=== PATIENT | male | born 1960 | race Caucasian/White ===

== ENCOUNTER 2023-06-03 02:00 | Emergency (ER) | payer OTHER, SELFPAY ==
--- NOTE | ~2023-06-03 | XR_ITS ---
EXAMINATION: XR LUMBOSACRAL SPINE CLINICAL INFORMATION: Pain COMPARISON: None available. TECHNIQUE: Three views of the lumbosacral spine. FINDINGS: There is mild curvature of the thoracolumbar spine to the left which may be positional. The lateral alignment is normal. There is mild diffuse lumbar disc degenerative change with mild loss of disc space, mild endplate change and mild osteophyte formation. There is mild L4-L5 and L5-S1 facet degenerative change. The vertebral body heights are maintained. There is significant atherosclerotic plaque of the abdominal aorta. XR/XR lumbar spine 2-3V IMPRESSION: Mild diffuse lumbar disc and lower lumbar facet degenerative change. No fracture. There is atherosclerotic plaque of the abdominal aorta.
[2023-06-03 02:05] VITALS: BP 164/84; PULSE 116; RESP 18; TEMP 36.6; O2SAT 96; BMI 43.4
--- NOTE | 2023-06-03 03:01 | ED.BACK ---
HPI - Back Pain/Injury General Chief Complaint: Back Pain/Injury Stated Complaint: Back pain Time Seen by Provider: 06/03/23 03:00 Source: patient Mode of arrival: ambulatory Limitations: no limitations History of Present Illness HPI Narrative: Patient chronic low back pain not taking any medication lately started having right lower back pain when he tried to get up from his bed noticed severe shooting pain in the right lower back shooting to the right lower extremity. History of similar pain few years ago no recent trauma or fall no urinary symptom no fever chills vomiting Related Data Previous Rx's Medication Instructions Recorded cyclobenzaprine 10 mg tablet 10 mg PO Q8H #20 tabs 06/03/23 oxycodone-acetaminophen 5 mg-325 1 tab PO Q6H PRN pain #20 tabs 06/03/23 mg tablet (Percocet) Allergies Allergy/AdvReac Type Severity Reaction Status Date / Time No Known Allergies Allergy Verified 06/03/23 02:05 Review of Systems Review of Systems: Yes all other systems are reviewed and are negative [facility] Past Medical History Medical History (Updated 06/03/23 @ 06:18 by Norman Wong MD) Atrial fibrillation Diabetes mellitus Social History Social History Alcohol intake: never Smoked in Last 30 Days: No Use of substances other than those prescribed or required for medical reasons: No Advance Directives: No Advance Directives Information Provided: Yes Physical Exam Vital Signs: Vital Signs: Last Vital Signs Temp 97.7 F 06/03/23 04:03 Pulse 109 H 06/03/23 04:03 Resp 16 06/03/23 04:03 BP 155/101 H 06/03/23 04:03 Pulse Ox 98 06/03/23 04:03 O2 Del Method Room Air 06/03/23 04:03 BMI result Body Mass Index 43.4 Appearance: Alert. Oriented X3. In moderate distress Eyes: PERRLA, No Nystagmus ENT: Pharynx normal. Oral Mucosa moist Neck: Normal inspection. Neck supple. CVS: Normal heart rate and rhythm. Pulses normal. Respiratory: No respiratory distress. Equal air entry bilateral, no wheezing/rales/rhonchi Abdomen: Soft and nontender. Bowel sounds are present, no mass palpable, no CVA tenderness back: Diffuse lumbar and paralumbar tenderness SLR positive 60 degrees right side Skin: Skin warm and dry. Normal skin color. Normal skin turgor. Extremities: No lower extremity edema. No calf tenderness Neuro: Oriented X 3. No motor deficit. No sensory deficit.No cerebellar signs , cranial nerves II-XII intact Medications Administered Discontinued Medications Generic Name Dose Route Start Last Admin Trade Name Freq PRN Reason Stop Dose Admin Cyclobenzaprine HCl 10 mg 06/03/23 03:31 06/03/23 03:51 Cyclobenzaprine Hcl 10 Mg Tablet PO 06/03/23 03:32 10 mg ONCE ONE Administration Hydromorphone HCl 2 mg 06/03/23 05:36 06/03/23 05:50 Hydromorphone Hcl 2 Mg Tablet PO 06/03/23 05:37 2 mg ONCE ONE Administration Oxycodone HCl 10 mg 06/03/23 03:31 06/03/23 03:51 Oxycodone Hcl Immed Release 5 Mg Tablet PO 06/03/23 03:32 10 mg ONCE ONE Administration Medical Decision Making Medical Decision Making [facility] Narrative: Patient with right sciatica improved after pain medication will discharge patient home Differential Diagnosis Differential Diagnoses: The differential diagnosis associated with the presentation includes Lumbar canal stenosis/compression fracture/Sciatica/muscular pain Prescription Management I considered prescription management with: Pain Medication Discharge Plan Discharge Clinical Impression: Strain of lumbar region, Sciatica Patient Disposition: Home, Self-Care Instructions: Sciatica (ED), Back Pain (ED) Additional Instructions: Rest at home Take pain medication and muscle relaxants as prescribed Follow-up with PCP if not better Prescriptions: New cyclobenzaprine 10 mg tablet 10 mg PO Q8H Qty: 20 0RF oxycodone-acetaminophen [Percocet] 5-325 mg tablet 1 tab PO Q6H PRN (Reason: pain) Qty: 20 0RF Rx Instructions: Partial Fill upon patient request. Interventions: ED Discharge Assessment Last Done: 06/03/23 06:27 Discharge Date/Time: 06/03/23 06:27
[2023-06-03] MEDS: Cyclobenzaprine HCl 10 MG TABLET PO (03:51)
[2023-06-03] MEDS: oxyCODONE HCl Immed Release 5 MG TABLET 10 MG PO (03:51)
[2023-06-03 04:03] VITALS: BP 155/101; PULSE 109; RESP 16; TEMP 36.5; O2SAT 98
[2023-06-03] MEDS: HYDROmorphone HCl 2 MG TABLET PO (05:50)
== END 2023-06-03 06:27 | disposition home or self-care (01) ==
PROVIDERS: Emergency Provider Internal Medicine; PCP Internal Medicine
DX: M54.41 Lumbago with sciatica, right side (principal)
CPT/HCPCS: 72100; 99283; 99284

== ENCOUNTER 2023-06-13 08:37 | Emergency (ER) | payer OTHER, SELFPAY ==
[2023-06-13 08:41] VITALS: BP 168/84; PULSE 76; RESP 16; TEMP 36.7; O2SAT 97; BMI 39.5
--- NOTE | 2023-06-13 09:25 | ED_ITS ---
HPI - General Adult General Chief complaint: General Medical Stated complaint: L Eye Swelling Dental Pain Time Seen by Provider: 06/13/23 09:07 Source: patient Mode of arrival: ambulatory Limitations: no limitations History of Present Illness HPI narrative: 63 year old male with history of dental infections presents to ER for evaluation of 1 day history of left sided tooth pain and left sided facial swelling. Rep orts his tooth has been broken for years and he was following with a dentist before COVID started, has since been lost to follow-up. Reports similar episodes before that have resolved on their own. Reports tooth pain began last night and this morning he woke up with left-sided facial and eyelid swelling. Reports pain control with Tylenol. Reports he also took 1 amoxicillin pill he was prescribed for a previous infection. Denies current tooth pain, acute change in vision, photophobia, pain with eye movement, pain or difficulty swallowing, headaches, fevers, chills. complaint: tooth pain, facial swelling Onset (ago): day(s) Location: face, mouth and eyes Radiation: non-radiation Quality: sharp Pain Consistency: intermittent and now resolved Relieving factors: eating and medication Associated symptoms: denies other symptoms Treatments prior to arrival: other (Tylenol, amoxicillin) Related Data Previous Rx's Medication Instructions Recorded cyclobenzaprine 10 mg tablet 10 mg PO Q8H #20 tabs 06/03/23 oxycodone-acetaminophen 5 mg-325 1 tab PO Q6H PRN pain #20 tabs 06/03/23 mg tablet (Percocet) amoxicillin 875 mg-potassium 1 tab PO BID #20 tabs 06/13/23 clavulanate 125 mg tablet oxycodone 5 mg tablet 5 mg PO Q8H PRN severe pain (scale 06/13/23 score 7-10) #5 tabs Allergies Allergy/AdvReac Type Severity Reaction Status Date / Time No Known Allergies Allergy Verified 06/13/23 08:41 Review of Systems Review of Systems: Yes all other systems are reviewed and are negative [facility] Past Medical History Medical History (Updated 06/13/23 @ 09:26 by GUILLERMINA De La Cruz) Atrial fibrillation Diabetes mellitus Social History Social History Alcohol intake: never Advance Directives: No Advance Directives Information Provided: Yes Physical Exam ED Vital Signs: Vital Signs - 24 hr 06/13/23 08:41 Temperature 98.1 F Pulse Rate 76 Respiratory Rate 16 Blood Pressure 168/84 H Pulse Oximetry 97 Oxygen Delivery Method Room Air BMI result Body Mass Index 39.5 Const General: cooperative, healthy appearing, comfortable and no acute distress Nutritional Appearance: overweight Orientation/consciousness: patient oriented x3 Limitations: no limitations HENMT Head: Yes normal to inspection Ears: hearing grossly normal bilaterally General nose exam: Normal external nose present Face and sinus: No face symmetric (Unilateral maxillary erythema, swelling) and Yes sinus tenderness (Unilateral maxillary sinus tenderness with palpation) Mouth: lip normal, tongue normal, Abnormal oral and palatal mucosa present, no trismus and No restricted motion Teeth and gingiva: caries, gingiva abnormal (Superior left-sided gingival erythema, edema. No fluctuance or abscess.) tender; without any purulent discharge, poor dentition and other (Broken tooth 11, missing teeth, discoloration and decay of teeth.) Throat: Yes posterior oropharynx normal Eyes Visual La: normal visual la by confrontation Periorbital: periorbital findings abnormal (Left-sided erythema and swelling.) Eyelids: Yes eyelid abnormality (Left eyelid erythema, edema.) Pupils: Pupils anisocoria (Long-standing aniscoria from injury as a child.) right pupil size greater than left EOM: EOMs intact bilaterally (No pain with EOM.) Direct Ophthalmoscopy: no photophobia Neck Neck: Yes normal visual inspection Neuro General: patient oriented x3 Medical Decision Making Medical Decision Making [facility]DM Narrative: 63 year old male with history of dental infections presents to ER for evaluation of 1 day history of left sided tooth pain and left sided facial swelling. PE reveals poor dentition, with broken left superior canine tooth, with surrounding gingival erythema and edema, no abscess or fluctuance. Left maxillary sinus and periorbital erythema and edema. EOM intact, no photophobia. CN II-XII intact. Plan: discharge with pain control, Augmentin, follow-up with dentist. Differential Diagnosis Differential Diagnoses: The differential diagnosis associated with the presentation includes Tooth infection, gingival hyperplasia, facial trauma, orbital cellulitis, periorbital cellulitis. External Record Review External record reviewed: Prior outpatient labs Prescription Management I considered prescription management with: Pain Medication and Antibiotic Oxycodone, Augmentin. Critical Care Time Critical Care Time Critical Care Time: No Discharge Plan Discharge Clinical Impression: Dental infection Patient Disposition: Home, Self-Care Instructions: Dental Abscess (ED) Additional Instructions: Take the prescribed antibiotics as directed, complete the entire course and do not miss any doses Continue tylenol around the clock for pain Take the prescribed narcotic pain medication as needed for severe pain only. Do not drive after taking this medication. Use cold compresses on the face as needed for pain and swelling You can try over the counter Orajel or clove oil to the area to help with pain You can also try taking a hot black tea bag to the area, this will help with inflammation Follow up with your dentist as soon as possible If you develop new or worsening symptoms call 911 or come back to the ER for further evaluation. Prescriptions: New amoxicillin-pot clavulanate 875-125 mg tablet 1 tab PO BID Qty: 20 0RF oxycodone 5 mg tablet 5 mg PO Q8H PRN (Reason: severe pain (scale score 7-10)) Qty: 5 0RF Rx Instructions: Partial Fill upon patient request. No Action cyclobenzaprine 10 mg tablet 10 mg PO Q8H Qty: 20 0RF oxycodone-acetaminophen [Percocet] 5-325 mg tablet 1 tab PO Q6H PRN (Reason: pain) Qty: 20 0RF Rx Instructions: Partial Fill upon patient request. Interventions: ED Discharge Assessment Last Done: 06/13/23 09:36 Discharge Date/Time: 06/13/23 09:38
== END 2023-06-13 09:38 | disposition home or self-care (01) ==
PROVIDERS: Emergency Provider Emergency Medicine Emergency Medical Services; PCP Internal Medicine
DX: K04.7 Periapical abscess without sinus (principal)
CPT/HCPCS: 99282; 99283

== ENCOUNTER 2023-06-20 18:47 | Emergency (ER) | payer OTHER, SELFPAY ==
--- NOTE | ~2023-06-20 | XR_ITS ---
EXAMINATION: XR CHEST CLINICAL INFORMATION: Dyspnea on exertion. COMPARISON: None available. TECHNIQUE: 2 views of the chest were obtained. FINDINGS: Normal appearance of the cardiomediastinal silhouette. No focal airspace opacity, pleural effusion or pneumothorax. No acute osseous findings. The visualized upper abdomen is within normal limits. XR/XR chest 2V IMPRESSION: No acute cardiopulmonary findings.
[2023-06-20 19:02] VITALS: BP 164/92; PULSE 80; RESP 18; TEMP 38.1; O2SAT 98; BMI 38.5
--- NOTE | 2023-06-20 19:03 | ED_ITS ---
HPI - General Adult General Chief complaint: Dyspnea Stated complaint: sob Time Seen by Provider: 06/20/23 21:51 Source: patient Mode of arrival: ambulatory Limitations: no limitations History of Present Illness HPI narrative: Patient comes to the emergency room complaining of 2 days of shortness of breath with exertion. Patient denies any coughing, no fever or chills, no URI or UTI symptoms. Patient known to have AFib and takes Eliquis, denies lower extremity edema or calf pain. No chest pain, no shortness of breath at rest, only with exertion. Related Data Previous Rx's Medication Instructions Recorded cyclobenzaprine 10 mg tablet 10 mg PO Q8H #20 tabs 06/03/23 oxycodone-acetaminophen 5 mg-325 1 tab PO Q6H PRN pain #20 tabs 06/03/23 mg tablet (Percocet) amoxicillin 875 mg-potassium 1 tab PO BID #20 tabs 06/13/23 clavulanate 125 mg tablet oxycodone 5 mg tablet 5 mg PO Q8H PRN severe pain (scale 06/13/23 score 7-10) #5 tabs Allergies Allergy/AdvReac Type Severity Reaction Status Date / Time No Known Allergies Allergy Verified 06/13/23 08:41 Review of Systems 2 Review of Systems: Constitutional : No Weight loss, No Fever, No Chills, No Night Sweats, No Fatigue, No Malaise ENT/Mouth : No Hearing loss, No Ear Pain, No Nasal Congestion, No Sinus Pain, No Hoarseness, No sore throat, No Rhinorrhea, No Swallowing Difficulty Eyes: No Eye Pain, No Swelling, No Redness, No Foreign Body, No Discharge, No Vision Changes Cardiovascular : No Chest Pain, complaining of dyspnea on exertion, no orthopnea, no edema or palpitations Respiratory : No Cough, No Sputum, No Wheezing, No Smoke Exposure, complaining of dyspnea on exertion Gastrointestinal : No Nausea, No Vomiting, No Diarrhea, No Constipation, No abdominal Pain, No Hematochezia, No Melena Genitourinary : no irregular bleeding, No Dysuria, No Urinary Frequency, No Hematuria, No Urinary Incontinence, No Urgency, No Flank Pain, No Urinary Flow Changes, No Hesitancy Musculoskeletal : No joint pain, No Myalgias, No Joint Swelling Skin : No Skin Lesions, No rash Neuro : No Weakness, No Numbness, No Paresthesias, No Loss of Consciousness, No Dizziness, No Headache Psych : No Anxiety/Panic, No Depression, No SI/HI/AH/VH, No Social Issues, Heme/Lymph: No Bruising, No Bleeding,No Lymphadenopathy Endocrine : No Polyuria, No Polydipsia, No Temperature Intolerance [facility] Past Medical History Medical History (Updated 06/20/23 @ 23:53 by Imelda Tavares MD) 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 Atrial fibrillation Diabetes mellitus Social History Social History Alcohol intake: never Smoked in Last 30 Days: No Use of substances other than those prescribed or required for medical reasons: No Advance Directives: No Advance Directives Information Provided: No Physical Exam ED Vital Signs: Vital Signs - 24 hr 06/20/23 19:02 06/20/23 22:25 06/20/23 23:10 Temperature 100.6 F H 97.9 F 97.6 F Pulse Rate 80 89 100 Respiratory Rate 18 20 17 Blood Pressure 164/92 H 132/86 130/75 Pulse Oximetry 98 97 98 Oxygen Delivery Method Room Air Room Air Room Air BMI result Body Mass Index 38.5 Const Other: Appearance: Alert. Oriented X3. No acute distress. Eyes: Pupils equal, round and reactive to light. ENT: Pharynx normal. Neck: Normal inspection. Neck supple. No lymph nodes noted. No crepitus CVS: Normal heart rate and rhythm. Pulses normal. Normal S1 and S2 Respiratory: No respiratory distress. Breath sounds normal. No Wheezing. No rales Abdomen: Soft and nontender. No rigidity. No distention. Skin: Skin warm and dry. Normal skin color. Normal skin turgor. Extremities: No lower extremity edema. No Lacerations. No Rash Neuro: Oriented X 3. No motor deficit. No sensory deficit. Moving all extremities. No slurred speech. CN 2 through 12 grossly intact Psych: calm, cooperative, normal affect Course Course Course Narrative: This is a rapid medical exam: Additional HPI, ROS, PE not included below will be deferred to primary provider. Patient is a 63-year-old male with history of T2DM, afib on ELiquis presenting to the emergency department with complain of increased dyspnea on exertion for one week. States he started Trulicity last week, has had nausea since. RN from [facility] called in expect, states patient found to be in afib today. PA wanted patient evaluated for his worsening LUZ. Reports swelling to legs at baseline, denies any recent worsening. Denies chest pain. Denies fevers. Plan: EKG, labs, CXR Medications Administered Discontinued Medications Generic Name Dose Route Start Last Admin Trade Name Kofi PRN Reason Stop Dose Admin Acetaminophen 975 mg 06/20/23 22:13 06/20/23 23:00 Acetaminophen 325 Mg Tablet PO 06/20/23 22:14 Not Given ONCE ONE Sodium Chloride 1,000 mls @ 999 mls/hr 06/20/23 21:59 06/20/23 23:38 Ns IVCONT 06/20/23 22:59 Infused .Q1H1M ONE Infusion Insulin Human Regular 10 unit 06/20/23 22:13 06/20/23 22:35 Insulin Regular, Human 100 Unit/Ml 3 Ml Vial IVPUSH 06/20/23 22:14 10 unit ONCE ONE Administration Medical Decision Making Medical Decision Making [facility] Narrative: My interpretation of labs: Normal white blood cell count, INR 1.1 chemistry shows a creatinine of 3.14, patient known to have chronic kidney disease, back in 2019 creatinine 1.65. Patient diabetic, glucose 442 -patient's troponin and BNP negative -my interpretation of EKG: Atrial flutter, heart rate 113, nonspecific ST changes in V6, QTC 469 -my interpretation of chest x-ray: No infiltrates -COVID and influenza test pending -ambulation trial: Oxygen saturation remained 97% and above -serology test negative for COVID and influenza -temperature was recheck, 97.6 without any medication. Patient does not have fever -giving IV fluids and insulin, blood sugar 304, ready for discharge. Differential Diagnosis Differential Diagnoses: The differential diagnosis associated with the presentation includes (URI, COVID, influenza, hyperglycemia) Admission/Observation Consideration of admission/observation: Escalation of care including admission/observation considered (On arrival, admission was considered given patient's history.) Lab Data [facility] Lab Attestation statement: I reviewed the patient's lab results. 06/20/23 20:00 06/20/23 20:00 Labs: Lab Results 06/20/23 06/20/23 06/20/23 Range/Units 20:00 22:16 22:20 WBC 8.9 (4.8-10.8) X10*3/uL RBC 5.29 (4.60-5.80) X10*6/uL Hgb 13.7 L (14.0-18.0) g/dl Hct 42.5 (42.0-52.0) % MCV 80.3 (80.0-98.0) fL MCH 25.9 L (27.0-33.0) pg MCHC 32.2 (31.0-36.0) g/dl RDW 16.0 (11.0-16.0) % Plt Count 256 (160-400) X10*3/uL MPV 11.5 (9.4-12.4) fL Immature Gran % (Auto) 0.6 H (0.0-0.4) % Neut % (Auto) 75.9 H (45-73) % Lymph % (Auto) 13.8 L (20-40) % Dupage % (Auto) 7.7 (2-11) % Eos % (Auto) 1.3 (0-4) % Baso % (Auto) 0.7 (0-2) % Lymph # (Auto) 1.2 (1.2-4.9) X10*3/uL Dupage # (Auto) 0.7 (0.1-1.2) X10*3/uL Eos # (Auto) 0.1 (0.0-0.4) X10*3/uL Baso # (Auto) 0.1 (0.0-0.2) X10*3/uL Abs Immat Gran (auto) 0.05 H (0.00-0.03) X10*3/uL Absolute Neuts (auto) 6.8 (2.0-8.3) x10*3/uL Absolute Nucleated RBC 0.000 (0.0-0.012) X10*3/uL Nucleated RBC % (auto) 0.0 (0.0-0.2) /100WBC PT 12.9 (11.1-13.3) SEC INR 1.1 (0.9-1.1) Sodium 134 L (135-145) mmol/L Potassium 4.5 (3.3-5.1) mmol/L Chloride 95 L (96-108) mmol/L Carbon Dioxide 24 (22-29) mmol/L Anion Gap 20 (12-20) BUN 46 H (9-16) mg/dL Creatinine 3.14 H (0.5-1.4) mg/dL Estim Creat Clear Calc 32.5 Estimated GFR 20 POC Glucose 389 H* (60-115) mg/dL Random Glucose 442 H* (60-115) mg/dL Calcium 10.1 (8.4-10.2) mg/dL Total Bilirubin 0.5 (0.0-1.0) mg/dL AST 14 (5-37) U/L ALT 10 (0-40) U/L Alkaline Phosphatase 100 (39-117) U/L Troponin I High Sens 8.3 (<3.5-35.0) ng/L B-Natriuretic Peptide 67 (<100) pg/mL Total Protein 7.4 (6.5-8.0) g/dL Albumin 4.1 (3.5-5.0) g/dL COVID-19 (MYCHAL) Negative (Negative) COVID-19 Clin Com See Note Influenza Type A (KYUNG) Negative (Negative) Influenza Type B (KYUNG) Negative (Negative) Influenza A & B Note See Note Independent Interpretation I performed an independent interpretation of an: Plain X-Ray Radiology Impression Discussion of test interpretation with radiology: I have reviewed the radiologist's reading. Radiologist Impression: FINDINGS: Normal appearance of the cardiomediastinal silhouette. No focal airspace opacity, pleural effusion or pneumothorax. No acute osseous findings. The visualized upper abdomen is within normal limits. XR/XR chest 2V IMPRESSION: No acute cardiopulmonary findings. Critical Care Time Critical Care Time Critical Care Time: Yes Total Critical Care Time: 60 Attestation: I have personally provided critical care time. Time includes review of lab data, radiology results, discussion with consultants, and monitoring for potential decompensation. Intervention performed as documented. Discharge Plan Discharge Clinical Impression: Acute hyperglycemia, Acute dyspnea, Chronic kidney disease Patient Disposition: Home, Self-Care Instructions: Diabetic Hyperglycemia (ED), Dyspnea (ED) Additional Instructions: Please follow-up with your primary care physician tomorrow. If you have any worsening or new symptoms, please return to the emergency room or call 911 Prescriptions: No Action amoxicillin-pot clavulanate 875-125 mg tablet 1 tab PO BID Qty: 20 0RF oxycodone 5 mg tablet 5 mg PO Q8H PRN (Reason: severe pain (scale score 7-10)) Qty: 5 0RF Rx Instructions: Partial Fill upon patient request. cyclobenzaprine 10 mg tablet 10 mg PO Q8H Qty: 20 0RF oxycodone-acetaminophen [Percocet] 5-325 mg tablet 1 tab PO Q6H PRN (Reason: pain) Qty: 20 0RF Rx Instructions: Partial Fill upon patient request.
--- NOTE | 2023-06-20 19:06 | ECG_ITS ---
Test Reason : sob Blood Pressure : / mmHG Vent. Rate : 113 BPM Atrial Rate : 339 BPM P-R Int : 000 ms QRS Dur : 090 ms QT Int : 342 ms P-R-T Axes : 000 -24 -09 degrees QTc Int : 469 ms Atrial flutter with variable A-V block Septal infarct , age undetermined ST & T wave abnormality, consider lateral ischemia Abnormal ECG No previous ECGs available Referred By: Irlanda Ledbetter Electronically Signed By:DAHLIA BALLESTEROS
[2023-06-20 20:05] LABS: MANUAL DIFF FLAG NO
[2023-06-20 20:08] LABS: Basophils Absolute Auto 0.1 X10*3/uL (0.0-0.2); Basophils Percent Auto 0.7 % (0-2); Eosinophils Absolute Auto 0.1 X10*3/uL (0.0-0.4); Eosinophils Percent Auto 1.3 % (0-4); Hematocrit 42.5 % (42.0-52.0); Hemoglobin 13.7 g/dl (14.0-18.0); Imm Gran Abs Auto 0.05 X10*3/uL (0.00-0.03); Imm Gran Pct Auto 0.6 % (0.0-0.4); Lymphocytes Absolute Auto 1.2 X10*3/uL (1.2-4.9); Lymphocytes Percent Auto 13.8 % (20-40); Mean Corpuscular HGB Conc 32.2 g/dl (31.0-36.0); Mean Corpuscular Hemoglobin 25.9 pg (27.0-33.0); Mean Corpuscular Volume 80.3 fL (80.0-98.0); Mean Platelet Volume 11.5 fL (9.4-12.4); Monocytes Absolute Auto 0.7 X10*3/uL (0.1-1.2); Monocytes Percent Auto 7.7 % (2-11); Neutrophils Absolute Auto 6.8 x10*3/uL (2.0-8.3); Neutrophils Percent Auto 75.9 % (45-73); Platelet Count 256 X10*3/uL (160-400); Red Blood Count 5.29 X10*6/uL (4.60-5.80); White Blood Count 8.9 X10*3/uL (4.8-10.8)
[2023-06-20 20:25] LABS: Alanine Aminotransferase 10 U/L (0-40); Albumin Level 4.1 g/dL (3.5-5.0); Alkaline Phosphatase 100 U/L (39-117); Anion Gap 20 (12-20); Aspartate Amino Transferase 14 U/L (5-37); Bilirubin Total 0.5 mg/dL (0.0-1.0); Blood Urea Nitrogen 46 mg/dL (9-16); Calcium 10.1 mg/dL (8.4-10.2); Carbon Dioxide 24 mmol/L (22-29); Chloride 95 mmol/L (96-108); Creatinine Clr Calc Pharmacy 32.5; Estimated Glomerular Filt Rate 20; Glucose Random 442 mg/dL (60-115); Potassium 4.5 mmol/L (3.3-5.1); Sodium 134 mmol/L (135-145); Total Protein 7.4 g/dL (6.5-8.0)
[2023-06-20 20:27] LABS: B Type Natriuretic Peptide 67 pg/mL (<100)
[2023-06-20 20:28] LABS: Troponin-I High Sensitivity 8.3 ng/L (<3.5-35.0)
[2023-06-20 20:30] LABS: INTERNATIONAL NORM RATIO 1.1 (0.9-1.1); Prothrombin Time 12.9 SEC (11.1-13.3)
[2023-06-20 22:20] LABS: Glucose, Whole Blood 389 mg/dL (60-115)
[2023-06-20 22:25] VITALS: BP 132/86; PULSE 89; RESP 20; TEMP 36.6; O2SAT 97
[2023-06-20] MEDS: Insulin Regular, Human 100 UNIT/ML 3 ML VIAL 10 UNIT IVPUSH (22:35)
[2023-06-20] MEDS: 0.9 % Sodium Chloride 1,000 ML 999 ML IVCONT (22:37)
[2023-06-20 22:58] LABS: IDNOW Serial# BCCEAD1C; Influenza A Negative (Negative); Influenza B2 Negative (Negative)
[2023-06-20 22:59] LABS: COVID-19 Test Negative (Negative); IDNOW Serial# 08D9AD1C
--- NOTE | 2023-06-20 23:00 | PC.NURSE ---
Addendum entered by Lorenza Tabor 06/20/23 23:25: Pt AOx4, pt speaking in full sentences, no respiratory distress noted, SpO2: 97-100% during ambulation trial. lung sounds clear. Original Note: Pt is afebrile, and denies pain, Tylenol not given.
[2023-06-20 23:10] VITALS: BP 130/75; PULSE 100; RESP 17; TEMP 36.4; O2SAT 98
[2023-06-21 00:14] LABS: Glucose, Whole Blood 304 mg/dL (60-115)
== END 2023-06-21 00:28 | disposition home or self-care (01) ==
PROVIDERS: Registered Nurse Emergency; Emergency Provider Emergency Medicine
DX: R06.02 Shortness of breath (principal); I48.92 Unspecified atrial flutter; I48.91 Unspecified atrial fibrillation; N18.9 Chronic kidney disease, unspecified; Z20.822 Contact with and (suspected) exposure to COVID-19; Z20.828 Contact with and (suspected) exposure to other viral communicable diseases; Z79.01 Long term (current) use of anticoagulants; Z79.899 Other long term (current) drug therapy
CPT/HCPCS: 36415; 71046; 80053; 82947; 83880; 84484; 85025; 85610; 87502; 87635; 93005; 96361; 96374; 99284; 99285

== ENCOUNTER 2023-12-24 02:55 | Emergency (ER) | payer OTHER, SELFPAY ==
[2023-12-24 02:56] VITALS: BP 148/73; PULSE 73; RESP 18; TEMP 36.8; O2SAT 99; BMI 36.6
--- NOTE | 2023-12-24 07:12 | ED_ITS ---
HPI - Dental/Oral General Chief complaint: Dental/Oral Stated complaint: tooth pain Time Seen by Provider: 12/24/23 07:07 Source: patient Mode of arrival: ambulatory Limitations: no limitations History of Present Illness HPI Narrative: 63 yo male with PMH of CKD, DM, HTN, on eliquis but he is not sure why here with L sided lower toothache for 2 days. No fevers, able to open mouth no jaw swelling. Does not have a dentist yet. MD Complaint: tooth pain Location: Tooth # (19) Onset (ago): day(s) (2) Duration: constant Severity: moderate Relieving factors: nothing Exacerbating factors: chewing Context: history of dental caries and poor dental care Associated symptoms: gum swelling Treatment prior to arrival: none Related Data Previous Rx's Medication Instructions Recorded cyclobenzaprine 10 mg tablet 10 mg PO Q8H #20 tabs 06/03/23 oxycodone-acetaminophen 5 mg-325 1 tab PO Q6H PRN pain #20 tabs 06/03/23 mg tablet (Percocet) amoxicillin 875 mg-potassium 1 tab PO BID #20 tabs 06/13/23 clavulanate 125 mg tablet oxycodone 5 mg tablet 5 mg PO Q8H PRN severe pain (scale 06/13/23 score 7-10) #5 tabs amoxicillin 500 mg tablet 500 mg PO BID #14 tabs 12/24/23 Allergies Allergy/AdvReac Type Severity Reaction Status Date / Time No Known Allergies Allergy Verified 12/24/23 02:59 Review of Systems Review of Systems: Constitutional : No Fever, No Chills ENT/Mouth : No swallowing difficulty, no change in voice, positive dental pain, positive jaw pain, no facial swelling Eyes: No Eye Pain, No Swelling Cardiovascular : No Chest Pain, No SOB Respiratory : No Cough, No Sputum Gastrointestinal : No Nausea, No Vomiting, No Diarrhea Genitourinary : No Dysuria Musculoskeletal : No Myalgias Skin : No rash Neuro : No Weakness, No Numbness, No Headache PMFSH Past Medical History Attestation statement: The following information was validated with the patient. Source: old records reviewed Medical History Hx of residential use of blood thinners Atrial fibrillation Diabetes mellitus Social History Social History (Updated 12/24/23 @ 07:19 by Belkis Aguilera DO) Alcohol intake: never Patient Tobacco Use Status: Never used Tobacco Physical Exam Vital Signs: Vital Signs: Last Vital Signs Temp 98.2 F 12/24/23 02:56 Pulse 73 12/24/23 02:56 Resp 18 12/24/23 02:56 BP 148/73 H 12/24/23 02:56 Pulse Ox 99 12/24/23 02:56 O2 Del Method Room Air 12/24/23 02:56 BMI result Body Mass Index 36.6 Appearance: Alert. Oriented X3. No acute distress. Eyes: Pupils equal, round and reactive to light. ENT: Pharynx normal. no trismus no sublingual or submandibular swelling ttp along L lower molar no abscess felt mild gum tttp Neck: Normal inspection. Neck supple. CVS: Normal heart rate and rhythm. Pulses normal. Respiratory: No respiratory distress. Breath sounds normal. Abdomen: Soft and nontender. Skin: Skin warm and dry. Normal skin color. Normal skin turgor. Extremities: No lower extremity edema. Neuro: Oriented X 3. No motor deficit. No sensory deficit. Medical Decision Making Medical Decision Making MDM Narrative: 63 yo male with PMH of CKD, DM, HTN, on eliquis but he is not sure why here with toothache at this time will need oral amoxicilin. He has no sublingual or submandibular swelling and no signs of deeper space infection. He is going to try ot call a dentist. Differential Diagnosis Differential Diagnoses: The differential diagnosis associated with the presentation includes toothace, abscess Admission/Observation Consideration of admission/observation: Escalation of care including admission/observation considered no trismus no acute deeper space infection External Record Review External record reviewed: Prior outpatient labs Prescription Management I considered prescription management with: Antibiotic Discharge Plan Discharge Clinical Impression: Toothache Patient Disposition: Home, Self-Care Instructions: Toothache (ED) Additional Instructions: return for worsening pain, facial swelling, fevers, inability to open jaw or any other concerns. please see a dentist as soon as possible Prescriptions: New amoxicillin 500 mg tablet 500 mg PO BID Qty: 14 0RF No Action amoxicillin-pot clavulanate 875-125 mg tablet 1 tab PO BID Qty: 20 0RF oxycodone 5 mg tablet 5 mg PO Q8H PRN (Reason: severe pain (scale score 7-10)) Qty: 5 0RF Rx Instructions: Partial Fill upon patient request. cyclobenzaprine 10 mg tablet 10 mg PO Q8H Qty: 20 0RF oxycodone-acetaminophen [Percocet] 5-325 mg tablet 1 tab PO Q6H PRN (Reason: pain) Qty: 20 0RF Rx Instructions: Partial Fill upon patient request.
--- NOTE | 2023-12-24 07:13 | PC.NURSE ---
seen by dr. jewell iinicola triage. pt aware of plan of care.
[2023-12-24 07:26] VITALS: BP 155/74; PULSE 54; RESP 16; TEMP 36.3; O2SAT 99
== END 2023-12-24 07:27 | disposition home or self-care (01) ==
PROVIDERS: Emergency Provider Emergency Medicine
DX: K08.89 Other specified disorders of teeth and supporting structures (principal); E11.22 Type 2 diabetes mellitus with diabetic chronic kidney disease; I12.9 Hypertensive chronic kidney disease with stage 1 through stage 4 chronic kidney disease, or unspecified chronic kidney disease; N18.9 Chronic kidney disease, unspecified; I48.91 Unspecified atrial fibrillation; Z79.01 Long term (current) use of anticoagulants
CPT/HCPCS: 99282; 99283

== ENCOUNTER 2024-09-22 12:51 | Emergency (ER) | payer MEDICARE, SELFPAY ==
--- NOTE | ~2024-09-22 | CT_ITS ---
EXAMINATION: CT HEAD WITHOUT CONTRAST CT CERVICAL SPINE WITHOUT CONTRAST CLINICAL INFORMATION: Fall 2 days on anticoagulation COMPARISON: None TECHNIQUE: A noncontrast CT of the head and a noncontrast CT of the cervical spine with sagittal and coronal reformats. This CT examination was performed using dose optimization techniques as appropriate, variously including the following: *Automated exposure control *Adjustment of mA and/or kV according to patient size (this includes techniques or standardized protocols for targeted exams where dose is matched to indication/reason for exam; i.e. extremities or head) *Use of iterative reconstruction technique DLP: 1164 mGy*cm FINDINGS: There is a large right subdural hematoma which appears acute. There is some layering hypodensity at the anterior dependent portion anteriorly which may represent a subacute component. This has mass effect, with approximately 10 mm of midline shift toward the left. There is hyperdense acute subdural hemorrhage along the left inferior falx and left tentorium. Probable very small component along the right tentorium as well. No acute territorial infarct. Preservation of khan-white matter differentiation. No fracture. The mastoid air cells and visualized paranasal sinuses are clear. Normal alignment of the cervical spine. No fracture. No prevertebral soft tissue swelling. Mild to moderate multilevel degenerative disc disease. Prominent degenerative change at the anterior atlantoaxial junction. CT/CT cervical spine wo IV con IMPRESSION: 1. Large acute right subdural hematoma with 10 mm of midline shift toward the left. 2. Acute subdural hemorrhage along the left inferior falx and left tentorium. Probable very small component along the right tentorium as well. 3. No cervical spine fracture or traumatic subluxation. This critical result was discussed with GUILLERMINA Lewis at 6:31 PM on 09/22/2024 and it was ascertained that the content and urgency of the report was understood at the time of direct communication. Electronically signed by: Rodri Casarez MD 09/22/2024 06:45 PM [facility]
--- NOTE | ~2024-09-22 | XR_ITS ---
EXAMINATION: XR HIP, LEFT CLINICAL INFORMATION: Fall fracture? COMPARISON: None available. TECHNIQUE: Two views of the left hip. AP pelvis. FINDINGS: Suboptimal view of the left femoral neck due to external rotation of the lower extremity. No obvious fracture or malalignment. XR/XR hip LT w [id number] IMPRESSION: Limited study due to external rotation. No obvious fracture or malalignment. Electronically signed by: Rodri Casarez MD 09/22/2024 04:39 PM [facility]
[2024-09-22 13:28] VITALS: BP 116/59; PULSE 86; RESP 16; TEMP 36.2; O2SAT 97; BMI 32.7
--- NOTE | 2024-09-22 13:34 | ED_ITS ---
HPI - General Adult General Chief complaint: Extremity Injury, Lower Stated complaint: L hip pain Time Seen by Provider: 09/22/24 14:26 Source: patient and RN notes reviewed Mode of arrival: ambulatory Limitations: no limitations History of Present Illness ED Provider: Denise Nguyen PA-C HPI narrative: This is a 64-year-old male, with a past medical history of CKD, diabetes, hypertension, AFib on Eliquis, who presents emergency department with complaints of left hip pain status post mechanical fall which occurred 2 days ago. Patient states that while he was in his driveway cleaning off his car from the snow, he accidentally slipped and fell on ice and landed onto his left hip, landing on the hard pavement. He states that it took about 10 to 20 minutes to get himself back up due to the pain in his left hip. He denies hitting his head. Denies LOC. He does endorse slight headaches however states that this has been constant since March. He denies any worsening headache, dizziness, blurred vision, chest pain, shortness of breath, abdominal pain, nausea, vomiting or diarrhea. Pain worsens in his left hip with ambulation and with palpation. He has been taking Tylenol for his symptoms which has provided him with minimal relief. Patient reports that he has a chronic right eye problem, states that he fell 3 stories as an infant, and has had problems with his right eye since, no changes to his vision. No other complaints or concerns at this time. MD complaint: Left hip pain Onset (ago): day(s) Location: lower extremity Radiation: non-radiation Pain Consistency: constant Relieving factors: none Exacerbating factors: none Associated symptoms: denies other symptoms Treatments prior to arrival: none Related Data Previous Rx's ?Medication ?Instructions ?Recorded cyclobenzaprine 10 mg tablet 10 mg PO Q8H #20 tabs 06/03/23 oxycodone-acetaminophen 5 mg-325 1 tab PO Q6H PRN pain #20 tabs 06/03/23 mg tablet (Percocet) amoxicillin 875 mg-potassium 1 tab PO BID #20 tabs 06/13/23 clavulanate 125 mg tablet oxycodone 5 mg tablet 5 mg PO Q8H PRN severe pain (scale 06/13/23 score 7-10) #5 tabs amoxicillin 500 mg tablet 500 mg PO BID #14 tabs 03/25/24 Allergies Allergy/AdvReac Type Severity Reaction Status Date / Time No Known Allergies Allergy Verified 09/22/24 13:31 Review of Systems 2 Review of Systems: Yes all other systems are reviewed and are negative Constitutional: Constitutional: Reports as per [facility] Past Medical History Medical History Hx of care home use of blood thinners Atrial fibrillation Diabetes mellitus Social History Social History (Updated 12/24/23 @ 07:19 by Belkis Aguilera DO) Alcohol intake: never Patient Tobacco Use Status: Never used Tobacco Smoked in Last 30 Days: No Advance Directives: No Advance Directives Information Provided: No Do you have a plan to hurt others: No Plan Physical Exam ED Vital Signs: Vital Signs - 24 hr 09/22/24 13:28 09/22/24 16:23 09/22/24 17:30 Temperature 97.1 F 97.8 F Pulse Rate 86 83 67 Respiratory Rate 16 16 18 Blood Pressure 116/59 L 119/78 108/65 Pulse Oximetry 97 99 98 Oxygen Delivery Method Room Air Room Air Room Air 09/22/24 17:39 09/22/24 18:35 09/22/24 19:08 Temperature 98.3 F 98.3 F 98.3 F Pulse Rate 65 66 66 Respiratory Rate 16 14 14 Blood Pressure 103/62 111/69 111/69 Pulse Oximetry 99 98 98 Oxygen Delivery Method Room Air Room Air Room Air BMI result Body Mass Index 32.7 Const General: cooperative, comfortable and no acute distress Orientation/consciousness: patient oriented x3 Limitations: no limitations [facility] Head: Yes normal to inspection, Yes normocephalic and Yes atraumatic Ears: hearing grossly normal bilaterally General nose exam: Normal external nose present Face and sinus: Yes normal facial exam Mouth: Normal oral and palatal mucosa present, oropharynx normal and moist mucous membranes Throat: Yes posterior oropharynx normal Eyes Other: Right eye, with patient reported chronic pupillary defect, nonreactive - dilated, he does report he is able to see out of this eye, no changes. General: appearance normal, both eyes and all related structures Eyelids: Yes eyelids normal Conjunctivae: conjunctivae normal Sclerae: sclerae normal EOM: EOMs intact bilaterally Neck Neck: Yes normal visual inspection, Yes full ROM and Yes no lymphadenopathy Lymphatic: no lymphadenopathy noted Chest Chest palpation & inspection: normal inspection of the chest Resp Effort & Inspection: normal respiratory effort and able to speak in complete sentences Auscultation: clear to auscultation bilaterally, no crackles, no rales, no rhonchi and no wheezes Cardio Rate: regular rate Rhythm: regular rhythm Heart sounds: S1 normal heart sound present and S2 normal heart sound present GI Inspection: Yes normal to inspection Skin General skin exam: no rashes or lesions noted Trauma: no lacerations or abrasions Wounds: no wounds Neuro Other: Right chronic pupillary defect. General: patient oriented x3 and moves all extremities Cranial nerves: Yes Nystagmus not present and Yes Midline tongue present Cognition (Neuro): normal cognition Gait exam (Neuro): Normal gait present Motor exam (neuro): 5/5 motor strength present throughout, Pronator motor function not present, no tremor noted and Motor fasciculations not present Coordination: xskihz-oy-xrbh test normal and uzic-ol-pzsy test normal Romberg Test: Negative Pupils: Normal pupillary reactivity/response: left and Dilated: right (Chronic per patient, decreased pupillary response) Extrem Other: TTP to left hip, no bony step off or defomity, no ecchymosis, no palpable masses. General: Yes normal to inspection Right upper extremity: normal to inspection Left upper extremity: normal to inspection Right lower extremity: normal to inspection Left lower extremity: normal to inspection Course Course Course Narrative: RME; 64 yold male presents to the ED for Left hip pain after falling unto left hip on ice on Sunday. Patient states bulge on left hip since fall. PCP referred patient to the ED. Patient will be evaluated in the ED. Xrays ordered Reevaluation(s) Reevaluation #1: CT scan concerning for subdural hemorrhage official report not posted, discussed this with Dr. Marcelino, who saw patient. Of note, patient does report that he has been taking aspirin for his headache since May. It is unclear whether not this mechanical fall without head strike was the source of this bleed or aspirin usage. Called over to [facility], spoke to Dr. Lomeli, who recommends [facility]. Discussed with Dr. Marcelino, agrees with plan. Transfer of care initiated for ED to ED transfer with trauma consult. Time: 16:58 Reevaluation #2: Received call from [facility], reporting acute subdural hemorrhage, with 1 cm midline shift, there is some layering, this can be subacute however positive CT report. Patient is in the process of being transferred to [facility], awaiting EMS transport Time: 18:33 Medications Administered Discontinued Medications Generic Name Dose Route Start Last Admin Trade Name Kofi PRN Reason Stop Dose Admin Prothrombin Complex Concent ( 80 mls @ 480 mls/hr 09/22/24 16:49 09/22/24 17:39 Human) 2,000 unit/ IV IV 09/22/24 16:58 Infused Miscellaneous Supplies .Q10M ONE Infusion Medical Decision Making Medical Decision Making MDM Narrative: This is a 64-year-old old male who presents emergency department with concerns for left hip pain status post mechanical fall. On arrival, vital signs within normal limits. He is neurologically intact. Patient has obvious pupillary right defect, which patient states is chronic for him however this is nonreactive, and he is on Eliquis. Given this, will obtain CT head to rule out any intracranial hemorrhage/hematoma. X-ray of the left hip was ordered, he has no palpable masses or deformity noted on physical examination. He is neurologically intact however does have a right pupillary defect. Given anticoagulated with fall, CT scan was ordered. He is neurologically intact. GCS of 15. Plan: CT head, neck, left hip x-ray Differential Diagnosis Differential Diagnoses: The differential diagnosis associated with the presentation includes Fracture, contusion, ICH, SDH, cervical spine fracture Lab Data 09/22/24 17:05 09/22/24 17:05 Labs: Lab Results 09/22/24 Range/Units 17:05 WBC 9.0 (4.8-10.8) X10*3/uL RBC 4.03 L D (4.60-5.80) X10*6/uL Hgb 10.7 L D (14.0-18.0) g/dl Hct 33.7 L D (42.0-52.0) % MCV 83.6 (80.0-98.0) fL MCH 26.6 L (27.0-33.0) pg MCHC 31.8 (31.0-36.0) g/dl RDW 18.0 H (11.0-16.0) % Plt Count 249 (160-400) X10*3/uL MPV 10.8 (9.4-12.4) fL Immature Gran % (Auto) 1.1 H (0.0-0.4) % Neut % (Auto) 79.7 H (45-73) % Lymph % (Auto) 10.6 L (20-40) % [place] % (Auto) 6.0 (2-11) % Eos % (Auto) 2.0 (0-4) % Baso % (Auto) 0.6 (0-2) % Lymph # (Auto) 1.0 L (1.2-4.9) X10*3/uL [place] # (Auto) 0.5 (0.1-1.2) X10*3/uL Eos # (Auto) 0.2 (0.0-0.4) X10*3/uL Baso # (Auto) 0.1 (0.0-0.2) X10*3/uL Abs Immat Gran (auto) 0.10 H (0.00-0.03) X10*3/uL Absolute Neuts (auto) 7.2 (2.0-8.3) x10*3/uL Absolute Nucleated RBC 0.000 (0.0-0.012) X10*3/uL Nucleated RBC % (auto) 0.0 (0.0-0.2) /100WBC PT 12.6 H (10.9-12.4) SEC INR 1.1 (0.9-1.1) APTT 29.3 (26.0-36.8) SEC Sodium 138 (135-145) mmol/L Potassium 5.8 H (3.3-5.1) mmol/L Chloride 109 H (96-108) mmol/L Carbon Dioxide 19 L (22-29) mmol/L Anion Gap 16 (12-20) BUN 87 H (9-16) mg/dL Creatinine 3.01 H (0.5-1.4) mg/dL Estim Creat Clear Calc 32.6 Estimated GFR 21 Random Glucose 332 H (60-115) mg/dL Calcium 9.0 D (8.4-10.2) mg/dL Total Bilirubin 0.2 (0.0-1.0) mg/dL AST 22 (5-37) U/L ALT 16 (0-40) U/L Alkaline Phosphatase 83 (39-117) U/L Total Protein 7.0 (6.5-8.0) g/dL Albumin 3.9 (3.5-5.0) g/dL Chronic Conditions Patient?s care impacted by: Other (AFib on Eliquis) Critical Care Time Critical Care Time Critical Care Time: Yes Total Critical Care Time: 50 Attestation: I have personally provided critical care time exclusive of time spent on separately billable procedures. Time includes review of lab data, radiology results, discussion with consultants, and monitoring for potential decompensation. Intervention performed as documented. Discharge Plan Discharge Clinical Impression: Subdural hemorrhage Patient Disposition: [facility] Transfer Details: ED to ED trauma consult, Dr. Lomeli Prescriptions: No Action amoxicillin-pot clavulanate 875-125 mg tablet 1 tab PO BID Qty: 20 0RF oxycodone 5 mg tablet 5 mg PO Q8H PRN (Reason: severe pain (scale score 7-10)) Qty: 5 0RF Rx Instructions: Partial Fill upon patient request. amoxicillin 500 mg tablet 500 mg PO BID Qty: 14 0RF cyclobenzaprine 10 mg tablet 10 mg PO Q8H Qty: 20 0RF oxycodone-acetaminophen [Percocet] 5-325 mg tablet 1 tab PO Q6H PRN (Reason: pain) Qty: 20 0RF Rx Instructions: Partial Fill upon patient request. Interventions: Acute Care Transfer Worksheet (ED) Last Done: 09/22/24 19:08 Discharge Date/Time: 09/22/24 19:09 Print Language: Georgian
[2024-09-22 16:23] VITALS: BP 119/78; PULSE 83; RESP 16; TEMP 36.6; O2SAT 99
[2024-09-22 17:08] LABS: MANUAL DIFF FLAG NO
[2024-09-22 17:19] LABS: INTERNATIONAL NORM RATIO 1.1 (0.9-1.1); Prothrombin Time 12.6 SEC (10.9-12.4)
[2024-09-22 17:21] LABS: Partial Thromboplastin Time 29.3 SEC (26.0-36.8)
[2024-09-22 17:24] LABS: Alanine Aminotransferase 16 U/L (0-40); Albumin Level 3.9 g/dL (3.5-5.0); Alkaline Phosphatase 83 U/L (39-117); Anion Gap 16 (12-20); Aspartate Amino Transferase 22 U/L (5-37); Bilirubin Total 0.2 mg/dL (0.0-1.0); Blood Urea Nitrogen 87 mg/dL (9-16); Carbon Dioxide 19 mmol/L (22-29); Chloride 109 mmol/L (96-108); Creatinine Clr Calc Pharmacy 32.6; Estimated Glomerular Filt Rate 21; Glucose Random 332 mg/dL (60-115); Potassium 5.8 mmol/L (3.3-5.1); Sodium 138 mmol/L (135-145)
[2024-09-22] MEDS: Hum Prothrombin Cplx(PCC)4Fact 2,000 UNIT in Container,Empty 0 ML 480 UNIT IV (17:29)
[2024-09-22 17:30] VITALS: BP 108/65; PULSE 67; RESP 18; O2SAT 98
--- NOTE | 2024-09-22 17:32 | PC.NURSE ---
patient a&ox3, iv inserted, labs drawn, pvc monitor applied pt a-flutter 60s-70s, pt denying pain/discomfort. pt previously had ct scan- pt being medicated per order at this time, pt is ? transfer to [facility]-pt aware.
[2024-09-22 17:36] LABS: Basophils Absolute Auto 0.1 X10*3/uL (0.0-0.2); Basophils Percent Auto 0.6 % (0-2); Eosinophils Absolute Auto 0.2 X10*3/uL (0.0-0.4); Hematocrit 33.7 % (42.0-52.0); Hemoglobin 10.7 g/dl (14.0-18.0); Imm Gran Pct Auto 1.1 % (0.0-0.4); Lymphocytes Percent Auto 10.6 % (20-40); Mean Corpuscular HGB Conc 31.8 g/dl (31.0-36.0); Mean Corpuscular Hemoglobin 26.6 pg (27.0-33.0); Mean Corpuscular Volume 83.6 fL (80.0-98.0); Mean Platelet Volume 10.8 fL (9.4-12.4); Monocytes Absolute Auto 0.5 X10*3/uL (0.1-1.2); Neutrophils Absolute Auto 7.2 x10*3/uL (2.0-8.3); Neutrophils Percent Auto 79.7 % (45-73); Platelet Count 249 X10*3/uL (160-400); Red Blood Count 4.03 X10*6/uL (4.60-5.80)
[2024-09-22 17:39] VITALS: BP 103/62; PULSE 65; RESP 16; TEMP 36.8; O2SAT 99
--- NOTE | 2024-09-22 18:33 | PC.NURSE ---
EMS to transfer pt to [facility] for further eval and tx
[2024-09-22 18:35] VITALS: BP 111/69; PULSE 66; RESP 14; TEMP 36.8; O2SAT 98
--- NOTE | 2024-09-22 18:53 | PC.NURSE ---
attempted to give nurse report to [facility]- was disconnected x2
[2024-09-22 19:08] VITALS: BP 111/69; PULSE 66; RESP 14; TEMP 36.8; O2SAT 98
== END 2024-09-22 19:09 | disposition short-term general hospital (02) ==
PROVIDERS: Physician Assistant Medical; Emergency Provider Emergency Medicine; PCP Internal Medicine
DX: S06.5X0A Traumatic subdural hemorrhage without loss of consciousness, initial encounter (principal); W00.0XXA Fall on same level due to ice and snow, initial encounter; M25.552 Pain in left hip; E11.22 Type 2 diabetes mellitus with diabetic chronic kidney disease; I12.9 Hypertensive chronic kidney disease with stage 1 through stage 4 chronic kidney disease, or unspecified chronic kidney disease; N18.9 Chronic kidney disease, unspecified; I48.91 Unspecified atrial fibrillation; Z79.01 Long term (current) use of anticoagulants; Z79.82 Long term (current) use of aspirin; Y93.89 Activity, other specified; Y92.014 Private driveway to single-family (private) house as the place of occurrence of the external cause; Y99.9 Unspecified external cause status
CPT/HCPCS: 36415; 70450; 72125; 73502; 80053; 85025; 85610; 85730; 96374; 99285; J7168

== ENCOUNTER 2024-11-12 11:39 | Emergency (ER) | payer MEDICARE, SELFPAY ==
--- NOTE | ~2024-11-12 | XR_ITS ---
EXAMINATION: XR FOREARM, RIGHT CLINICAL INFORMATION: fall , pain. COMPARISON: Hand and wrist x-ray performed concurrently. TECHNIQUE: AP and lateral views of the right forearm were obtained. FINDINGS: Comminuted, impacted, intra-articular, volar displaced distal radial fracture with no significant angulation. Otherwise, no additional fractures. No elbow joint effusion. Mild arthritis in the elbow joint with a small olecranon spur and mild spurring of the coronoid. Soft tissue swelling about the wrist. There are diffuse vascular calcifications. XR/XR forearm RT 2V IMPRESSION: Comminuted, impacted, intra-articular, volar displaced distal radial fracture with no significant angulation. No more proximal fracture. Elbow intact. Electronically signed by: Abraham Calvert MD 11/12/2024 12:39 PM [facility]
--- NOTE | ~2024-11-12 | XR_ITS ---
CLINICAL HISTORY: post reduction 2 view right wrist Comparison: CR/SR - XR FOREARM RT 2V - 11/12/24 12:33 EST Findings: Impacted comminuted intra-articular distal right radial fracture, mildly angulated and displaced. Impression: Impacted comminuted intra-articular distal right radial fracture. This document has been electronically signed by: Tr Castro MD on 11/12/2024 18:15:10
--- NOTE | ~2024-11-12 | XR_ITS ---
EXAMINATION: XR HAND, RIGHT CLINICAL INFORMATION: fall COMPARISON: None available. TECHNIQUE: PA, lateral, and oblique views of the right hand. FINDINGS: Lateral view is slightly suboptimal due to rotation. Comminuted, intra-articular fracture of the distal radial metaphysis, with approximately 13 mm of impaction, no significant angulation, and approximately 1.1 cm of volar displacement of distal fragments. No additional fractures evident. Carpal bones intact and normally aligned. Mild joint space loss and mild spurring second and third MCP joints. Mild arthritis in the distal interphalangeal joints. Mild to moderate arthritis in the first CMC joint and STT joints. There is soft tissue swelling about the wrist. There are vascular calcifications present. XR/XR hand RT min 3V IMPRESSION: Comminuted, impacted, intra-articular, volar displaced distal radial fracture with no significant angulation. Electronically signed by: Abraham Calvert MD 11/12/2024 12:38 PM [facility]
[2024-11-12 12:10] VITALS: BP 114/49; PULSE 52; RESP 20; TEMP 36.4; O2SAT 99; BMI 35.0
--- NOTE | 2024-11-12 16:17 | ED_ITS ---
HPI - General Adult General Chief complaint: Fall Stated complaint: ? Broken Ribs Fall 11/12/24 Time Seen by Provider: 11/12/24 16:17 History of Present Illness ED Provider: Ryland TAYLOR narrative: Patient is a 64-year-old male who slipped and fell injuring his right wrist. He denies any other injuries. he did not hit his head. He says he is not on any Anticoagulation. Related Data Previous Rx's ?Medication ?Instructions ?Recorded cyclobenzaprine 10 mg tablet 10 mg PO Q8H #20 tabs 06/03/23 oxycodone-acetaminophen 5 mg-325 1 tab PO Q6H PRN pain #20 tabs 06/03/23 mg tablet (Percocet) amoxicillin 875 mg-potassium 1 tab PO BID #20 tabs 06/13/23 clavulanate 125 mg tablet oxycodone 5 mg tablet 5 mg PO Q8H PRN severe pain (scale 06/13/23 score 7-10) #5 tabs amoxicillin 500 mg tablet 500 mg PO BID #14 tabs 12/24/23 morphine 15 mg immediate release 15 mg PO Q6H PRN pain #14 tabs 11/12/24 tablet Allergies Allergy/AdvReac Type Severity Reaction Status Date / Time No Known Allergies Allergy Verified 11/12/24 12:13 Review of Systems Review of Systems: Yes all other systems are reviewed and are negative COUNTS INCLUDE 234 BEDS AT THE [facility] Past Medical History Medical History Hx of fpc use of blood thinners Atrial fibrillation Diabetes mellitus Social History Social History (Updated 12/24/23 @ 07:19 by Belkis Aguilera DO) Alcohol intake: never Patient Tobacco Use Status: Never used Tobacco Advance Directives: No Advance Directives Information Provided: Yes Do you have a plan to hurt others: No Plan Physical Exam ED Vital Signs: Vital Signs - 24 hr 11/12/24 18:49 11/12/24 19:33 Temperature 97.6 F 97.6 F Pulse Rate 67 67 Respiratory Rate 20 20 Blood Pressure 122/72 122/72 Pulse Oximetry 98 98 Oxygen Delivery Method Room Air Room Air BMI result Body Mass Index 35.0 Const Other: The patient is sparks 64-year-old male who is awake and alert, pleasant cooperative. HENMT Other: No signs of trauma to the head or the face. Eyes General: appearance normal, both eyes and all related structures Neck Other: No C-spine tenderness, moving his neck easily, C-spine clinically clear Resp Effort & Inspection: normal respiratory effort Auscultation: clear to auscultation bilaterally Cardio Rate: regular rate Rhythm: regular rhythm Heart sounds: S1 normal heart sound present and S2 normal heart sound present Skin Other: the skin of the right wrist and hand is intact. Neuro Other: the patient is awake and alert with normal mental status. He has intact sensation in the fingers the right hand and can wiggle the fingers except as limited by pain Extrem Other: the patient has a fair amount of swelling and tenderness at the right wrist. The swelling obscures the nature of the deformity. Medications Administered Discontinued Medications Generic Name Dose Route Start Last Admin Trade Name Freq PRN Reason Stop Dose Admin Bupivacaine HCl 10 ml 11/12/24 16:32 11/12/24 19:05 Bupivacaine Mpf 0.25 % 10 Ml Vial INFILTRATI 11/12/24 16:33 10 ml ONCE ONE Administration Procedures Orthopedic Fracture Reduction Fracture #1: Side: right Fracture Reduction Location: radius Analgesia: hematoma block Technique: finger traps (Kerlex gauze used in lieu of finger traps to suspend the right index and middle finger with weights at the elbow) Post Reduction X-rays Demonstrate: other ( possible slight improvement in the fracture architecture. Adequate for outpatient follow-up.) Post-reduction neuro exam: intact Post-reduction vascular exam: intact Splint Applied: Yes Patient Tolerated Procedure: well and no complications Orthopedic Splinting/Casting Injury #1: Side: right Upper Extremity Injury Location: wrist Upper Extremity Immobilizer: sugar tong splint Additional Comments: Sugar-tong splint applied with cast padding, Ortho Glass, and Solo bandages. Patient tolerated application of the splint well and remained neurovascularly intact. he was given a sling. Medical Decision Making Medical Decision Making MDM Narrative: The patient is a 64-year-old male on no anticoagulation who slipped and fell and sustained an injury to his right wrist when he tried to break his fall. This seems to be an isolated injury. The hand is neurovascularly intact. An x- ray shows a comminuted, impacted, intra-articular, volar displaced distal radial fracture with no significant angulation. given the volar displacement and the impaction I hoped to reduce the deformity of the injury. Under sterile conditions I placed a hematoma block to the fracture site after evaluating the dorsum of the wrist by ultrasound and palpation to determine where I thought the fracture hematoma was. I then prepped the skin with Betadine and injected 10 mL of 0.25% bupivacaine under sterile conditions using a 21 gauge needle. I aspirated blood from the fracture hematoma and then injected the anesthetic. This provided adequate pain control to allow for the right arm to be hung at the index and middle fingers with weights at the elbow. After I felt this had provided some improved alignment of the fracture the patient was placed in a sugar-tong splint with cast padding, ortho glass, and Solo bandages. A postreduction x-ray was obtained which I thought showed possibly some slight improvement in the overall architecture the fracture. Images reviewed with the [facility] manager orthopedic coverage. Plan will be for outpatient follow-up in approximately 1 week. The patient was told that he might require surgery. He was given a sling. He was advised to keep the wrist elevated. He was provided with a prescription for morphine tablets as needed for pain. Discharge Plan Discharge Clinical Impression: Closed fracture of right distal radius Patient Disposition: Home, Self-Care Instructions: Wrist Fracture in Adults (ED) Additional Instructions: You have a fracture of the distal radius bone at the right wrist. You have been placed in a splint. Please use the sling to help keep the wrist elevated. Try to keep the wrist elevated to the level of your heart or higher. This will reduce swelling and pain. Please contact the orthopedic office in the morning. They will probably give you an appointment later this week or next week for re-evaluation and next recommendations. For pain control you may use acetaminophen (Tylenol). Take 2 extra-strength tablets (500 mg each) together up to 3 times per day. Additionally I have sent a prescription for morphine tablets to your pharmacy. Again keeping the wrist elevated we will reduce swelling and this will reduce pain. Return to the emergency room if any acute problems. Prescriptions: New morphine 15 mg tablet 15 mg PO Q6H PRN (Reason: pain) Qty: 14 0RF Rx Instructions: Partial Fill upon patient request. No Action amoxicillin-pot clavulanate 875-125 mg tablet 1 tab PO BID Qty: 20 0RF oxycodone 5 mg tablet 5 mg PO Q8H PRN (Reason: severe pain (scale score 7-10)) Qty: 5 0RF Rx Instructions: Partial Fill upon patient request. amoxicillin 500 mg tablet 500 mg PO BID Qty: 14 0RF cyclobenzaprine 10 mg tablet 10 mg PO Q8H Qty: 20 0RF oxycodone-acetaminophen [Percocet] 5-325 mg tablet 1 tab PO Q6H PRN (Reason: pain) Qty: 20 0RF Rx Instructions: Partial Fill upon patient request. Referrals: [facility] [place] [facility] [Provider Group] (Right wrist fracture) Interventions: ED Discharge Assessment Last Done: 11/12/24 19:33 Discharge Date/Time: 11/12/24 19:33 Print Language: Macedonian
--- OUTSIDE RECORDS SUMMARY | 2024-11-12 16:50 | XMS_ITS | Clinical Summary ---
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 Do not modify or discontinue any currently active code status orders. * No CPR/Do Not Intubate Date Activated Date Inactivated Comments 09/27/2024 3:29 PM 09/29/2024 12:06 PM This code status was ascertained in the following way: Code status discussion: discussion with patient To update the patient's code status, place a code status order. Do not modify or discontinue any currently active code status orders. Care Teams Engineering Consultant Relationship Specialty Start Date End Date Quinn Jarrett MD [address] [phone] PCP - General Internal Medicine 09/29/24
--- OUTSIDE RECORDS SUMMARY | 2024-11-12 16:50 | XMS_ITS | Continuity of Care Document ---
Author Organization [facility] ter Address [address] [place] [id number]- Care Team Providers Care Scheduling Analyst Name Role Phone Kolby GUIDRY, Quinn Davies Primary Care Physician [phone] Encounter [facility] Date(s): 10/08/24 - 10/13/[address] [address] Encounter Diagnosis Acute on chronic intracranial subdural hematoma(Final) - 10/08/24 Discharge Disposition: A-D/C Home Attending Physician: Chrystal Dennis MD Admitting Physician: Chrystal Dennis MD Referring Physician: Not on Staff, Referring MD Encounter Type: Disch IP Allergies, Adverse Reactions, Alerts No Known Allergies Immunizations Given and Recorded Vaccine Date Status Refusal Reason influenza virus vaccine, inactivated 08/20/24 Leonard rded influenza virus vaccine, inactivated 10/17/23 Leonard rded influenza virus vaccine, inactivated 07/12/21 Leonard rded influenza virus vaccine, inactivated 07/23/20 Leonard rded influenza virus vaccine, inactivated 07/10/19 Leonard rded influenza virus vaccine, inactivated 07/08/18 Leonard rded influenza virus vaccine, inactivated 07/04/17 Leonard rded influenza virus vaccine, inactivated 09/09/16 Leonard rded influenza virus vaccine, inactivated 06/11/15 Leonard rded influenza virus vaccine, inactivated 07/16/14 Leonard rded influenza virus vaccine, inactivated 07/01/13 Leonard rded influenza virus vaccine, inactivated 09/13/12 Leonard rded influenza virus vaccine, inactivated 06/12/12 Leonard rded influenza virus vaccine, inactivated 06/14/11 Leonard rded influenza virus vaccine, inactivated 06/07/10 Leonard rded SARS-CoV-2(COVID-19)mRNA-LNP vac(eed626) 08/20/24 Recorded tetanus-diphtheria toxoids (Td) 05/09/22 Recorded tetanus-diphtheria toxoids (Td) 12/12/05 Recorded SARS-CoV-2 (COVID-19) mRNA-1273 vaccine 01/14/21 R ecorded SARS-CoV-2 (COVID-19) mRNA-1273 vaccine 12/15/20 R ecorded tetanus/diphtheria/pertussis, acel(Tdap) 05/09/11 Recorded pneumococcal 23-valent vaccine 07/07/08 Recorded pneumococcal 23-valent vaccine 01/28/07 Recorded Medications allopurinol 300 mg oral tablet 300 mg, 1, tablet, By Mouth, Daily, Refills 0, Maintenance, 09/23/24 7:03:00 AM EST, Partial fill upon patient request if the prescription is for a schedule II opioid drug. Start Date: 09/23/24 Status: Ordered Repeat number: 1 atorvastatin 80 mg oral tablet 1 tablet = 80 mg, By Mouth, Daily Start Date: 09/23/24 Status: Ordered Repeat number: 1 DilTIAZem (Eqv-Cardizem CD) 360 mg/24 hours oral capsule, extended release 1 capsule = 360 mg, By Mouth, Daily Start Date: 09/23/24 Status: Ordered Repeat number: 1 diltiazem 180 mg/24 hours oral capsule, extended release 360 mg, CD Capsule, By Mouth, Hold for: HR less than 60, 10/13/24 9:00:00 AM EST Start Date: 10/13/24 Stop Date: 10/13/24 Status: Completed Repeat number: 1 furosemide 40 mg oral tablet 40 mg, 1, tablet, By Mouth, 2 times a day, Refills 0, Maintenance, 09/23/24 7:03:00 AM EST, Partialfill upon patient request if the prescription is for a schedule II opioid drug. Start Date: 09/23/24 Status: Ordered Repeat number: 1 Insulin Glargine Solostar Pen 100 units/mL subcutaneous solution = 24 units, Subcutaneous Infusion, Daily, # 15 mL, 0 Refills, Maintenance, 10/13/24 1:32:00 PM EST, [facility], Partial fill upon patient request if the prescription is for a schedule IIopioid drug., 183, cm, 10/13/24 5:14:00 EST, Height, 116, kg, 10/09/24 6:57:00 EST, Dry Weight Start Date: 10/13/24 Stop Date: 11/12/24 Status: Ordered Quantity: 15.0 Unit: mL Repeat number: 1 Insulin Lispro KwikPen 100 units/mL injectable solution See Instructions, Subcutaneous Injection 3 times a day before meals. 100 - 149 7 units 150 - 199 9 units 200 - 249 11 units 250 - 299 13 units 300 - 349 15 units 350 - 399 17 units follow-up with your PCP or endocrine specialist for further management, # 15 mL, 0 Refills, Maintenance, 10/13/24 1:35:00 PM EST, [facility], Partial fill upon patient request if the prescription is for a schedule II opioid drug., 183, cm, 10/13/24 5:14:00 EST, Height, 116, kg, 10/09/24 6:57:00 EST, Dry Weight Start Date: 10/13/24 Status: Ordered Quantity: 15.0 Unit: mL Repeat number: 1 lisinopril 40 mg oral tablet 1 tablet = 40 mg, By Mouth, Daily, 0 Refills, Maintenance, 09/23/24 7:03:00 AM EST, Partial fill upon patient request if the prescription is for a schedule II opioid drug. Start Date: 09/23/24 Status: Ordered Repeat number: 1 metolazone 5 mg oral tablet 5 mg, 1, tablet, By Mouth, 2 times a day, Refills 0, Maintenance, 09/23/24 7:03:00 AM EST, Partial fill upon patient request if the prescription is for a schedule II opioid drug. Start Date: 09/23/24 Status: Ordered Repeat number: 1 metoprolol 25 mg oral tablet 75 mg, Tablet, By Mouth, Hold for: HR less than 60, 10/13/24 9:00:00 AM EST Start Date: 10/13/24 Stop Date: 10/13/24 Status: Completed Repeat number: 1 Metoprolol Tartrate 75 mg oral tablet 1 tablet = 75 mg, By Mouth, 2 times a day Start Date: 09/23/24 Status: Ordered Repeat number: 1 oxyCODONE 5 mg oral tablet 5 mg, By Mouth, Every 6 hours, PRN, for 2 days, # 8 tablet, Refills 0, Tot. Refills 0, Acute 10/15/24 1:54:00 PM EST, Pain , Moderate, 10/13/24 1:54:00 PM EST, Route to Pharmacy Electronically, [facility], Partial fill upon patient request if the prescription is for a schedule II opioiddrug., 183, cm, 10/13/24 5:14:00 EST, Height, 116, kg, 10/09/24 6:57:00 EST, Dry Weight Start Date: 10/13/24 Stop Date: 10/15/24 Status: Ordered Quantity: 8.0 Unit: tablet Repeat number: 1 oxyCODONE 5 mg oral tablet 5 mg, Tablet, By Mouth, Every 6 hours, PRN for Pain , Moderate, Routine, 10/09/24 2:24:00 AM EST Start Date: 10/09/24 Stop Date: 10/14/24 Status: Discontinued Repeat number: 1 pantoprazole 40 mg oral delayed release tablet 1 tablet = 40 mg, By Mouth, Daily, 0 Refills, Maintenance, 09/23/24 7:03:00 AM EST Start Date: 09/23/24 Status: Ordered Repeat number: 1 Pen Avery, 31 G x 5 mm BD Ultra Fine III See Instructions, # 100 each, Refills 5, Tot. Refills 5, Maintenance, use as directed for Type 2 Diabetes Mellitus, 10/13/24 1:37:00 PM EST, Supply, 183, cm, 10/13/24 5:14:00 EST, Height, 116, kg, 10/09/24 6:57:00 EST, Dry Weight Start Date: 10/13/24 Stop Date: 04/11/25 Status: Ordered Quantity: 100.0 Unit: each Repeat number: 6 tranexamic acid 650 mg oral tablet = 650 mg, By Mouth, Daily, # 16 tablet, 0 Refills, Maintenance, 10/13/24 1:54:00 PM EST, Tablet, [facility], Partial fill upon patient request if the prescription is for a schedule II opioid drug., 183, cm, 10/13/24 5:14:00 EST, Height, 116, kg, 10/09/24 6:57:00 EST, Dry Weight Start Date: 10/13/24 Stop Date: 10/29/24 Status: Ordered Quantity: 16.0 Unit: tablet Repeat number: 1 Trulicity Pen 4.5 mg/0.5 mL subcutaneous solution = 4.5 mg, Subcutaneous Injection, Every week, INJECT 4.5MG SUBCUTANEOUSLY ONCE WEEKLY Start Date: 09/23/24 Status: Ordered Repeat number: 1 Tylenol 325 mg oral tablet 650 mg, By Mouth, Every 4 hours, PRN, Refills 0, Maintenance, Headache, 09/27/24 9:10:00 AM EST, Partial fill upon patient request if the prescription is for a schedule II opioid drug. Start Date: 09/27/24 Status: Ordered Repeat number: 1 Problem List Condition Confirmation Course Effective Dates Status Health St atus Informant Obese class I Confirmed Active Results Radiology Reports * Exam Date Time Procedure Performing Provider Status 10/10/24 4:[address] Head/Brain W/O Contrast Erika Hernandez; Roberto Carlos (Verified) Notes: (CT Head/Brain W/O Contrast) Reason For Exam: Post-op Study;Other: RESULT: CT Head/Brain W/O Contrast CT Head/Brain W/O Contrast INDICATION: Post-op Study; Clinical Question(s): Craniotomy for subdural hematoma TECHNIQUE: Noncontrast head CT using axial technique and reconstructed in axial and coronal planes.Iterative reconstruction techniques are used to optimize dose and image quality. CTDIvol Head: 46.50 mGy, DLP Head: 772 mGy*cm. COMPARISON: 10/08/2024 FINDINGS: Color Separation Photographer view findings, lines and tubes: Embolization material from bilateral middle meningeal artery embolization. BRAIN AND EXTRA-AXIAL SPACES: Decreased size of right subdural hematoma, predominantly overlying the frontal and parietal lobes. This now measures up to 1.3 cm in thickness, previously 2.1 cm. There is associated mass effect [id number]-[id number] midline shift, which is also decreased now measuring 7 mm, previously 14 mm. Small amount of gas in the subdural collection is compatible with interval surgery. No evidence of downward transtentorial herniation. No parenchymal hematoma. No evidence of acute ischemic infarct. Status post bilateral middle meningeal artery embolization. Ventricles, sulci, and basilar cisterns are normal. No white matter lesions. No subarachnoid hemorrhage. No subdural or epidural collection. CALVARIUM, SKULL BASE, AND SOFT TISSUES: Status post right frontal craniotomy. The paranasal sinuses and mastoid air cells are clear. Visualized orbits and globes are intact. Postoperative right scalp edema. IMPRESSION: Postoperative changes from craniotomy for right subdural hematoma drainage, with decreased size of the subdural hematoma and decreased midline shift. WSN: [id number] Ordering Physician: Nemo Gibson Dictated By: Pablo Morales MD Dictated Date/Time: 10/10/24 7:50 am Reviewed By: Pablo Morales MD Signed By: Pablo Morales MD Signed Date/Time: 10/10/24 7:50 am Transcribed By: GLADIS Transcribed Date/Time: 10/10/24 7:44 am * Exam Date Time Procedure Performing Provider Status 10/08/24 8:[address] Head/Brain W/O Contrast Juve Linton; Roberto Carlos (Verified) Notes: (CT Head/Brain W/O Contrast) Reason For Exam: Trauma RESULT: CT Head/Brain W/O Contrast CT Head/Brain W/O Contrast INDICATION: Hx of Present Illness: from [facility] re[facility]- previously had fall, seen here. had SDH. reports worsening [place], repeat CT done today with midline shift and worsening SDH. A + O x4. GCS 15. last given 16 units insulin @ 1640; Reason: Trauma; Clinical Question(s): Hematoma; known SDH, ?worsening midline shift; Order Comment: TECHNIQUE: Noncontrast head CT using axial technique and reconstructed in axial and coronal planes.Iterative reconstruction techniques are used to optimize dose and image quality. CTDIvol Head: 48.10 mGy, DLP Head: 773 mGy*cm. COMPARISON: 09/22/2024. FINDINGS: Color Separation Photographer view findings, lines and tubes: None. BRAIN AND EXTRA-AXIAL SPACES: Redemonstrated is a subdural hematoma involving the right hemisphere. The subdural hematoma demonstrates progressive decrease in attenuation, consistent with the expected evolution of the hematoma. No internal hyperdensity is identified to suggest active hemorrhage. However, the size of the hematoma does appear to have increased since the prior examination currently measuring up to 2.1 cm in thickness as measured in the coronal plane as compared to 1.5 cm. In addition, right to left midline shift also appears to have increased in the interval, currently measuring 1.4 cm as measured in the axial plane, which is compared to 1.1 cm on the prior examination. A small amount of hematoma layering to the left of the interhemispheric falx and tentorium has become progressively hypodense, but is otherwise unchanged in size. No new acute cranial hemorrhage identified. Continued effacement of the sulci of the right hemisphere. No white matter lesions. CALVARIUM, SKULL BASE, AND SOFT TISSUES: No fractures or suspicious bony lesions. The paranasal sinuses and mastoid air cells are clear. Status post right lens extraction. The extracranial soft tissues are unremarkable. IMPRESSION: Redemonstration of a right subdural hematoma with [id number]-[id number] midline shift. While the hematoma has become progressively hypodense and there is no evidence of new intracranial hemorrhage, there hasbeen interval increase in the size of the subdural hematoma and right left midline shift as documented above. WSN: [id number] Ordering Physician: Lupe Yeboah Dictated By: Catarino Wetzel MD Dictated Date/Time: 10/08/24 8:50 pm Reviewed By: Catarino Wetzel MD Signed By: Catarino Wetzel MD Signed Date/Time: 10/08/24 8:50 pm Transcribed By: GLADIS Transcribed Date/Time: 10/08/24 8:33 pm Vital Signs Most recent to oldest [Reference Range]: 1 2 3 4 Height 183 cm (10/13/24 5:14 AM) 183 cm (10/13/24 2:18 AM) 183 cm (10/12/24 8:00 PM) Weight 116 kg (10/09/24 6:31 AM) Oxygen Saturation [94-100 %] 98 % (10/13/24 3:00 PM) 97 % (10/13/24 11:00 AM) 98 % (10/13/24 7:00 AM) Pulse Rate [55-90 bpm] 92 bpm *H* (10/13/24 3:00 PM) 56 bpm (10/13/24 11:00 AM) 57 bpm (10/13/24 8:49 AM) 57 bpm (10/13/24 8:49 AM) Body Mass Index [18.5-24.99 kg/m2] 34.64 kg/m2 *>HHI* (10/09/24 6:31 AM) Blood Pressure [90-138/55-84 mm Hg] 138/88mm Hg (10/13/24 3:00 PM) 142/68mm Hg *H* (10/13/24 11:00 AM) 133/87mm Hg (10/13/24 8:49 AM) 133/87mm Hg (10/13/24 8:49 AM) Respiratory Rate [16-30 br/min] 18 br/min (10/13/24 3:00 PM) 20 br/min (10/13/24 1:39 PM) 18 br/min (10/13/24 11:00 AM) Temperature [96.8-100.4 DegF] 97.7 DegF (10/13/24 3:00 PM) 96.8 DegF (10/13/24 11:00 AM) 97.3 DegF (10/13/24 7:00 AM) Liters per Minute 6 L/min (10/09/24 8:30 AM) Mode of Delivery (Oxygen) Room air (10/13/24 3:00 PM) Room air (10/13/24 11:00 AM) Room air (10/13/24 7:00 AM) Blood pressure sites Arm, right (10/13/24 3:00 PM) Arm, left (10/13/24 11:00 AM) Arm, left (10/13/24 7:00 AM) Temperature Route Temporal (10/13/24 3:00 PM) Temporal (10/13/24 11:00 AM) Temporal (10/13/24 7:00 AM) Dry Weight 116 kg (10/09/24 6:31 AM) Weight Obtained Via Patient/family stated (10/09/24 6:31 AM) Dry Weight Obtained Via Patient/family stated (10/09/24 6:31 AM) History and physical note * Ariella Luong: PERFORM Arthur SARMIENTO, Nemo Wang: MODIFY Event Display: History and Physical Hospital Authored Date: Patient: ??CATARINO GONZALES ? Age:??64 Years?Sex:??Male?:??1960?? Chief Complaint/Reason [facility]- previously had fall, seen here. had SDH. reports worsening [place], repeat CT done today with midline shift and worsening SDH. A + O x4. GCS 15. last given 16 units insulin @ 1640. History of Present Illness Catarino is a 64-year-old male with history of A-fib previously on Eliquis, hypertension, diabetes, previous right sided craniotomy in childhood who presented on Thursday 09/20 after a slip and fall onice.?? He was found to have acute on chronic right sided holohemispheric subdural hematoma with 1 cm midline shift.?? He was found to be neurologically intact and therefore neurosurgical interventionwas deferred.?? He underwent MMA embolization with Dr. Quinones on 09/23/2022. ?? Catarino returns to the hospital today after having a headache at his rehab facility.?? He reportsthat he started with a headache last night at 11 PM that lasted until this morning 8 AM despite multiple doses of Tylenol.?? He states that after having breakfast and a cup of coffee this morning theheadache went away.?? He also reported that his physical therapist said that he was dragging his left foot this morning.?? The rehab obtained an outpatient CT performed at [facility] seeing the subdural hematoma and transferred him to [facility] for further evaluation.?? He has had episodes where he was having black spots on the nasal side of his vision of his left eye however these have resolved.?? Currently, Catarino denies headache, lightheadedness, dizziness, changes in vision, changes in speech. Review of Systems General: denies fever, chills, fatigue Cardiac: denies chest pain?? Pulmonary: denies SOB?? GI: Denies bowel incontinence : denies bladder retention, incontinence?? Musculoskeletal: denies myalgias Neurologic: As stated in HPI Physical Exam Vitals & Measurements T:??98.7?F?? HR:??58??(Peripheral)?? RR:??18?? BP:??104/70?? SpO2:??96%? General: appears stated age, awake, alert, and NAD HEENT: NC/AT, trachea midline Respiratory: Normal I:E Extremities: symmetric, no edema, no calf tenderness Skin: Warm, dry Neurologic: Mental status ?Awake, alert oriented to location, date and self ?Speech clear, fluent appropriate ?Follows simple and complex commands CN ?EOMI, PERRL, no nystagmus ?No focal weakness ?Sensation intact ?Tongue midline ?Should shrug 5/5 Motor ?Normal bulk and tone ?Upper Extremities ?Deltoid: ?5/5 R?5/5 L ?Triceps:?5/5 R?4+/5 L ?Biceps: ?5/5 R ?5/5 L ?Wrist Ext:?5/5 R?4/5 L ?Hand shellfish shucker: ?5/5 R?5/5 L ?Fine Motor: ?5/5 R ?5/5 L ?Lower Extremities ?Hip Flexion: ?5/5 R ?5/5 L ?Knee Extension: ??5/5 R ?5/5 L ?Plantar Flexion: ?? 5/5 R ?5/5 L ?Dorsiflexion: ?5/5 R ?5/5 L ?EHL:?5/5 R ?5/5 L Sensation Intact to light touch throughout upper and lower extremities Coordination no pronator drift Assessment/Plan Assessment:??Catarino is a 64-year-old male with history of A-fib previously on Eliquis, hypertension, diabetes, previous right sided craniotomy in childhood who presented on Thursday 09/20 after a slip and fall on ice.??He was found to have acute on chronic right sided holohemispheric subdural hematoma with 1 cm midline shift and brain compression.??He underwent MMA embolization with Dr. Quinones on 09/23/2022. ?? He returns for reevaluation. On exam he had 4+/5 on L triceps and 4/5 on L wrist extension otherwise neuro intact,??no pronator drift.??CT head demonstrating??chronic subdural hematoma??causing compression on the right hemisphere and increase in midline shift to 1.4 with brain compression.??I discussed with Catarino that due to the??subdural increasing in size despite the MMA embolization,??he will??go for a bur hole for evacuation of subdural tomorrow with Dr. Dennis. ? Subdural hematoma, chronic (I62.03):? Every 2 hour neurochecks Head of bed greater than 30 BP 110-140 N.p.o. after??midnight Preop labs ordered and pending Preop orders in Dr. Dennis??will obtain consent in preop Stat CT head for decline in GCS of 2 or greater ?? Diabetes mellitus (E11.9):? A1C last admission of 10.1 Hemoglobin A1C pending Sliding scale and POCs ordered BIDS consult placed to help with management ?? Elevated serum creatinine (R79.89):? Creatinine elevated previous admission Will consult medicine??tonight??for clearance prior to OR ?? Case and images D/W Dr. Dennis Total Time Spent I personally spent a total of??45 minutes, including both nbil-xs-iroy and wjx-bncl-gi-face time onthe date of the encounter, addressing the above diagnoses. Problem List/Past Medical History Ongoing Obese class I Procedure/Surgical History No qualifying data available. Home Medications Acetaminophen: 650 mg, By Mouth, Every 4 hours, PRN (Headache) Allopurinol: 300 mg = 1 tablet, By Mouth, Daily Atorvastatin: 80 mg = 1 tablet, By Mouth, Daily Diltiazem: 360 mg = 1 capsule, By Mouth, Daily dulaglutide: 4.5 mg, Subcutaneous Injection, Every week, INJECT 4.5MG SUBCUTANEOUSLY ONCE WEEKLY Furosemide: 40 mg = 1 tablet, By Mouth, 2 times a day GlipiZIDE: 10 mg = 1 tablet, By Mouth, 2 times a day Insulin Glargine: 54 units = 0.54 mL, Subcutaneous Injection, Daily before lunch Insulin Lispro: 10-25 units, Subcutaneous Injection, 3 times a day before meals, << Sliding Scale Comments >>100 - 149 ?? 10 units Call if less than [id number] - [id number] ?? 13 units 200 - 249 ?? 16 units 250 - 299 ?? 19 units 300 - 349 ?? 22 units 350 - 399 ?? 25 units Call if greater than 400<< Sliding Scale Comments >> Lisinopril: 40 mg = 1 tablet, By Mouth, Daily Metolazone: 5 mg = 1 tablet, By Mouth, 2 times a day Metoprolol: 75 mg = 1 tablet, By Mouth, 2 times a day Pantoprazole: 40 mg = 1 tablet, By Mouth, Daily Tranexamic Acid: 650 mg, By Mouth, Daily Allergies [facility] personally reviewed. Radiology impression provided below:? RESULT: CT Head/Brain W/O Contrast ?? IMPRESSION: ?? Redemonstration of a right subdural hematoma with dylic-kc-mmqk midline shift. While the hematoma has become progressively hypodense and there is no evidence of new intracranial hemorrhage, there hasbeen interval increase in the size of the subdural hematoma and right left midline shift as documented above. ?? Cardiology * Event Display: Cardiac Rhythm Strips Authored Date: * Event Display: Cardiac Rhythm Strips Authored Date: * Event Display: Cardiac Rhythm Strips Authored Date: Hospital Progress note * Randell [employer], Willian H: PERFORM Event Display: Progress Note Hospital Authored Date: Patient: ??CATARINO GONZALES ? Age:??64 Years?Sex:??Male?:??1960?? Subjective Home??regimen: Unclear. Patient??has given different answers to different providers.?? - Lantus 50 to 85 units daily?? - Lispro scale?? - Glipizide 10 mg BID - Trulicity 4.5 mg weekly?? - A1C: 9.2% -??Followed??by: PCP ?? Current inpatient regimen: - Lantus 20??units daily - Lispro scale 5:100 + 2:50, three times daily before meals? Glucose trends (last 24 hours): Glucose range: 199-221 mg/dl Fasting glucose: 221 mg/dl? Orders and Labs Diet: 60g GFR: ??42 Objective Vitals & Measurements T:??96.8?F?? TMIN:??96.8?F?? TMAX:??98.2?F?? HR:??56??(Peripheral)?? RR:??18?? BP:??142/68?? SpO2:??97%?? Assessment/Plan Assessment:??64-year-old male with past medical history of type 2 diabetes, history of acute on chronic subdural hematoma??after a fall while shoveling??and was discharged from [facility] September 27.??He was readmitted October 08??due to headache at his rehab facility at [facility].??He was found to have hematoma with midline shift.??Bids consulted for assistance in glycemic management.??A1c 9.2%.??Managed by PCP outpatient ?? Diabetes mellitus (E11.9):?? Glucose trends??over the last 24 hours are above goal. Will increase the??Lispro and Lantus??dose to respond to glucose trends. ?? Plan: - Lantus 24 units daily - Lispro scale 7:100 + 2:50, three times daily before meals? Discharge planning:?? Discharge on final inpatient regimen??and??restart Trulicity 4.5 mg weekly.?? Do not restart Glipizide.?? Follow up with PCP.? Medications Inpatient allopurinol 300 mg oral tablet, 300 mg, By Mouth, Daily atorvastatin 20 mg oral tablet, 20 mg, By Mouth, Daily at bedtime Bisacodyl Supp, 10 mg= 1 supp, Rectally, Daily, PRN ceFAZolin Inj, 2 Gm, IV Push, Once Colace Capsule, 100 mg= 1 capsule, By Mouth, 2 times a day diltiazem 180 mg/24 hours oral capsule, extended release, 360 mg, By Mouth, Daily Insulin LISPRO Sliding Scale, 7-17 units, Subcutaneous Injection, 3 times a day before meals Lantus Inj, 24 units= 0.24 mL, Subcutaneous Injection, Daily in AM metoprolol 25 mg oral tablet, 75 mg, By Mouth, 2 times a day Milk of Magnesia Liquid, 30 mL, By Mouth, Daily, PRN MiraLax Powder, 17 Gm= 1 pack/packet, By Mouth, Daily, PRN Ondansetron Inj, 4 mg, IV Push, Every 6 hours, PRN oxyCODONE 5 mg oral tablet, 5 mg, By Mouth, Every 6 hours, PRN pantoprazole 40 mg oral delayed release tablet, 40 mg, By Mouth, Daily Tranexamic Acid Tablet, 650 mg, By Mouth, Daily Tylenol Tablet, 650 mg, By Mouth, Every 4 hours, PRN Home allopurinol 300 mg oral tablet, 300 mg= 1 tablet, By Mouth, Daily atorvastatin 80 mg oral tablet, 80 mg= 1 tablet, By Mouth, Daily DilTIAZem (Eqv-Cardizem CD) 360 mg/24 hours oral capsule, extended release, 360 mg= 1 capsule, By Mouth, Daily furosemide 40 mg oral tablet, 40 mg= 1 tablet, By Mouth, 2 times a day glipiZIDE 10 mg oral tablet, 10 mg= 1 tablet, By Mouth, 2 times a day insulin lispro 100 u/ml subcutaneous injection, 10-25 units, Subcutaneous Injection, 3 times a day before meals Lantus Inj, 54 units= 0.54 mL, Subcutaneous Injection, Daily before lunch lisinopril 40 mg oral tablet, 40 mg= 1 tablet, By Mouth, Daily metolazone 5 mg oral tablet, 5 mg= 1 tablet, By Mouth, 2 times a day Metoprolol Tartrate 75 mg oral tablet, 75 mg= 1 tablet, By Mouth, 2 times a day pantoprazole 40 mg oral delayed release tablet, 40 mg= 1 tablet, By Mouth, Daily tranexamic acid 650 mg oral tablet, 650 mg, By Mouth, Daily Trulicity Pen 4.5 mg/0.5 mL subcutaneous solution, 4.5 mg, Subcutaneous Injection, Every week Tylenol 325 mg oral tablet, 650 mg, By Mouth, Every 4 hours, PRN * Lacho MARSHALL, Matilda Philippe: SIGN, MODIFY, PERFORM, SIGN, VERIFY Event Display: Progress Note Hospital Authored Date: [id number] Patient: CATARINO GONZALES Age: 64 years Sex: Male : 1960 Associated Diagnoses: None Author: Lacho MARSHALL, Matilda Philippe Findings Problem Related to Alteration in Neurological : Alteration in Neurological Function/new 10/13/2024 9:00 EST Alteration in Neuro status Related to Neurology Procedure, Traumatic brain injury Goals & Outcomes, Neurological Pt is safe with transfers & activities, Pt will be Neurologically stable, Pt/caregiver will state strategies to reduce risk factors, Pt/caregiver will state understanding of disease process Interventions, Neurological Assess/monitor VS per unit standards & prn, Call/Report variances in assessments to provider, Collaborate w/ provider to implement appropriate guidelines, Collaborate with Nutrition Goals/Interventions, Neurological Yes Neurological, Problem Start 10/09/2024 17:10 Reviewed plan with, Neurological Patient Patient Progression, Neurological Pt progressing according to plan . Nursing Data Neurological Data. : Neurological Data. 10/13/2024 9:00 EST Tongue Disposition Midline Level of Consciousness Full Consciousness Orientated to person, place, time Person, Place, Time, Event Facial Symmetry Intact Characteristics of Speech Clear and normal Swallowing Difficulty None Pupil description, left Round Pupil description, right Round Pupil reaction, left Brisk Pupil reaction, right Brisk Pupil Size, Left 5 mm Pupil Size, Right 3 mm Strength LUE 5-Active movement against gravity & full resistance Strength RUE 5-Active movement against gravity & full resistance Strength LLE 5-Active movement against gravity & full resistance Strength RLE 5-Active movement against gravity & full resistance Tone LUE Normal Tone RUE Normal Tone LLE Normal Tone RLE Normal Sensation LUE Intact Sensation RUE Intact Sensation LLE Intact Sensation RLE Intact Movement LUE Spontaneous, To command Movement RUE Spontaneous, To command Movement LLE Spontaneous, To command Movement RLE Spontaneous, To command Gait No disturbance, Steady Response Eye Opening Spontaneously Motor Response-Adult Obeys commands Verbal Response-Adult Oriented and converses Graettinger Coma Score 15 Neuro WNL except Eyes and Movements Conjugate gaze: Move in same direction at same speed Swallow - Neuro Normal . Narrative/Incidental Patient alert and oriented x4. Neuro WNL except for unequal pupils. Cardiac WNL, not on tele. Lungsclear on room air, no signs of respiratory distress. Pt continent of bowel and bladder. Positive bowel sounds in all quadrants. LBM 10/12. IV in R forearm, flushes well, dressing CDI, no redness, painor drainage at site. Surgical incision on head has no drainage, crust or redness. Scratches on legsseen by wound care. Pt does not endorse pain. See CIS for complete biophysical. Bed alarmed, lockedand in lowest position. Patient instructed to used call billy and not to ambulate without assistance. Patient frequently rounded on to ensure needs were met. Room kept clean and organized. Plan of care progressing. Discharge Information Rehabilitation Discharge : Rehab Discharge Index 10/11/2024 12:55 EST Comments on treatment indicated 64 M c recent hospitalization s/p fall on ice presents back from rehab facility c worsening headaches. CT scan of head showing right subdural hematoma with increasing [id number] midline shift. Now s.p loulou hole. PT to progress mobility. Rec HWS and RW Full chart review completed Yes Hospital course See comment Plan of care PT Gait training, Transfer training, Therapeutic exercise, Functional Activities, Balance training * Lacho MARSHALL, Matilda Philippe: PERFORM Event Display: Progress Note Hospital Authored Date: Pt discharged at 1600, wheeled off unit by brother. Pt going home with VNA. IV catheter removed, catheter tip intact, no redness swelling or pain around area. Discharge education given, documents signed and scanned in. Pt able to verbalize understanding and did not have any unanswered questions. * Tamara Lovell RN: PERFORM, SIGN, VERIFY Event Display: Progress Note Hospital Authored Date: Patient: CATARINO GONZALES Age: 64 years Sex: Male : 1960 Associated Diagnoses: None Author: Tamara Lovell RN Findings Problem Related to Alteration in Neurological : Alteration in Neurological Function/new 10/12/2024 21:00 EST Alteration in Neuro status Related to Neurology Procedure, Traumatic brain injury Goals & Outcomes, Neurological Pt is safe with transfers & activities, Pt will be Neurologically stable, Pt/caregiver will state strategies to reduce risk factors, Pt/caregiver will state understanding of disease process Interventions, Neurological Assess/monitor neurologic status, Assess/monitor VS per unit standards & prn, Call/Report variances in assessments to provider, Collaborate w/ provider to implement appropriate guidelines, Collaborate with Nutrition, Collaborate with provider re: medication regime, Document & Monitor O2 Sats; Administer O2 as ordered, Emergency airway equipment at bedside, Ident octavio psychosocial issues related to diagnosis/illness, If no bowel movement in 3 days activate bowelregime, [place] alternate means of communication, Keep patient's head & body in good alignment, Maintain HOB at least 30 deg, Maintain normothermia, report temp >101.5 F, Maintain patient safety if unsteady gait, Maintain strict intake & output, Monitor Fluid & Electrolytes, Serum Osmolarity, Monitor for headaches, nausea, vomiting, Monitor speech fluency, aphasia, word finding difficulty, Physical assessment per unit standards, Provide emotional support to Pt/caregiver, Teach & encourage deep breath & cough exercises, Teach and encourage use of Incentive spirometer, Teach pt/caregiver discharge plan & follow up care, Teach pt/caregiver on plan of care, treatment, s/s & meds, Teach pt/caregiver on use of pain scale Goals/Interventions, Neurological Yes Neurological, Problem Start 10/09/2024 17:10 Reviewed plan with, Neurological Patient Patient Progression, Neurological Pt progressing according to plan . Nursing Data Neurological Data. : Neurological Data. 10/12/2024 21:00 EST Tongue Disposition Midline Neurological Symptoms Headache: persistent, changing or sudden Level of Consciousness Full Consciousness Orientated to person, place, time Person, Place, Time, Event Facial Symmetry Intact Characteristics of Speech Clear and normal Swallowing Difficulty None Pupil description, left Regular Pupil reaction, left Brisk Pupil reaction, right Brisk Pupil Size, Left 3 mm Pupil Size, Right 3 mm Strength LUE 5-Active movement against gravity & full resistance Strength RUE 5-Active movement against gravity & full resistance Strength LLE 5-Active movement against gravity & full resistance Strength RLE 5-Active movement against gravity & full resistance Tone LUE Normal Tone RUE Normal Tone LLE Normal Tone RLE Normal Sensation LUE Intact Sensation RUE Intact Sensation LLE Intact Sensation RLE Intact Movement LUE Spontaneous, To command Movement RUE Spontaneous, To command Movement LLE Spontaneous, To command Movement RLE Spontaneous, To command Gait Steady 1 - 10 Pain Scale Score 7 Pain Interventions Pharmacological, PRN medication, Repositioning, Rest Neuro WNL except Eyes and Movements Conjugate gaze: Move in same direction at same speed Memory Intact Swallow - Neuro Normal . Evaluation P: As per nursing care plan listed above I: See intervention listed in care place above E: Assume care at 1900, Pt a/ox4. In no actue distress. ENNT: Speaking full sentences, fully communitive, with mild aphasia intermittently, tongue in the midline. Denied h/a, dizziness, blurry and double vision. Pupils are PEARLA, face is symmetrial. MOUTH: Oraphonyx is clear, oral mucosa is moist.NECK: Neck is supple, able to turn from side to side: RESPIRATION: Denied SOB, breathing O.K. Equalrise and fall of the chest during breathing. and Chest is symmetrical. Denied C/p, no Telle monitoring; No edema, afibrile. No parameter for SBP. ABDOMEN: Abd positive bowel sound, soft, non tender in all four quad, no guarding during palpation. Last BM was 10/12/24. Pills are taken whole. Pt is able to walk back and forth to the bathroom. Continent both ways, Urine is CYO. NEW: RUE=5 LLE=5 RUE=5LUE=5 with positive sensation. Pt is able to lift both legs off the bed, dorsiflex and planterflex bilateral. Able to wiggle toes. SKIN Skin WNL, PIV in the Right forearm for vascular access. Pt monitor throughout the shift, no change in neuro, Sleep 80% of the shift, no Sz activity, Bed locked in the lowest position with bed alarm on and call billy within reach, See CIS flowsheet for further assessment.. Consult note * Sean Torres RN: MODIFY, SIGN, PERFORM, SIGN, VERIFY Event Display: Consultation Note Authored Date: [id number] Patient: CATARINO GONZALES Age: 64 years Sex: Male : 1960 Associated Diagnoses: None Author: Sean Torres RN History of Presenting Problem Left Medial Calf 10/13 Legs 10/13 Date of Service 10/13/2024 Wound RN consult entered to assess lower extremity wound wound and make topical recommendations. Patient presented for return evaluation from rehab for headaches and LLE weakness. He was admitted for right loulou hole for SDH evacuation with PMH significant for obesity, DM, CKD, HTN, Afib, gout, Right side craniotomy in childhood, slip and fall on ice in August with admission for acute on chronic right side holohemispheric SDH. Upon entering the room patient is lying in bed napping. Catarino was easily arousable and Wound RN role explained and patient is agreeable to assessment, as well as, ph otodocumentation. Patient explains that in the recent past his legs had been itching for an unknownreason. He states he scratched his pretibial areas and left medial calf enough to cause small traumatic injuries that have since healed. To my assessment his scabbing is consistent with this report. 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 He has small superficial dry scabbing that he states no longer itch. We discussed proper skin care and donationof moisture to help with softening and removing any remaining scabbing. Tower59 message sent to Willie Priest as well. Plan Time spent 31-45 minutes * Bobby SARMIENTO, Brian Esposito: PERFORM, MODIFY Event Display: Consultation Note Authored Date: Patient: ??CATARINO GONZALES ? Age:??64 Years?Sex:??Male?:??1960?? Chief Complaint from [facility] inpatient rehab- previously had fall, seen here. had SDH. reports worsening [place], repeat CT done today with midline shift and worsening SDH. A + O x4. GCS 15. last given 16 units insulin @ 1640. History of Present Illness 64-year-old male with medical history of type 2 diabetes, obesity,??send acute on??chronic subduralhematoma??identified September 20 after??a fall while shoveling??(patient was discharged[facility]from [facility] on September 27). ??Patient??re-admitted October 08??due to headache at his rehab facility ([facility]), found??subdural hematoma with midline shift. Patient now s/p neurosurgery this morning.??BIDS consulted to assist with glycemic management. ?? Last BIDS??consult??note September 25. ?? History of type 2 diabetes diagnosed 12 years ago, follows with his PCP for blood sugar management. ?? Home DM regimen (per last discharge summary, confirmed with patient): Trulicity 4.5 mg weekly has not taken for ~10 days, none give at rehab facility Glipizide 10 mg twice daily Lantus 54 units daily at night, ? 15 units in AM reports recently reduced to 50 units at night due to hypoglycemia, but had not received it. Last dose on 10/07 PM. Lispro scale 10 units: 100 + 3??units: 50 before meals reports sliding scale, was taking ~15 units/meal ?? Inpatient DM Regimen: lispro scale: 2 units:150 + 2 units:50, 3 times daily before meals. Diet: Regular ?? BG Review: Since admission, blood sugars ranged between 99, 164 mg/dL.??Fasting blood sugar 99 mg/dL. ?? Interim History: Reports he is feeling good today. Eating well without N/V/D. ?? Review of Systems Negative, unless as noted in HPI. Physical Exam Vitals & Measurements T:??98.1?F?? TMIN:??96.5?F?? TMAX:??98.9?F?? HR:??54??(Monitored)?? RR:??11?? BP:??147/81?? SpO2:??99%?? WT:??116??kg?? Constitutional: alert, NAD, sitting up in hospital bed HEENT: NC/AT, anicteric sclera Neck: supple Respiratory:??able to speak in full sentences, no audible wheezing, no use of accessory muscles ?? Assessment/Plan Diabetes mellitus (E11.9): A1c 9.2% on admission DM outpatient management: PCP ?? Patient reports at rehab had noted hypoglycemia upon awakening the last 3 days, BGs at 85, 70 and 62 mg/dL. Reports Lantus was reduced to 50 units at night. Unclear if he was also receiving 15 units of Lantus vs lispro in the morning. Patient also had been receiving glipizide along with basal/bolusregimen. Unclear which was causing hypoglycemia. ?? Current blood sugars stable and on the lower side. Patient had cleared his lunch tray at time ofvisit??today. Will recommend to continue with??loose lispro scale, will tighten regimen based on his blood sugars. ?? Plan: -??Continue lispro scale: 2 units:150 + 2 units:50, 3 times daily before meals. - As blood sugars rise, consider diabetic diet, 60??or 75 gm??of carbohydrate/meal ?? BIDS will continue to monitor glycemic trends. ?? Discharge Planning:??If patient discharges on??basal/bolus regimen, will recommend to??HOLD glipizide. May continue with Trulicity 4.5 mg weekly if started within 2 weeks of his last dose. Otherwise,recommend to restart at lower dose with outpatient DM provider. ?? Problem List/Past Medical History Ongoing Obese class I Medications Inpatient allopurinol 300 mg oral tablet, 300 mg, By Mouth, Daily Bisacodyl Supp, 10 mg= 1 supp, Rectally, Daily, PRN ceFAZolin Inj, 2 Gm, IV Push, Once Colace Capsule, 100 mg= 1 capsule, By Mouth, 2 times a day diltiazem 180 mg/24 hours oral capsule, extended release, 360 mg, By Mouth, Daily Insulin LISPRO Sliding Scale, 2-10 units, Subcutaneous Injection, 3 times a day before meals Lactated Ringers 1,000 mL, 1000 mL, IV Infusion metoprolol 25 mg oral tablet, 75 mg, By Mouth, 2 times a day Milk of Magnesia Liquid, 30 mL, By Mouth, Daily, PRN Ondansetron Inj, 4 mg, IV Push, Every 6 hours, PRN oxyCODONE 5 mg oral tablet, 5 mg, By Mouth, Every 6 hours, PRN pantoprazole 40 mg oral delayed release tablet, 40 mg, By Mouth, Daily Tranexamic Acid Inj, 1 Gm= 10 mL, IVPB, Once Tranexamic Acid Tablet, 650 mg, By Mouth, Daily Tylenol Tablet, 650 mg, By Mouth, Every 4 hours, PRN Home allopurinol 300 mg oral tablet, 300 mg= 1 tablet, By Mouth, Daily atorvastatin 80 mg oral tablet, 80 mg= 1 tablet, By Mouth, Daily DilTIAZem (Eqv-Cardizem CD) 360 mg/24 hours oral capsule, extended release, 360 mg= 1 capsule, By Mouth, Daily furosemide 40 mg oral tablet, 40 mg= 1 tablet, By Mouth, 2 times a day glipiZIDE 10 mg oral tablet, 10 mg= 1 tablet, By Mouth, 2 times a day insulin lispro 100 u/ml subcutaneous injection, 10-25 units, Subcutaneous Injection, 3 times a day before meals Lantus Inj, 54 units= 0.54 mL, Subcutaneous Injection, Daily before lunch lisinopril 40 mg oral tablet, 40 mg= 1 tablet, By Mouth, Daily metolazone 5 mg oral tablet, 5 mg= 1 tablet, By Mouth, 2 times a day Metoprolol Tartrate 75 mg oral tablet, 75 mg= 1 tablet, By Mouth, 2 times a day pantoprazole 40 mg oral delayed release tablet, 40 mg= 1 tablet, By Mouth, Daily tranexamic acid 650 mg oral tablet, 650 mg, By Mouth, Daily Trulicity Pen 4.5 mg/0.5 mL subcutaneous solution, 4.5 mg, Subcutaneous Injection, Every week Tylenol 325 mg oral tablet, 650 mg, By Mouth, Every 4 hours, PRN Allergies NKA * Bushra GUIDRY, Haile Toscano: PERFORM, MODIFY, MODIFY, MODIFY, MODIFY Event Display: Consultation Note Authored Date: Patient: ??CATARINO GONZALES ? Age:??64 Years?Sex:??Male?:??1960?? Chief Complaint/Reason for Consultation Headache - SDH. 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 ?? Patient started to experience worsening headache last night and under went CT scan of head showing right subdural hematoma with increasing [id number]-mx-ymio midline shift and therefore was sent here. ?? In the ED: - Afebrile, HR 50s-60s, BP 100s-150s/60s-90s, on RA with good O2 saturation. - Labs: CBC (hemoglobin 10.6), BMP (CR 1.71, K 5.2). - CT head: Remonstration of a right subdural hematoma with [id number]-zh-tpri midline shift. While the hematoma has become progressively hypodense and there is no evidence of new intracranial hemorrhage, there has been interval increase in the size of the subdural hematoma and right left midline shift ?? He was evaluated by neurosurgery and planned for OR in AM. Review of Systems Constitutional:?No weight loss, fever, chills, weakness or fatigue. Cardiovascular:??No chest pain,pressure or discomfort. No palpitations or pedal edema. Respiratory:??No shortness of breath, cough or sputum production. Gastrointestinal:?No anorexia, nausea, vomiting or diarrhea. No abdominal pain or blood in stool. Genitourinary: No burning micturition. No urinary frequency or incontinence. Neurologic: headache. No dizziness, syncope, unilateral weakness, ataxia, numbness or tingling in the extremities. No change in bowel or bladder control. Musculoskeletal: No muscle pain, back pain, joint pain or stiffness. Hematologic: No bleeding or bruising. Lymphatics: No enlarged lymph nodes. Psychiatric: No depression or anxiety. Endocrine: No reports of sweating. No cold or heat intolerance. No polyuria or polydipsia. All other systems were reviewed and are negative.?? Objective Vital Signs?? Temperature: 98.7 DegF (10/08/24 21:04:00) Temperature Route: Oral (10/08/24 21:04:00) Pulse Rate: 68 bpm (10/08/24 22:50:00) Respiratory Rate: 18 br/min (10/08/24 23:50:00) Systolic Blood Pressure:??139 mm Hg??High (10/08/24 22:50:00) Diastolic Blood Pressure: 74 mm Hg (10/08/24 22:50:00) Blood pressure sites: Arm, left (10/08/24 21:19:00) Mean Arterial Pressure: 96 mm Hg (10/08/24 17:56:00) Pulse Pressure: 34 mm Hg (10/08/24 21:19:00) Oxygen Saturation: 96 % (10/08/24 21:19:00) Mode of Delivery (Oxygen): Room air (10/08/24 21:19:00) Early Warning Score: 0 (10/08/24 23:24:23) ? Physical Exam Constitutional: Alert, in no acute distress. Head: Normocephalic. Eyes: Pupils are equal and round. Extraocular muscles intact. No pallor or scleral icterus Ear, Nose and Throat: mucous membranes moist. Ears and nose - no obvious deformities. Neck: No JVD. Respiratory:??Equal bilateral air entry. No wheezing or rhonchi.??No use of accessory muscles. Cardiovascular:??S1 S2 regular. No murmurs, rubs or gallops. Gastrointestinal:??Abdomen soft, non-tender, non-distended. Extremities: No lower extremity pitting edema. Neurologic:??AAOx3, Cranial nerves II-XII grossly intact. Speech normal, no facial droop. No focal neurological deficits. Moves all extremities spontaneously. Musculoskeletal: wearing foot/leg bandage covering with socks - not removed for examination. Psychiatric: Normal mood and affect. Assessment/Plan Diagnoses Acute on chronic intracranial subdural hematoma ??(I62.01) Atrial fibrillation ??(I48.91) Chronic kidney disease (CKD) ??(N18.9) Diabetes mellitus ??(E11.9) Elevated serum creatinine ??(R79.89) Gout ??(M10.9) Hypertension ??(I10) Pre-operative clearance ??(Z01.818) Subdural hematoma, chronic ??(I62.03) Wounds, multiple open, lower extremity ??(S81.771E) ?? 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 ?? Subdural hematoma, chronic (I62.03):?? Acute on chronic intracranial subdural hematoma (I62.01):??- Pre-operative clearance (Z01.818):?? Patient with history of chronic subdural hematoma and recently developed traumatic??acute on chronic subdural hematoma and underwent MMA embolization. He now presents with headache and imaging finding of interval increase in the size of the subdural hematoma and right left midline shift. He is planned for urgent/ semi-emergent operative intervention in AM. As mentioned he is planned for urgent/semi-emergent intervention and had no contraindications for surgery. No further testing is required.? per neurosurgery:?? - Every 2 hour neurochecks - Head of bed greater than 30 - BP 110-140 - Stat CT head for decline in GCS of 2 or greater ?? He is bradycardiac with HR in 50s - will place holding parameter on metoprolol and diltiazem. If remain bradycardiac and BP not within desired target would recommend using nitroglycerin drip instead of Beta mane or calcium channel blockers.? Also??I held his atrorvastatin as it increase risk of intracranial bleed. ?? Hypertension (I10):??- Atrial fibrillation (I48.91):??- - continue home metoprolol and diltiazem with holding parameters??for HR less than 60. -??chidi has been on hold.?? - hold lisinopril given K??5.2 ?? He is bradycardiac with HR in 50s - will place holding parameter on metoprolol and diltiazem. If remain bradycardiac and BP not within desired target would recommend using nitroglycerin drip instead of Beta mane or calcium channel blockers.? Chronic kidney disease (CKD) (N18.9):?? Elevated serum creatinine (R79.89):??- Patient with history of CKD with unclear baseline - on metolazone and furosemide.?? His Creatinine: * recent admission in September 01 -2.6 mg/dl. * at [facility]??1.7-1.9 mg/dl. * now 1.71 mg/dl.?? DDx: Baseline CKD versus recovering MIRTHA on CKD. Cr is stable. - can hold metolazone and furosemide on day of surgery.?? - monitor kidney function and potassium.? - bladder scan daily.? Wounds, multiple open, lower extremity (S81.135H):??wound care consult.?? Gout (M10.9):??continue home allopurinol Diabetes mellitus (E11.9):??Glucose within acceptable range (90s) - placed on insulin sliding scale. Neurosurgery has consulted BIDS.? Histories Allergies Allergies ?(Active and Proposed Allergies Only) NKA? (Severity: Unknown severity, Onset: Unknown) ? Past Medical History/Problem List Active Problems(1) HTN, HLD, DM CKD A.fib Gout ? Past Surgical History No surgery history documented. ? Social History Denies smoking, EtOH use. ? Family History No Family History documented. ? Medications Home Medications Acetaminophen (Tylenol 325 mg oral tablet)?650?Milligram?By Mouth?Every 4 hours?as needed?Headache Allopurinol (allopurinol 300 mg oral tablet)?300?Milligram?1?tablet?By Mouth?Daily Atorvastatin (atorvastatin 80 mg oral tablet)?1?tab(s)?80?Milligram?By Mouth?Daily Diltiazem (DilTIAZem (Eqv-Cardizem CD) 360 mg/24 hours oral capsule, extended release)?1?capsule?360?Milligram?By Mouth?Daily dulaglutide (Trulicity Pen 4.5 mg/0.5 mL subcutaneous solution)?4.5?Milligram?SubcutaneousInjection?Every week?INJECT 4.5MG SUBCUTANEOUSLY ONCE WEEKLY Furosemide (furosemide 40 mg oral tablet)?40?Milligram?1?tablet?By Mouth?2 times a day GlipiZIDE (glipiZIDE 10 mg oral tablet)?1?tab(s)?10?Milligram?By Mouth?2 times a day Insulin Glargine (Lantus Inj)?0.54?Milliliter?54?unit(s)?Subcutaneous Injection?Daily before lunch Insulin Lispro (insulin lispro 100 u/ml subcutaneous injection)?10-25 units?Subcutaneous Injection?3 times a day before meals?<< Sliding Scale Comments >>100 - 149 ?? 10 unitsCall if less than 76140 - 199 ?? 13 units 200 - 249 ?? 16 units 250 - 299 ?? 19 units 300 - 349 ?? 22 units 350 - 399 ?? 25 units Call if greater than 400<< Sliding Scale Comments >> Lisinopril (lisinopril 40 mg oral tablet)?1?tab(s)?40?Milligram?By Mouth?Daily Metolazone (metolazone 5 mg oral tablet)?5?Milligram?1?tablet?By Mouth?2 times a day Metoprolol (Metoprolol Tartrate 75 mg oral tablet)?1?tab(s)?75?Milligram?By Mouth?2 times a day Pantoprazole (pantoprazole 40 mg oral delayed release tablet)?1?tab(s)?40?Milligram?By Mouth?Daily Tranexamic Acid (tranexamic acid 650 mg oral tablet)?650?Milligram?By Mouth?Daily ? Results Recent Labs BLOOD BANK Blood Type B Positive ()?? 10/08/2024 21:20 Antibody Screen Negative ()?? 10/08/2024 21:20 ?? BLOOD COUNT & DIFF WBC 8.5 k/mm3 ()?? 10/08/2024 21:29 RBC 3.94 m/mm3 (Low)?? 10/08/2024 21:29 Hgb 10.6 Gm/dL (Low)?? 10/08/2024 21:29 Hct 34.0 % (Low)?? 10/08/2024 21:29 MCV 86.3 femtoliters ()?? 10/08/2024 21:29 MCH 26.9 pg (Low)?? 10/08/2024 21:29 MCHC 31.2 Gm/dL (Low)?? 10/08/2024 21:29 Platelet Count 235 k/mm3 ()?? 10/08/2024 21:29 RDW-SD 55.1 femtoliters (High)?? 10/08/2024 21:29 MPV 10.4 femtoliters ()?? 10/08/2024 21:29 Nucleated RBC (Automated) 0.0 #/100 WBC'S ()?? 10/08/2024 21:29 Abs. NRBC 0.0 k/mm3 ()?? 10/08/2024 21:29 Abs. Neut 6.5 k/mm3 ()?? 10/08/2024 21:29 Abs. Lymph 1.2 k/mm3 ()?? 10/08/2024 21:29 Abs. [place] 0.5 k/mm3 ()?? 10/08/2024 21:29 Abs. Eo 0.2 k/mm3 ()?? 10/08/2024 21:29 Abs. Baso 0.0 k/mm3 ()?? 10/08/2024 21:29 Neut % 76.6 % (High)?? 10/08/2024 21:29 Lymph % 13.7 % (Low)?? 10/08/2024 21:29 [place] % 6.0 % ()?? 10/08/2024 21:29 Eos % 2.7 % ()?? 10/08/2024 21:29 Baso % 0.4 % ()?? 10/08/2024 21:29 Imm Gran 0.6 % ()?? 10/08/2024 21:29 Abs. Imm Gran 0.1 k/mm3 ()?? 10/08/2024 21:29 ?? CHEM GENERAL Sodium 139 mmol/L ()?? 10/08/2024 21:29 Potassium 5.2 mmol/L ()?? 10/08/2024 21:29 Chloride 106 mmol/L ()?? 10/08/2024 21:29 Bicarbonate Level 22 mmol/L ()?? 10/08/2024 21:29 Anion Gap 11 ()?? 10/08/2024 21:29 Glucose Level 93 mg/dL ()?? 10/08/2024 21:29 Glucose, POC 164 mg/dL (High)?? 10/08/2024 20:02 Hemoglobin A1C (Monitoring) 9.2 % (High)?? 10/08/2024 21:29 BUN 42 mg/dL (High)?? 10/08/2024 21:29 Creatinine-Blood 1.71 mg/dL (High)?? 10/08/2024 21:29 Estimated GFR Creatinine 44 ML/MIN/1.73 M2 ()?? 10/08/2024 21:29 Calcium 9.7 mg/dL ()?? 10/08/2024 21:29 Protein, Total 7.0 Gm/dL ()?? 10/08/2024 21:29 Albumin 4.2 Gm/dL ()?? 10/08/2024 21:29 AG Ratio 1.5 ()?? 10/08/2024 21:29 Alkaline Phosphatase 91 units/L ()?? 10/08/2024 21:29 AST (SGOT) 14 units/L ()?? 10/08/2024 21:29 ALT (SGPT) 22 units/L ()?? 10/08/2024 21:29 Bilirubin, Total 0.3 mg/dL ()?? 10/08/2024 21:29 ?? COAG INR 1.0 ()?? 10/08/2024 21:29 Protime (PT) 10.5 seconds ()?? 10/08/2024 21:29 ?? VIROLOGY Influenza A PCR NEGATIVE ()?? 10/08/2024 21:29 Influenza B PCR NEGATIVE ()?? 10/08/2024 21:29 RSV PCR NEGATIVE ()?? 10/08/2024 21:29 COVID-19 PCR Specimen Source NASAL ()?? 10/08/2024 21:29 COVID-19 PCR Result NEGATIVE ()?? 10/08/2024 21:29 ? Note * Matilda Monk RN: PERFORM Event Display: Discharge/Transfer Note Hospital Authored Date: [id number] Nursing Discharge Note Entered On: 10/13/2024 17:25 EST Performed On: 10/13/2024 16:00 EST by Matilda Mnok RN Nursing Discharge Note 2 Discharge Time : 10/13/2024 16:00 EST Discharge Level of Care at Discharge : Homehealth/VNA Patient Left Unit Via : Wheelchair Patient Accompanied Off Unit with : Responsible adult DC Instructions Provided & Signed by Pt : Yes Patient Understands D/C Instructions : Yes Patient Instructions Discharge Signed : Yes Did Pt have Specialty Bed or Wound Vac : No Lacho MARSHALL, Matilda Philippe - 10/13/2024 17:25 EST * Adalgisa Jones: PERFORM, MODIFY Event Display: Discharge/Transfer Note Hospital Authored Date: [id number] Patient: ??CATARINO GONZALES ? Age:??64 Years?Sex:??Male?:??1960?? Admit Date Admission Date: 10/08/2024 Discharge Date 10/13/2024 Discharge Diagnoses Atrial fibrillation, 10/09/2024 Chronic kidney disease (CKD), 10/09/2024 Diabetes mellitus, 10/08/2024 Elevated serum creatinine, 10/08/2024 General medical, 10/08/2024 Gout, 10/09/2024 Hypertension, 10/09/2024 Pre-operative clearance, 10/09/2024 Subdural hematoma, chronic, 10/08/2024 Wounds, multiple open, lower extremity, 10/09/2024 Hospital Course This is a 64 year-old male with history of A-fib previously on Eliquis, hypertension, diabetes, previous right sided craniotomy in childhood who presented on Thursday 09/20 after a slip and fall on ice.??He was found to have acute on chronic right sided holohemispheric subdural hematoma with 1 cm brain compression. He underwent MMA embolization with Dr. Quinones on 09/23/2022.?? He??turned to the [facility] on 10/09/2024 for??re-evaluation after??having a headache??and??left lower extremity weakness at his rehab facility.?? He underwent a outpatient CT??which demonstrated??chronic??subdural,??overall increased in size compared to prior scans, with persistent brain compression.??He was started on TXA??650mg qd for 21 days (end date 10/30/2024).??Decision was made to pursue right??bur hole for??subdural hematoma evacuation. He underwent the above named procedure on??10/09/2024 and tolerated the procedure well. Postoperatively, the patient had an improvement in headaches. PT evaluated patient and cleared him for home with services. DEMET[facility]A was consulted during the admission for assistance in management of blood glucose, andcleared patient for discharge, with adjustments in his diabetic medications. Medicine??was consulted for management of patient's renal issues and cleared patient for discharge??with resuming??of homefurosemide and metolazone. The patient was able to void freely, was ambulating, and tolerating PO meals and medication. Discharge instructions were discussed with patient and all questions answered. He was discharged home with home PT set up by [facility], and prescription for pain medication??(patient refu sed to fill it) and TXA, as well as diabetic medications as recommended by DEMETRIA,??with follow-up inoutpatient clinic scheduled for next week with CT head to be done prior. ?? Objective/Physical Exam on Day of Discharge Vitals & Measurements T:??96.8?F?? HR:??56??(Peripheral)?? RR:??18?? BP:??142/68?? SpO2:??97%?? HT:??183??cm?? WT:??116??kg?? BMI:??34.64?? General: Awake alert and NAD Respiratory: Normal I&E, no acute respiratory distress.?? Skin:??incision c/d/i with skin glue, drain site c/d/i ?? Neurologic:?? Mental status: Awake, alert & oriented to person, place, and time Speech: clear, fluent and appropriate?? Follows simple and complex commands ?? Negative pronator drift ?? CN: PERRL bilaterally, R pupil 6mm and left 3mm (patient reports this is??baseline), EOMI No facial weakness facial sensation intact hearing intact to finger rub tongue midline shoulder shrug 5/5 ?? Motor:?? Normal bulk and tone ?? Upper extremities: ? R ? L?? Deltoid 5/5?5/5 Biceps?5/5?5/5 Triceps?5/5?5/5 Finger shellfish shucker?5/5?5/5 ?? Lower extremities: R?L IP?5/5?5/5 Quads?5/5?5/5 Tibialis anterior?5/5?5/5 Gastroc/ Soleus?5/5?5/5 ?? Sensation??intact to light touch throughout upper extremities and lower extremities? Future Appointments 2024 2:30 PM EST ?? With: Joni GUIDRY, Vamsi Where: [facility] [address] [place] [address] Drive [address] [facility] [place] [address]- [phone] Status: Pending Patient Discharge Condition Stable. Discharge Disposition Home ? Home Health Face to Face ?? *I certify that this patient is under my care and that I or an allowed non- physician working with me had a face to face encounter with the patient on this date:??10/13/2024 13:21 ?? *The encounter with the patient was in whole, or in part, for the following medical condition, which is the primary diagnosis(es) for home health care:??General medical ([id number]) Subdural hematoma, chronic (I62.03) Diabetes mellitus (E11.9) Elevated serum creatinine (R79.89) Acute on chronic intracranial subdural hematoma (I62.01) Pre-operative clearance (Z01.818) Chronic kidney disease (CKD) (N18.9) Hypertension (I10) Atrial fibrillation (I48.91) Gout (M10.9) Wounds, multiple open, lower extremity (S81.359A) ?? Nursing (select all that apply): [_] None [_] Medication management (reconciliation, teaching)?? [_] Chronic disease management?? [_] Wound care and treatment?? [_] Home safety evaluation [_] Administer SQ/IM/IV medications?? [_] Cath care?? [_] Drain care?? [_] Trach or GT care?? Other _ Occupation Therapy (select all that apply): [_] None [_] ADL Management [_] Fall prevention training [_] Energy conservation [_] Cognitive training Other _ Physical Therapy (select all that apply): [_] None [x] Functional mobility training [x] Home exercise program to strengthen [_] Increase ROM?? [x] Falls prevention training [_] Home maintenance program for chronic disease Other _ Speech Therapy (select all that apply): [_] None [_] Swallow evaluation and training [_] Speech and language training [_] Cognitive training to process, organize, and/or recall information Other _ ? *Homebound due to: [_] Inability to leave home without assistance/supervision [x] Inability to ambulate without assistance [_] Pain [_] Decreased strength and endurance [x] Unsteady gait [_] Severe SOB and fatigue [_] Impaired transfers [_] Inability to negotiate stairs [_] Limited weight bearing [_] Mental status change? *Physician Signature:??Adalgisa Priest PA-C *By signing this, I certify that I have personally evaluated the patient and agree with the findings and recommendations as documented above. ?? Procedures Performed This Visit Enlarging right subdural hematoma??status post MMA Discharge Medications ???Acetaminophen (Tylenol 325 mg oral tablet)???Allopurinol (allopurinol 300 mg oral tablet)???Atorvastatin (atorvastatin 80 mg oral tablet)???Diltiazem (DilTIAZem (Eqv-Cardizem CD) 360 mg/24 hours oral capsule, extended release)???Durable Medical Equipment (Pen Avery, 31 G x 5 mm BD Ultra Fine II I)???Furosemide (furosemide 40 mg oral tablet)???Insulin Glargine (Insulin Glargine Solostar Pen 100 units/mL subcutaneous solution)???Insulin Lispro (Insulin Lispro KwikPen 100 units/mL injectable solution)???Lisinopril (lisinopril 40 mg oral tablet)???Metolazone (metolazone 5 mg oral tablet)???Met oprolol (Metoprolol Tartrate 75 mg oral tablet)???Oxycodone (oxyCODONE 5 mg oral tablet)???Pantoprazole (pantoprazole 40 mg oral delayed release tablet)???Tranexamic Acid (tranexamic acid 650 mg oraltablet)???dulaglutide (Trulicity Pen 4.5 mg/0.5 mL subcutaneous solution) Stop taking these medications ???GlipiZIDE (glipiZIDE 10 mg oral tablet) Patient Education Titles Web[employer] Ignite Patient Education - Neurosurgery-Craniotomy for SDH EDH?? Follow-Up Appointments Added Follow Up ?Time Frame ?Comments Sonny GUIDRY, Chrystal Rocha?10/23/2024 14:35 * Lacho MARSHALL, Matilda Philippe: PERFORM Event Display: Patient Education/Instruction Authored Date: [id number] Inpatient Adult Discharge Instructions. [address] [id number] Name: CATARINO GONZALES : 1960?? Visit: 10/08/2024 21:52?? Current Date: 10/13/2024 15:44 ?? Account: [id number]?? Inpatient Adult Discharge Instructions We would like to thank you for allowing us to assist you with your healthcare needs. The following includes patient education materials and information regarding your injury/illness. Our entire staffstrives to provide an excellent experience for our patients and their families. PLEASE ENSURE YOU FOLLOW-UP PER THE INSTRUCTIONS BELOW! ?? YOUR OPINION IS IMPORTANT TO US! Please complete the survey you may receive by mail or email. Your feedback will be used to make improvements to the healthcare experiences of our patients and their families. Surveys are administered by [employer], [employer]. ?? If further treatment with your primary care physician or another doctor is recommended, it is important for you to keep the appointment. Call your primary care physician or return to the Emergency Department immediately if your condition worsens, fails to improve, or new symptoms develop. If you need to find a doctor, you can call [facility] for a referral at [phone] or toll free at [phone]) or log in to [email or web address].. ?? [facility], in keeping with [facility] guidance, no longer requires face masks for staff, patientsor visitors in most situations. Similiar to time spent indoors at other locations, there is the chance that you were exposed to repiratory viruses during your time with us (such as flu or COVID-19). If you develop symptoms concerning for a viral respiratory infection, please seek testing (and treatment if indicated) from your medical provider or home test kit. ?? You can view and manage your care through the patient portal or by using a health care maxi of your choosing. [employer] is a website that allows you to securely view your medical information including your hospital discharge summary, office visit summaries, medications and follow-up visits. You can also request appointments, renew medications, and request access to your medical information using a health care maxi of your choosing, or just ask a question. You can enroll at [email or web address] or register during your next office visit. You have been discharged from [facility], Patient Care Unit: D5A??. If you have any questions regarding these instructions, including results of studies pending, afteryou leave, please call us and we will be happy to assist you 23/04. [facility] Your Care Team Attending Physician Crhystal Dennis MD?? Consulting Providers Chrystal Dennis MD?? Discharging Providers Adalgisa Jones Reason for Your Visit from [facility] rehab- previously had fall, seen here. had SDH. reports worsening [place], repeat CT done today with midline shift and worsening SDH. A + O x4. GCS 15. last given 16 units insulin @ 1640.?? Your Diagnosis Atrial fibrillation Chronic kidney disease (CKD) Diabetes mellitus Elevated serum creatinine General medical Gout Hypertension Pre-operative clearance Subdural hematoma, chronic Wounds, multiple open, lower extremity Tests Performed Below is a partial list of the tests performed during your hospitalization. You may have had other tests and procedures not included in this list. Please discuss all test results with your provider. Basic Metabolic Panel CBC w/ Differential Comprehensive Metabolic Panel COVID-19, RSV, and Flu A/B, Rapid PCR GLUCOSE POC HEMOGLOBIN A1C HOLD LAVENDER TUBE PT (INR) Type and Screen CT Head/Brain W/O Contrast Add On Lab Order?? Basic Metabolic Panel?? CBC w/ Differential?? COVID-19, RSV, and Flu A/B, Rapid PCR?? CT Head/Brain W/O Contrast?? Comprehensive Metabolic Panel?? Glucose POC?? Hemoglobin A1C (Monitoring) (HEMOGLOBIN A1C)?? Hold Lavender Top Tube (HOLD LAVENDER TUBE)?? INR (PT (INR))?? Type and Screen?? Primary Care Provider Kolby GUIDRY , Quinn Davies? Advance Directive Health Care Proxy on File Yes - Health Care Proxy Discharge Vitals Temperature: 97.7 DegF Height: 183 cm Pulse Rate:??92 bpm??High Weight: 116 kg Respiratory Rate: 18 br/min Body Mass Index:??34.64 kg/m2??Critical Systolic Blood Pressure: 138 mm Hg Body surface area: 2.43 Diastolic Blood Pressure:??88 mm Hg??High ?? Oxygen Saturation: 98 % ?? Studies Pending All studies ordered during this hospital stay have been completed unless listed below. Please discuss all pending results with your provider listed above in these instructions. ?? Add On Lab Order?? What to do next Instructions From Your Doctor ?? Orders? 10/13/24 15:16:00 EST?? Prescriptions??, ??10/13/24 15:16:00 EST?? Scheduled Follow-Up Appointments 2024 2:45 PM EST ?? With: Chrystal Dennis MD Where: [facility] [address] [place] [address] Drive [address] [place] [address]- Status: Pending 2024 2:30 PM EST ?? With: Vamsi Quinones MD Where: [facility] [address] [place] [address] Drive [address] [facility] [place] [address]- [phone] Status: Pending You Need to Schedule the Following Appointments Follow Up with??Chrystal Dennis MD When:??10/23/2024 02:35 PM EST Where: [address] [place] [address] [facility] [place] [address]- Discharge Medications CATARNIO GONZALES :1960 Visit Date:10/08/2024 Medications: Please continue your medications until treatment is completed or stopped by your provider. Medications not listed below should be discontinued. Discuss any questions related to medications with your provider. What How Much When Instructions Next Dose New Durable Medical Equipment (Pen Avery, 31 G x 5 mm BD Ultra Fine III) See instructions Duration: 30 Days Refills: 5 use as directed for Type 2 Diabetes Mellitus ?? Pickup at [facility] 3 New Oxycodone (oxyCODONE 5 mg oral tablet) 5 Milligram Oral Every 6 hours as needed for Pain , Moderate Duration: 2 Days Pickup at [facility] 3 if needed Changed Insulin Glargine (Insulin Glargine Solostar Pen 100 units/ mL subcutaneous solution) 24 unit(s) Subcutaneous Infusion Daily Duration: 30 Days Pickup at [facility] 3 tomorrow 10/14 in AM Changed Insulin Lispro (Insulin Lispro KwikPen 100 units/ mL injectable solution) See instructions Subcutaneous Injection 3 times a day before meals. ?? 100 - 149 ?? 7 units 150 - 199 ?? 9 units 200 - 249 ?? 11 units 250 - 299 ?? 13 units 300 - 349 ?? 15 units 350 - 399 ?? 17 units ?? follow-up with your PCP or endocrine specialist for further management ?? Pickup at [facility] 3 Before dinner Changed Tranexamic Acid (tranexamic acid 650 mg oral tablet) 650 Milligram Oral Daily Duration: 16 Days Pickup at [facility] 3 tomorrow 10/14 in AM Unchanged Acetaminophen (Tylenol 325 mg oral tablet) 650 Milligram Oral Every 4 hours as needed for Headache as needed Unchanged Allopurinol (allopurinol 300 mg oral tablet) 1 tab(s) Oral Daily tomorrow 10/14 in AM Unchanged Atorvastatin (atorvastatin 80 mg oral tablet) 1 tab(s) Oral Daily tomorrow 10/14 in AM Unchanged Diltiazem (DilTIAZem (Eqv-Cardizem CD) 360 mg/ 24 hours oral capsule, extended release) 1 capsule Oral Daily tomorrow 10/14 in AM Unchanged dulaglutide (Trulicity Pen 4.5 mg/ 0.5 mL subcutaneous solution) 4.5 Milligram Subcutaneous Injection Every week INJECT 4.5MG SUBCUTANEOUSLY ONCE WEEKLY ?? Unchanged Furosemide (furosemide 40 mg oral tablet) 1 tab(s) Oral Twice a day tonight 10/13 at 9PM Unchanged Lisinopril (lisinopril 40 mg oral tablet) 1 tab(s) Oral Daily tomorrow 10/14 in AM Unchanged Metolazone (metolazone 5 mg oral tablet) 1 tab(s) Oral Twice a day tonight 10/13 at 9PM Unchanged Metoprolol (Metoprolol Tartrate 75 mg oral tablet) 1 tab(s) Oral Twice a day tonight 10/13 at 9PM Unchanged Pantoprazole (pantoprazole 40 mg oral delayed release tablet) 1 tab(s) Oral Daily tomorrow 10/14 in AM Pharmacy Information [facility] 3: [address], [place] [id number] [phone] ?? What How Much When Comments Stop Taking GlipiZIDE (glipiZIDE 10 mg oral tablet) 1 tab(s) Oral Twice a day Prescription Given During Visit Durable Medical Equipment (Pen Avery, 31 G x 5 mm BD Ultra Fine III) - , # 100 each, 5 Refills, use as directed for Type 2 Diabetes Mellitus, [facility] 3, [address] [place] [phone]?? Insulin Glargine (Insulin Glargine Solostar Pen 100 units/mL subcutaneous solution) - 24 units, Subcutaneous Infusion, Daily, # 15 mL, 0 Refills, [address] [address] [phone]?? Insulin Lispro (Insulin Lispro KwikPen 100 units/mL injectable solution) - , # 15 mL, 0 Refills, Subcutaneous Injection 3 times a day before meals.100 - 149 ?? 7 units 150 - 199 ?? 9 units 200 - 249 ?? 11 units 250 - 299 ?? 13 units 300 - 349 ?? 15 units 350 - 399 ?? 17 unitsfollow-up with your PCPor endocrine specialist for further m..., [address] [phone]?? Oxycodone (oxyCODONE 5 mg oral tablet) - 5 mg, By Mouth, Every 6 hours, # 8 tablet, 0 Refills, [address] [address] [phone]?? Tranexamic Acid (tranexamic acid 650 mg oral tablet) - 650 mg, By Mouth, Daily, # 16 tablet, 0 Refills, [address] [address] [phone]?? Laboratory Results Below is a partial list of the most recent Laboratory test results done prior to this discharge. You may have had other tests and procedures not included in this list. Please discuss all test resultswith your provider. Est Creatinine Clearance - 45.90 mL/min (10/13/2024) Basic Metabolic Panel (10/13/2024) ???Sodium - 136 mmol/L???Potassium - 5.4 mmol/L???Chloride - 104 mmol/L???Bicarbonate Level - 23 mmol/L???Anion Gap - 9???Glucose Level - 216 mg/dL???BUN - 39 mg/dL???Creatinine-Blood - 1.74 mg/dL???Estimated GFR Creatinine - 43 ML/MIN/1.73 M2???Calcium - 9.3 mg/dL CBC w/ Differential (10/10/2024) ???WBC - 8.7 k/mm3???RBC - 3.95 m/mm3???Hgb - 10.4 Gm/dL???Hct - 33.7 %???MCV - 85.3 femtoliters???MCH - 26.3 pg???MCHC - 30.9 Gm/dL???Platelet Count - 202 k/mm3???RDW-SD - 52.9 femtoliters???MPV - 11.3 femtoliters???Nucleated RBC (Automated) - 0.0 #/100 WBC'S???Abs. NRBC - 0.0 k/mm3???Abs. Neut - 6.9 k/mm3???Abs. Lymph - 0.9 k/mm3???Abs. [place] - 0.6 k/mm3???Abs. Eo - 0.3 k/mm3???Abs. Baso - 0.0 k/mm3???Neut % - 78.7 %???Lymph % - 10.1 %???[place] % - 6.7 %???Eos % - 3.7 %???Baso % - 0.3 %???Imm Gran - 0.5 %???Abs. Imm Gran - 0.0 k/mm3 Comprehensive Metabolic Panel (10/10/2024) ???Sodium - 135 mmol/L???Potassium - 5.9 mmol/L???Chloride - 107 mmol/L???Bicarbonate Level - 18 mmol/L???Anion Gap - 10???Glucose Level - 152 mg/dL???BUN - 39 mg/dL???Creatinine-Blood - 1.77 mg/dL???Estimated GFR Creatinine - 42 ML/MIN/1.73 M2???Calcium - 9.4 mg/dL???Protein, Total - 6.3 Gm/dL???Albumin - 3.3 Gm/dL???AG Ratio - 1.1???Alkaline Phosphatase - 91 units/L???AST (SGOT) - 18 units/L???ALT (SGPT) - 14 units/L???Bilirubin, Total - 0.3 mg/dL COVID-19, RSV, and Flu A/B, Rapid PCR (10/08/2024) ???Influenza A PCR - NEGATIVE???Influenza B PCR - NEGATIVE???RSV PCR - NEGATIVE???COVID-19 PCR Specimen Source - NASAL???COVID-19 PCR Result - NEGATIVE GLUCOSE POC (10/13/2024) ???Glucose, POC - 229 mg/dL HEMOGLOBIN A1C (10/08/2024) ???Hemoglobin A1C (Monitoring) - 9.2 % HOLD LAVENDER TUBE (10/13/2024) ???Hold Lavender Top - SPECIMEN DISCARDED AFTER 24 HOURS. PT (INR) (10/08/2024) ???INR - 1.0???Protime (PT) - 10.5 seconds Type and Screen (10/08/2024) ???Blood Type - B Positive???Antibody Screen - Negative You will be contacted within 72 hours with your results. Allergies (NKA means No Known Allergies) NKA Problems Active Problems??(1) Obese class I?? Education Materials Below is the list of Educational Leaflet Providered with your Discharge Instructions. [employer] Patient Education - Oxycodone?? [employer] Patient Education - Atorvastatin?? [employer] Patient Education - Allopurinol?? [employer] Patient Education - Diltiazem?? [employer] Patient Education - Atrial Fibrillation?? [employer]ite Patient Education - What Is a Subdural Hematoma??? Web[employer]ite Patient Education - Neurosurgery-Craniotomy for SDH EDH?? Valuables and Belongings I fully understand and agree that [facility] accepts no responsibility for all my personal property including clothing, toilet articles, radios, jewelry, dentures, hearing aids, rings, money, or any other property that is in my possession or is brought to me after admission. I understand certain valuables may be placed in a hospital safe for a short period of time. I understand that the hospital is not liable for loss or damage due to accident, fire, or other natural occurrence while said property is in the safe. I accept full responsibility for any personal property that I keep with me, and will not hold the hospital responsible in case of loss or disappearance. I acknowledge that i have been encouraged to send valuables and belongings home. ?? Review of Valuable and Belonging List: With patient, With witness Disposition of Belongings: Valuables Locked Possessions released to: PACU Date for Pt to Sign Valuables/Belongings: 10/09/24 10:40:00 ?? Other Discharge Information ? Pulmonary Rehab Status?? Pulmonary Rehab Discharge Status?? Respiratory Rate: 18 br/min ? Common Emergency Awareness Tips IS IT A STROKE? Act FAST and Check for these signs: FACE Does the face look uneven? ARM Does one arm drift down? SPEECH Does their speech sound strange? TIME Call at any sign of stroke ?? Heart Attack Signs Chest discomfort: Most heart attacks involve discomfort in the center of the chest and lasts more than a few minutes, or goes away and comes back. It can feel like uncomfortable pressure, squeezing, fullness or pain. Discomfort in upper body: Symptoms can include pain or discomfort in one or both arms, back, neck, jaw or stomach. Shortness of breath: With or without discomfort. Other signs: Breaking out in a cold sweat, nausea, or lightheaded. Remember, MINUTES DO MATTER. If you experience any of these heart attack warning signs, call to get immediate medical attention! ?? Smoking can increase your chances of developing chronic health problems and can cause harmful effects to other family members in your house. If you smoke, you are strongly encouraged to quit. Please call [facility]. Like a Man. Link at [phone] or [phone] ([phone]) or log in to [email or web address] for referrals to smoking cessation programs. ?? 905 Suicide & Crisis Lifeline is available 23/04 if you or someone you know needs to find a reason to keep living. By calling 807 you'll be connected to a skilled, trained counselor at a crisis center in your area. INPATIENT DISCHARGE INSTRUCTIONS SIGNATURE PAGE CATARINO GONZALES Location:[facility] Registration Date and Time:10/08/2024 21:52 EST Primary Care Physician: Quinn Jarrett MD, Attending Physician: Sonny GUIDRY, Chrystal Rocha, I JANETCATARINO, have received the above patient education materials/instructions and have verbalized understanding. If ambulance or transport services are being used I further acknowledge being given a choice of service. ?? If you need to contact me, please call me at this number: . Patient/Administrative Support Specialist Name: Patient/Administrative Support Specialist Signature: Relationship to Patient: Witness Name/Signature: Date: * Matilda Monk RN: PERFORM Event Display: Patient Education/Instruction Authored Date: [id number] Inpatient Adult Discharge Instructions. [address] [address] Name: CATARINO GONZALES : 1960?? Visit: 10/08/2024 21:52?? Current Date: 10/13/2024 15:41 ?? Account: [id number]?? Inpatient Adult Discharge Instructions We would like to thank you for allowing us to assist you with your healthcare needs. The following includes patient education materials and information regarding your injury/illness. Our entire staffstrives to provide an excellent experience for our patients and their families. PLEASE ENSURE YOU FOLLOW-UP PER THE INSTRUCTIONS BELOW! ?? YOUR OPINION IS IMPORTANT TO US! Please complete the survey you may receive by mail or email. Your feedback will be used to make improvements to the healthcare experiences of our patients and their families. Surveys are administered by [employer] ?? If further treatment with your primary care physician or another doctor is recommended, it is important for you to keep the appointment. Call your primary care physician or return to the Emergency Department immediately if your condition worsens, fails to improve, or new symptoms develop. If you need to find a doctor, you can call [facility] for a referral at [phone] or toll free at [phone]) or log in to [email or web address].. ?? [facility], in keeping with [facility] guidance, no longer requires face masks for staff, patientsor visitors in most situations. Similiar to time spent indoors at other locations, there is the chance that you were exposed to repiratory viruses during your time with us (such as flu or COVID-19). If you develop symptoms concerning for a viral respiratory infection, please seek testing (and treatment if indicated) from your medical provider or home test kit. ?? You can view and manage your care through the patient portal or by using a health care maxi of your choosing. [employer] is a website that allows you to securely view your medical information including your hospital discharge summary, office visit summaries, medications and follow-up visits. You can also request appointments, renew medications, and request access to your medical information using a health care maxi of your choosing, or just ask a question. You can enroll at [email or web address] or register during your next office visit. You have been discharged from [facility], Patient Care Unit: D5A??. If you have any questions regarding these instructions, including results of studies pending, afteryou leave, please call us and we will be happy to assist you 23/04. [facility] Your Care Team Attending Physician Chrystal Dennis MD?? Consulting Providers Chrystal Dennis MD?? Discharging Providers Adalgisa Jones [facility], seen here. had SDH. reports worsening [place], repeat CT done today with midline shift and worsening SDH. A + O x4. GCS 15. last given 16 units insulin @ 1640.?? Your Diagnosis Atrial fibrillation Chronic kidney disease (CKD) Diabetes mellitus Elevated serum creatinine General medical Gout Hypertension Pre-operative clearance Subdural hematoma, chronic Wounds, multiple open, lower extremity Tests Performed Below is a partial list of the tests performed during your hospitalization. You may have had other tests and procedures not included in this list. Please discuss all test results with your provider. Basic Metabolic Panel CBC w/ Differential Comprehensive Metabolic Panel COVID-19, RSV, and Flu A/B, Rapid PCR GLUCOSE POC HEMOGLOBIN A1C HOLD LAVENDER TUBE PT (INR) Type and Screen CT Head/Brain W/O Contrast Add On Lab Order?? Basic Metabolic Panel?? CBC w/ Differential?? COVID-19, RSV, and Flu A/B, Rapid PCR?? CT Head/Brain W/O Contrast?? Comprehensive Metabolic Panel?? Glucose POC?? Hemoglobin A1C (Monitoring) (HEMOGLOBIN A1C)?? Hold Lavender Top Tube (HOLD LAVENDER TUBE)?? INR (PT (INR))?? Type and Screen?? Primary Care Provider Kolby GUIDRY , Quinn Davies? Advance Directive Health Care Proxy on File Yes - Health Care Proxy Discharge Vitals Temperature: 97.7 DegF Height: 183 cm Pulse Rate:??92 bpm??High Weight: 116 kg Respiratory Rate: 18 br/min Body Mass Index:??34.64 kg/m2??Critical Systolic Blood Pressure: 138 mm Hg Body surface area: 2.43 Diastolic Blood Pressure:??88 mm Hg??High ?? Oxygen Saturation: 98 % ?? Studies Pending All studies ordered during this hospital stay have been completed unless listed below. Please discuss all pending results with your provider listed above in these instructions. ?? Add On Lab Order?? What to do next Instructions From Your Doctor ?? Orders? 10/13/24 15:16:00 EST?? Prescriptions??, ??10/13/24 15:16:00 EST?? Scheduled Follow-Up Appointments 2024 2:45 PM EST ?? With: Sonny GUIDRY, Chrystal Rocha Where: [facility] [address] [place] [address]- Status: Pending 2024 2:30 PM EST ?? With: Vamsi Quinones MD Where: [facility] [address] [place] [address] Drive [phone] [facility] [place] [address]- [phone] Status: Pending You Need to Schedule the Following Appointments Follow Up with??Sonny GUIDRY, Chrystal Rocha When:??10/23/2024 02:35 PM EST Where: [address] [place] [address] Center [facility] [place] [address]- Discharge Medications CATARINO GONZALES :1960 Visit Date:10/08/2024 Medications: Please continue your medications until treatment is completed or stopped by your provider. Medications not listed below should be discontinued. Discuss any questions related to medications with your provider. What How Much When Instructions Next Dose New Durable Medical Equipment (Pen Avery, 31 G x 5 mm BD Ultra Fine III) See instructions Duration: 30 Days Refills: 5 use as directed for Type 2 Diabetes Mellitus ?? Pickup at [facility] 3 New Oxycodone (oxyCODONE 5 mg oral tablet) 5 Milligram Oral Every 6 hours as needed for Pain , Moderate Duration: 2 Days Pickup at [facility] 3 Changed Insulin Glargine (Insulin Glargine Solostar Pen 100 units/ mL subcutaneous solution) 24 unit(s) Subcutaneous Infusion Daily Duration: 30 Days Pickup at [place] [address] Changed Insulin Lispro (Insulin Lispro KwikPen 100 units/ mL injectable solution) See instructions Subcutaneous Injection 3 times a day before meals. ?? 100 - 149 ?? 7 units 150 - 199 ?? 9 units 200 - 249 ?? 11 units 250 - 299 ?? 13 units 300 - 349 ?? 15 units 350 - 399 ?? 17 units ?? follow-up with your PCP or endocrine specialist for further management ?? Pickup at [facility] 3 Changed Tranexamic Acid (tranexamic acid 650 mg oral tablet) 650 Milligram Oral Daily Duration: 16 Days Pickup at [facility] 3 Unchanged Acetaminophen (Tylenol 325 mg oral tablet) 650 Milligram Oral Every 4 hours as needed for Headache Unchanged Allopurinol (allopurinol 300 mg oral tablet) 1 tab(s) Oral Daily Unchanged Atorvastatin (atorvastatin 80 mg oral tablet) 1 tab(s) Oral Daily Unchanged Diltiazem (DilTIAZem (Eqv-Cardizem CD) 360 mg/ 24 hours oral capsule, extended release) 1 capsule Oral Daily Unchanged dulaglutide (Trulicity Pen 4.5 mg/ 0.5 mL subcutaneous solution) 4.5 Milligram Subcutaneous Injection Every week INJECT 4.5MG SUBCUTANEOUSLY ONCE WEEKLY ?? Unchanged Furosemide (furosemide 40 mg oral tablet) 1 tab(s) Oral Twice a day Unchanged Lisinopril (lisinopril 40 mg oral tablet) 1 tab(s) Oral Daily Unchanged Metolazone (metolazone 5 mg oral tablet) 1 tab(s) Oral Twice a day Unchanged Metoprolol (Metoprolol Tartrate 75 mg oral tablet) 1 tab(s) Oral Twice a day Unchanged Pantoprazole (pantoprazole 40 mg oral delayed release tablet) 1 tab(s) Oral Daily Pharmacy Information [facility] 3: [address] [place] [address] [phone] ?? What How Much When Comments Stop Taking GlipiZIDE (glipiZIDE 10 mg oral tablet) 1 tab(s) Oral Twice a day Prescription Given During Visit Durable Medical Equipment (Pen Avery, 31 G x 5 mm BD Ultra Fine III) - , # 100 each, 5 Refills, use as directed for Type 2 Diabetes Mellitus, [facility] [address] [address] [phone]?? Insulin Glargine (Insulin Glargine Solostar Pen 100 units/mL subcutaneous solution) - 24 units, Subcutaneous Infusion, Daily, # 15 mL, 0 Refills, [facility] 3, [address] [place] [address] [phone]?? Insulin Lispro (Insulin Lispro KwikPen 100 units/mL injectable solution) - , # 15 mL, 0 Refills, Subcutaneous Injection 3 times a day before meals.100 - 149 ?? 7 units 150 - 199 ?? 9 units 200 - 249 ?? 11 units 250 - 299 ?? 13 units 300 - 349 ?? 15 units 350 - 399 ?? 17 unitsfollow-up with your PCPor endocrine specialist for further m..., [facility] [address] [phone]?? Oxycodone (oxyCODONE 5 mg oral tablet) - 5 mg, By Mouth, Every 6 hours, # 8 tablet, 0 Refills, [facility] [address] [address] [phone]?? Tranexamic Acid (tranexamic acid 650 mg oral tablet) - 650 mg, By Mouth, Daily, # 16 tablet, 0 Refills, [address] [address] [phone]?? Laboratory Results Below is a partial list of the most recent Laboratory test results done prior to this discharge. You may have had other tests and procedures not included in this list. Please discuss all test resultswith your provider. Est Creatinine Clearance - 45.90 mL/min (10/13/2024) Basic Metabolic Panel (10/13/2024) ???Sodium - 136 mmol/L???Potassium - 5.4 mmol/L???Chloride - 104 mmol/L???Bicarbonate Level - 23 mmol/L???Anion Gap - 9???Glucose Level - 216 mg/dL???BUN - 39 mg/dL???Creatinine-Blood - 1.74 mg/dL???Estimated GFR Creatinine - 43 ML/MIN/1.73 M2???Calcium - 9.3 mg/dL CBC w/ Differential (10/10/2024) ???WBC - 8.7 k/mm3???RBC - 3.95 m/mm3???Hgb - 10.4 Gm/dL???Hct - 33.7 %???MCV - 85.3 femtoliters???MCH - 26.3 pg???MCHC - 30.9 Gm/dL???Platelet Count - 202 k/mm3???RDW-SD - 52.9 femtoliters???MPV - 11.3 femtoliters???Nucleated RBC (Automated) - 0.0 #/100 WBC'S???Abs. NRBC - 0.0 k/mm3???Abs. Neut - 6.9 k/mm3???Abs. Lymph - 0.9 k/mm3???Abs. [place] - 0.6 k/mm3???Abs. Eo - 0.3 k/mm3???Abs. Baso - 0.0 k/mm3???Neut % - 78.7 %???Lymph % - 10.1 %???[place] % - 6.7 %???Eos % - 3.7 %???Baso % - 0.3 %???Imm Gran - 0.5 %???Abs. Imm Gran - 0.0 k/mm3 Comprehensive Metabolic Panel (10/10/2024) ???Sodium - 135 mmol/L???Potassium - 5.9 mmol/L???Chloride - 107 mmol/L???Bicarbonate Level - 18 mmol/L???Anion Gap - 10???Glucose Level - 152 mg/dL???BUN - 39 mg/dL???Creatinine-Blood - 1.77 mg/dL???Estimated GFR Creatinine - 42 ML/MIN/1.73 M2???Calcium - 9.4 mg/dL???Protein, Total - 6.3 Gm/dL???Albumin - 3.3 Gm/dL???AG Ratio - 1.1???Alkaline Phosphatase - 91 units/L???AST (SGOT) - 18 units/L???ALT (SGPT) - 14 units/L???Bilirubin, Total - 0.3 mg/dL COVID-19, RSV, and Flu A/B, Rapid PCR (10/08/2024) ???Influenza A PCR - NEGATIVE???Influenza B PCR - NEGATIVE???RSV PCR - NEGATIVE???COVID-19 PCR Specimen Source - NASAL???COVID-19 PCR Result - NEGATIVE GLUCOSE POC (10/13/2024) ???Glucose, POC - 229 mg/dL HEMOGLOBIN A1C (10/08/2024) ???Hemoglobin A1C (Monitoring) - 9.2 % HOLD LAVENDER TUBE (10/13/2024) ???Hold Lavender Top - SPECIMEN DISCARDED AFTER 24 HOURS. PT (INR) (10/08/2024) ???INR - 1.0???Protime (PT) - 10.5 seconds Type and Screen (10/08/2024) ???Blood Type - B Positive???Antibody Screen - Negative You will be contacted within 72 hours with your results. Allergies (NKA means No Known Allergies) NKA Problems Active Problems??(1) Obese class I?? Education Materials Below is the list of Educational Leaflet Providered with your Discharge Instructions. [employer] Patient Education - Neurosurgery-Craniotomy for SDH EDH?? Valuables and Belongings I fully understand and agree that [facility] accepts no responsibility for all my personal property including clothing, toilet articles, radios, jewelry, dentures, hearing aids, rings, money, or any other property that is in my possession or is brought to me after admission. I understand certain valuables may be placed in a hospital safe for a short period of time. I understand that the hospital is not liable for loss or damage due to accident, fire, or other natural occurrence while said property is in the safe. I accept full responsibility for any personal property that I keep with me, and will not hold the hospital responsible in case of loss or disappearance. I acknowledge that i have been encouraged to send valuables and belongings home. ?? Review of Valuable and Belonging List: With patient, With witness Disposition of Belongings: Valuables Locked Possessions released to: PACU Date for Pt to Sign Valuables/Belongings: 10/09/24 10:40:00 ?? Other Discharge Information ? Pulmonary Rehab Status?? Pulmonary Rehab Discharge Status?? Respiratory Rate: 18 br/min ? Common Emergency Awareness Tips IS IT A STROKE? Act FAST and Check for these signs: FACE Does the face look uneven? ARM Does one arm drift down? SPEECH Does their speech sound strange? TIME Call at any sign of stroke ?? Heart Attack Signs Chest discomfort: Most heart attacks involve discomfort in the center of the chest and lasts more than a few minutes, or goes away and comes back. It can feel like uncomfortable pressure, squeezing, fullness or pain. Discomfort in upper body: Symptoms can include pain or discomfort in one or both arms, back, neck, jaw or stomach. Shortness of breath: With or without discomfort. Other signs: Breaking out in a cold sweat, nausea, or lightheaded. Remember, MINUTES DO MATTER. If you experience any of these heart attack warning signs, call to get immediate medical attention! ?? Smoking can increase your chances of developing chronic health problems and can cause harmful effects to other family members in your house. If you smoke, you are strongly encouraged to quit. Please call [facility]. Like [facility] Man. Link at [phone] or [phone] ([phone]) or log in to [email or web address] for referrals to smoking cessation programs. ?? 418 Suicide & Crisis Lifeline is available 23/04 if you or someone you know needs to find a reason to keep living. By calling 255 you'll be connected to a skilled, trained counselor at a crisis center in your area. INPATIENT DISCHARGE INSTRUCTIONS SIGNATURE PAGE CATARINO GONZALES Location:[facility] Registration Date and Time:10/08/2024 21:52 EST Primary Care Physician: Kolby GUIDRY , Quinn Davies, Attending Physician: Sonny GUIDRY, Chrystal Rocha, I CATARINO GONZALES, have received the above patient education materials/instructions and have verbalized understanding. If ambulance or transport services are being used I further acknowledge being given a choice of service. ?? If you need to contact me, please call me at this number: . Patient/Administrative Support Specialist Name: Patient/Administrative Support Specialist Signature: Relationship to Patient: Witness Name/Signature: Date: * Matilda Monk RN: PERFORM Event Display: Patient Education Leaflets Authored Date: [id number] Oxycodone ?? [id number] Oxycodone Brand Name(s): Oxaydo??, Oxycontin??, Roxicodone??, Roxybond??, Xtampza?? ER, Combunox?? (as a combination product containing Ibuprofen, Oxycodone), Narvox?? (as a combination product containing Acetaminophen, Oxycodone), Oxycet?? (as a combination product containing Acetaminophen, Oxycodone), Percocet?? (as a combination product containing Acetaminophen, Oxycodone), Percodan?? (as a combination product containing Aspirin, Oxycodone), Roxicet?? (as a combination product containing Acetaminophen, Oxycodone), Roxilox?? (as a combination product containing Acetaminophen, Oxycodone), Roxiprin?? (as a combination product containing Aspirin, Oxycodone), Targiniq?? ER (as a combination product containing naloxone, oxycodone), Troxyca ER?? (as a combination product containing Naltrexone, Oxycodone), Tylox?? (as a combination product containing Acetaminophen, Oxycodone), Xartemis XR?? (as a combination product containing Acetaminophen, Oxycodone); also available generically ?? IMPORTANT WARNING: Oxycodone may be habit-forming. Take oxycodone exactly as directed. Do not take more of it, take itmore often, or take it in a different way than directed by your doctor. While taking oxycodone, discuss with your healthcare provider your pain treatment goals, length of treatment, and other ways tomanage your pain. Tell your doctor if you or anyone in your family drinks or has ever drunk large amounts of alcohol, uses or has ever used street drugs, or has overused prescription medications, or has had an overdose, or if you have or have ever had depression or another mental illness. There is a greater risk that you will overuse oxycodone if you have or have ever had any of these conditions.Talk to your healthcare provider immediately and ask for guidance if you think that you have an opioid addiction or call the U.S. Substance Abuse and Mental Health Services Administration ([facility]) National Helpline at 7-237-896-SNIF. Oxycodone may cause serious or life-threatening breathing problems, especially during the first 24 to 72 hours of your treatment and any time your dose is increased. Your doctor will monitor you carefully during your treatment. Tell your doctor if you have or have ever had slowed breathing or asthma. Your doctor will probably tell you not to take oxycodone. Also tell your doctor if you have or have ever had lung disease such as chronic obstructive pulmonary disease (COPD; a group of diseases that affect the lungs and airways), a head injury a brain tumor, or any condition that increases the amount of pressure in your brain. The risk that you will develop breathing problems may be higher if you are an older adult or are weak or malnourished due to disease. If you experience any of the following symptoms, call your doctor immediately or get emergency medical treatment: slowed breathing, long pauses between breaths, or shortness of breath. Do not allow anyone else to take your medication. Oxycodone may harm or cause to other peoplewho take your medication, especially children. Keep oxycodone in a safe place so that no one else can take it accidentally or on purpose. Be especially careful to keep oxycodone out of the reach of children. Keep track of how many capsules, tablets, or oral solution is left so you will know if any medication is missing. Taking certain other medications with oxycodone may increase the risk of serious or life-threatening breathing problems, sedation, or coma. Tell your doctor and pharmacist what other prescription andnonprescription medications, vitamins, nutritional supplements, and herbal products you are taking or plan to take. Your doctor may need to change the doses of your medication and will monitor you carefully. If you take oxycodone with other medications and you develop any of the following symptoms,call your doctor immediately or seek emergency medical care: unusual dizziness, lightheadedness, extreme sleepiness, slowed or difficult breathing, or unresponsiveness. Be sure that your caregiver orfamily members know which symptoms may be serious so they can call the doctor or emergency medical care if you are unable to seek treatment on your own. Drinking alcohol, taking prescription or nonprescription medications that contain alcohol, or usingstreet drugs during your treatment with oxycodone increases the risk that you will experience serious, life-threatening side effects. Do not drink alcohol, take prescription or nonprescription medications that contain alcohol, or use street drugs during your treatment. If you are taking the oxycodone extended-release tablets, swallow them whole; do not chew, break, divide, crush, or dissolve them. Do not presoak, lick or otherwise wet the tablet prior to placing inthe mouth. Swallow each tablet right after you put it in your mouth. If you swallow broken, chewed,crushed, or dissolved extended-release tablets, you may receive too much oxycodone at once instead of slowly over 12 hours. This may cause serious problems, including overdose and . Oxycodone comes as a regular solution (liquid) and as a concentrated solution that contains more oxycodone in each milliliter of solution. Be sure that you know whether your doctor has prescribed theregular or concentrated solution and the dose in milliliters that your doctor has prescribed. Use the dosing cup, oral syringe, or dropper provided with your medication to carefully measure the number of milliliters of solution that your doctor prescribed. Read the directions that come with your medication carefully and ask your doctor or pharmacist if you have any questions about how to measure your dose or how much medication you should take. You may experience serious or life threatening side effects if you take an oxycodone solution with a different concentration or if you take a different amount of medication than prescribed by your doctor. Store oxycodone in a safe place so that no one else can take it accidentally or on purpose. Be especially careful to keep oxycodone out of the reach of children. Keep track of how many tablets or capsules, or how much liquid is left so you will know if any medication is missing. Dispose of unwantedcapsules, tablets, extended-release tablets, extended-release capsules, and liquid properly according to instructions. (See STORAGE and DISPOSAL). Tell your doctor if you are or plan to become . If you take oxycodone regularly during your , your baby may experience life- threatening withdrawal symptoms after . Tellyour baby's doctor right away if your baby experiences any of the following symptoms: irritability, hyperactivity, abnormal sleep, high-pitched cry, uncontrollable shaking of a part of the body, vomiting, diarrhea, or failure to gain weight. Talk to your doctor about the risks of taking oxycodone. Your doctor or pharmacist will give you the [employer] optician's patient information sheet (Medication Guide) when you begin your treatment with oxycodone and each time you fill your prescription. Read theinformation carefully and ask your doctor or pharmacist if you have any questions. You can also visit the Food and Drug Administration (FDA) website (https://www.fda.gov/Drugs/DrugSafety/ikk809880.htm) or the [employer] optician's website to obtain the Medication Guide. WHY is this medicine prescribed? Oxycodone immediate-release tablets, capsules, and oral solution are used to relieve severe, acute pain (pain that begins suddenly, has a specific cause, and is expected to go away when the cause of the pain is healed) in people who are expected to need an opioid pain medication and who cannot be treated with other pain medications. Oxycodone extended-release tablets and extended-release capsulesare used to relieve severe pain in people who are expected to need pain medication around the clockfor a long time and who cannot be treated with other medications. Oxycodone extended-release tablets and extended-release capsules should not be used to treat pain that can be controlled by medication that is taken as needed. Oxycodone concentrated solution should only be used to treat people who are tolerant (used to the effects of the medication) to opioid medications because they have taken this type of medication for at least one week. Oxycodone is in a class of medications called opiate (narcotic) analgesics. It works by changing the way the brain and nervous system respond to pain. Oxycodone is also available in combination with acetaminophen (Oxycet, Percocet, others) and aspirin (Percodan). This monograph only includes information about the use of oxycodone alone. If you are taking an oxycodone combination product, be sure to read information about all the ingredients in the product you are taking and ask your doctor or pharmacist for more information. HOW should this medicine be used? Oxycodone comes as a solution (liquid), a concentrated solution, a tablet, a capsule, an extended-release (long-acting) tablet (Oxycontin), and an extended- release capsule (Xtampza ER) to take by mouth. The solution, concentrated solution, tablet, and capsule are taken usually with or without food every 4 to 6 hours, either as needed for pain or as regularly scheduled medications. The extended-release tablets (Oxycontin) are taken every 12 hours with or without food. The extended-release capsules (Xtampza ER) are taken every 12 hours with food; eat the same amount of food with each dose. Follow the directions on your prescription label carefully, and ask your doctor or pharmacist to explainany part you do not understand. Take oxycodone exactly as directed. If you are taking the extended-release tablets (Oxycontin), swallow the tablets one at a time with plenty of water. Swallow the tablet or right after putting it in your mouth. Do not presoak, wet, orlick the tablets before you put them in your mouth. Do not chew or crush extended-release tablets. If you have trouble swallowing extended-release capsules (Xtampza ER), you can carefully open the capsule and sprinkle the contents on soft foods such as applesauce, pudding, yogurt, ice cream, or jam, then consume the mixture immediately. Dispose of the empty capsule shells right away by flushing them down a toilet. Do not store the mixture for future use. If you have a feeding tube, the extended-release capsule contents can be poured into the tube. Ask your doctor how you should take the medication and follow these directions carefully. Your doctor may adjust your dose of oxycodone during your treatment, depending on how well your pain is controlled and on the side effects that you experience. Talk to your doctor about how you are feeling during your treatment with oxycodone. Tell your doctor if you feel that your pain is not controlled or if your pain increases, becomes worse, or if you have new pain or an increased sensitivityto pain during your treatment with oxycodone. Do not take more of it or take it more often than prescribed by your doctor. Do not stop taking oxycodone without talking to your doctor. If you stop taking oxycodone suddenly,you may experience withdrawal symptoms such as restlessness, watery eyes, runny nose, sneezing, yawning, sweating, chills, muscle or joint aches or pains, weakness, irritability, anxiety, depression,difficulty falling asleep or staying asleep, cramps, nausea, vomiting, diarrhea, loss of appetite, fast heartbeat, and fast breathing. Your doctor will probably decrease your dose gradually. Are there OTHER USES for this medicine? This medication may be prescribed for other uses; ask your doctor or pharmacist for more information. What SPECIAL PRECAUTIONS should I follow? Before taking oxycodone, ??? tell your doctor and pharmacist if you are allergic to oxycodone, any other medications, or anyof the ingredients in the oxycodone product you plan to take. Ask your pharmacist or check the Medication Guide for a list of the ingredients. ??? tell your doctor or pharmacist if you are taking thefollowing medications or have stopped taking them within the past two weeks: isocarboxazid (Marplan), linezolid (Zyvox), methylene blue, phenelzine (Nardil), selegiline (Emsam, Zelapar), or tranylcypromine (Parnate). ??? The following nonprescription or herbal products may interact with oxycodone: Lorena's wort and tryptophan. Be sure to let your doctor and pharmacist know that you are taking these medications before you start taking oxycodone. Do not start these medications while taking oxycodone without discussing it with your healthcare provider. ??? tell your doctor if you have or have ever had any of the conditions mentioned in the IMPORTANT WARNING section, a blockage or narrowing of your stomach or intestines, or paralytic ileus (condition in which digested food does not move through the intestines). Your doctor may tell you not to take oxycodone. ??? Also tell your doctor if you have or have ever had low blood pressure; seizures; adrenal insufficiency (condition in which theadrenal glands do not produce enough of certain hormones needed for important body functions); seizures; urethral stricture (blockage of the tube that allows urine to leave the body), problems urinating; or heart, kidney, liver, pancreas, thyroid, or gall bladder disease. If you will be taking the extended-release tablets or extended-release capsules, also tell your doctor if you have or have ever had difficulty swallowing, diverticulitis (condition in which small pouches form in the intestinesand become swollen and infected), colon cancer (cancer that begins in the large intestine), or esophageal cancer (cancer that begins in the tube that connects the mouth and stomach). ??? tell your doctor if you are . You should not breastfeed while you are taking oxycodone. Oxycodone can cause shallow breathing, difficulty or noisy breathing, confusion, more than usual sleepiness, trouble , or limpness in breastfed infants. ??? you should know that this medication may decrease fertility in men and women. Talk to your doctor about the risks of taking oxycodone. ??? ifyou are having surgery, including dental surgery, tell the doctor or dentist that you are taking oxycodone. ??? you should know that this medication may make you drowsy. Do not drive a car, operate heavy machinery, or participate in any other possibly dangerous activities until you know how this medication affects you. ??? you should know that oxycodone may cause dizziness, lightheadedness, and fa inting when you get up too quickly from a lying position. To help avoid this problem, get out of bed slowly, resting your feet on the floor for a few minutes before standing up. ??? you should know that oxycodone may cause constipation. Talk to your doctor about changing your diet or using other medications to prevent or treat constipation while you are taking oxycodone. What SPECIAL DIETARY instructions should I follow? Unless your doctor tells you otherwise, continue your normal diet. What should I do IF I FORGET to take a dose? If you are taking oxycodone on a regular schedule, take the missed dose as soon as you remember it.However, if it is almost time for the next dose, skip the missed dose and continue your regular dosing schedule. Do not take a double dose to make up for a missed one. Do not take more than one dose of the extended- release tablets or capsules in 12 hours. What SIDE EFFECTS can this medicine cause? Some side effects can be serious. If you experience any of these symptoms or those mentioned in theIMPORTANT WARNING section, call your doctor immediately or get emergency medical help: ??? changes in heartbeat ??? agitation, hallucinations (seeing things or hearing voices that do notexist), fever, sweating, confusion, fast heartbeat, shivering, severe muscle stiffness or twitching, loss of coordination, or diarrhea ??? nausea, vomiting, loss of appetite, weakness, or dizziness ??? inability to get or keep an erection ??? irregular menstruation ??? decreased sexual desire ??? chest pain ??? rash; itching; hives; hoarseness; difficulty breathing or swallowing; or swelling of the face, mouth, tongue, lips, or throat ??? swelling of the hands, feet, ankles, or lower legs ??? seizures ??? extreme drowsiness If you experience a serious side effect, you or your doctor may send a report to the Food and Drug Administration's (FDA) MedWatch Adverse Event Reporting program online (https://www.fda.gov/Safety/MedWatch) or by phone ( ). Oxycodone may cause other side effects. Call your doctor if you have any unusual problems while youare taking this medication. What should I know about STORAGE and DISPOSAL of this medication? Keep this medication in the container it came in, tightly closed, and out of reach of children, andin a location that is not easily accessible by others, including visitors to the home. Store it at room temperature and away from light and excess heat and moisture (not in the bathroom). You must immediately dispose of any medication that is outdated or no longer needed through a medicine take-back program. If you do not have a take-back program nearby or one that you can access promptly, flush any medication that is outdated or no longer needed down the toilet so that others will not take it.Talk to your pharmacist about the proper disposal of your medication. It is important to keep all medication out of sight and reach of children as many containers (such as weekly pill minders and those for eye drops, creams, patches, and inhalers) are not child-resistant and young children can open them easily. To protect young children from poisoning, always lock safety caps and immediately place the medication in a safe location ??? one that is up and away and out of their sight and reach. https://www.upandaway.org What should I do in case of OVERDOSE? In case of overdose, call the poison control helpline at . Information is also available online at https://www.poisonhelp.org/help. If the victim has collapsed, had a seizure, has trouble breathing, or can't be awakened, immediately call emergency services at 911. While taking oxycodone, you should talk to your doctor about having a rescue medication called naloxone readily available (e.g., home, office). Naloxone is used to reverse the life-threatening effects of an overdose. It works by blocking the effects of opiates to relieve dangerous symptoms caused by high levels of opiates in the blood. Your doctor may also prescribe you naloxone if you are livingin a household where there are small children or someone who has abused street or prescription drugs. You should make sure that you and your family members, caregivers, or the people who spend time with you know how to recognize an overdose, how to use naloxone, and what to do until emergency medical help arrives. Your doctor or pharmacist will show you and your family members how to use the medication. Ask your pharmacist for the instructions or visit the [employer] optician's website to get the instructions. If symptoms of an overdose occur, a caregiver or family member should give the first dose of naloxone, call 911 immediately, and stay with you and watch you closely until emergency medical help arrives.Your symptoms may return within a few minutes after you receive naloxone. If your symptoms return, the person should give you another dose of naloxone. Additional doses may be given every 2 to 3 minutes, if symptoms return before medical help arrives. Symptoms of overdose may include the following: ??? difficulty breathing ??? slowed or shallow breathing ??? excessive sleepiness ??? limp or weak muscles ??? narrowing or widening of the pupils (dark unga in the eye) ??? cold, clammy skin ??? unable to respond or wake up ??? slowed heartbeat ??? unusual snoring What OTHER INFORMATION should I know? Keep all appointments with your doctor. Your doctor may order certain lab tests to check your body's response to oxycodone. Before having any laboratory test (especially those that involve methylene blue), tell your doctor and the laboratory personnel that you are taking oxycodone. This prescription is not refillable. If you continue to have pain after you finish the oxycodone, call your doctor. It is important for you to keep a written list of all of the prescription and nonprescription (huzg-jpi-lrbilkt) medicines you are taking, as well as any products such as vitamins, minerals, or otherdietary supplements. You should bring this list with you each time you visit a doctor or if you areadmitted to a hospital. It is also important information to carry with you in case of emergencies. This report on medications is for your information only, and is not considered individual patient advice. Because of the changing nature of drug information, please consult your physician or pharmacist about specific clinical use. The [employer] represents that the information provided hereunder was formulated with a reasonable standard of care, and in conformity with professional standards in the field. [employer] makes no representations or warranties, express or implied, including, but not limited to, any implied warranty of merchantability and/or fitness for a particular purpose, with respect to such information and specifically disclaims all such warranties. Users are advised that decisions regarding drug therapy are complex medical decisions requiring the independent, informed decision of an appropriate health child care, and the information is provided for informational purposes only. The entire monograph for a drug should be reviewed for a thorough understanding of the drug's actions, uses and side effects. The [employer] does not endorse or recommend the use of any drug.The information is not a substitute for medical care. AHFS?? Patient Medication Information???. ?? Copyright, 2023. [employer]??, [address], [address], [place], [place]. All Rights Reserved. Duplication for commercial use must be authorized by [facility]. Selected Revisions: December 14, 2023. AHFS?? Patient Medication Information???. ?? Copyright, 2024 ?? * Lacho MARSHALL, Matilda Philippe: PERFORM Event Display: Patient Education Leaflets Authored Date: [id number] Atorvastatin ?? [id number] Atorvastatin Brand Name(s): Atorvaliq??, Lipitor??, Caduet?? (as a combination product containing Amlodipine, Atorvastatin), Lipqozet?? (as a combination product containing Atorvastatin, Ezetimibe), Liptruzet?? (as a combination product containing Atorvastatin, Ezetimibe); also available generically ?? WHY is this medicine prescribed? Atorvastatin is used together with diet, weight loss, and exercise to reduce the risk of heart attack and stroke and to decrease the chance that heart surgery will be needed in people who have heart disease or who are at risk of developing heart disease. Atorvastatin is also used to decrease the amount of fatty substances such as low-density lipoprotein (LDL) cholesterol ('bad cholesterol') and triglycerides in the blood and to increase the amount of high-density lipoprotein (HDL) cholesterol ('good cholesterol') in the blood. Atorvastatin may also be used to decrease the amount of cholesterol and other fatty substances in the blood in children and teenagers 10 to 17 years of age who have familial heterozygous hypercholesterolemia (an inherited condition in which cholesterol cannot be removed from the body normally). Atorvastatin is in a class of medications called HMG-CoA reductase inhibitors (statins). It works by slowing the production of cholesterol in the body to decrease the amount of cholesterol that may build up on the antonio of the arteries and block blood flow to the heart,brain, and other parts of the body. Accumulation of cholesterol and fats along the antonio of your arteries (a process known as atherosclerosis) decreases blood flow and, therefore, the oxygen supply to your heart, brain, and other partsof your body. Lowering your blood level of cholesterol and fats with atorvastatin has been shown toprevent heart disease, angina (chest pain), strokes, and heart attacks. HOW should this medicine be used? Atorvastatin comes as a tablet and suspension (liquid) to take by mouth. The tablet is usually taken once a day with or without food. The suspension is usually taken once a day on an empty stomach (at least 1 hour before or 2 hours after a meal).Take atorvastatin at around the same time every day. Follow the directions on your prescription label carefully, and ask your doctor or pharmacist to explain any part you do not understand. Take atorvastatin exactly as directed. Do not take more or lessof it or take it more often than prescribed by your doctor. Your doctor may start you on a low dose of atorvastatin and gradually increase your dose, not more than once every 2 to 4 weeks. If you are taking the suspension, do not use a household spoon to measure your dose. Use a properlymarked measuring device such as a medicine spoon or oral syringe. Ask your doctor or pharmacist if you need help getting or using a measuring device. Continue to take atorvastatin even if you feel well. Do not stop taking atorvastatin without talking to your doctor. Are there OTHER USES for this medicine? This medication may be prescribed for other uses; ask your doctor or pharmacist for more information. What SPECIAL PRECAUTIONS should I follow? Before taking atorvastatin, ??? tell your doctor and pharmacist if you are allergic to atorvastatin, any other medications, or any of the ingredients in atorvastatin tablets and suspension. Ask your pharmacist for a list of theingredients. ??? Tell your doctor and pharmacist what prescription and nonprescription medications, vitamins, nutritional supplements, and herbal products you are taking or plan to take while taking atorvastatin. Your doctor may need to change the doses of your medications or monitor you carefully for side effects. ??? The following nonprescription products may interact with atorvastatin: cimetidine (Tagamet), and niacin. Be sure to let your doctor and pharmacist know that you are taking these medications before you start taking atorvastatin. Do not start any of these medications while takingatorvastatin without discussing with your healthcare provider. ??? tell your doctor if you have or ever had liver disease. Your doctor will order laboratory tests to see how well your liver is working even if you do not think you have liver disease. Your doctor will probably tell you not to take atorvastatin if you have liver disease or if the tests show you may be developing liver disease. ??? tell your doctor if you drink more than 2 alcoholic beverages daily, if you are 65 years of age or older, and if you have or have ever had muscle aches or weakness, diabetes, seizures, low blood pressur e, or thyroid or kidney disease. ??? tell your doctor if you are or plan to become . If you become while taking atorvastatin, stop taking atorvastatin and call your doctor immediately. Atorvastatin may harm the fetus. ??? tell your doctor if you are or plan to breastfeed. You should not breastfeed while you are taking this medication. ??? if you are having surgery, including dental surgery, tell the doctor or dentist that you are taking atorvastatin. If you are hospitalized due to serious injury or infection, tell the doctor who treats you that you are taking atorvastatin. ??? ask your doctor about the safe use of alcoholic beverages while you are taking atorvastatin. Alcohol can increase the risk of serious side effects. What SPECIAL DIETARY instructions should I follow? Eat a low-fat, low-cholesterol diet. Be sure to follow all exercise and dietary recommendations made by your doctor or dietitian. You can also visit the National Cholesterol Education Program (NCEP) website for additional dietary information at https://www.nhlbi.nih.gov/health/public/heart/chol/chol_tlc.pdf. Avoid drinking large amounts [more than 1.2 liter (approximately 1 quart) per day] of grapefruit juice while taking atorvastatin. What should I do IF I FORGET to take a dose? If you miss a dose of the tablet, skip the missed dose and continue your regular dosing schedule. Do not take a double dose to make up for a missed one. If you miss a dose of the suspension, take the missed dose as soon as you remember it. However, if it is less than 12 hours until your next scheduled dose, skip the missed dose and continue your regular dosing schedule. Do not take a double dose to make up for a missed one. What SIDE EFFECTS can this medicine cause? Some side effects can be serious. The following symptoms are uncommon, but if you experience any ofthem, call your doctor or get emergency medical help immediately: ??? muscle pain, tenderness, or weakness ??? lack of energy ??? fever ??? chest pain ??? nausea ???extreme tiredness ??? weakness ??? unusual bleeding or bruising ??? loss of appetite ??? pain in the upper right part of the stomach ??? flu-like symptoms ??? dark colored urine ??? yellowing of the skin or eyes ??? rash ??? hives ??? itching ??? difficulty breathing or swallowing ??? swelling of the face, throat, tongue, lips, eyes, hands, feet, ankles, or lower legs ??? hoarseness Atorvastatin may cause other side effects. Call your doctor if you have any unusual problems while taking this medication. If you experience a serious side effect, you or your doctor may send a report to the Food and Drug Administration's (FDA) MedWatch Adverse Event Reporting program online (https://www.fda.gov/Safety/MedWatch) or by phone ( ). What should I know about STORAGE and DISPOSAL of this medication? Keep this medication in the container it came in, tightly closed, and out of reach of children. Store it at room temperature and away from excess heat and moisture (not in the bathroom). Unneeded medications should be disposed of in special ways to ensure that pets, children, and otherpeople cannot consume them. However, you should not flush this medication down the toilet. Instead,the best way to dispose of your medication is through a medicine take-back program. Talk to your pharmacist or contact your local garbage/recycling department to learn about take-back programs in your community. See the FDA's Safe Disposal of Medicines website (https://goo.gl/c4Rm4p) for more information if you do not have access to a take-back program. It is important to keep all medication out of sight and reach of children as many containers (such as weekly pill minders and those for eye drops, creams, patches, and inhalers) are not child-resistant and young children can open them easily. To protect young children from poisoning, always lock safety caps and immediately place the medication in a safe location ??? one that is up and away and out of their sight and reach. https://www.upandaway.org What should I do in case of OVERDOSE? In case of overdose, call the poison control helpline at . Information is also available online at https://www.poisonhelp.org/help. If the victim has collapsed, had a seizure, has trouble breathing, or can't be awakened, immediately call emergency services at 267. What OTHER INFORMATION should I know? Keep all appointments with your doctor and the laboratory. Your doctor may order certain lab tests during your treatment , especially if you develop symptoms of liver damage. Before having any laboratory test, tell your doctor and the laboratory personnel that you are taking atorvastatin. Do not let anyone else take your medication. Ask your pharmacist any questions you have about refilling your prescription. It is important for you to keep a written list of all of the prescription and nonprescription (dipo-etv-jjecmcw) medicines you are taking, as well as any products such as vitamins, minerals, or otherdietary supplements. You should bring this list with you each time you visit a doctor or if you areadmitted to a hospital. It is also important information to carry with you in case of emergencies. This report on medications is for your information only, and is not considered individual patient advice. Because of the changing nature of drug information, please consult your physician or pharmacist about specific clinical use. The [employer] represents that the information provided hereunder was formulated with a reasonable standard of care, and in conformity with professional standards in the field. The [employer] makes no representations or warranties, express or implied, including, but not limited to, any implied warranty of merchantability and/or fitness for a particular purpose, with respect to such information and specifically disclaims all such warranties. Users are advised that decisions regarding drug therapy are complex medical decisions requiring the independent, informed decision of an appropriate health child care, and the information is provided for informational purposes only. The entire monograph for a drug should be reviewed for a thorough understanding of the drug's actions, uses and side effects. The [employer] does not endorse or recommend the use of any drug.The information is not a substitute for medical care. AHFS?? Patient Medication Information???. ?? Copyright, 2023. The [employer]??, [address], [address], [place], [place]. All Rights Reserved. Duplication for commercial use must be authorized by [facility]. Selected Revisions: April 19, 2024. AHFS?? Patient Medication Information???. ?? Copyright, 2024 ?? * Lacho MARSHALL, Matilda Philippe: PERFORM Event Display: Patient Education Leaflets Authored Date: [id number] Allopurinol ?? [id number] Allopurinol Brand Name(s): Lopurin??, Zyloprim??; also available generically ?? WHY is this medicine prescribed? Allopurinol is used to treat gout (a type of arthritis in which uric acid, a naturally occurring substance in the body, builds up in the joints and causes sudden attacks of redness, swelling, pain, and heat in one or more joints). Allopurinol is also used to treat high levels of uric acid that builds up in the blood as tumors break down in people with certain types of cancer who are being treatedwith chemotherapy medications. It is also used to treat kidney stones that have come back in peoplewho have high levels of uric acid in their urine. Allopurinol is in a class of medications called xanthine oxidase inhibitors. It works by reducing the production of uric acid in the body. High levels of uric acid may cause gout attacks or kidney stones. Allopurinol is used to prevent gout attacks,not to treat them once they occur. HOW should this medicine be used? Allopurinol comes as a tablet to take by mouth. It is usually taken once or twice a day, preferablyafter a meal. To help you remember to take allopurinol, take it around the same time every day. Follow the directions on your prescription label carefully, and ask your doctor or pharmacist to explain any part you do not understand. Take allopurinol exactly as directed. Do not take more or less of it or take it more often than prescribed by your doctor. Your doctor will probably start you on a low dose of allopurinol and gradually increase your dose, not more than once a week. It may take several months or longer before you feel the full benefit of allopurinol. Allopurinol may increase the number of gout attacks during the first few months that you take it, although it will eventually prevent attacks. Your doctor may prescribe another medication such as colchicine to prevent gout attacks for the first few months you take allopurinol. Continue to take allopurinol even if you feel well. Do not stop taking allopurinol without talking to your doctor. Are there OTHER USES for this medicine? This medication may be prescribed for other uses; ask your doctor or pharmacist for more information. What SPECIAL PRECAUTIONS should I follow? Before taking allopurinol, ??? tell your doctor and pharmacist if you are allergic to allopurinol, any other medications, or any of the ingredients in allopurinol tablets. Ask your pharmacist for a list of the ingredients. ???tell your doctor and pharmacist what prescription and nonprescription medications, vitamins, nutritional supplements, and herbal products you are taking while you are taking allopurinol. Your doctor may need to change the doses of your medications or monitor you carefully for side effects. ??? tellyour doctor if you have or have ever had high blood pressure, diabetes, kidney or liver disease, orheart failure. ??? tell your doctor if you are , plan to become , or are breast-feeding. If you become while taking allopurinol, call your doctor. ??? you should know that allopurinol may make you drowsy. Do not drive a car or operate machinery until you know how this medication affects you. ??? ask your doctor about the safe use of alcoholic beverages while you are taking allopurinol. What SPECIAL DIETARY instructions should I follow? Drink at least eight 8-ounce (240-milliter) cups of water or other liquids each day while taking allopurinol unless directed to do otherwise by your doctor. What should I do IF I FORGET to take a dose? Take the missed dose as soon as you remember it. However, if it is almost time for the next dose, skip the missed dose and continue your regular dosing schedule. Do not take a double dose to make up for a missed one. What SIDE EFFECTS can this medicine cause? Some side effects can be serious. The following symptoms are uncommon, but if you experience any ofthem, stop taking allopurinol and call your doctor immediately or get emergency treatment: ??? rash, itching, or hives ??? peeling, blistering, or shedding skin ??? red or purple spots on skin ??? painful urination ??? blood in the urine ??? irritation of the eyes ??? swelling of the lips or mouth ??? fever or flu-like symptoms ??? swollen glands ??? yellowing of the skin or eyes, pain in the upper right part of the stomach, nausea, vomiting, itching, or extreme tiredness Allopurinol may cause other side effects. Call your doctor if you have any unusual problems while taking this medication. If you experience a serious side effect, you or your doctor may send a report to the Food and Drug Administration's (FDA) MedWatch Adverse Event Reporting program online (https://www.fda.gov/Safety/MedWatch) or by phone ( ). What should I know about STORAGE and DISPOSAL of this medication? Keep this medication in the container it came in, tightly closed, and out of reach of children. Store it at room temperature and away from excess heat and moisture (not in the bathroom). Unneeded medications should be disposed of in special ways to ensure that pets, children, and otherpeople cannot consume them. However, you should not flush this medication down the toilet. Instead,the best way to dispose of your medication is through a medicine take-back program. Talk to your pharmacist or contact your local garbage/recycling department to learn about take-back programs in your community. See the FDA's Safe Disposal of Medicines website (https://goo.gl/c4Rm4p) for more information if you do not have access to a take-back program. It is important to keep all medication out of sight and reach of children as many containers (such as weekly pill minders and those for eye drops, creams, patches, and inhalers) are not child-resistant and young children can open them easily. To protect young children from poisoning, always lock safety caps and immediately place the medication in a safe location ??? one that is up and away and out of their sight and reach. https://www.[employer].org What OTHER INFORMATION should I know? Keep all appointments with your doctor and the laboratory. Your doctor will order certain lab teststo check your body's response to allopurinol. Before having any laboratory test, tell your doctor and the laboratory personnel that you are taking allopurinol. Do not let anyone else take your medication. Ask your pharmacist any questions you have about refilling your prescription. It is important for you to keep a written list of all of the prescription and nonprescription (mjis-ebc-hohhiwx) medicines you are taking, as well as any products such as vitamins, minerals, or otherdietary supplements. You should bring this list with you each time you visit a doctor or if you areadmitted to a hospital. It is also important information to carry with you in case of emergencies. This report on medications is for your information only, and is not considered individual patient advice. Because of the changing nature of drug information, please consult your physician or pharmacist about specific clinical use. The [employer] represents that the information provided hereunder was formulated with a reasonable standard of care, and in conformity with professional standards in the field. The [employer] makes no representations or warranties, express or implied, including, but not limited to, any implied warranty of merchantability and/or fitness for a particular purpose, with respect to such information and specifically disclaims all such warranties. Users are advised that decisions regarding drug therapy are complex medical decisions requiring the independent, informed decision of an appropriate health child care, and the information is provided for informational purposes only. The entire monograph for a drug should be reviewed for a thorough understanding of the drug's actions, uses and side effects. The [employer] does not endorse or recommend the use of any drug.The information is not a substitute for medical care. AHFS?? Patient Medication Information???. ?? Copyright, 2023. [employer]??, [address], [address], [place], [place]. All Rights Reserved. Duplication for commercial use must be authorized by [facility]. Selected Revisions: June 15, 2023. AHFS?? Patient Medication Information???. ?? Copyright, 2024 ?? Patient Care team information Care Team Personnel Name: Aida Ruelas RN Position: [facility] RN Member Role: Primary Care Nurse Name: Rhoda Starr RN Position: [facility] RN Member Role: Primary Care Nurse Name: Matilda Monk RN Position: [facility] RN Member Role: Primary Care Nurse Name: Tamara Lovell RN Position: [facility] RN Member Role: Primary Care Nurse Name: Katia Sahni RN Position: [facility] RN Member Role: Primary Care Nurse Name: Quinn Jarrett MD Position: S Outreach Member Role: PCP Address: [address] [place] [address] Telecom: Care Team Related Persons Name: VIVI RUIZ Insurance Providers Guarantor name: [employer] Health Plan Information #: 1 Payer: [employer] Member Number: [id number] Policy Number: NA Group Number: [id number] Health Plan Information #: 2 Payer: [employer] PPO [employer] Member Number: [id number] Policy Number: NA Group Number: NA
--- OUTSIDE RECORDS SUMMARY | 2024-11-12 16:50 | XMS_ITS | Continuity of Care Document ---
Author Organization [facility] ter Address [address] [place] [id number]- Care Team Providers Care Residential Solar Consultant Name Role Phone Kolby GUIDRY, Quinn Davies Primary Care Physician [phone] Encounter [facility] Date(s): 10/22/24 - 11/05/[address] [address]- Discharge Disposition: A-D/C Home Attending Physician: Missy Campa MD, [place] Admitting Physician: Chrystal Dennis MD Referring Physician: [...] virus vaccine, inactivated 06/07/10 Leonard rded SARS-CoV-2(COVID-19)mRNA-LNP vac([id number]) 08/20/24 Recorded tetanus-diphtheria toxoids (Td) 05/09/22 Recorded [...] Solostar Pen 100 units/mL subcutaneous solution = 52 units, Subcutaneous Infusion, Daily, # 15 mL, 0 Refills, Maintenance, 10/13/24 1:32:00 PM EST, [facility], Partial fill upon patient request if the prescription is for a schedule IIopioid drug., 183, cm, 10/13/24 5:14:00 EST, Height, 116, kg, 10/09/24 6:57:00 EST, Dry Weight Start Date: 10/13/24 Stop Date: 11/12/24 Status: Ordered Quantity: 15.0 Unit: mL Repeat number: 1 Insulin Lispro KwikPen 100 units/mL injectable solution See Instructions, Subcutaneous Injection 3 times a day before meals. << Sliding Scale Comments >> 100 - 149 16 units Call if less than 70 150 - 199 18 units 200 - 249 20 units 250 - 299 22 units 300 - 349 24 units 350 - 399 26 units Call if greater than 400 << Sliding Scale Comments >> follow-up with your PCP or endocrine specialist for further management, # 15 mL, 0 Refills, Maintenance, 10/13/24 1:35:00 PM EST, [facility], Partial fill upon patient requestif the prescription is for a schedule II opioid drug., 183, cm, 10/13/24 5:14:00 EST, Height, 116, kg, 10/09/24 6:57:00 EST, Dry Weight Start Date: 10/13/24 Status: Ordered Quantity: 15.0 Unit: mL Repeat number: 1 Keppra 1000 mg oral tablet 1 tablet = 1,000 mg, By Mouth, 2 times a day, # 60 tablet, 5 Refills, Maintenance, 11/05/24 11:32:00 AM EST, Tablet, [facility], Partial fill upon patient request if the prescription is for a schedule II opioid drug., 183, cm, 11/02/24 23:57:00 EST, Height, 113.6, kg, 10/22/24 20:44:00 EST, Dry Weight Start Date: 11/05/24 Status: Ordered Quantity: 60.0 Unit: tablet Repeat number: 6 lisinopril 10 mg oral tablet 10 mg, 1, tablet, By Mouth, Daily, # 30 tablet, Refills 0, Tot. Refills 0, Maintenance, 11/05/24 11:37:00 AM EST, Route to Pharmacy Electronically, [facility], Partial fill upon patient request if the prescription is for a schedule II opioid drug., 183, cm, 11/02/24 23:57:00 EST, Height, 113.6, kg, 10/22/24 20:44:00 EST, Dry Weight Start Date: 11/05/24 Status: Ordered Quantity: 30.0 Unit: tablet Repeat number: 1 metoprolol 25 mg oral tablet 75 mg, Tablet, By Mouth, Hold for: HR <60, SBP <100, 11/05/24 9:00:00 AM EST Start Date: 11/05/24 Stop Date: 11/05/24 Status: Completed Repeat number: 1 Metoprolol Tartrate 75 mg oral tablet 1 tablet = 75 mg, By Mouth, 2 times a day Start Date: 09/23/24 Status: Ordered Repeat number: 1 pantoprazole 40 mg oral delayed release tablet 1 tablet = 40 mg, By Mouth, Daily, 0 Refills, Maintenance, 09/23/24 7:03:00 AM EST Start Date: 09/23/24 Status: Ordered Repeat number: 1 Pen [place], 31 G x 5 mm BD Ultra Fine III See Instructions, # 100 each, Refills 5, Tot. Refills 5, Maintenance, use as directed for Type 2 Diabetes Mellitus, 10/13/24 1:37:00 PM EST, Supply, 183, cm, 10/13/24 5:14:00 EST, Height, 116, kg, 10/09/24 6:57:00 EST, Dry Weight Start Date: 10/13/24 Stop Date: 04/11/25 Status: Ordered Quantity: 100.0 Unit: each Repeat number: 6 torsemide 40 mg oral tablet 1 tablet = 40 mg, By Mouth, Daily, # 30 tablet, 0 Refills, Maintenance, 11/05/24 11:34:00 AM EST, Tablet, [facility], Partial fill upon patient request if the prescription is for a schedule II opioid drug., 183, cm, 11/02/24 23:57:00 EST, Height, 113.6, kg, 10/22/24 20:44:00 EST, Dry Weight Start Date: 11/05/24 Stop Date: 12/05/24 Status: Ordered Quantity: 30.0 Unit: tablet Repeat number: 1 tranexamic acid 650 mg oral tablet = 650 mg, By Mouth, Daily, # 16 tablet, 0 Refills, Maintenance, 10/13/24 1:54:00 PM EST, Tablet, [facility], Partial fill upon patient [...] Exam Date Time Procedure Performing Provider Status 11/04/24 9:[address] Head/Brain W/O Contrast Lonnie , Rac hel; Auth (Verified) Notes: (CT Head/Brain W/O Contrast) Reason For Exam: right subdural hematoma;Other: RESULT: CT Head/Brain W/O Contrast CT Head/Brain W/O Contrast INDICATION: Reason: Other:; right subdural hematoma; Clinical Question(s): Hematoma; Order Comment: TECHNIQUE: Noncontrast head CT using axial technique and reconstructed in axial and coronal planes.Iterative reconstruction techniques are used to optimize dose and image quality. CTDIvol Head: 48.00 mGy, DLP Head: 772 mGy*cm. COMPARISON: MR brain 10/31/2024. CT 10/30/2024 and multiple priors. FINDINGS: Cavalry Officer view findings, lines and tubes: None. BRAIN AND EXTRA-AXIAL SPACES: No significant change in right holohemispheric acute on chronic subdural hemorrhage measuring up to1.6 cm in maximum dimension (series 207:19). Unchanged leftward midline shift measuring 7 mm (series 203:53) when measured in a similar fashion. Redemonstrated leftward subfalcine herniation. Diffuseipsilateral effacement of the sulci and right lateral ventricle. Unchanged trace subdural hematoma along the left tentorial leaflet Mild prominence of the ventricles and sulci consistent with parenchymal volume loss. Mild low-density white matter changes. Recently demonstrated right parietal subarachnoid hemorrhage is not as well delineated on CT. CALVARIUM, SKULL BASE, AND SOFT TISSUES: No fractures or suspicious bony lesions. Right parietal craniotomy change. Status post middle meningeal artery embolization bilaterally. Embolization material is also demonstrated posterior to the right orbit. The paranasal sinuses and mastoid air cells are clear. Visualized orbits and globes are intact. Right lens replacement. Surgical annelise overlying the right parietal craniotomy. IMPRESSION: No significant change in holohemispheric right acute on chronic subdural hemorrhage measuring up to1.6 cm with 7 mm leftward midline shift. I have personally reviewed the images and I agree with this report. WSN: [id number] Ordering Physician: Nemo Gibson Dictated By: Edilson MD, Ahmed Dictated Date/Time: 11/04/24 1:44 pm Reviewed By: Castro Bhakta MD Signed By: Castro Bhakta MD Signed Date/Time: 11/04/24 1:49 pm Transcribed By: GLADIS Transcribed Date/Time: 11/04/24 10:38 am * Exam Date Time Procedure Performing Provider Status 10/31/24 10:34 AM MRI Brain W/O Contrast Maria Del Carmen Svetlana guy; Auth (Verified) Notes: (MRI Brain W/O Contrast) Reason For Exam: Other: RESULT: MRI Brain W/O Contrast MRI Brain W/O Contrast INDICATION / CLINICAL QUESTION: Infarction. History of right subdural hematoma status post middle meningeal artery embolization on 09/23/2024. Patient returned on 10/08/2024 with headache and increasedsize of the subdural, and subsequently had right parish hole craniotomy on 10/09/2024. Repeat right parietal craniotomy performed on 10/22/2024 for increased size of the subdural. TECHNIQUE: MRI of the brain was performed without contrast utilizing sagittal T1, axial T2, axial FLAIR, axial SWAN, and axial DWI sequences. COMPARISON: Prior CTs, most recently 10/30/2024. FINDINGS: BRAIN and EXTRA-AXIAL SPACES: There is no evidence of restricted diffusion to suggest acute infarction. * There is a holohemispheric right subdural collection, thickest over the right anterior frontal convexity where the collection measures up to about 1.8 cm in thickness. There is flattening of the underlying parenchyma and compression of the right lateral ventricle with mild subfalcine herniation to the left and 5 mm leftward shift of the septum pellucidum. * The subdural demonstrates mixed T1 isointense and high T1 signal and predominantly high T2 signalwith multiple internal septations areas of restricted diffusion within the hemorrhage is related tolate subacute blood products. * Trace subarachnoid hemorrhage is also seen in right superior and parietal lobe sulci. * Trace T1 bright subdural hemorrhage is also seen along the left tentorial leaflet. Otherwise, there is mild prominence of the ventricles and sulci consistent with age-appropriate volume loss. Mild T2 prolongation in the periventricular white matter is seen. The brainstem and cerebellum are unremarkable. EXTRACRANIAL SOFT TISSUES: There has been little right lens extraction. Sinuses and mastoids are clear. BONES: Right parietal parish hole noted. IMPRESSION: 1. No evidence of acute/subacute infarction. 2. Mixed signal holohemispheric right subdural collection with multiple internal septations measuring up to 1.8 cm over the right frontal convexity. There is flattening of the underlying parenchyma as well as compression of the right lateral ventricle with 5 mm midline shift to the left. This is similar to the CT from the previous day. 3. Trace right subarachnoid hemorrhage and trace subdural hemorrhage along the left tentorial leaflet. WSN: [id number] Ordering Physician: Nemo Gibson Dictated By: Gisselle Gaona MD Dictated Date/Time: 10/31/24 10:55 a Reviewed By: Gisselle Gaona MD Signed By: Gisselle Gaona MD Signed Date/Time: 10/31/24 10:55 am Transcribed By: GLADIS Transcribed Date/Time: 10/31/24 10:47 am * Exam Date Time Procedure Performing Provider Status 10/30/24 4:[address] Head/Brain W/O Contrast Martha Wharton; Roberto Carlos (Verified) Notes: (CT Head/Brain W/O Contrast) Reason For Exam: Aphasia RESULT: CT Head/Brain W/O Contrast CT Head/Brain W/O Contrast INDICATION: Reason: Aphasia; Clinical Question(s): Hematoma; Order Comment: TECHNIQUE: Noncontrast head CT using axial technique and reconstructed in axial and coronal planes.Iterative reconstruction techniques are used to optimize dose and image quality. COMPARISON: 10/27/2024. FINDINGS: Cavalry Officer view findings, lines and tubes: None. BRAIN AND EXTRA-AXIAL SPACES: Again seen is a right convexity mixed attenuation subdural collection measuring up to 1.4 cm in maximal thickness (series 205, image 20), not significantly changed from 10/27/2024. There is persistentmass effect on the right cerebral hemisphere and right lateral ventricle, with 6 mm of leftward midline shift, slightly improved (previously measuring 7 mm) Changes from prior bilateral middle meningeal artery embolization again noted No acute parenchymal hemorrhage. Alan-white matter differentiation is well preserved. No acute or territorial infarct. Negative insular ribbon sign. Atherosclerotic vascular calcification of the carotid arteries but negative hyperdense vessel sign. Unchanged size/pattern of the ventricles and sulci. Mild-moderate low-density white matter changes. CALVARIUM, SKULL BASE, AND SOFT TISSUES: No fractures or suspicious bony lesions. Status post right parietal parish hole. The paranasal sinuses and mastoid air cells are clear. Visualized orbits and globes are intact. Prior right ocular lens extraction Postoperative changes again seen in the right scalp. IMPRESSION: 1. Compared to 10/27/2024, no significant change in size of the mixed attenuation right convexity subdural hematoma. Persistent mass effect, with 6 mm of leftward midline shift slightly improved. 2. No new intracranial hemorrhage. WSN: [id number] Ordering Physician: Nemo Gibson Dictated By: Roxy Singleton MD Dictated Date/Time: 10/30/24 4:34 pm Reviewed By: Roxy Singleton MD Signed By: Roxy Singleton MD Signed Date/Time: 10/30/24 4:34 pm Transcribed By: GLADIS Transcribed Date/Time: 10/30/24 4:24 pm * Exam Date Time Procedure Performing Provider Status 10/27/24 8:[address] Head/Brain W/O Contrast Masha Villafana; Roberto Carlos (Verified) Notes: (CT Head/Brain W/O Contrast) Reason For Exam: R SDH, s/p R parish hole crani;Trauma RESULT: CT Head/Brain W/O Contrast CT Head/Brain W/O Contrast INDICATION: Reason: Trauma; R SDH, s p R parish hole crani; Clinical Question(s): Hematoma TECHNIQUE: Noncontrast head CT using axial technique and reconstructed in axial and coronal planes.Iterative reconstruction techniques are used to optimize dose and image quality. CTDIvol Head: 46.60 mGy, DLP Head: 772 mGy*cm. COMPARISON: Multiple priors most recently 10/23/2024 FINDINGS: Cavalry Officer view findings, lines and tubes: Interval removal of the right frontoparietal craniotomy drain. BRAIN AND EXTRA-AXIAL SPACES: Right-sided mixed density subdural collection measuring up to 1.4 cm in maximal thickness with minimally improved leftward midline shift, now measuring 7 mm, previously 8 mm. There is persistent masseffect on the right cerebral hemisphere with effacement of sulci and the right lateral ventricle. Status post bilateral middle meningeal artery embolization. No parenchymal hemorrhage. Alan-white matter differentiation is well preserved. No acute infarct. Negative insular ribbon and hyperdense vessel signs. Moderate low-density white matter changes. CALVARIUM, SKULL BASE, AND SOFT TISSUES: No fractures or suspicious bony lesions. Status post right parietal parish hole. The paranasal sinuses and mastoid air cells are clear. Visualized orbits and globes are intact. Postoperative changes seen in the right scalp. IMPRESSION: Interval removal of the drain within the right frontoparietal parish hole craniotomy. Otherwise no significant change compared to 10/23/2024. Unchanged size of the right subdural hematoma with persistent mass effect on the adjacent sulci and right ventricle. Minimally improved leftward midline shift. I have personally reviewed the images and I agree with this report. WSN: [id number] Ordering Physician: Casandra Schneider Dictated By: Spike Hartley DO Dictated Date/Time: 10/27/24 10:03 a Reviewed By: Castro Bhakta MD Signed By: Castro Bhakta MD Signed Date/Time: 10/27/24 10:08 am Transcribed By: GLADIS Transcribed Date/Time: 10/27/24 9:28 am * Exam Date Time Procedure Performing Provider Status 10/23/24 4:[address] Head/Brain W/O Contrast Stupak , Ol eg; Modified Notes: (CT Head/Brain W/O Contrast) Reason For Exam: Other: RESULT: CT Head/Brain W/O Contrast CT Head/Brain W/O Contrast INDICATION: Postop TECHNIQUE: Noncontrast head CT using axial technique and reconstructed in axial and coronal planes.Iterative reconstruction techniques are used to optimize dose and image quality. CTDIvol Head: 46.80 mGy, DLP Head: 774 mGy*cm. COMPARISON: 10/22/2024 FINDINGS: Cavalry Officer view findings, lines and tubes: Drain in the right frontoparietal craniotomy. BRAIN AND EXTRA-AXIAL SPACES: Holohemispheric mixed density right-sided subdural collection, decreased in size, now measuring up to 1.3 cm in maximal thickness. Persistent mass effect upon the underlying right cerebral hemispherewith persistent but slightly decreased right to left midline shift, now measuring 7 mm. No evidenceof downward transtentorial herniation. Trace postoperative gas in the subdural collection. No parenchymal hemorrhage. No evidence of acute ischemic infarct. Mild prominence of the ventricles and sulci consistent with parenchymal volume loss. Mild low-density white matter changes. No subarachnoid hemorrhage. CALVARIUM, SKULL BASE, AND SOFT TISSUES: Status post right frontal parietal craniotomy with drain present. Status post bilateral middle meningeal artery embolization. The paranasal sinuses and mastoid air cells are clear. Globes are intact. Embolization material is noted in the right orbit. Right scalp postoperative edema and skin annelise. IMPRESSION: Decreased size of right subdural hematoma with decreased [id number]-[id number] midline shift. WSN: [id number] Ordering Physician: Raleigh Capellan Dictated By: Pablo Morales MD Dictated Date/Time: 10/23/24 7:59 am Reviewed By: Pablo Morales MD Signed By: Pablo Morales MD Signed Date/Time: 10/23/24 7:59 am Transcribed By: GLADIS Transcribed Date/Time: 10/23/24 7:54 am * Exam Date Time Procedure Performing Provider Status 10/22/24 12:22 PM Chest Portable Kena Saunders; Auth (Verified) Notes: (Chest Portable) Reason For Exam: Stroke;Other: RESULT: Chest Portable Chest Portable Hx of Present Illness: Stroke. COMPARISON: None. FINDINGS: LINES AND TUBES: None. LUNGS AND PLEURA: Clear lungs. Normal pulmonary vascularity. No pleural effusion. No pneumothorax. HEART, MEDIASTINUM AND MITCHELL: Heart is normal in size. Normal mediastinal and hilar contour. BONES AND SOFT TISSUES: No acute abnormality. IMPRESSION: No acute abnormality. WSN: [id number] Ordering Physician: Gilbert Joseph Dictated By: Daniel Fonseca MD Dictated Date/Time: 10/22/24 12:26 p Reviewed By: Daniel Fonseca MD Signed By: Daniel Fonseca MD Signed Date/Time: 10/22/24 12:26 pm Transcribed By: GLADIS Transcribed Date/Time: 10/22/24 12:23 pm * Exam Date Time Procedure Performing Provider Status 10/22/24 11:[address] Angio Neck Hyperacute Stroke Sepideh Reardon; Auth (Verified) Notes: (CT Angio Neck Hyperacute Stroke) Reason For Exam: Aneurysm, neck vessel(s);Other: RESULT: CT Angio Neck Hyperacute Stroke CT Angio Head Hyperacute Stroke, CT Angio Neck Hyperacute Stroke Reason: Other:; Stroke; Clinical Question(s): Other:; Hematoma Aneurysm / Other: TECHNIQUE: CT angiogram of the head and neck was performed after bolus administration of intravenous contrast. 100 mL of Isovue 300 was administered intravenously. Coronal and sagittal MIP reformatted images were obtained. Additional 3-D images were created on a separate workstation under concurrent supervision by the attending radiologist. All stenoses are measured using NASCET criteria. Weight-based protocol using automatic tube modulation was used to optimize exposure parameters. RADIATION DOSE PARAMETERS: CTDIvol Body: 10.17 mGy, DLP Body: 470 mGy*cm. CTDIvol Head: 44.60 mGy, DLP Head: 772 mGy*cm. COMPARISON: Noncontrast CT head performed concurrently. FINDINGS: CTA OF THE NECK: Arch: There is a three vessel aortic arch. There is mild atherosclerotic plaque of the aortic arch,but origins of the supra aortic vessels are patent. Right carotid system: The common carotid and cervical internal carotid arteries are patent. There is calcified plaque at the carotid bifurcation and distal common carotid artery with moderate stenosis of the distal common carotid artery. There is calcified atherosclerotic plaque at the carotid bifurcation, but no ICA stenosis (0%) by NASCET criteria. Left carotid system: The common carotid and cervical internal carotid arteries are patent. There iscalcified plaque at the distal common carotid artery and carotid bifurcation with mild stenosis of the distal common carotid artery. There is calcified atherosclerotic plaque at the carotid bifurcation, but no ICA stenosis (0%) by NASCET criteria. There is a zesefw-wxas-pshtnrzw vertebral artery system. Right vertebral: There is calcified atherosclerotic plaque at the origin but no significant stenosis. Left vertebral: No significant stenosis. No evidence of dissection or aneurysm. Other: Soft tissues and bones: No evidence of lymphadenopathy or mass. The thyroid is unremarkable. Visualized lung apices are clear. Mild degenerative changes of the cervical spine are noted, without acuteosseous abnormality. CTA OF THE HEAD: Anterior circulation: Bilateral intracranial ICAs demonstrate atherosclerotic calcification, without stenosis. Bilateral MARY and right MCA branches are patent. There is diffuse attenuation of the anterior division of the left MCA with significantly decreased left MCA distal branches. There is mass effect of the right supratentorial brain due to a right subdural collection causing mass effect uponthe adjacent brain parenchyma and causing mild mass effect upon the adjacent right MCA branches which are otherwise patent. Posterior circulation: Bilateral intracranial vertebral arteries, the basilar artery, and bilateralsuperior cerebellar and posterior cerebral branches are patent. There is no significant stenosis, proximal cutoff, aneurysm, or vascular malformation. Veins: Major dural venous sinuses are patent. Other: Soft tissues and bones: A moderate slightly hypodense right supratentorial subdural collection is present measuring up to 20 mm at its maximum thickness with associated mass effect upon the adjacent brain parenchyma. A right temporal parish hole is present. There is a 13-14 mm left-sided midline shift, progressed since prior examination of 10/17/2024. There is crowding of the suprasellar cistern. There is no effacement of the remaining basal cisterns. No acute territorial loss of alan-white matter differentiation. Orbits are unremarkable. There is a right lens replacement. No significant opacification in the paranasal sinuses or mastoid air cells. There is evidence of bilateral middle meningeal artery embolization. IMPRESSION: Diffuse attenuation of the anterior division of the left MCA with significantly diminished distal branches when compared to the contralateral side. No proximal occlusion or high grade stenosis in the major arteries of the neck. Interval mild enlargement of a chronic right subdural collection with 13-14 mm left-sided midline shift, and mass effect upon the adjacent brain parenchyma. These findings were communicated to Dr. Gilbert Joseph via [place] text at 1:09 PM on 10/22/2024. WSN: [id number] Ordering Physician: Gilbert Joseph Dictated By: Korina Bhatt MD Dictated Date/Time: 10/22/24 1:09 pm Reviewed By: Korina Bhatt MD Signed By: Korina Bhatt MD Signed Date/Time: 10/22/24 1:09 pm Transcribed By: GLADIS Transcribed Date/Time: 10/22/24 11:59 am * Exam Date Time Procedure Performing Provider Status 10/22/24 11:[address] Angio Head Hyperacute Stroke Sepideh Reardon; Auth (Verified) Notes: (CT Angio Head Hyperacute Stroke) Reason For Exam: Stroke;Other: RESULT: CT Angio Head Hyperacute Stroke CT Angio Head Hyperacute Stroke, CT Angio Neck Hyperacute Stroke Reason: Other:; Stroke; Clinical Question(s): Other:; Hematoma Aneurysm / Other: TECHNIQUE: CT angiogram of the head and neck was performed after bolus administration of intravenous contrast. 100 mL of Isovue 300 was administered intravenously. Coronal and sagittal MIP reformatted images were obtained. Additional 3-D images were created on a separate workstation under concurrent supervision by the attending radiologist. All stenoses are measured using NASCET criteria. Weight-based protocol using automatic tube modulation was used to optimize exposure parameters. RADIATION DOSE PARAMETERS: CTDIvol Body: 10.17 mGy, DLP Body: 470 mGy*cm. CTDIvol Head: 44.60 mGy, DLP Head: 772 mGy*cm. COMPARISON: Noncontrast CT head performed concurrently. FINDINGS: CTA OF THE NECK: Arch: There is a three vessel aortic arch. There is mild atherosclerotic plaque of the aortic arch,but origins of the supra aortic vessels are patent. Right carotid system: The common carotid and cervical internal carotid arteries are patent. There is calcified plaque at the carotid bifurcation and distal common carotid artery with moderate stenosis of the distal common carotid artery. There is calcified atherosclerotic plaque at the carotid bifurcation, but no ICA stenosis (0%) by NASCET criteria. Left carotid system: The common carotid and cervical internal carotid arteries are patent. There iscalcified plaque at the distal common carotid artery and carotid bifurcation with mild stenosis of the distal common carotid artery. There is calcified atherosclerotic plaque at the carotid bifurcation, but no ICA stenosis (0%) by NASCET criteria. There is a dmuhyc-fywg-ixpduifo vertebral artery system. Right vertebral: There is calcified atherosclerotic plaque at the origin but no significant stenosis. Left vertebral: No significant stenosis. No evidence of dissection or aneurysm. Other: Soft tissues and bones: No evidence of lymphadenopathy or mass. The thyroid is unremarkable. Visualized lung apices are clear. Mild degenerative changes of the cervical spine are noted, without acuteosseous abnormality. CTA OF THE HEAD: Anterior circulation: Bilateral intracranial ICAs demonstrate atherosclerotic calcification, without stenosis. Bilateral MARY and right MCA branches are patent. There is diffuse attenuation of the anterior division of the left MCA with significantly decreased left MCA distal branches. There is mass effect of the right supratentorial brain due to a right subdural collection causing mass effect uponthe adjacent brain parenchyma and causing mild mass effect upon the adjacent right MCA branches which are otherwise patent. Posterior circulation: Bilateral intracranial vertebral arteries, the basilar artery, and bilateralsuperior cerebellar and posterior cerebral branches are patent. There is no significant stenosis, proximal cutoff, aneurysm, or vascular malformation. Veins: Major dural venous sinuses are patent. Other: Soft tissues and bones: A moderate slightly hypodense right supratentorial subdural collection is present measuring up to 20 mm at its maximum thickness with associated mass effect upon the adjacent brain parenchyma. A right temporal parish hole is present. There is a 13-14 mm left-sided midline shift, progressed since prior examination of 10/17/2024. There is crowding of the suprasellar cistern. There is no effacement of the remaining basal cisterns. No acute territorial loss of alan-white matter differentiation. Orbits are unremarkable. There is a right lens replacement. No significant opacification in the paranasal sinuses or mastoid air cells. There is evidence of bilateral middle meningeal artery embolization. IMPRESSION: Diffuse attenuation of the anterior division of the left MCA with significantly diminished distal branches when compared to the contralateral side. No proximal occlusion or high grade stenosis in the major arteries of the neck. Interval mild enlargement of a chronic right subdural collection with 13-14 mm left-sided midline shift, and mass effect upon the adjacent brain parenchyma. These findings were communicated to Dr. Gilbert Joseph via [place] text at 1:09 PM on 10/22/2024. WSN: [id number] Ordering Physician: Gilbert Joseph Dictated By: Korina Bhatt MD Dictated Date/Time: 10/22/24 1:09 pm Reviewed By: Korina Bhatt MD Signed By: Korina Bhatt MD Signed Date/Time: 10/22/24 1:09 pm Transcribed By: GLADIS Transcribed Date/Time: 10/22/24 11:59 am * Exam Date Time Procedure Performing Provider Status 10/22/24 11:[address] Head-Hyper Acute Stroke Sepideh Darnell; Auth (Verified) Notes: (CT Head-Hyper Acute Stroke) Reason For Exam: Neuro deficit, acute, stroke suspected;Other: RESULT: CT Head-Hyper Acute Stroke CT Head-Hyper Acute Stroke INDICATION: Reason: Other:; Neuro deficit, acute, stroke suspected; Clinical Question(s): Other:; Hematoma Infarction TECHNIQUE: Noncontrast head CT using axial technique and reconstructed in axial and coronal planes.Iterative reconstruction techniques are used to optimize dose and image quality. CTDIvol Body: 10.17 mGy, DLP Body: 470 mGy*cm. CTDIvol Head: 44.60 mGy, DLP Head: 772 mGy*cm. COMPARISON: 10/17/2024 FINDINGS: Cavalry Officer view findings, lines and tubes: None. BRAIN AND EXTRA-AXIAL SPACES: Again noted is a holohemispheric right subdural hematoma, slightly increased in size from the most recent prior study with maximum thickness (205:24) measuring 20 mm compared with 17 mm previously. This fluid collection is again primarily of low attenuation with a small amount of hyperdense material in the right temporal region (205:19). No new hyperdense hemorrhage is apparent. Again noted is effacement of sulci in the right cerebral hemisphere with compression of the right lateral ventricle and a right to left midline shift measuring 11 mm, compared with 10 mm in the prior study. Alan-whitematter differentiation is well preserved. No acute infarct. No ventricular dilatation is apparent. Compression of the right lateral and third ventricles is essentially unchanged. No white matter lesions. No subarachnoid hemorrhage. No other extra-axial fluid collection. There appears to be mild dural calcification. The patient is status post bilateral middle meningeal artery embolization. CALVARIUM, SKULL BASE, AND SOFT TISSUES: Right parietal parish hole again noted. Otherwise intact calvarium. The paranasal sinuses and mastoid air cells are clear. Visualized orbits and globes are intact. The extracranial soft tissues are unremarkable. IMPRESSION: Mild further increase in size of the previously noted right subdural hematoma, now measuring 20 mm in greatest thickness compared with 17 mm in the study of 10/17/2024. Persistent mass effect upon structures in the right cerebral hemisphere. Trace interval increase inthe extent of right to left midline shift, now measuring 11 mm compared with 10 mm previously. Status post bilateral middle meningeal artery embolization on 09/23/2024. WSN: [id number] Ordering Physician: Gilbert Joseph Dictated By: Royce Emmanuel MD Dictated Date/Time: 10/22/24 12:04 p Reviewed By: Royce Emmanuel MD Signed By: Royce Emmanuel MD Signed Date/Time: 10/22/24 12:04 pm Transcribed By: GLADIS Transcribed Date/Time: 10/22/24 11:52 am Vital Signs Most recent to oldest [Reference Range]: 1 2 3 Height 183 cm (11/02/24 11:57 PM) 183 cm (11/02/24 3:40 AM) 183 cm (11/02/24 12:09 AM) Weight 113.5 kg (10/31/24 4:28 AM) 116.4 kg (10/29/24 6:35 AM) 118.2 kg (10/28/24 9:03 AM) Oxygen Saturation [94-100 %] 98 % (11/05/24 11:00 AM) 100 % (11/05/24 7:43 AM) 98 % (11/05/24 4:00 AM) Pulse Rate [55-90 bpm] 86 bpm (11/05/24 11:00 AM) 90 bpm (11/05/24 8:29 AM) 90 bpm (11/05/24 7:43 AM) Body Mass Index [18.5-24.99 kg/m2] 33.92 kg/m2 *>HHI* (10/22/24 8:44 PM) Blood Pressure [90-138/55-84 mm Hg] 149/68mm Hg *H* (11/05/24 11:00 AM) 152/71mm Hg *H* (11/05/24 8:29 AM) 152/71mm Hg *H* (11/05/24 7:43 AM) Respiratory Rate [16-30 br/min] 20 br/min (11/05/24 11:00 AM) 20 br/min (11/05/24 7:43 AM) 20 br/min (11/05/24 4:00 AM) Temperature [96.8-100.4 DegF] 98 DegF (11/05/24 11:00 AM) 98.1 DegF (11/05/24 7:43 AM) 97.8 DegF (11/05/24 4:00 AM) Liters per Minute 2 L/min (10/30/24 11:49 PM) Mode of Delivery (Oxygen) Room air (11/05/24 11:00 AM) Room air (11/05/24 7:43 AM) Room air (11/05/24 4:00 AM) Blood pressure sites Arm, left (11/05/24 11:00 AM) Arm, left (11/05/24 7:43 AM) Arm, left (11/05/24 4:00 AM) Temperature Route Temporal (11/05/24 11:00 AM) Temporal (11/05/24 7:43 AM) Oral (11/05/24 4:00 AM) Dry Weight 113.6 kg (10/22/24 8:44 PM) 116 kg (10/22/24 1:20 PM) Weight Obtained Via Bed scale (10/31/24 4:28 AM) Standing scale (10/29/24 6:35 AM) Standing scale (10/28/24 9:03 AM) Dry Weight Obtained Via Patient/family s tated (10/22/24 8:44 PM) History and physical note * Timi GUIDRY, [place]: PERFORM, MODIFY, MODIFY Event Display: History and Physical Hospital Authored Date: Patient: ??CTAARINO LUI ? Age:??64 Years?Sex:??Male?:??1960?? Chief Complaint Chronic right subdural??hematoma with??midline shift History of Present Illness Catarino is a 64-year-old man??with past medical history including atrial fibrillation (last took Eliquis prior to his last hospitalization),??hypertension, diabetes mellitus on insulin,??prior right-si ded craniotomy (childhood),??CKD,??who??previously had a fall??in August 2024??with workup demonstrating and acute on chronic right-sided??subdural hematoma??with 1 cm brain compression??and underwent MMA embolization??on??September 23, 2024.?? He later returned??on October 09, 2024??with headache and left lower extremity per chart review??and had CT imaging which redemonstrated chronic subdural??hematoma with increased??brain compression??and ultimately??a right bur??hole for subdural evacuation??was pursued at that time.?? He was discharged??thereafter. ?? On October 22, 2024,??Catarino tells me that his brother??noticed signs??concerning for stroke???he had drool out of the left side of his mouth,??had weakness of his lower extremities bilaterally, and h ad??numbness/tingling in his left upper extremity.?? Therefore,??he had an acute stroke workup at [facility].?? Ultimately,??CT imaging demonstrated interval increase in right subdural hematoma??with persistent mass effect??-- neurosurgery offered??repeat evacuation??and KATHY drain placement.?? This procedure??went without??immediate complication. ?? The patient was transferred to the surgical trauma ICU for further monitoring??given??no surgical beds were available in the??[facility].?? At time of his presentation to the surgical trauma ICU, he says that his pain is under adequate control, he has no vision changes, he has no headache. ??Additionally,he says that his??numbness/tingling in the left upper extremity has resolved. ??He additionally hasincreased motor strength (subjectively) in the bilateral lower extremities.?? He is looking forwardto dinner. ?? He additionally has no chest pain and no shortness of breath. Review of Systems As above Physical Exam Vitals & Measurements T:??98.0?F?? HR:??108??(Monitored)?? RR:??13?? BP:??138/100?? SpO2:??98%?? General:??Comfortable,??conversational HEENT:??Right temporal surgical site covered with Telfa. ??KAHTY drain??exiting,??thin serosanguineous??fluid. Cardiovascular:??Atrial fibrillation on the monitor Respiratory: Room air, equal chest rise, no respiratory distress Abdomen: Obese,??nontender Extremities: No long bone deformities Neurologic:??GCS15. Right pupil dilated more than left (baseline).?? Extraocular movements intact. ??Able to make a variety of facial expressions without deficit.?Able to protrude tongue without deviation.?? Facial sensation??intact.?? Able to shrug shoulders without difficulty.?? Speech??clear.?? Sensation intact bilateral upper and lower extremities.?? Strength in the bilateral upper extremities 5 out of 5.?? 5 out of 5 plantar and dorsi flexion bilaterally. Assessment/Plan Catarino is a 64-year-old man??with past medical history including atrial fibrillation (last took Eliquis prior to his last hospitalization),??hypertension, diabetes mellitus on insulin,??prior right-si ded craniotomy (childhood),??CKD,??who??previously had a fall??in August 2024??with workup demonstrating and acute on chronic right-sided??subdural hematoma??with 1 cm brain compression??and underwent MMA embolization??on??September 23, 2024.?? He later returned??on October 09, 2024??with headache and left lower extremity per chart review??and had CT imaging which redemonstrated chronic subdural??hematoma with increased??brain compression??and ultimately??a right bur??hole for subdural evacuation??was pursued at that time.?? He was discharged??thereafter. ?? On October 22, 2024,??Catarino tells me that his brother??noticed signs??concerning for stroke???he had drool out of the left side of his mouth,??had weakness of his lower extremities bilaterally, and h ad??numbness/tingling in his left upper extremity.?? Therefore,??he had an acute stroke workup at [facility].?? Ultimately,??CT imaging demonstrated interval increase in right subdural hematoma??with persistent mass effect??-- neurosurgery offered??repeat evacuation??and KATHY drain placement.?? This procedure??went without??immediate complication. ?? The patient was transferred to the surgical trauma ICU for further monitoring??given??no surgical beds were available in the??[facility].?He will be transferred there once bed available. ?? Diagnoses: Chronic right subdural??hematoma??with??midline shift (space-occupying/brain compression) Obesity Atrial fibrillation Diabetes mellitus, type II ?? Neuro ??Acute postop pain Chronic right subdural??hematoma??with??midline shift s/p??repeat evacuation, neurosurgery recommendations bellow Differential for presenting??extremity weakness, paresthesias??include seizure,??awaiting neurologyrecommendations???treating with Chuck in the interim Postoperative repeat head CT scheduled for??October 23, 2024 ?? Plan ??- Pain regimen: Acetaminophen, oxycodone as needed ??- Keppra??pending further neurology recommendations ??-??Every 2 hour neuro examinations ??-??Appreciate neurology consultation??for possible??seizures ?? -Neurosurgery requests: Head of bed greater than 30 degrees Every 2 hour neurochecks Systolic blood pressure less than 160 Keppra IV [address]A Head CT in the morning Okay for diet and out of bed Ancef for 24 hours No chemical DVT prophylaxis Monitor KATHY drain output ? CV Atrial fibrillation with intolerance to anticoagulation Appreciate cardiology guidance Troponin??has peaked A-fib with RVR??in the reported context of??medication noncompliance, home regimen resumed ?? Plan ??- Holding home??lisinopril ??- Continue home??metoprolol??diltiazem,??statin ??- Goal MAP > 65.?- Fluid boluses as needed ??- Monitor BP/HR ??-??Cardiology Consult, appreciate recommendations ? Pulm Room air, no active issues ?? Plan ??- Incentive spirometry, acapella ?? FEN/GI Cleared for diet per neurosurgery, diabetic diet ordered ?? Plan ??- Diet:??Diabetic diet ??- Bowel regimen:??Docusate, bisacodyl suppository as needed ??- PPI:??Home??PPI ordered ??- Monitor daily Ins/Outs ??- Replete lytes per ICU Ca/Phos/Potassium protocol ?? Renal ??Hx of chronic kidney disease On home metolazone and Lasix, resumed ?? Plan ??- Daily renal labs ??- Monitor urine output ?? MSK/Integ Surgical site to the??right temporoparietal region/KATHY drain??management per??neurosurgery ?? Plan ??- Dressings??Telfa and??KATHY drain ?? Heme Hemoglobin/hematocrit grossly stable from preoperative, trending No chemical anticoagulation/chemical??DVT prophylaxis??neurosurgery ?? Plan ??- Daily CBC ??- Monitor H/H trend -Sequential compression devices for??DVT prophylaxis ?? Endocrine Diabetes melitis type II,??on insulin Appreciate BIDS recommendations ?? Plan ??-??BIDs Consult, appreciate recommendations ??- Restart home??dose Lantus 24 units daily - If eating??start??Lispro scale 7:100 + 2:50, three times daily before meals?? - If??NPO use correction scale starting at 1/150 plus 1/50 Q6 hours ?? ID No concerns for active infection, Ancef prophylaxis x 24 hours ?? Plan ??- Trend WBC's ??- Current Antibiotics:??Ancef x 24 hours ?? Social ??HCP:??CASANDRA RUIZ? [phone] ?? Prophylaxis HOB > 30 degrees GI: Home pantoprazole resumed DVT:??SCD's ?? Code Status:??Full CODE STATUS was confirmed by neurosurgery.?? Full CODE STATUS was confirmed by myself on presentation to the surgical trauma ICU. ?? Primary Team:??Neurosurgery ?? Consultants:??Neurology, BIDS, cardiology ?? Disposition:??[facility] when bed available. ? Please page [phone] or call [phone] SICU Team with any questions ?? Patient seen and plan of care discussed with attending, Dr. Marques Problem List/Past Medical History Ongoing Obese class I Atrial fibrillation??no longer on systemic anticoagulation Hypertension Diabetes mellitus type 2 Prior craniotomy??and prior evacuation of subdural hematoma CKD Procedure/Surgical History Prior right-sided craniotomy,??childhood MMA embolization Evacuation of subdural hematoma??x 2 Home Medications Acetaminophen: 650 mg, By Mouth, Every 4 hours, PRN (Headache) Allopurinol: 300 mg = 1 tablet, By Mouth, Daily Atorvastatin: 80 mg = 1 tablet, By Mouth, Daily Diltiazem: 360 mg = 1 capsule, By Mouth, Daily dulaglutide: 4.5 mg, Subcutaneous Injection, Every week, INJECT 4.5MG SUBCUTANEOUSLY ONCE WEEKLY Durable Medical Equipment: See Instructions, use as directed for Type 2 Diabetes Mellitus Furosemide: 40 mg = 1 tablet, By Mouth, 2 times a day Insulin Glargine: 24 units, Subcutaneous Infusion, Daily Insulin Lispro: See Instructions, Subcutaneous Injection 3 times a day before meals.100 - 149 ?? 7 units 150 - 199 ?? 9 units 200 - 249 ?? 11 units 250 - 299 ?? 13 units 300 - 349 ?? 15 units 350 - 399 ?? 17 unitsfollow-up with your PCP or endocrine specialist for further m... Lisinopril: 40 mg = 1 tablet, By Mouth, Daily Metolazone: 5 mg = 1 tablet, By Mouth, 2 times a day Metoprolol: 75 mg = 1 tablet, By Mouth, 2 times a day Pantoprazole: 40 mg = 1 tablet, By Mouth, Daily Tranexamic Acid: 650 mg, By Mouth, Daily Above per CIS??history Allergies NKA Above per CIS Social History Son at bedside Full code Radiology ?? RESULT: CT Head-Hyper Acute Stroke CT Head-Hyper Acute Stroke? INDICATION: Reason: Other:; Neuro deficit, acute, stroke suspected; Clinical Question(s): Other:; Hematoma Infarction ?? TECHNIQUE: Noncontrast head CT using axial technique and reconstructed in axial and coronal planes.Iterative reconstruction techniques are used to optimize dose and image quality.? CTDIvol Body: 10.17 mGy, ??DLP Body: 470 mGy*cm. ? CTDIvol Head: 44.60 mGy, DLP Head: 772 mGy*cm. ? COMPARISON: 10/17/2024 ?? FINDINGS:? Cavalry Officer view findings, lines and tubes: None. ?? BRAIN AND EXTRA-AXIAL SPACES: Again noted is a holohemispheric right subdural hematoma, slightly increased in size from the most recent prior study with maximum thickness (205:24) measuring 20 mm compared with 17 mm previously. This fluid collection is again primarily of low attenuation with a small amount of hyperdense material in the right temporal region (205:19). No new hyperdense hemorrhage is apparent. Again noted is effacement of sulci in the right cerebral hemisphere with compression of the right lateral ventricle and a right to left midline shift measuring 11 mm, compared with 10 mm in the prior study. Alan-whitematter differentiation is well preserved. No acute infarct. ?? No ventricular dilatation is apparent. Compression of the right lateral and third ventricles is essentially unchanged.? No white matter lesions. ?? No subarachnoid hemorrhage. No other extra-axial fluid collection. There appears to be mild dural calcification. ?? The patient is status post bilateral middle meningeal artery embolization. ?? CALVARIUM, SKULL BASE, AND SOFT TISSUES: Right parietal parish hole again noted. Otherwise intact calvarium.? The paranasal sinuses and mastoid air cells are clear. ?? Visualized orbits and globes are intact.? The extracranial soft tissues are unremarkable. ?? IMPRESSION: ?? Mild further increase in size of the previously noted right subdural hematoma, now measuring 20 mm in greatest thickness compared with 17 mm in the study of 10/17/2024. ?? Persistent mass effect upon structures in the right cerebral hemisphere. Trace interval increase inthe extent of right to left midline shift, now measuring 11 mm compared with 10 mm previously. ?? Status post bilateral middle meningeal artery embolization on 09/23/2024. ?? WSN: [id number] ? Ordering Physician: Gilbert Joseph ?? Signature Line Dictated By: ?Royce Emmaunel MD Dictated Date/Time: ?10/22/24 12:04 p Reviewed By: ?Royce Emmanuel MD Signed By: ? Royce Emmanuel MD Signed Date/Time: ? 10/22/24 12:04 pm Transcribed By: ? CSB Transcribed Date/Time: ?10/22/24 11:52 am ?? Lab Results Labs Last 24 Hours BLOOD COUNT & DIFF ? Event Name?? Event Result?? Date/Time?? WBC 8.1 k/mm3 10/22/24 12:34:00 RBC 3.94 m/mm3??Low 10/22/24 12:34:00 Hgb 10.2 Gm/dL??Low 10/22/24 12:34:00 Hct 33.4 %??Low 10/22/24 12:34:00 MCV 84.8 femtoliters 10/22/24 12:34:00 MCH 25.9 pg??Low 10/22/24 12:34:00 MCHC 30.5 Gm/dL??Low 10/22/24 12:34:00 Platelet Count 259 k/mm3 10/22/24 12:34:00 MPV 10.8 femtoliters 10/22/24 12:34:00 Nucleated RBC (Automated) 0 #/100 WBC'S 10/22/24 12:34:00 ? COAG ? Event Name?? Event Result?? Date/Time?? INR 1 10/22/24 12:34:00 Protime (PT) 10.4 seconds 10/22/24 12:34:00 APTT 23.1 seconds??Low 10/22/24 12:34:00 ? CHEM GENERAL ? Event Name?? Event Result?? Date/Time?? Sodium 137 mmol/L 10/22/24 12:34:00 Chloride 104 mmol/L 10/22/24 12:34:00 Bicarbonate Level 21 mmol/L??Low 10/22/24 12:34:00 Anion Gap 12 10/22/24 12:34:00 Glucose Level 397 mg/dL??High 10/22/24 12:34:00 BUN 43 mg/dL??High 10/22/24 12:34:00 Creatinine-Blood 1.45 mg/dL??High 10/22/24 12:34:00 ? * Shelli GUIDRY, Marco H: PERFORM Event Display: History and Physical Hospital Authored Date: Attending Attestation: ?? The patient was seen, examined, and discussed with the STICU??team on the date of service documented above. ??The clinical course, labs, and radiological studies were reviewed by me and findings on exam confirmed. ??I agree with the findings as well as the assessment and plan as delineated above. I have??performed the substantive portion of the medical decision making for the ?? Diagnoses Compression of brain ??(G93.5) Traumatic subdural hemorrhage without loss of consciousness, initial encounter ??(S06.5X0A) ?? q2 neurochecks ?? --- Marco Marques MD, FACS, [facility] Division of Trauma, Acute Care Surgery, and Surgical Critical Care EKG study * Event Display: ECG 12-Lead Authored Date: Please click on pdf link to open report * Event Display: ECG 12-Lead Authored Date: [id number] Ventricular Rate: 53 BPM Atrial Rate: 53 BPM P-R Interval: 188 ms QRS Duration: 100 ms Q-T Interval: 466 ms QTC Calculation(Bazett): 437 ms P Napavine: 72 degrees R Napavine: 26 degrees T Napavine: 48 degrees Sinus bradycardia Otherwise normal ECG When compared with ECG of 22-Oct-2024 11:56, Sinus rhythm has replaced Atrial fibrillation Vent. rate has decreased by 71 bpm Confirmed by BRANDYN BUSBY MD ([id number]) on 11/02/2024 8:57:29 AM [place]: BRANDYN BUSBY MD * Event Display: EKG Authored Date: [id number] * Event Display: ECG 12-Lead Authored Date: [id number] Please click on pdf link to open report * Event Display: ECG 12-Lead Authored Date: [id number] Ventricular Rate: 124 BPM QRS Duration: 90 ms Q-T Interval: 298 ms QTC Calculation(Bazett): 428 ms R Napavine: -2 degrees T Napavine: 29 degrees Atrial fibrillation with rapid ventricular response Abnormal ECG When compared with ECG of 24-Sep-2024 11:32, Atrial fibrillation has replaced Sinus rhythm Vent. rate has increased by 59 bpm Confirmed by Onesimo Deleon ([id number]) on 10/23/2024 7:28:54 AM [place]: Onesimo Deleon Heart * Event Display: Echocardiogram - Complete Authored Date: [id number] Transthoracic Echocardiography Report (TTE) Patient Demographics Patient Name CATARINO LUI Date of Study 10/24/2024 Corporate Gender Male Facility Race .[id number] Ethnicity Date of 1960 Height: 72.05 inches Age 64 year(s) Weight: 264.56 pounds Accession Number [id number] BSA: 2.4 m2 Room Number [id number] BMI: 35.83 kg/m2 Referring Jennie SARMIENTO Interpreting [place] MD Physician Physician Electronic Imager Elvin Levine Indications Arrhythmia. Clinical History Afib Hypertension. Diabetes Mellitus. obesity Study Data Type of Study TTE procedure:Echo Complete-Doppler, Colorflow, M-Mode. Study Date10/24/2024 Start Time: 08:58 AM Study Location: [facility] [place] Adult Echo Study Status: ICU/CCU Patient Status: Routine Technical Quality: Adequate Blood Pressure:136/81 mmHg EKG: Normal sinus rhythm HR: 66 bpm Allergies - NKDA. 2D Measurements LV Diastolic Dimension: 5 cm LV Systolic Dimension: 3.3 cm LV Septum Diastolic: 1.6 cm LV PW Diastolic: 1.4 cm AO Root Dimension: 3.8 cm LA ESV (BP):69.9 ml LVOT Stroke Volume: 120.2 ml LA ESV Index: 29 ml/m2 Stroke Volume Index50.08 ml/m2 LVOT: 2.5 cm Cardiac Index:3.3 l/min/m2 Ascending Aorta:4.1 cm Doppler Measurements AV Peak Velocity: 168 cm/s MV Peak E-Wave: 90.6 cm/s AV Peak Gradient: 11.29 mmHg MV Peak A-Wave: 106 cm/s AV Mean Gradient: 6 mmHg MV E/A Ratio: 0.85 AV VTI:37.3 cm LVOT Peak Velocity: 115 cm/s LVOT VTI24.5 cm MV Deceleration Time: 201 msec AV Area (Continuity):3.22 cm2 TR Velocity:265 cm/s PV Peak Velocity: 121 cm/s TR Gradient:28.09 mmHg PV Peak Gradient: 5.86 mmHg E' Septal Velocity: 9.46 cm/s E' Lateral Velocity: 13.5 cm/s E/Med E':[id number] E/Lat E':6.690263 Cardiac Anatomy Left Ventricle/Interventricular Septum The left ventricular size is normal. The left ventricular wall thickness is mildly increased. The LV systolic function is normal. The left ventricular ejection fraction is 55-60%. There are no definite regional wall motion abnormalities. There is no doppler evidence of increased filling pressures. Left Atrium/Interatrial Septum The left atrium is normal in size. Aortic Valve The aortic valve appears mildly calcified. There is no aortic stenosis. There is no aortic regurgitation. Mitral Valve There is mild mitral annular calcification. There is trace mitral regurgitation. Aorta There is mild dilation of the ascending aorta (4.1 cm). Right Ventricle The right ventricle is mildly dilated. Right ventricular systolic function appears preserved. Right Atrium The right atrium is normal in size. Pulmonic Valve The pulmonic valve is poorly visualized. Tricuspid Valve The tricuspid valve is grossly normal. There is trace tricuspid valve regurgitation. Pumonary Artery The pulmonary artery systolic pressure estimation is 30-35 mmHg. Venous Structures The inferior vena cava appears normal. Pericardium/Extracardiac There is no significant pericardial effusion. There is an epicardial fat pad present. Summary 1) The LV systolic function is normal. The left ventricular ejection fraction is 55-60%. There are no definite regional wall motion abnormalities. 2) The left ventricular wall thickness is mildly increased. 3) The right ventricle is mildly dilated. Right ventricular systolic function appears preserved. 4) There is mild dilation of the ascending aorta (4.1 cm). 5) There is mild mitral annular calcification. There is trace mitral regurgitation. Comparison No prior study available for comparison. Signature * Event Display: Echocardiogram - Complete Authored Date: Cardiology * Event Display: Cardiac Rhythm Strips Authored Date: * Event Display: Cardiac Rhythm Strips Authored Date: Laboratory * Event Display: Point of Care Reference Ranges Authored Date: Hospital Progress note * Felipe Le RN: PERFORM, SIGN, VERIFY Event Display: Progress Note Hospital Authored Date: Patient: CATARINO LUI Age: 64 years Sex: Male : 1960 Associated Diagnoses: None Author: Felipe Le RN Findings Nursing Data Cardiac Data. : Cardiac Data. 11/05/2024 8:00 EST Cardiovascular Symptoms None Nail Bed Color, Fingers [place] Nail Bed Color, Toes [place] Skin Temperature Upper Extremities Warm Skin Temperature Lower Extremities Warm Heart Sounds S1, S2 Heart Rhythm Regular Cardiac Rhythm Normal sinus rhythm Capillary Refill < 3 seconds Radial Pulse, Left Normal Radial Pulse, Right Normal Dorsalis Pedis Pulse, Left Normal Dorsalis Pedis Pulse, Right Normal Edema None night monitor Yes Cardiovascular WNL except . Neurological Data. : Neurological Data. 11/05/2024 12:40 EST Discharge Time 11/05/2024 12:30 (Modified) 11/05/2024 8:00 EST Level of Consciousness Full Consciousness Orientated to person, place, time Person, Place, Time, Event Facial Symmetry Ptosis right Characteristics of Speech Clear and normal Pupil description, left Round Pupil description, right Round Pupil reaction, left Sluggish Pupil reaction, right Fixed Pupil Size, Left 4 mm Pupil Size, Right 6 mm Strength LUE 5-Active movement against gravity & full resistance Strength RUE 5-Active movement against gravity & full resistance Strength LLE 5-Active movement against gravity & full resistance Strength RLE 5-Active movement against gravity & full resistance Tone LUE Normal Tone RUE Normal Tone LLE Normal Tone RLE Normal Sensation LUE Intact Sensation RUE Intact Sensation LLE Intact Sensation RLE Intact Movement LUE Spontaneous Movement RUE Spontaneous Movement LLE Spontaneous Movement RLE Spontaneous Response Eye Opening Spontaneously Motor Response-Adult Obeys commands Verbal Response-Adult Oriented and converses Yohannes Coma Score 15 Neuro WNL except Headache None Swallow - Neuro Normal . Evaluation P: as per nursing care plan. I: as per interventions. 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 Lui this morning; he is alert and oriented times 4. tele: NSR. His respirations are even and unlabored, at rest, speaking in complete sentences. He denies pain.He is up independently steady on feet. Neuro surgery PA at the bedside earlier this morning to remove annelise from his head. Mr. Lui's questions answered. See i--view for full assessment.. * Kaitlin Reilly MD: PERFORM Event Display: Progress Note Hospital Authored Date: Patient: ??CATARINO LUI ? Age:??64 Years?Sex:??Male?:??1960?? Type II DM Briefly this is??64-year-old male with history of afib previously on Eliquis, hypertension, uncontrolled diabetes, history of right-sided craniotomy in childhood, CKD,??Was recently discharged about a week ago after being managed for acute on chronic subdural hematoma prompting intervention on 10/09/2024 and discharged home with services he will return to the ER this morning with symptoms concerning for stroke.??CT head demonstrated an increase in the right chronic subdural hematoma prompting surgical intervention by neurosurgeon. BIDS consulted for further management of hyperglycemia. ??Beforecoming to the hospital patient was on Trulicity and glipizide along with??basal bolus insulin regimen.?? Patient reported that he was??taking 44 units of long-acting insulin??daily and??over 84 unitsof short acting insulin with each meal. ?? Recent hemoglobin A1c was 9.3%. ?? Current Inpatient glycemic history and management: -Basal insulin:??52 unit daily -Prandial insulin: 16/100 plus 2/50 -Diet:60g ?? Patient's blood sugars have been well-controlled on this current regimen. ?? Recommendations: -Continue Lantus??to??52 units daily -Continue?lispro Premeal scale??with a 16 units for blood sugar more than 100 with addition of 2units for every 50 mg/dL increase blood sugar levels,??3 times a day with each meal. ??Hold for NPO -If??NPO use correction scale starting at 2/150 plus 2/50 Q 6 hours -Check blood sugar levels 4 times a day or more frequently if the patient is hypo or hyperglycemic -Will arrange for follow up visit at our office if patient is open to it ? Plan of care discussed with ??Jenny, addendum to follow.Endocrine team will be signing off at this point.Please reconsult if needed ?? Kaitlin Reilly MD PGY IV Endocrinology, Diabetes, & Metabolism?? * Jenny GUIDRY, [facility]: PERFORM Event Display: Progress Note Hospital Authored Date: [id number] I have discussed the case and its management with the fellow and agree with the findings and plan as documented in the fellow???s note.?? * Ariella Luong: PERFORM Event Display: Progress Note Hospital Authored Date: Patient: ??CATARINO LUI ? Age:??64 Years?Sex:??Male?:??1960?? Subjective No acute overnight events. Catarino is in good spirits this am. Denies any acute issues. Physical Exam Vitals & Measurements T:??98.1?F?? HR:??90??(Peripheral)?? RR:??20?? BP:??152/71?? SpO2:??100%?? HT:??183??cm?? WT:??113.5??kg?? BMI:??33.92? General:??Appears stated age, awake, alert and NAD HEENT: Normocephalic, trachea midline Respiratory:??Breathing is even and nonlabored?? Extremities:?Symmetric, no edema, no calf tenderness. Skin:??Surgical incision closed with annelise, C/D/I. Drain site closed with suture, C/D/I Neurologic:?? Mental status: awake, alert oriented to location, date and self?? Speech is clear, fluent, and appropriate,?? follows simple and complex commands CN: R eye fixed and dilated at baseline. L pupil 2mm round and reactive. Slight R eyelid droop, patient states this is his baseline when tired. sensation intact?? hearing intact to voice tongue midline shoulder shrug symmetric Motor: normal bulk and tone?? Upper Extremities- Deltoid:?5/5 right?5/5 left Biceps:?5/5 right?5/5 left Triceps:?5/5 right?5/5 left Hand latex caster:?5/5 right?5/5 left Lower Extremities- Hip Flexion:?5/5 right?5/5 left?? Knee Extension:?5/5 right?5/5 left Plantar flexion:?5/5 right?5/5 left Dorsiflexion:?5/5 right?5/5 left EHL:?5/5 right?5/5 left Sensation:?? intact to light touch throughout upper and lower extremities?? Assessment/Plan Mr. Lui is a 64 year old man with poorly controlled DM, A. Fib (not currently on anticoagulation), HTN, CKD, prior R craniotomy in childhood and s/p fall in August 2024 with workup showing an acute on chronic R??holohemispheric subdural hematoma with approx 1 cm midline shift s/p MMA on 09/23. He returned on 10/08/[address] head revealed increased chronic R SDH and patient underwent R parish hole craniotomy on 10/[address] Dennis. He was discharged home on 10/13. He returned on??10/22 with??headache, began to drool out of the left side of his mouth and noticed he was having difficulty zipping the jacket.?? He also noticed some difficulty with speech.??CT Head with increased chronic R SDH. He underwent R parish hole craniotomy??on 10/[address] Dennis. ?? POD # 14 s/p R parish hole craniotomy for SDH evacuation Doing well, suture and staple removed without issue. CT head reviewed with Dr. Dennis, no need for further intervention, will continue on TXA. From NSGY perspective, patient is okay for discharge, please ensure outpatient follow ups with neurology and endocrinology. ?? Recommendations: - No acute neurosurgical intervention - Neuro checks q4hrs - HOB greater than 30 degrees?? - continue TXA 650 PO daily for at least 3 weeks until outpt neurosurgery follow up - no antiplatelet, anticoagulation, or chemical DVT ppx?? - OOB ad fox, encourage ambulation - continue Keppra 1gm BID ppx??given refractory SDH, outpt neurology follow up for further management - medical management, supportive care and pain control per primary team - Will arrange 2 week outpatient follow up with??CT head ?Please page [phone] with any questions or concerns. ?Discussed with neurosurgery attending, Dr. Dennis. ?? Intake and Output Intake and Output Results?? This visit (24 hour periods starting at 07:00 EST)? 11/05/24 *?? 11/04/24?? 11/03/24?? Total Summary?Intake mL?? --?? 1,920?? 2,331?Output mL?? --?? 1,875?? 1,500?Fluid Balance ?? --?? 45?? 831?? Intake (2)?Oral Fluids mL?? --?? 1,920?? 1,620?Oral Nutritional Supplements mL?? --?? --?? 711?Total?? --?? 1,920?? 2,331?? Output (1)?Urine Voided mL?? --?? 1,875?? 1,500?Total?? --?? 1,875?? 1,500?? Counts (4)?Oral Fluids mL?? --?? 1,920?? 1,620?Oral Nutritional Supplements mL?? --?? --?? 711?Urine Count ?? --?? 3?? 2?Urine Voided mL?? --?? 1,875?? 1,500? * This column has not completed the indicated time period.?? Labs Last 24 Hours BLOOD COUNT & DIFF ? Event Name?? Event Result?? Date/Time?? WBC 9.8 k/mm3 11/05/24 07:55:00 RBC 4.25 m/mm3??Low 11/05/24 07:55:00 Hgb 10.9 Gm/dL??Low 11/05/24 07:55:00 Hct 35.6 %??Low 11/05/24 07:55:00 MCV 83.8 femtoliters 11/05/24 07:55:00 MCH 25.6 pg??Low 11/05/24 07:55:00 MCHC 30.6 Gm/dL??Low 11/05/24 07:55:00 Platelet Count 204 k/mm3 11/05/24 07:55:00 MPV 11.1 femtoliters 11/05/24 07:55:00 Nucleated RBC (Automated) 0 #/100 WBC'S 11/05/24 07:55:00 ? CHEM GENERAL ? Event Name?? Event Result?? Date/Time?? Sodium 140 mmol/L 11/05/24 07:55:00 Chloride 107 mmol/L 11/05/24 07:55:00 Bicarbonate Level 24 mmol/L 11/05/24 07:55:00 Anion Gap 9 mmol/L 11/05/24 07:55:00 Glucose Level 132 mg/dL??High 11/05/24 07:55:00 BUN 52 mg/dL??High 11/05/24 07:55:00 Creatinine-Blood 1.6 mg/dL??High 11/05/24 07:55:00 ? Consult note * Helena GUIDRY, Jade: MODIFY, MODIFY, PERFORM Event Display: Consultation Note Authored Date: Patient: ??CATARINO LUI ? Age:??64 Years?Sex:??Male?:??1960?? Indication for Consult see level 1 sheet SDH Afib History of Present Illness/Interval History Catarino is a 64-year-old man??with past medical history including atrial fibrillation (last took Eliquis prior to his last hospitalization),??hypertension, diabetes mellitus on insulin,??prior right-si ded craniotomy (childhood),??CKD,??who??previously had a fall??in August 2024??with workup demonstrating and acute on chronic right-sided??subdural hematoma??with 1 cm brain compression??and underwent MMA embolization??on??September 23, 2024.?? He later returned??on October 09, 2024??with headache and left lower extremity per chart review??and had CT imaging which redemonstrated chronic subdural??hematoma with increased??brain compression??and ultimately??a right bur??hole for subdural evacuation??was pursued at that time.?? On October 22, 2024,??Catarino tells me that his brother??noticed signs??concerning for stroke???he had drool out of the left side of his mouth,??had weakness of his lower extremities bilaterally, and had??numbness/tingling in his left upper extremity.?? Therefore,??he had an acute stroke workup at [facility].?? Ultimately,??CT imaging demonstrated interval increase in right subdural hematoma??with persistent mass effect??-- neurosurgery offered??repeatevacuation??and KATHY drain placement.?? This procedure??went without??immediate complication. Post procedure in trauma ICU, he has no vision changes.??Additionally, he says that his??numbness/tingling in the left upper extremity has resolved. ??He additionally has increased motor strength (subjectively) in the bilateral lower extremities.? Post procedure he had atrial fibrillation/a flutter with rapid ventricular response. ??Heart rates are gradually improving.?? He is currently??obviously off of anticoagulation. ??He presumably hasa history of chronic diastolic heart failure chronically on furosemide??and??metolazone. ??Unclear about his baseline??volume status. ??He denies any worsening lower extremity edema orthopnea or PND symptoms.?? Review of Systems 12 point review of symptoms as noted in the??HPI and reviewed in detail with the patient; pertinentpositives noted otherwise??negative. Physical Exam Vitals & Measurements T:??98.2?F?? HR:??98??(Monitored)?? RR:??15?? BP:??117/87?? SpO2:??94%?? HT:??183??cm?? WT:??120.3??kg?? BMI:??33.92?? Weight lb/oz: 265 lb 3 oz General:??Pleasant, No apparent??distress; VS as noted HEENT: Pupils equal and reactive, extraocular muscles intact, no pallor no icterus Neck:??Supple, no JVD, no adenopathy,??no thyromegaly,??2+ carotid upstroke,??no carotid bruit Lungs:??Good air entry bilaterally,??no significant crackles, No rales, No??wheeze. Chest:??Normal appearance and symmetric??without deformity Cardiac:??Regular rate and rhythm, no significant??murmur, no??rubs, no??gallops Abdomen:??Soft, nontender, nondistended, positive bowel sounds, no significant??guarding rigidity or rebound, no organomegaly appreciated Extremity:??+ distal pulses, no significant clubbing cyanosis, trace??edema Skin:??Warm well perfused, no rashes noted Musculoskeletal:??No significant deformity with normal range of motion, no CVA tenderness Neuro:??Alert awake oriented x3, LLext weaker,??remainder exam deferred Psych:??Normal affect, cognition grossly intact Intake and Output Today's Intake Total?240?? Today's Balance?240?? Yesterday's Intake Total? 1010?? Yesterday's Output Total?224?? Yesterday's Drain/Tube Output? 14?? Yesterday's KATHY 1? 10?? Yesterday's Urine Voided?200?? Yesterday's Balance?786?? Clinical Range's Intake Total? 1250?? Clinical Range's Output Total?224?? Clinical Range's Total Drain/Tube Output? 14?? Clinical Range's Total KATHY 1? 10?? Clinical Range's Total Urine Voided?200?? Clinical Range's Balance ? 1026?? Assessment/Plan Compression of brain Traumatic subdural hemorrhage without loss of consciousness, initial encounter 64-year-old male with history significant for??persistent atrial fibrillation chronically on anticoagulation,??hypertension insulin-dependent diabetes,??diastolic heart failure currently on diuretics, prior history of right-sided craniotomy in childhood,??CKD, status post fall and subdural hematomain August 2024 status post MMA embolization, subsequently??admitted with neurochanges with expanding SDH requiring craniotomy,??again admitted October 22, 2024 with??left-sided neurologic deficits??some speech??vision and left lower extremity weakness, found to have CT evidence of increasing right subdural hematoma with mass effect, status post urgent neurosurgical evacuation with KATHY drain??nowin??neurotrauma intensive care unit. ??Telemetry??and EKG suggestive of coarse A-fib/a flutter withrapid ventricular response.?? Postprocedure his heart rates have been improving with modest rate control.?? Blood work with A1c of 9.3 creatinine 1.7 stable??hemoglobin of 9.4. ?? Recommendations: 1.?? Recurrent right subdural hematoma??expansion with??focal neurodeficits requiring reexplorationsurgical evacuation and KATHY drain. ??His neurostatus is currently improving. ??Obviously is not a candidate for systemic anticoagulation.?? Once safe from neurosurgical standpoint baby aspirin can be c onsidered. 2.?? Atrial fibrillation with rapid ventricular response. ??Post??op??RVR related to??hyperadrenergic state. ??Continue??metoprolol??75 mg p.o. twice daily.?? If rate control is not adequate can consider adding diltiazem??60 mg p.o. 2-3 times daily and uptitrate. ??If any hemodynamic instability can consider amiodarone drip. 3.?? Once he is clinically stable at least 4 to 6 weeks??out,??can consider definitive therapy for??a left atrial appendage??closure device??procedure??which does require anticoagulation intraprocedure and immediately post op.?? This will obviously require follow-up scanning and neurosurgical??clearance. 4. ??Chronic???diastolic CHF??continue strict I's and O's weight monitoring. Please??order echo Echo to assess EF and DDfx. Continue his outpatient diuretic regimen??which includes??torsemide and metolazone.?? Watch electrolytes namely potassium. 5.?? Insulin-dependent diabetes poorly controlled. ??Needs bids consultation.?? Eventually will need consideration for??SGLT2 inhibitors or GLP-1 agonist. ?? Thank you for the kind consultation. -- Jade Malik MD [facility], Interventional Cardiology Beeper: # [id number] [phone] Allergies NKA Home Medications Acetaminophen: 650 mg, By Mouth, Every 4 hours, PRN (Headache) Allopurinol: 300 mg = 1 tablet, By Mouth, Daily Atorvastatin: 80 mg = 1 tablet, By Mouth, Daily Diltiazem: 360 mg = 1 capsule, By Mouth, Daily dulaglutide: 4.5 mg, Subcutaneous Injection, Every week, INJECT 4.5MG SUBCUTANEOUSLY ONCE WEEKLY Durable Medical Equipment: See Instructions, use as directed for Type 2 Diabetes Mellitus Furosemide: 40 mg = 1 tablet, By Mouth, 2 times a day Insulin Glargine: 24 units, Subcutaneous Infusion, Daily Insulin Lispro: See Instructions, Subcutaneous Injection 3 times a day before meals.100 - 149 ?? 7 units 150 - 199 ?? 9 units 200 - 249 ?? 11 units 250 - 299 ?? 13 units 300 - 349 ?? 15 units 350 - 399 ?? 17 unitsfollow-up with your PCP or endocrine specialist for further m... Lisinopril: 40 mg = 1 tablet, By Mouth, Daily Metolazone: 5 mg = 1 tablet, By Mouth, 2 times a day Metoprolol: 75 mg = 1 tablet, By Mouth, 2 times a day Pantoprazole: 40 mg = 1 tablet, By Mouth, Daily Tranexamic Acid: 650 mg, By Mouth, Daily Hospital Medications Medications (16) Active SCHEDULED: (12) Acetaminophen 325 mg Tablet (acetaminophen 325 mg oral tablet) ??975 mg, By Mouth, Every 6 hours Atorvastatin 80 mg Tablet (atorvastatin 80 mg oral tablet) ??80 mg, By Mouth, Daily at bedtime CeFAZolin 2 Gm Inj (Ancef Inj) ??2 Gm, IV Push, Every 8 hours Diltiazem 180 mg/24 hour CD Capsule (diltiazem 180 mg/24 hours oral capsule, extended release) ??360 mg, By Mouth, Daily Furosemide 40 mg Tablet (Lasix 40 mg oral tablet) ??40 mg, By Mouth, 2 times a day Insulin Glargine 100 units/mL Inj (Lantus Inj) ??24 units 0.24 mL, Subcutaneous Injection, Daily atbedtime Insulin Lispro 100 units/mL Inj (Insulin LISPRO Sliding Scale) ??7-15 units, Subcutaneous Injection, 3 times a day before meals Levetiracetam 100mg/ml IVPB (Keppra Inj) ??1,000 mg, IV Push Slowly, Every 12 hours Metolazone 2.5 mg Tablet (metolazone 2.5 mg oral tablet) ??5 mg, By Mouth, 2 times a day Metoprolol 25mg Tablet (metoprolol 25 mg oral tablet) ??75 mg, By Mouth, 2 times a day Pantoprazole 40 mg EC Tablet (pantoprazole 40 mg oral delayed release tablet) ??40 mg, By Mouth, Daily Tranexamic Acid 100 mg/mL Inj (Tranexamic Acid Inj) ??1 Gm 10 mL, IVPB, Every 24 hours CONTINUOUS: (0) PRN: (4) Bisacodyl 10 mg Suppository (Bisacodyl Supp) ??10 mg 1 supp, Rectally, Daily Docusate Sodium 10 mg/mL Liquid UD (Colace Liquid) ??100 mg 10 mL, By Mouth, 2 times a day Ondansetron 2mg/mL Inj (2mL Vial) (Ondansetron Inj) ??4 mg, IV Push, Every 6 hours OxyCODONE 5 mg IR Tablet (oxyCODONE 5 mg oral tablet) ??5 mg, By Mouth, Every 6 hours Lab Results Cardiology Labs Blood Count & Diff?? COAG?? General Chemistry?? Cardiac?? WBC: 8.2 k/mm3 (10/23/24) INR: 1 (10/22/24) Sodium: 139 mmol/L (10/23/24) Bilirubin, Total: <0.2 (10/22/24) RBC:??3.68 m/mm3??Low (10/23/24) Protime (PT): 10.4 seconds (10/22/24) Potassium: 4.6 mmol/L (10/23/24) ?? Hgb:??9.4 Gm/dL??Low (10/23/24) APTT:??23.1 seconds??Low (10/22/24) Chloride: 106 mmol/L (10/23/24) ?? Hct:??31 %??Low (10/23/24) ?? Bicarbonate Level: 22 mmol/L (10/23/24) ?? MCV: 84.2 femtoliters (10/23/24) ?? Anion Gap: 11 mmol/L (10/23/24) ?? Platelet Count: 262 k/mm3 (10/23/24) ?? Glucose Level:??200 mg/dL??High (10/23/24) ? Hemoglobin A1C (Monitoring):??9.3 %??High (10/22/24) ? BUN:??43 mg/dL??High (10/23/24) ? Creatinine-Blood:??1.7 mg/dL??High (10/23/24) ? Estimated GFR Creatinine: 44 ML/MIN/1.73 M2 (10/23/24) ? Calcium: 9.1 mg/dL (10/23/24) ? Magnesium: 2 mg/dL (10/23/24) ? Protein, Total: 6.4 Gm/dL (10/22/24) ? Albumin: 3.5 Gm/dL (10/22/24) ? Alkaline Phosphatase: 98 units/L (10/22/24) ? AST (SGOT): 13 units/L (10/22/24) ? ALT (SGPT): 13 units/L (10/22/24) ?? Diagnostic Impression ECG ECG 12-Lead ?? 11:56:49 Please click on pdf link to open report ?? Signed By: Onesimo Deleon MD ?? ECG 12-Lead ?? 11:56:49 Ventricular Rate: 124 BPM QRS Duration: 90 ms Q-T Interval: 298 ms QTC Calculation(Bazett): 428 ms R [place]: -2 degrees T [place]: 29 degrees Atrial fibrillation with rapid ventricular response Abnormal ECG When compared with ECG of 24-Sep-2024 11:32, Atrial fibrillation has replaced Sinus rhythm Vent. rate has increased by 59 bpm Confirmed ?? Signed By: Onesimo Deleon MD Stress Test No qualifying data available. Problem List/Past Medical History Ongoing Obese class I Procedure/Surgical History No qualifying data available. Social History Sexual Gender identity: Identifies as male. Self described orientation: Straight or heterosexual. Preferred pronoun: He/him. Family History No family history recorded. * Nahid Carmichael: MODIFY, MODIFY, MODIFY, PERFORM Event Display: Consultation Note Authored Date: [id number] Patient: ??CATARINO LUI ? Age:??64 Years?Sex:??Male?:??1960?? History of Present Illness 64 y/o M w/ PMH afib previously on AC, HTN, DM, previous R craniotomy in childhood,??R SDH??08/2024,??who presented to ED 10/22 as an AST for acute onset L FD, L weakness, slurred speech. LKW 10:30 am. Presented on 09/20/24 after slip and fall on ice, found to have acute on chronic R SDH w/ 1 cm brain compression, s/p MMA embolization w/ Dr. Quinones on 09/23/24. Returned to [facility] 10/09 for re evaluation after having GUY and LLE weakness at rehab. Outpatient CTH showed overall increase in size of SDH w/ persistent brain compression. Started on TXA 650 mg qd for 21 days (end date 10/30). Underwent R parish hole for SDH evacuation on 10/09 w/ improvement in GUY. Patient had repeat CTH on 10/17/24 showing mild increase size of R SDH and mild increase size of MLS. Patient was scheduled to return to [facility] clinic 10/23/24 for follow up. Today patient reports he was in USOH, around 10:30 am developed drooling out of the L side of mouth, difficulty speaking, L leg weakness. Per EMS en route to ED, patient in rapid afib, given metoprolol. BP 120/86. POC 482. In ED, NIHSS 2 for LLE drift, mild dysarthria.?? smile is symmetric. ??CTH showing increased since of R SDH and midline shift. CTA no LVO. Patient reports after scanner, developed mild R sided headache. Feels his speech is improving. ?? Review of Systems + GUY, speech change, L leg weakness Denies vision changes, numbness, tingling, dizziness Physical Exam Gen: NAD, awake, alert HEENT: normocephalic, atraumatic.??No ptosis.??Nares patent. Mouth normal. Psych: not depressed or anxious Skin: warm and dry Neuro: Mental status is??intact, no deficits. Oriented to self, place, time, situation. Identifies objects. Follows simple and complex commands. Speech is mildly slurred, improving after CT scan. no aphasia. Cranial Nerves: R pupil 4 minimally reactive, L pupil 2 reactive (chronic R pupil since age 1), EOMI without nystagmus, VFF. No??visual??extinction.??No ptosis.??Subtle L FD??however smile is symmetric. ??Facial sensation intact. Tongue midline. Hearing intact to voice.??Shoulder shrug symmetric b/l. Motor: Normal bulk and tone. No abnormal movements. LUE 5-/5 no pronator drift. RUE 5/5. LLE mild drift does not hit bed, 5-/5. RLE 5/5 Sensation: Intact light touch sensation bilaterally. No extinction to DSS. Coordination: No ataxia or dysmetria noted with finger to nose bilaterally. Gait not assessed. ? (10/17/2024 19:[address] Head/Brain W/O Contrast) IMPRESSION: ?? Mild interval increase in size of previously noted right subdural hematoma, now measuring 1.7 cm ingreatest thickness compared with 1.3 cm in the study of 10/10/2024. No hyperdense hemorrhage is apparent, however. ?? Mildly increased size of right to left midline shift, now measuring 1.0 cm. Persistent effacement of sulci in the right cerebral hemisphere. ?? No acute infarct or acute bleeding. [1] ? NIH Stroke Scale?? Level of Consciousness for Stroke Scale : ?Alert?? Response Month/Age : ?Answers both questions correctly?? Response Open/Close Eyes : ?Performs both tasks correctly?? Best Gaze : ?Normal?? Visual : ?No visual loss?? Facial Palsy : ?Normal symmetrical movements?? Motor Function Left Arm : ?No drift?? Motor Function Right Arm : ?No drift?? Motor Function Left Leg : ?Drift?? Motor Function Right Leg : ?No drift?? Limb Ataxia : ?Absent?? Sensory : ?Normal; no sensory loss?? Best Language : ?No aphasia?? Dysarthria NIH Stroke Scale : ?Mild to moderate dysarthria?? Extinction and Inattention : ?No abnormality?? NIH Stroke Scale Score : ?2 ?? [2] ? Stroke Time Course: Time patient last seen well (not time patient was found/discovered with deficits): 10:30 am Time patient arrived in ED: 11:25 Time neurology consulted/paged: 11:18 Time patient is seen by neurology: : Time patient undergoes CT head/interpreted: 11:30 tPA/tnk Given:??no tPA/tnk ??time if given:n/a Reason for tPA exclusion if not given: recent SDH 1 month ago IA was not done, why? No LVO IA was done, then time of call to ??TU GUIDRY:??n/a ? Assessment/Plan 64 y/o M w/ PMH afib previously on AC, HTN, DM, previous R craniotomy in childhood,??R SDH??08/2024,??who presented to ED 10/22 as an AST for acute onset L FD, L weakness, slurred speech. LKW 10:30 am. Presented on 09/20/24 after slip and fall on ice, found to have acute on chronic R SDH w/ 1 cm brain compression, s/p MMA embolization w/ Dr. Quinones on 09/23/24. Returned to [facility] 10/09 for re evaluation after having GUY and LLE weakness at rehab. Outpatient CTH showed overall increase in size of SDH w/ persistent brain compression. Started on TXA 650 mg qd for 21 days (end date 10/30). Underwent R parish hole for SDH evacuation on 10/09/24 w/ improvement in GUY. Patient had repeat CTH on 10/17/24 showing mild increase size of R SDH and mild increase size of MLS. Patient was scheduled to return to [facility] clinic 10/23/24 for follow up. Today patient reports he was in USOH, around 10:30 am developed drooling out of the L side of mouth, difficulty speaking, L leg weakness. Per EMS in route to ED, patient in rapid afib, given metoprolol. BP 120/86. POC 482. In ED, NIHSS 2 for LLE mild drift, mild dysarthria.?? smile is symmetric. ??CTH showing increased since of R SDH and midline shift. CTA no LVO. ?? DX: increasing size R SDH and midline shift ?? Plan: -consult NSG; defer remainder of care to NSG -recommend cardiology consult for watchman device??given CI to AC ?? Neurology will sign off, thank you. ?? D/w Dr. Urias and Dr. Joseph Problem List/Past Medical History Ongoing Obese class [...] Every week, INJECT 4.5MG SUBCUTANEOUSLY ONCE WEEKLY Durable Medical Equipment: See Instructions, use as directed for Type 2 Diabetes Mellitus Furosemide: 40 mg = 1 tablet, By Mouth, 2 times a day Insulin Glargine: 24 units, Subcutaneous Infusion, Daily Insulin Lispro: See Instructions, Subcutaneous Injection 3 times a day before meals.100 - 149 ?? 7 units 150 - 199 ?? 9 units 200 - 249 ?? 11 units 250 - 299 ?? 13 units 300 - 349 ?? 15 units 350 - 399 ?? 17 unitsfollow-up with your PCP or endocrine specialist for further m... Lisinopril: 40 mg = 1 tablet, By Mouth, Daily Metolazone: 5 mg = 1 tablet, By Mouth, 2 times a day Metoprolol: 75 mg = 1 tablet, By Mouth, 2 times a day Pantoprazole: 40 mg = 1 tablet, By Mouth, Daily Tranexamic Acid: 650 mg, By Mouth, Daily Allergies NKA Social History Sexual Gender identity: Identifies as male. Self described orientation: Straight or heterosexual. Preferred pronoun: He/him. Family History No family history recorded. [1]??CT Head/Brain W/O Contrast; Royce Emmanuel MD 10/17/2024 19:42 EST [2]??Stroke Scale; Nahid Carmichael 10/22/2024 12:09 EST * Alexsandra Newton MD, Marisa: PERFORM Event Display: Consultation Note Authored Date: Attending Attestation:??I have discussed the case and its management with the advanced practitionerand agree with the findings and plan as documented in the advanced practitioner???s note. ?? 64-year-old male with history of subdural hematoma??s/p??HD??MMA embolization??and??surgical evacuation??1 month ago,??atrial fibrillation previously on??Eliquis (discontinue??after??he was diagnosedwith subdural hematoma)??who presents with??left facial??weakness,??speech difficulties and left leg??weakness.?? I independently reviewed the brain images.?? CT head shows??increased size??of known??chronic right subdural hematoma??and worsening??midline shift: CTA with no intracranial LVO??and carotid arteries patent at the neck.?His left-sided symptoms??and speech changes are??secondary to??worsening??right subdural hematoma??with compression over??the right??brain.?? Would recommend urgent neurosurgical evaluation.?? In terms of his atrial fibrillation,??he has been off??anticoagulation??and most likely he will not be able to restart AC. I ??would recommend to discuss with cardiology??when he is medically stable??for??left atrial appendage??closure evaluation. ??He will benefit from??at least??low-dose aspirin??meantime when cleared by neurosurgery. ? Marisa Newton M.D Attending-Vascular Neurology Department of Neurosciences Note * Felipe Le RN: PERFORM Event Display: Discharge/Transfer Note Hospital Authored Date: [id number] Nursing Discharge Note Entered On: 11/05/2024 12:40 EST Performed On: 11/05/2024 12:40 EST by Felipe Le RN Nursing Discharge Note 2 Discharge Time : 11/05/2024 12:30 EST Felipe Le RN - 11/05/2024 12:42 EST Discharge Level of Care at Discharge : Home/[facility] Patient Left Unit Via : Ambulatory Patient Accompanied Off Unit with : Responsible adult DC Instructions Provided & Signed by Pt : Yes Patient Understands D/C Instructions : Yes Patient Instructions Discharge Signed : Yes Did Pt have Specialty Bed or Wound Vac : No Mimi MARSHALL, Felipe Davies - 11/05/2024 12:40 EST * Missy Campa MD, Marianna: MODIFY, PERFORM Event Display: Discharge/Transfer Note Hospital Authored Date: Patient: ??CATARINO LUI ? Age:??64 Years?Sex:??Male?:??1960?? Patient Information Discharge Location: D5A Primary Care Physician: Quinn Jarrett MD Admit Date/Time: 10/22/2024 12:44 Discharge Disposition Discharge Disposition: Home Discharge Diagnosis Potential stroke ([id number]) Compression of brain (G93.5) Traumatic subdural hemorrhage without loss of consciousness, initial encounter (S06.5X0A) Diabetes (E11.9) Atrial fibrillation (I48.91) Anemia (D64.9) Hypertension (I10) Encounter for seizure prophylaxis (Z29.89) Diastolic CHF (I50.30) _ Discharge Medications Acetaminophen (Tylenol 325 mg oral tablet)??650 Milligram By Mouth Every 4 hours as needed Headache Allopurinol (allopurinol 300 mg oral tablet)??300 Milligram 1 tablet By Mouth Daily Atorvastatin (atorvastatin 80 mg oral tablet)??1 tab(s) 80 Milligram By Mouth Daily dulaglutide (Trulicity Pen 4.5 mg/0.5 mL subcutaneous solution)??4.5 Milligram Subcutaneous Injection Every week INJECT 4.5MG SUBCUTANEOUSLY ONCE WEEKLY Durable Medical Equipment (Pen [place], 31 G x 5 mm BD Ultra Fine III)??See Instructions for 30 Days use as directed for Type 2 Diabetes Mellitus Insulin Glargine (Insulin Glargine Solostar Pen 100 units/mL subcutaneous solution)??52 unit(s) Subcutaneous Infusion Daily for 30 Days Insulin Lispro (Insulin Lispro KwikPen 100 units/mL injectable solution)??See Instructions Subcutaneous Injection 3 times a day before meals.<< Sliding Scale Comments >>100 - 149 ?? 16 units Call if less than [id number] - 199 ?? 18 units 200 - 249 ?? 20 units 250 - 299 ?? 22 units 300 - 349 ?? 24 units 350 - 399 ?? 26 units Call if greate... levETIRAcetam (Keppra 1000 mg oral tablet)??1 tab(s) 1,000 Milligram By Mouth 2 times a day Lisinopril (lisinopril 10 mg oral tablet)??10 Milligram 1 tablet By Mouth Daily Metoprolol (Metoprolol Tartrate 75 mg oral tablet)??1 tab(s) 75 Milligram By Mouth 2 times a day Pantoprazole (pantoprazole 40 mg oral delayed release tablet)??1 tab(s) 40 Milligram By Mouth Daily torsemide (torsemide 40 mg oral tablet)??1 tab(s) 40 Milligram By Mouth Daily for 30 Days Tranexamic Acid (tranexamic acid 650 mg oral tablet)??650 Milligram By Mouth Daily for 16 Days Medications Started Keppra Tranexamic acid Medications Discontinued Lasix and metalozone Doses Changed None PCP Follow-Up/Heads-Up Follow-up with PCP in about 1 to 2 weeks Follow-up with neurology and neurosurgery as recommended Future Appointments 2024 11:30 AM EST ?? With: Sonny GUIDRY, Chrystal Rocha Where: [facility] [address] [place] [address] Drive [address] [place] [address]- Status: Pending Objective 64 year-old male with poorly controlled DM, A. Fib (not currently on anticoagulation), HTN, CKD, prior R craniotomy in childhood and s/p fall in August 2024 with workup showing an acute on chronic R??holohemispheric subdural hematoma with approx 1 cm midline shift s/p MMA on 09/23. He returned on10/08/[address] head revealed increased chronic R SDH and patient??underwent R parish hole craniotomy on 10/[address] Dennis. He was discharged home on 10/13. He returned on??10/22 with??headache,??began to drool out of the left side of his mouth and noticed he was having difficulty zipping t he jacket.??He also noticed some difficulty with speech.??CT Head with increased chronic R SDH. He underwent??repeat R parish hole craniotomy??on 10/[address] Dennis[address] Post op CT with decreased size of RSH and midline shift. Post op symptoms resolved, neuro intact. ?? Traumatic subdural hemorrhage without loss of consciousness, initial encounter (S06.5X0A):?? Compression of brain (G93.5):?? s/p repeat parish hole for SDH by Dr Dennis. Repeat CT head appears to be stable.?? Neurosurgery cleared for discharge. Continue TXA 650 PO daily for total??21 days, course will be complete on 11/14/24 No antiplatelet, anticoagulation, or chemical DVT ppx?? MRI Brain without contrast: . ??No evidence of acute/subacute infarction. 2. ??Mixed signal holohemispheric right subdural collection with multiple internal septations measuring up to 1.8 cm over the right frontal convexity. There is flattening of the underlying parenchyma as well as compression of the right lateral ventricle with 5 mm midline shift to the left. This is similar to the CT from the previous day. 3. ??Trace right subarachnoid hemorrhage and trace subdural hemorrhage along the left tentorial leaflet. Follow-up with neurosurgery, neuro??as an outpatient about 1 to 2 weeks. ??[place] removed at bedside today. PT recommended??home discharge. ?? Encounter for seizure prophylaxis (Z29.89):?? neurology consulted. vEEG discontinued, continue on Keppa 1gm BID for 1 month per NSG and neuro Maintain seizure precautions. ??No driving per [place] law. ?? Diabetes (E11.9):??Bids team consulted??for diabetic management. Continue Lantus??to??52 units daily -Continue?lispro Premeal scale??with a 16 units for blood sugar more than 100 with addition of 2units for every 50 mg/dL increase blood sugar levels,??3 times a day with each meal. Strict diabetic diet and hypoglycemic measures. ?? Atrial fibrillation (I48.91): Plan: -Eliquis on hold?? -cardiology - Once he is clinically stable at least 4 to 6 weeks??out,??can consider definitive therapy for??a left atrial appendage??closure device??procedure??which does require anticoagulation intraprocedure and immediately post op. -continue metoprolol 75mg BID?? -cardiology will set up SHD consult for LAAO Watchman consult in 4 weeks in office post dc ?? Diastolic CHF (I50.30):?? Hypertension (I10):?? Chronic??Diastolic CHF??continue strict I's and O's weight monitoring. IVC normal. ECHO:??1) The LV systolic function is normal. The left ventricular ejection ??fraction is 55-60%. There are no definite regional wall motion ??abnormalities. ??2) The left ventricular wall thickness is mildly increased. ??3) The right ventricle is mildly dilated. Right ventricular systolic ??function appears preserved. ??4) There is mild dilation of the ascending aorta (4.1 cm). ??5) There is mild mitral annular calcification. There is trace mitral regurgitation. ?? Continue Lasix PO and switch to his home regimen of torsemide at discharge Repeat BMP 3-5 days ?? Anemia (D64.9):?? Patient a little iron deficient, started on Ferrous sulfate 325mg PO daily PCP to do outpatient workup for Iron Deficiency Anemia ?? HTN: Torsemide, Metoprolol and lisinoprril- PCP follow up i week. BMP 4-5 days ?? Hyperkalemia:??Resolved ?? Discharge home today. Vital Signs?? Temperature: 98.1 DegF (11/05/24 07:43:00) Temperature Route: Temporal (11/05/24 07:43:00) Pulse Rate: 90 bpm (11/05/24 08:29:00) Respiratory Rate: 20 br/min (11/05/24 07:43:00) Systolic Blood Pressure:??152 mm Hg??High (11/05/24 08:29:00) Diastolic Blood Pressure: 71 mm Hg (11/05/24 08:29:00) Blood pressure sites: Arm, left (11/05/24 07:43:00) Mean Arterial Pressure: 98 mm Hg (11/05/24 07:43:00) Pulse Pressure: 81 mm Hg (11/05/24 07:43:00) Oxygen Saturation: 100 % (11/05/24 07:43:00) Mode of Delivery (Oxygen): Room air (11/05/24 07:43:00) Early Warning Score: 0 (11/05/24 08:55:22) ? . Physical Exam General: Well nourished, appears stated age, anxious in moderate distress. HEENT: moist oral mucosa. PERRLA, EOMI.?? NECK: No JVD. No bruits. Heart: Regular rate. S1 and s2 heard. No murmer, rub or gallop. Lungs: Clear to auscultation. No wheeze, crackles or rhonchi Abdomen : Soft, nondistended, nontender and bowel sounds are active. ??No organomegaly.?? Extremities: No pedal edema, swelling or cyanosis. peripheral pulses 2+ Neurological : grossly non focal. AA0 X3.? Pscy: Mood and affect appropriate.? Surgical Procedures Parish Hole for Hematoma 10/22/2024 13:59 Consultants Neurology Neurosurgery Bids Pending Results Add On Lab Order ordered on 10/22/2024 Hepatic Function Panel ordered on 10/22/2024 Follow-Up Appointments Added Follow Up ?Time Frame ?Comments Quinn Jarrett MD?1 to 2 weeks Post Discharge Care Diet: ??Diabetic Diet ?? Activity: ??OOB as Terri With Assistance ?? Discharge ?11/05/24 9:40:00 EST ?Order Comment:?? Discharge Prescriptions ?ePrescribed, 11/05/24 9:40:00 EST ?Order Comment:?? Home Health Face to Face ^HomeHealthFTF Results Discharge Labs BLOOD BANK Blood Type B Positive ()?? 10/22/2024 12:14 Antibody Screen Negative ()?? 10/22/2024 12:14 ?? BLOOD COUNT & DIFF WBC 9.8 k/mm3 ()?? 11/05/2024 07:55 RBC 4.25 m/mm3 (Low)?? 11/05/2024 07:55 Hgb 10.9 Gm/dL (Low)?? 11/05/2024 07:55 Hct 35.6 % (Low)?? 11/05/2024 07:55 MCV 83.8 femtoliters ()?? 11/05/2024 07:55 MCH 25.6 pg (Low)?? 11/05/2024 07:55 MCHC 30.6 Gm/dL (Low)?? 11/05/2024 07:55 Platelet Count 204 k/mm3 ()?? 11/05/2024 07:55 RDW-SD 51.9 femtoliters (High)?? 11/05/2024 07:55 MPV 11.1 femtoliters ()?? 11/05/2024 07:55 Nucleated RBC (Automated) 0.0 #/100 WBC'S ()?? 11/05/2024 07:55 Abs. NRBC 0.0 k/mm3 ()?? 11/05/2024 07:55 Abs. Neut 6.2 k/mm3 ()?? 11/03/2024 02:45 Abs. Lymph 1.4 k/mm3 ()?? 11/03/2024 02:45 Abs. [place] 0.6 k/mm3 ()?? 11/03/2024 02:45 Abs. Eo 0.3 k/mm3 ()?? 11/03/2024 02:45 Abs. Baso 0.0 k/mm3 ()?? 11/03/2024 02:45 Neut % 71.9 % ()?? 11/03/2024 02:45 Lymph % 16.5 % ()?? 11/03/2024 02:45 [place] % 7.5 % ()?? 11/03/2024 02:45 Eos % 3.0 % ()?? 11/03/2024 02:45 Baso % 0.5 % ()?? 11/03/2024 02:45 Hemoglobin (POC) POC Cartridge 10.5 Gm/dL (Low)?? 10/22/2024 13:25 Hematocrit (POC) POC Cartridge 31 % (Low)?? 10/22/2024 13:25 Retic Count 2.3 % (High)?? 10/27/2024 13:50 Retic Count Corrected 1.6 % ()?? 10/27/2024 13:50 Retic Production Index 1.0 % ()?? 10/27/2024 13:50 Imm Gran 0.6 % ()?? 11/03/2024 02:45 Abs. Imm Gran 0.1 k/mm3 ()?? 11/03/2024 02:45 ? BLOOD GAS pH Venous (POC) POC Cartridge 7.34 ()?? 10/22/2024 13:25 pCO2 Venous (POC) POC Cartridge 47.2 mm Hg ()?? 10/22/2024 13:25 pO2 Venous (POC) POC Cartridge 25 mm Hg (Low)?? 10/22/2024 13:25 Est Bicarbonate (POC) POC Cartridge 25.6 mmol/L ()?? 10/22/2024 13:25 % O2 Sat Venous (POC) POC Cartridge 41 ()?? 10/22/2024 13:25 Base Excess (POC) POC Cartridge 0 ()?? 10/22/2024 13:25 Specimen Type - Blood Gas VENOUS ()?? 10/22/2024 13:25 ? CARDIAC Nt-Probnp 4325 pg/mL (High)?? 10/22/2024 12:34 High Sensitivity Troponin (HSTnT) 29 ng/L (High)?? 10/22/2024 16:44 ?? CHEM GENERAL Sodium 140 mmol/L ()?? 11/05/2024 07:55 Potassium 4.6 mmol/L ()?? 11/05/2024 07:55 Chloride 107 mmol/L ()?? 11/05/2024 07:55 Bicarbonate Level 24 mmol/L ()?? 11/05/2024 07:55 Anion Gap 9 mmol/L ()?? 11/05/2024 07:55 Sodium (POC) POC Cartridge 139 mmol/L ()?? 10/22/2024 13:25 Potassium (POC) POC Cartridge 4.5 mmol/L ()?? 10/22/2024 13:25 Glucose Level 132 mg/dL (High)?? 11/05/2024 07:55 Glucose (POC) POC Cartridge 390 (High)?? 10/22/2024 13:25 Glucose, POC 161 mg/dL (High)?? 11/05/2024 06:21 Hemoglobin A1C (Monitoring) 9.3 % (High)?? 10/22/2024 16:44 BUN 52 mg/dL (High)?? 11/05/2024 07:55 Creatinine-Blood 1.60 mg/dL (High)?? 11/05/2024 07:55 Estimated GFR Creatinine 47 ML/MIN/1.73 M2 ()?? 11/05/2024 07:55 Calcium 9.2 mg/dL ()?? 11/05/2024 07:55 Calcium, Ionized pH Corrected 1.22 mmol/L ()?? 11/03/2024 02:32 Ionized Calcium (POC) POC Cartridge 1.29 mmol/L ()?? 10/22/2024 13:25 Phosphorus 3.8 mg/dL ()?? 11/03/2024 02:32 Magnesium 2.2 mg/dL ()?? 11/03/2024 02:32 Protein, Total 6.4 Gm/dL ()?? 10/22/2024 16:44 Albumin 3.5 Gm/dL ()?? 10/22/2024 16:44 Alkaline Phosphatase 98 units/L ()?? 10/22/2024 16:44 AST (SGOT) 13 units/L ()?? 10/22/2024 16:44 ALT (SGPT) 13 units/L ()?? 10/22/2024 16:44 Bilirubin, Total <0.2 mg/dL ()?? 10/22/2024 16:44 Bilirubin, Direct 0.1 mg/dL ()?? 10/22/2024 16:44 Bilirubin, Indirect Total bilirubin is less than the measureable limit. Therefore, indirect mg/dL ()?? 10/22/2024 16:44 Vitamin B12 Level 341 pg/mL ()?? 10/27/2024 13:50 Folic Acid Level 10.8 ng/mL ()?? 10/27/2024 13:50 Iron Level 30 mcg/dL (Low)?? 10/27/2024 13:50 Iron Binding Capacity, Unsaturated 253 mcg/dL ()?? 10/27/2024 13:50 Iron Binding Capacity, Estimated Total 283 mcg/dL ()?? 10/27/2024 13:50 % Iron Saturation 11 % (Low)?? 10/27/2024 13:50 Ferritin Level 51 ng/mL ()?? 10/27/2024 13:50 ?? COAG INR 1.0 ()?? 10/22/2024 12:34 Protime (PT) 10.4 seconds ()?? 10/22/2024 12:34 APTT 23.1 seconds (Low)?? 10/22/2024 12:34 ? URINE OTHER Est Creatinine Clearance 49.92 mL/min ()?? 11/05/2024 08:55 ? VIROLOGY COVID-19 by RT-PCR NEGATIVE ()?? 10/22/2024 11:55 ? 45??minutes spent on discharge * Rhoda Correa RN: PERFORM Event Display: Patient Education/Instruction Authored Date: [id number] Inpatient Adult Discharge Instructions. [address] [address] Name: CATARINO LUI : 1960?? Visit: 10/22/2024 12:44?? Current Date: 11/05/2024 11:45 ?? Account: [id number]?? Inpatient Adult Discharge Instructions We would like [...] and their families. Surveys are administered by [employer] ?? If further treatment with your primary care physician or another doctor is recommended, it is important for you to keep the appointment. Call your primary care physician or return to the Emergency Department immediately if your condition worsens, fails to improve, or new symptoms develop. If you need to find a doctor, you can call [facility] Dr. Scribbles for a referral at [phone] or toll free at [phone] or log in to [email or web address].. ?? [facility], in keeping with [facility] guidance, no longer requires face masks for [...] a health care maxi of your choosing. [employer] is a website that allows you to securely view your medical information including your hospital discharge summary, office visit summaries, medications and follow-up visits. You can also request appointments, renew medications, and request access to your medical information using a health care maxi of your choosing, or just ask a question. You can enroll at [email or web address] or register during your next office visit. You have been discharged from [facility], Patient Care Unit: D5A??. If you have any questions regarding these instructions, including results of studies pending, afteryou leave, please call us and we will be happy to assist you 23/04. [facility] Your Care Team Attending Physician Marianna Gtz MD?? Consulting Providers Marianna Gtz MD?? Discharging Providers Marianna tGz MD Reason for Your Visit see level 1 sheet?? Your Diagnosis Anemia Atrial fibrillation Compression of brain Diabetes Diastolic CHF Encounter for seizure prophylaxis Hypertension Potential stroke Traumatic subdural hemorrhage without loss of consciousness, initial encounter Tests Performed Below is a partial list of the tests performed during your hospitalization. You may have had other tests and procedures not included in this list. Please discuss all test results with your provider. B Type Natriuretic Peptide (NT-proBNP) BASE EXCESS POC CARTRIDGE Basic Metabolic Panel Calcium Ionized CALCIUM IONIZED POC CART CBC CBC w/ Differential COVID-19 (Novel Coronavirus), Rapid PCR Electrolytes Ferritin Folate Level GLUCOSE POC GLUCOSE POC CARTRIDGE HEMATOCRIT POC CARTRIDGE HEMOGLOBIN A1C HEMOGLOBIN POC CARTRIDGE Hepatic Function Panel?-- Results Pending -- High??Sensitivity??Troponin T Ionized Calcium Iron + Iron Binding Capacity Magnesium Level Phosphorus Level Potassium Level POTASSIUM POC CARTRIDGE PT (INR) PTT Reticulocyte Ct SODIUM POC CARTRIDGE Troponin T, High Sensitivity Type and Screen VBG POC CARTRIDGE Vitamin B12 Level Brain MRI W/O Contrast CT Angio Head Hyperacute Stroke CT Angio Neck Hyperacute Stroke CT Head-Hyper Acute Stroke CT Head/Brain W/O Contrast XR Chest Portable Add On Lab Order?? B Type Natriuretic Peptide (NT-proBNP)?? Base Excess (Lab) POC Cartridge (BASE EXCESS POC CARTRIDGE)?? Basic Metabolic Panel?? CBC?? CBC w/ Differential?? COVID-19 (Novel Coronavirus), Rapid PCR?? CT Angio Head Hyperacute Stroke?? CT Angio Neck Hyperacute Stroke?? CT Head-Hyper Acute Stroke?? CT Head/Brain W/O Contrast?? Electrolytes?? Ferritin?? Folate Level?? Glucose (Lab) POC Cartridge (GLUCOSE POC CARTRIDGE)?? Glucose POC?? Hematocrit (Lab) POC Cartridge (HEMATOCRIT POC CARTRIDGE)?? Hemoglobin (Lab) POC Cartridge (HEMOGLOBIN POC CARTRIDGE)?? Hemoglobin A1C (Monitoring) (HEMOGLOBIN A1C)?? Hepatic Function Panel?? High??Sensitivity??Troponin T (Troponin T, High Sensitivity)?? INR (PT (INR))?? Ionized Calcium (Calcium Ionized)?? Ionized Calcium(POC) POC Cartridge (CALCIUM IONIZED POC CART)?? Iron + Iron Binding Capacity?? MRI Brain W/O Contrast (Brain MRI W/O Contrast)?? Magnesium Level?? PTT?? Phosphorus Level?? Potassium (Lab) POC Cartridge (POTASSIUM POC CARTRIDGE)?? Potassium Level?? Reticulocyte Ct?? Sodium (Lab) POC Cartridge (SODIUM POC CARTRIDGE)?? Type and Screen?? VBG (Lab) POC Cartridge (VBG POC CARTRIDGE)?? Vitamin B12 Level?? Chest Portable (XR Chest Portable)?? Primary Care Provider Quinn Jarrett MD? Advance Directive Health Care Proxy on File Yes - Health Care Proxy Discharge Vitals Temperature: 98 DegF Height: 183 cm Pulse Rate: 86 bpm Weight: 113.5 kg Respiratory Rate: 20 br/min Body Mass Index:??33.92 kg/m2??Critical Systolic Blood Pressure:??149 mm Hg??High Body surface area: 2.4 Diastolic Blood Pressure: 68 mm Hg ?? Oxygen Saturation: 98 % ?? Studies Pending All studies ordered during this hospital stay have been completed unless listed below. Please discuss all pending results with your provider listed above in these instructions. ?? Add On Lab Order?? Hepatic Function Panel?? What to do next Instructions From Your Doctor ?? Orders??:Diabetic Diet :OOB as Terri ??With Assistance? 11/05/24 9:40:00 EST?? Prescriptions??, ??11/05/24 9:40:00 EST?? Scheduled Follow-Up Appointments 2024 11:30 AM EST ?? With: Chrystal Dennis MD Where: [address] [place] [address]- Status: Pending 2024 11:45 AM EST ?? With: Chrystal Dennis MD Where: [address] [place] [address]- Status: Pending You Need to Schedule the Following Appointments Follow Up with??Quinn Jarrett MD When:??Within 1 to 2 weeks Where: [address] [place] [phone] Business (1) Discharge Medications CATARINO LUI :1960 Visit Date:10/22/2024 Medications: Please continue your medications until treatment is completed or stopped by your provider. Medications not listed below should be discontinued. Discuss any questions related to medications with your provider. What How Much When Instructions Next Dose New levETIRAcetam (Keppra 1000 mg oral tablet) 1 tab(s) Oral Twice a day Refills: 5 Pickup at [facility] Today 11/05/24 at 9pm New torsemide (torsemide 40 mg oral tablet) 1 tab(s) Oral Daily Duration: 30 Days Pickup at [facility] Tomorrow 11/06/24 at 9am Changed Insulin Glargine (Insulin Glargine Solostar Pen 100 units/ mL subcutaneous solution) 52 unit(s) Subcutaneous Infusion Daily Duration: 30 Days Today 11/05/24 at 9pm Changed Insulin Lispro (Insulin Lispro KwikPen 100 units/ mL injectable solution) See instructions Subcutaneous Injection 3 times a day before meals. << Sliding Scale Comments >> 100 - 149 ?? 16 units Call if less than 70 150 - 199 ?? 18 units 200 - 249 ?? 20 units 250 - 299 ?? 22 units 300 - 349 ?? 24 units 350 - 399 ?? 26 units Call if greater than 400 << Sliding Scale Comments >> ?? follow-up with your PCP or endocrine specialist for further management ?? As directed with meals Changed Lisinopril (lisinopril 10 mg oral tablet) 1 tab(s) Oral Daily Pickup at [facility] 3 Tomorrow 11/06/24 at 9am Unchanged Acetaminophen (Tylenol 325 mg oral tablet) 650 Milligram Oral Every 4 hours as needed for Headache As needed, last dose 11/05/24 at 5am Unchanged Allopurinol (allopurinol 300 mg oral tablet) 1 tab(s) Oral Daily Tomorrow 11/06/24 at 9am Unchanged Atorvastatin (atorvastatin 80 mg oral tablet) 1 tab(s) Oral Daily Today 11/05/24 at 9pm Unchanged dulaglutide (Trulicity Pen 4.5 mg/ 0.5 mL subcutaneous solution) 4.5 Milligram Subcutaneous Injection Every week INJECT 4.5MG SUBCUTANEOUSLY ONCE WEEKLY ?? Resume home dosing Unchanged Durable Medical Equipment (Pen [place], 31 G x 5 mm BD Ultra Fine III) See instructions Duration: 30 Days use as directed for Type 2 Diabetes Mellitus ?? As directed Unchanged Metoprolol (Metoprolol Tartrate 75 mg oral tablet) 1 tab(s) Oral Twice a day Today 11/05/24 at 9pm Unchanged Pantoprazole (pantoprazole 40 mg oral delayed release tablet) 1 tab(s) Oral Daily Tomorrow 11/06/24 at 9am Unchanged Tranexamic Acid (tranexamic acid 650 mg oral tablet) 650 Milligram Oral Daily Duration: 16 Days Tomorrow 11/06/24 at 9am Pharmacy Information [facility]: [address] [place], [place] [id number] [phone] ?? What How Much When Comments Stop Taking Diltiazem (DilTIAZem (Eqv-Cardizem CD) 360 mg/ 24 hours oral capsule, extended release) 1 capsule Oral Daily Stop Taking Furosemide (furosemide 40 mg oral tablet) 1 tab(s) Oral Twice a day Stop Taking Metolazone (metolazone 5 mg oral tablet) 1 tab(s) Oral Twice a day Prescription Given During Visit Lisinopril (lisinopril 10 mg oral tablet) - 1 tablet = 10 mg, By Mouth, Daily, # 30 tablet, 0 Refills, [place] [address] [phone]?? levETIRAcetam (Keppra 1000 mg oral tablet) - 1 tablet = 1,000 mg, By Mouth, 2 times a day, # 60 tablet, 5 Refills, [place] [address] [phone]?? torsemide (torsemide 40 mg oral tablet) - 1 tablet = 40 mg, By Mouth, Daily, # 30 tablet, 0 Refills, [place] [address] [phone]?? Laboratory Results Below is a partial list of the most recent Laboratory test results done prior to this discharge. You may have had other tests and procedures not included in this list. Please discuss all test resultswith your provider. Est Creatinine Clearance - 49.92 mL/min (11/05/2024) B Type Natriuretic Peptide (NT-proBNP) (10/22/2024) ???Nt-Probnp - 4325 pg/mL BASE EXCESS POC CARTRIDGE (10/22/2024) ???Base Excess (POC) POC Cartridge - 0 Basic Metabolic Panel (11/05/2024) ???Sodium - 140 mmol/L???Potassium - 4.6 mmol/L???Chloride - 107 mmol/L???Bicarbonate Level - 24 mmol/L???Anion Gap - 9 mmol/L???Glucose Level - 132 mg/dL???BUN - 52 mg/dL???Creatinine-Blood - 1.60 mg/dL???Estimated GFR Creatinine - 47 ML/MIN/1.73 M2???Calcium - 9.2 mg/dL Calcium Ionized (11/03/2024) ???Calcium, Ionized pH Corrected - 1.22 mmol/L CALCIUM IONIZED POC CART (10/22/2024) ???Ionized Calcium (POC) POC Cartridge - 1.29 mmol/L CBC (11/05/2024) ???WBC - 9.8 k/mm3???RBC - 4.25 m/mm3???Hgb - 10.9 Gm/dL???Hct - 35.6 %???MCV - 83.8 femtoliters???MCH - 25.6 pg???MCHC - 30.6 Gm/dL???Platelet Count - 204 k/mm3???RDW-SD - 51.9 femtoliters???MPV - 11.1 femtoliters???Nucleated RBC (Automated) - 0.0 #/100 WBC'S???Abs. NRBC - 0.0 k/mm3 CBC w/ Differential (11/03/2024) ???WBC - 8.6 k/mm3???RBC - 3.95 m/mm3???Hgb - 10.2 Gm/dL???Hct - 32.9 %???MCV - 83.3 femtoliters???MCH - 25.8 pg???MCHC - 31.0 Gm/dL???Platelet Count - 218 k/mm3???RDW-SD - 51.6 femtoliters???MPV - 11.0 femtoliters???Nucleated RBC (Automated) - 0.0 #/100 WBC'S???Abs. NRBC - 0.0 k/mm3???Abs. Neut - 6.2 k/mm3???Abs. Lymph - 1.4 k/mm3???Abs. [place] - 0.6 k/mm3???Abs. Eo - 0.3 k/mm3???Abs. Baso - 0.0 k/mm3???Neut % - 71.9 %???Lymph % - 16.5 %???[place] % - 7.5 %???Eos % - 3.0 %???Baso % - 0.5 %???Imm Gran - 0.6 %???Abs. Imm Gran - 0.1 k/mm3 COVID-19 (Novel Coronavirus), Rapid PCR (10/22/2024) ???COVID-19 by RT-PCR - NEGATIVE Electrolytes (11/02/2024) ???Sodium - 140 mmol/L???Potassium - 5.3 mmol/L???Chloride - 106 mmol/L???Bicarbonate Level - 24 mmol/L???Anion Gap - 10 mmol/L Ferritin (10/27/2024) ???Ferritin Level - 51 ng/mL Folate Level (10/27/2024) ???Folic Acid Level - 10.8 ng/mL GLUCOSE POC (11/05/2024) ???Glucose, POC - 161 mg/dL GLUCOSE POC CARTRIDGE (10/22/2024) ???Glucose (POC) POC Cartridge - 390 HEMATOCRIT POC CARTRIDGE (10/22/2024) ???Hematocrit (POC) POC Cartridge - 31 % HEMOGLOBIN A1C (10/22/2024) ???Hemoglobin A1C (Monitoring) - 9.3 % HEMOGLOBIN POC CARTRIDGE (10/22/2024) ???Hemoglobin (POC) POC Cartridge - 10.5 Gm/dL High??Sensitivity??Troponin T (10/22/2024) ???High Sensitivity Troponin (HSTnT) - 31 ng/L Ionized Calcium (10/22/2024) ???Calcium, Ionized pH Corrected - 1.24 mmol/L Iron + Iron Binding Capacity (10/27/2024) ???Iron Level - 30 mcg/dL???Iron Binding Capacity, Unsaturated - 253 mcg/dL???Iron Binding Capacity, Estimated Total - 283 mcg/dL???% Iron Saturation - 11 % Magnesium Level (11/03/2024) ???Magnesium - 2.2 mg/dL Phosphorus Level (11/03/2024) ???Phosphorus - 3.8 mg/dL Potassium Level (11/02/2024) ???Potassium - 5.0 mmol/L POTASSIUM POC CARTRIDGE (10/22/2024) ???Potassium (POC) POC Cartridge - 4.5 mmol/L PT (INR) (10/22/2024) ???INR - 1.0???Protime (PT) - 10.4 seconds PTT (10/22/2024) ???APTT - 23.[address] (10/27/2024) ???Retic Count - 2.3 %???Retic Count Corrected - 1.6 %???Retic Production Index - 1.0 % SODIUM POC CARTRIDGE (10/22/2024) ???Sodium (POC) POC Cartridge - 139 mmol/L Troponin T, High Sensitivity (10/22/2024) ???High Sensitivity Troponin (HSTnT) - 29 ng/L Type and Screen (10/22/2024) ???Blood Type - B Positive???Antibody Screen - Negative VBG POC CARTRIDGE (10/22/2024) ???pH Venous (POC) POC Cartridge - 7.34???pCO2 Venous (POC) POC Cartridge - 47.2 mm Hg???pO2 Venous(POC) POC Cartridge - 25 mm Hg???Est Bicarbonate (POC) POC Cartridge - 25.6 mmol/L???% O2 Sat Venous (POC) POC Cartridge - 41???Specimen Type - Blood Gas - VENOUS Vitamin B12 Level (10/27/2024) ???Vitamin B12 Level - 341 pg/mL You will be contacted within 72 hours with your results. Allergies (NKA means No Known Allergies) NKA Problems Active Problems??(1) Obese class I?? Education Materials Below is the list of Educational Leaflet Providered with your Discharge Instructions. WebMD Ignite Patient Education - Tranexamic Acid?? WebMD Ignite Patient Education - Levetiracetam?? Web[employer] Ignite Patient Education - Understanding a [place] Hole Procedure?? 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 WebMD Ignite Patient Education - What Is a Subdural Hematoma??? Valuables and Belongings I fully understand and agree that [facility] accepts no responsibility for all my personal [...] Review of Valuable and Belonging List: With patient Disposition of Belongings: Other: PACU closet Date for Pt to Sign Valuables/Belongings: 10/27/24 13:18:00 ?? Other Discharge Information ? Case Management Discharge Plan?? Discharge Plan?? Discharge Rx Program: Discharge Prescription Program ?? Pulmonary Rehab Status?? Pulmonary Rehab Discharge Status?? Respiratory Rate: 20 br/min ? Common Emergency Awareness Tips IS [...] are strongly encouraged to quit. Please call [facility] at [phone] or [phone] ([phone]) or log in to [email or web address] for referrals to smoking cessation programs. ?? 724 Suicide & Crisis Lifeline is available 23/04 if you or someone you know needs to find a reason to keep living. By calling 833 you'll be connected to a skilled, trained counselor at a crisis center in your area. INPATIENT DISCHARGE INSTRUCTIONS SIGNATURE PAGE CATARINO LUI Location:[facility] Registration Date and Time:10/22/2024 12:44 EST Primary Care Physician: Kolby GUIDRY , Quinn Davies, Attending Physician: Missy Campa MD, [facility], I CATARINO LUI, have received the above patient education materials/instructions and have verbalized understanding. If ambulance or transport services are being used I further acknowledge being given a choice of service. ?? If you need to contact me, please call me at this number: . Patient/Academic Advisor Name: Patient/Academic Advisor Signature: Relationship to Patient: Witness Name/Signature: Date: * Marianna Gtz MD: PERFORM, SIGN, VERIFY Event Display: Patient Education Handout Authored Date: [id number] * Rhoda Correa RN: PERFORM Event Display: Patient Education Leaflets Authored Date: [id number] Tranexamic Acid ?? [id number] Tranexamic Acid Brand Name(s): Lysteda? WHY is this medicine prescribed? Tranexamic acid is used to treat heavy bleeding during the menstrual cycle (monthly periods) in women. Tranexamic acid is in a class of medications called antifibrinolytics. It works to improve bloodclotting. HOW should this medicine be used? Tranexamic acid comes as a tablet to take by mouth. It is usually taken with or without food three times a day for up to 5 days during monthly menstruation. You should begin taking this medication each month when your period starts. Do not take tranexamic acid when you do not have a period. Take tranexamic acid at around the same times every day you are to receive a dose. Follow the directions onyour prescription label carefully, and ask your doctor or pharmacist to explain any part you do notunderstand. Take tranexamic acid exactly as directed. Do not take tranexamic acid tablets for more than 5 days in a menstrual cycle or take more than 6 tablets in a 24 hour period of time. Swallow the tablets whole; do not split, chew, or crush them. Tranexamic acid is used to decrease the amount of blood lost during your monthly period but does not stop menstrual bleeding. Call your doctor if your bleeding does not improve or gets worse during your treatment. Ask your pharmacist or doctor for a copy of the temper mill roller's information for the patient. Are there OTHER USES for this medicine? This medication may be prescribed for other uses; ask your doctor or pharmacist for more information. What SPECIAL PRECAUTIONS should I follow? Before taking tranexamic acid, ??? tell your doctor and pharmacist if you are allergic to tranexamic acid, any other medications, or any of the ingredients in tranexamic acid tablets. Ask your pharmacist for a list of the ingredients. ??? some medications should not be taken with tranexamic acid. Other medications may cause dosing changes or extra monitoring when taken with tranexamic acid. Make sure you have discussed any medications you are currently taking or plan to take before starting tranexamic acid with your doctor and pharmacist. Before starting, stopping, or changing any medications while taking tranexamic acid, please get the advice of your doctor or pharmacist. ??? tell your doctor you are taking tranexamic acid if you will be receiving medications to treat blood clots, including tissue plasminogen activators such as alteplase (Activase) and reteplase (Retavase). Your doctor may need to change the doses of your medications or monitor you carefully for side effects. ??? tell your doctor if you have or have ever had a blood clot, if you have a blood clotting condition, or if you have been told you are at risk of having a blood clot. Your doctor will probably tell you not to take tranexamic acid. ??? tell your doctor if you have or have ever had kidney disease. Also tell your doctor if the time between the start of your menstrual periods is less than 21 days or more than 35 days. ??? tell your doctor if you are , plan to become , or are breast-feeding. If you become whiletaking tranexamic acid, call your doctor. ??? if you are having surgery, including dental surgery, tell the doctor or dentist that you are taking tranexamic acid. What SPECIAL DIETARY instructions should I follow? Unless your doctor tells you otherwise, continue your normal diet. What should I do IF I FORGET to take a dose? Take the missed dose as soon as you remember it, but then take your next dose at least 6 hours later. However, if it is almost time for the next dose, skip the missed dose and continue your regular dosing schedule. Do not take more than two tablets at a time to make up for a missed dose. What SIDE EFFECTS can this medicine cause? Some side effects can be serious. If you experience any of these symptoms, stop taking tranexamic acid and call your doctor immediately or get emergency medical treatment: ??? hives ??? rash ??? itching ??? difficulty breathing or swallowing ??? swelling of the face, throat, tongue, lips, eyes, hands, feet, ankles, or lower legs ??? hoarseness ??? changes in vision, including color vision ??? chest pain ??? shortness of breath ??? leg pain, swelling, tenderness, redness, or warmth Tranexamic acid may cause other side effects. Call your [...] be awakened, immediately call emergency services at [phone]. Symptoms of overdose may include the following: ??? nausea ??? vomiting ??? diarrhea ??? dizziness ??? changes in vision ??? changes in behavior ormood ??? uncontrollable shaking or twitching of a part of your body ??? rash What OTHER INFORMATION should I know? Keep all appointments with your doctor. Do not let anyone else take your medication. Ask your pharmacist any questions you have about refilling your prescription. It is important for you to keep a written list of all of the prescription and nonprescription (fmio-whw-gfxrhwe) medicines you are taking, as well as [...] or pharmacist about specific clinical use. The [employer] [employer] represents that the information provided hereunder was formulated with a reasonable standard of care, and in conformity with professional standards in the field. The [employer] [employer] makes no representations or warranties, express or implied, including, but not limited to, any implied warranty of merchantability and/or fitness for a particular purpose, with respect to such information and specifically disclaims all such warranties. Users are advised that decisions regarding drug therapy are complex medical decisions requiring the independent, informed decision of an appropriate health acute care occupational therapist, and the information is provided for informational purposes only. The entire monograph for a drug should be reviewed for a thorough understanding of the drug's actions, uses and side effects. The [employer] [employer] does not endorse or recommend the use of any drug.The information is not a substitute for medical care. AHFS?? Patient Medication Information???. ?? Copyright, 2023. [employer]??, [address], [address], [place], [place]. All Rights Reserved. Duplication for commercial use must be authorized by [facility]. Selected Revisions: October 15, 2016. AHFS?? Patient Medication Information???. ?? Copyright, 2024 ?? * Rhoda Correa RN: PERFORM Event Display: Patient Education Leaflets Authored Date: [id number] Levetiracetam ?? [id number] Levetiracetam Brand Name(s): Elepsia?? XR, Keppra??, Keppra?? XR, Spritam??; also available generically ?? WHY is this medicine prescribed? Levetiracetam is used alone and along with other medications to control partial- onset seizures (seizures that involve only one part of the brain) in adults, children, and infants 1 month of age or older. Levetiracetam is also used in combination with other medications to treat seizure in adults andchildren 12 years of age or older with juvenile myoclonic epilepsy. Levetiracetam is also used in combination with other medications to treat primary generalized tonic- clonic seizures (formerly knownas a grand mal seizure; seizure that involves the entire body) in adults and children 6 years of age or older with epilepsy. Levetiracetam is in a class of medications called anticonvulsants. It works by decreasing abnormal excitement in the brain. HOW should this medicine be used? Levetiracetam comes as a solution (liquid), an immediate-release tablet, an extended-release (long-acting) tablet, and as a tablet for suspension (a tablet to take with liquid) to take by mouth. The solution, immediate-release tablet, and tablet for suspension are usually taken twice a day, once inthe morning and once at night, with or without food. The extended-release tablets are usually takenonce daily with or without food. Try to take levetiracetam at around the same time(s) every day. Follow the directions on your prescription label carefully, and ask your doctor or pharmacist to explain any part you do not understand. Take levetiracetam exactly as directed. Do not take more or less of it or take it more often than prescribed by your doctor. Swallow the levetiracetam immediate-release and extended-release tablets whole; do not split, chew,or crush them. Take the whole levetiracetam tablets for suspension according to directions; do not split, chew, or crush them. To take levetiracetam tablet(s) for suspension, use dry hands to peel the foil from the blister packaging; do not try to push the tablets through the foil. Immediately take out the number of tablet(s) that your doctor has told you to take and place the tablet(s) on your tongue with a sip of liquid.Once the tablet completely dissolves on your tongue, swallow the mixture. The tablet(s) may take about 10 seconds to dissolve. You can also take levetiracetam tablets for suspension by dissolving them in a liquid. Place the number of tablet(s) your doctor has told you to take into a cup and add a small amount of liquid (about 1 tablespoon [15 mL] or enough to cover the medication in a cup). Swirl the cup gently. After the tablet(s) for suspension dissolve, drink the mixture right away. If there is any medication left in the cup, add some more liquid and swirl the cup gently. Drink the mixture water right away to be sure that you swallow all of the medication. If you are taking the levetiracetam oral solution, do not use a household spoon to measure your dose. You might not get the right amount of medication. Ask your doctor or pharmacist to recommend a medicine dropper, spoon, cup, or syringe and to show you how to use it to measure your medication. Your doctor may start you on a low dose of levetiracetam and gradually increase your dose, not moreoften than once every 2 weeks. Levetiracetam controls epilepsy but does not cure it. Continue to take levetiracetam even if you feel well. Do not stop taking levetiracetam without talking to your doctor, even if you experience side effects such as unusual changes in behavior or mood. If you suddenly stop taking levetiracetam, your seizures may become worse. Your doctor will probably decrease your dose gradually. Your doctor or pharmacist will give you the temper mill roller's patient information sheet (Medication Guide) when you begin treatment with levetiracetam and each time you refill your prescription. Read the information carefully and ask your doctor or pharmacist if you have any questions. You can also visit the Food and Drug Administration (FDA) website (https://www.fda.gov/Drugs) or the temper mill roller'swebsite to obtain the Medication Guide. Are there OTHER USES for this medicine? This medication may be prescribed for other uses; ask your doctor or pharmacist for more information. What SPECIAL PRECAUTIONS should I follow? Before taking levetiracetam, ??? tell your doctor and pharmacist if you are allergic to levetiracetam, any other medications, orany of the ingredients in levetiracetam products. Ask your pharmacist or check the Medication Guidefor a list of the ingredients. ??? tell your doctor and pharmacist what prescription and nonprescription medications, vitamins, nutritional supplements, and herbal products you are taking or plan to take. Your doctor may need to change the doses of your medications or monitor you carefully for sideeffects. ??? tell your doctor if you have or have ever had kidney disease, depression, mood problems, or suicidal thoughts or behavior. ??? tell your doctor if you are , plan to become , or are . If you become while taking levetiracetam, call your doctor. ??? you should know that levetiracetam may make you dizzy or drowsy. Do not drive a car or operate machinery until you know how this medication affects you. ??? you should know that your mental health may change in unexpected ways and you may become suicidal (thinking about harming or killing yourself or planning or trying to do so) while you are taking levetiracetam for the treatment of epilepsy, mental illness, or other conditions. A small number of adults and children 5 years of age and older (about 1 in 500 people) who took anticonvulsants such as levetiracetam to treat various conditions during clinical studies became suicidal during their treatment. Some of these people developed suicidal thoughts and behavior as early as one week after they started taking the medication. There is a risk that you may experience changes in your mental health if you take an anticonvulsant medication such as levetiracetam, but there may also be a risk that you will experience changes in your mental health if your condition is not treated. You and your doctor will decide whether the risks of taking an anticonvulsant medication are greater than the risks of not taking the medication. You, your family, or your caregiver should call your doctor right away if you experience any of the following symptoms: panic attacks; agitation or restlessness; nervousness, new or worsening irritability, anxiety, or depression; acting on dangerous impulses; difficulty falling or staying asleep; aggressive, angry, or violent behavior; demetrius (frenzied, abnormally excited mood); talking or thinking about wanting to hurt yourself or end your life; withdrawing from friends and family; preoccupation with and dying; giving away prized possessions; or any other unusual changes in behavior or mood. Be sure that your family or caregiver knows which symptoms may be serious so they can call the doctor if you are unable to seek treatment on your own. What SPECIAL DIETARY instructions should I follow? Unless your doctor tells you otherwise, continue your normal diet. What should I do IF I FORGET to take a dose? If it has only been a few hours since the time you were scheduled to take the dose, take the misseddose as soon as you remember it. However, if it is almost time for the next dose, skip the missed dose and continue your regular dosing schedule. Do not take a double dose to make up for a missed one. What SIDE EFFECTS can this medicine cause? Some side effects can be serious. If you experience any of the following symptoms or those listed in the SPECIAL PRECAUTIONS section, call your doctor immediately: ??? rash, fever, swollen lymph nodes, facial swelling, shortness of breath, yellowing of skin or whites of the eyes, dark urine ??? seizures that are worse or different than the seizures you had before ??? fever, sore throat, or other signs of infection ??? blisters on skin ??? hives ??? itching ??? swelling of the face, throat, tongue, lips. and eyes ??? difficulty swallowing or breathing ??? loss of balance or coordination Levetiracetam may cause other side effects. Call your doctor if you have any unusual problems whiletaking this medication. If you experience a serious [...] it at room temperature and away from light, excess heat and moisture (not in the [...] awakened, immediately call emergency services at 911. Symptoms of overdose may include the following: ??? drowsiness ??? agitation ??? aggression ??? decreased consciousness or loss of consciousness (coma) ??? difficulty breathing What OTHER INFORMATION should I know? Keep all appointments with your doctor. If an infant or child younger than 4 years of age receives levetiracetam, your doctor will check their blood pressure regularly. Do not let anyone else take your medication. Ask your pharmacist any questions you have about refilling your prescription. It is important for you to keep a written list of all of the prescription and nonprescription (zuyt-lkc-nucgfko) medicines you are taking, as well as [...] or pharmacist about specific clinical use. The [employer] [employer] represents that the information provided hereunder was formulated with a reasonable standard of care, and in conformity with professional standards in the field. The [place] [employer] makes no representations or warranties, express or implied, including, but not limited to, any implied warranty of merchantability and/or fitness for a particular purpose, with respect to such information and specifically disclaims all such warranties. Users are advised that decisions regarding drug therapy are complex medical decisions requiring the independent, informed decision of an appropriate health acute care occupational therapist, and the information is provided for informational purposes only. The entire monograph for a drug should be reviewed for a thorough understanding of the drug's actions, uses and side effects. The [employer] [employer] does not endorse or recommend the use of any drug.The information is not a substitute for medical care. AHFS?? Patient Medication Information???. ?? Copyright, 2023. The [employer]??, [address], [address], [place], [place]. All Rights Reserved. Duplication for commercial use must be authorized by [facility]. Selected Revisions: January 19, 2024. AHFS?? Patient Medication Information???. ?? Copyright, 2024 ?? * Rhoda Correa RN: PERFORM Event Display: Patient Education Leaflets Authored Date: [id number] Understanding a Parish Hole Procedure ?? 36794 Understanding a [place] Hole Procedure Parish holes are small holes that a neurosurgeon makes in the skull. [place] holes are used to help relieve pressure on the brain when fluid, such as blood, builds up and starts to press on brain tissue. This buildup of blood is dangerous. As the blood builds, it pushes up against the skull and has nowhere to go. If the blood starts to compress the brain, it can lead to symptoms or even if not treated. Layers around the brain Your brain sits inside a bony skull. Inside your skull are several layers of tissue called the meninges. These layers cover and protect the brain. The layer just inside the skull is called the dura mater, or just dura. It's a tough, fibrous layer of tissue. ?? Why parish holes are used One of the most common reasons parish holes are needed is for a subdural hematoma. This is when bloodslowly builds between the brain and the dura??after a mild head injury. The veins there are fragileand break easily. This is especially true for older adults and people taking blood thinners. This can lead to symptoms like headaches, confusion, seizures, and one-sided muscle weakness. If the bloodcontinues to build, it may cause coma and brain damage. There are other reasons why you might need a parish hole procedure. Neurosurgeons may do a parish hole procedure to relieve pressure around the brain because of: ??? A sudden (acute) subdural hematoma ??? An ongoing (chronic) subdural hematoma ??? Certain kindsof brain cancer ??? The buildup of pus around the meninges? A buildup of cerebrospinal fluid (CSF) around the brain hygroma ??? Certain kinds of bleeds from the brain itself (rare) A parish hole procedure may also be used for a brain biopsy or to drain a brain cyst. ?? How a parish hole procedure is done You will be given medicine to make you relaxed or sleep. The??surgery team??will trim the hair on your scalp in the area of surgery. They will inject numbing medicine into your scalp. The surgeon will make a cut (incision) on your scalp. Using a special drill, the surgeon will drill 1 or 2 small holes in the skull to reach the dura. They then open the dura and drain any excess fluid or blood or take a biopsy. The surgeon may put a temporary drain in place to continue to drain fluid. Or they mayclose the dura and scalp right away. ?? Risks of a parish hole procedure All surgery has risks. The risks of a parish hole procedure include: ??? Bleeding ??? Infection ??? Blood clots ??? Brain injury ??? Heart attack or stroke ??? Problemswith anesthesia ??? No relief from symptoms and need for other surgery such as a craniotomy Your own risks may vary according to your age, your general health, and the reason for your procedure. Talk with your healthcare provider to find out what risks may apply to you. ?? Last Reviewed Date: 2022 ?? The [employer] (formerly [employer]). All rights reserved. This information is not intended as a substitute for professional medical care. Always follow your healthcare professional's instructions. ?? * Alba Dugan MD: PERFORM, MODIFY, MODIFY Event Display: Discharge/Transfer Note Hospital Authored Date: [id number] Patient: ??CATARINO LUI ? Age:??64 Years?Sex:??Male?:??1960?? Subjective Catarino continues to complain of pain over his surgical site but otherwise has no acute complaints. He has been able to ambulate to the bathoom. Still no bowel movements but is passing gas, toleratinga diet without issue. Otherwise remains hemodynamically stable, Hgb 8.6 this morning from 9.4 yesterday. Creatinine bump to 2.19 from 1.7, following increasing trend, urine output 1+L for 24hr (2 coun ts), significantly improved from day prior. Prior Creatinines in system noted to be up to 2.61.??JPto be removed by neurosurgery team today. Review of Systems Negative except as per HPI. Physical Exam Vitals & Measurements T:??98.1?F?? HR:??65??(Monitored)?? RR:??11?? BP:??157/76?? SpO2:??97%?? HT:??183??cm?? WT:??120.3??kg?? BMI:??33.92?? General:??Comfortable,??alert and oriented x3, no acute distress. HEENT:??Right temporal surgical site covered with Telfa stapled in place. ??KATHY drain??exiting,??thin serosanguineous??fluid. Cardiovascular:??NSR in the 60s. Respiratory: Room air, equal chest rise, no respiratory distress. Abdomen: Obese,??nontender Extremities: No long bone deformities Neurologic:??GCS15. Right pupil dilated more than left (baseline).?? CN II-XII grossly intact. Strength 5/5 in bilateral upper and lower extremities with intact sensation. Assessment/Plan Catarino is a 64-year-old man??with past medical history including atrial fibrillation (last took Eliquis prior to his last hospitalization),??hypertension, diabetes mellitus on insulin,??prior right-si ded craniotomy (childhood),??CKD,??who??previously had a fall??in August 2024??with workup demonstrating and acute on chronic right-sided??subdural hematoma??with 1 cm brain compression??and underwent MMA embolization??on??September 23, 2024.?? He later returned??on October 09, 2024??with headache and left lower extremity per chart review??and had CT imaging which redemonstrated chronic subdural??hematoma with increased??brain compression??and ultimately??a right bur??hole for subdural evacuation??was pursued at that time.?? He was discharged??thereafter. ?? On October 22, 2024,??Catarino tells me that his brother??noticed signs??concerning for stroke???he had drool out of the left side of his mouth,??had weakness of his lower extremities bilaterally, and h ad??numbness/tingling in his left upper extremity.?? Therefore,??he had an acute stroke workup at [facility].?? Ultimately,??CT imaging demonstrated interval increase in right subdural hematoma??with persistent mass effect??-- neurosurgery offered??repeat evacuation??and KATHY drain placement.?? This procedure??went without??immediate complication. ?? The patient was transferred to the surgical trauma ICU for further monitoring??given??no surgical beds were available in the??[facility].?Cardiology, neurology, and BIDS consulted and recommendations implemented. Pending echo. He remains eligible for transfer. ?? Diagnoses: Chronic right subdural??hematoma??with??midline shift (space-occupying/brain compression) Obesity Atrial fibrillation Diabetes mellitus, type II ?? Neuro ??Acute postop pain Chronic right subdural??hematoma??with??midline shift s/p??repeat evacuation, neurosurgery recommendations bellow Differential for presenting??extremity weakness, paresthesias??include seizure,??awaiting neurologyrecommendations???treating with Keppra in the interim Postoperative repeat head CT??- persistent residual subdural??with??some associated mass effect, decreased from prior ?? Plan ??- Pain regimen: Acetaminophen, oxycodone as needed ??-??Appreciate neurology consultation??for possible??seizures ? -q4 neurochecks, VS, telemetry ? -routine EEG ? -c/w keppra 1 g BID? -seizure precautions ? -NSG following -Neurosurgery requests: ? -Head of bed greater than 30 degrees ? -Every 2 hour neurochecks ? -Systolic blood pressure less than 160 ? - Oxycodone 5-10mg PO q6hrs PRN pain ? - Tylenol 975mg PO q6hrs for pain ? - TXA 1G??IV daily then transition to 650mg PO daily, total course 21 days ? - Hold antiplatelet, anticoagulation and chemical DVT ppx ? - Pneumatic compression boots ? - STAT CT Head??for decline in neuro exam ? - KATHY drain removed 10/24 by neurosurgery team ? CV Atrial fibrillation with intolerance to anticoagulation Appreciate cardiology guidance Troponin??has peaked A-fib with RVR??in the reported context of??medication noncompliance, home regimen resumed --no episodes of A-fib with RVR overnight ?? Plan ??- Holding home??lisinopril ??- Continue home??metoprolol,??diltiazem,??statin ??- Goal MAP > 65.?- Monitor BP/HR ??-??Cardiology Consult, appreciate recommendations 1.?? Recurrent right subdural hematoma??expansion with??focal neurodeficits requiring reexplorationsurgical evacuation and KATHY drain. ??His neurostatus is currently improving. ??Obviously is not a candidate for systemic anticoagulation.?? Once safe from neurosurgical standpoint baby aspirin can be c onsidered. 2.?? Atrial fibrillation with rapid ventricular response. ??Post??op??RVR related to??hyperadrenergic state. ??Continue??metoprolol??75 mg p.o. twice daily.?? If rate control is not adequate can consider adding diltiazem??60 mg p.o. 2-3 times daily and uptitrate. ??If any hemodynamic instability can consider amiodarone drip. 3.?? Once he is clinically stable at least 4 to 6 weeks??out,??can consider definitive therapy for??a left atrial appendage??closure device??procedure??which does require anticoagulation intraprocedure and immediately post op.?? This will obviously require follow-up scanning and neurosurgical??clearance. 4. ??Chronic???diastolic CHF??continue strict I's and O's weight monitoring. Please??order echo Echo to assess EF and DDfx. Continue his outpatient diuretic regimen??which includes??torsemide and metolazone.?? Watch electrolytes namely potassium. ? Pulm Room air, no active issues ?? Plan ??- Incentive spirometry, acapella ?? FEN/GI Cleared for diet per neurosurgery, diabetic diet ordered ?? Plan ??- Diet:??Diabetic diet with carb restriction, Diabetic??supplements ??- Bowel regimen:??Docusate, bisacodyl suppository as needed ??- PPI:??Home??PPI ordered ??- Monitor daily Ins/Outs ??- Replete lytes per ICU Ca/Phos/Potassium protocol ?? Renal ??Hx of chronic kidney disease --creatinine still below prior??hospitalization On home metolazone and Lasix, resumed ?? Plan ??- Daily renal labs ??- Monitor urine output ?? MSK/Integ Surgical site to the??right temporoparietal region/KATHY drain??management per??neurosurgery KATHY drain removed by neurosurgery 10/24 ?? Plan ??- Surgical site and KATHY drain closed with suture ?? Heme Hemoglobin/hematocrit grossly stable from preoperative, trending No chemical anticoagulation/chemical??DVT prophylaxis??neurosurgery ?? Plan ??- Daily CBC ??- Monitor H/H trend -Sequential compression devices for??DVT prophylaxis, no chemical DVT prophylaxis ?? Endocrine Diabetes melitis type II,??on insulin Appreciate BIDS recommendations --will follow their guidance on escalation of??insulin regimen, however, strict blood glucose control will be imperative; still with modest hyperglycemia ?? Plan ??-??BIDs Consult, appreciate recommendations --these recommendations are dated October 22, 2024.? - Continue??Lantus 24 units daily ? -When eating?Lispro scale 7:100 + 2:50, three times daily before meals? -If??NPO use correction scale starting at 2/150 plus 2/50 Q 6 hours ? -Will continue to monitor and make adjustments ? -Please consider decreasing his Carb??to??60g??for??each diet ?? ID No concerns for active infection, Ancef prophylaxis x 24 hours postop ?? Plan ??- Trend WBC's ?? Social ??HCP:??CASANDRA RUIZ? [phone] ?? Prophylaxis HOB > 30 degrees GI: Home pantoprazole resumed DVT:??SCD's ?? Code Status:??Full CODE STATUS was confirmed by neurosurgery.?? Full CODE STATUS was confirmed by myself on presentation to the surgical trauma ICU. ?? Primary Team:??Neurosurgery ?? Consultants:??Neurology, BIDS, cardiology ?? Disposition:??[facility]. ? Please page [phone] or call [phone] SICU Team with any questions ?? Patient seen and plan of care discussed with attending, Dr. Marques ?? Intake and Output Intake and Output Results?? This visit (24 hour periods starting at 07:00 EST)? 10/24/24 *?? 10/23/24?? 10/22/24?? Total Summary?Intake mL?? 35?? 1,010?? 1,010?Output mL?? --?? 1,050?? 224?Fluid Balance ?? 35?? -40?? 786?? Intake (4)?Magnesium Sulfate mL?? 35?? 15?? --?Oral Fluids mL?? --?? 985?? 960?Other IV mL?? --?? --?? 50?Tranexamic Acid mL?? --?? 10?? --?Total?? 35?? 1,010?? 1,010?? Output (3)?KATHY 1 mL?? --?? --?? 10?Elfego [place], right mL?? --?? 25?? 14?Urine Voided mL?? --?? 1,025?? 200?Total?? --?? 1,050?? 224?? Counts (3)?Oral Fluids mL?? --?? 985?? 960?Urine Count ?? --?? 2?? 2?Urine Voided mL?? --?? 1,025?? 200? * This column has not completed the indicated time period.?? Labs Last 24 Hours BLOOD COUNT & DIFF ? Event Name?? Event Result?? Date/Time?? WBC 8.1 k/mm3 10/24/24 03:57:00 RBC 3.28 m/mm3??Low 10/24/24 03:57:00 Hgb 8.6 Gm/dL??Low 10/24/24 03:57:00 Hct 27.7 %??Low 10/24/24 03:57:00 MCV 84.5 femtoliters 10/24/24 03:57:00 MCH 26.2 pg??Low 10/24/24 03:57:00 MCHC 31 Gm/dL??Low 10/24/24 03:57:00 Platelet Count 261 k/mm3 10/24/24 03:57:00 MPV 11.2 femtoliters 10/24/24 03:57:00 Nucleated RBC (Automated) 0 #/100 WBC'S 10/24/24 03:57:00 ? CHEM GENERAL ? Event Name?? Event Result?? Date/Time?? Sodium 135 mmol/L 10/24/24 03:57:00 Chloride 103 mmol/L 10/24/24 03:57:00 Bicarbonate Level 22 mmol/L 10/24/24 03:57:00 Anion Gap 10 mmol/L 10/24/24 03:57:00 Glucose Level 226 mg/dL??High 10/24/24 03:57:00 BUN 52 mg/dL??High 10/24/24 03:57:00 Creatinine-Blood 2.19 mg/dL??High 10/24/24 03:57:00 Calcium, Ionized pH Corrected 1.2 mmol/L 10/24/24 03:57:00 Phosphorus 4.8 mg/dL??High 10/24/24 03:57:00 Magnesium 1.9 mg/dL 10/24/24 03:57:00 ? * Shelli GUIDRY, Marco H: PERFORM Event Display: Discharge/Transfer Note Hospital Authored Date: [id number] Attending Attestation: ?? The patient was seen, examined, and discussed with the STICU??team on the date of service documented above. ??The clinical course, labs, and radiological studies were reviewed by me and findings on exam confirmed. ??I agree with the findings as well as the assessment and plan as delineated above. I have??performed the substantive portion of the medical decision making for the ?? Diagnoses Compression of brain ??(G93.5) Traumatic subdural hemorrhage without loss of consciousness, initial encounter ??(S06.5X0A) ?? --- Marco Marques MD, [facility], [facility] Division of Trauma, Acute Care Surgery, and Surgical Critical Care Patient Care team information Care Team Personnel Name: Aida Ruelas RN Position: [facility] RN Member Role: Primary Care Nurse Name: Shivani Carlson RN Position: S RN Member Role: Primary Care Nurse Name: Shala Horne RN Position: S RN Member Role: Primary Care Nurse Name: Rhoda Starr RN Position: [facility] RN Member Role: Primary Care Nurse Name: Candy Goodson RN Position: [facility] RN Member Role: Primary Care Nurse Name: France Stover RN Position: [facility] RN Member Role: Primary Care Nurse Name: Matilda Monk RN Position: [facility] RN Member Role: Primary Care Nurse Name: rIaj Jordan RN Position: S RN Member Role: Primary Care Nurse Name: Harpreet Haywood RN Position: [facility] RN Member Role: Primary Care Nurse Name: Yessi Tavares RN Position: [facility] RN Member Role: Primary Care Nurse Name: Tamara Lovell RN Position: [facility] RN Member Role: Primary Care Nurse Name: Katia Sahni RN Position: S RN Member Role: Primary Care Nurse Name: Quinn Jarrett MD Position: S Outreach Member Role: PCP Address: [address] [place] [id number] Telecom: Care Team Related Persons Name: SONAL LUI Name: CASANDRA RUIZ Insurance Providers Guarantor name: CATARINO [facility] Information #: 1 Payer: [employer]RI[employer] RAY ADV Member Number: [id number] Policy Number: NA Group Number: [id number] Health Plan Information #: 2 Payer: [employer]RI[employer]I MENA Member Number: [id number] Policy Number: NA Group Number: [id number]
[2024-11-12 18:49] VITALS: BP 122/72; PULSE 67; RESP 20; TEMP 36.4; O2SAT 98
[2024-11-12] MEDS: BUPivacaine MPF 0.25 % 10 ML VIAL INFILTRATI (19:05)
[2024-11-12 19:33] VITALS: BP 122/72; PULSE 67; RESP 20; TEMP 36.4; O2SAT 98
== END 2024-11-12 19:33 | disposition home or self-care (01) ==
PROVIDERS: Emergency Provider Emergency Medicine; PCP Internal Medicine
DX: S52.501A Unspecified fracture of the lower end of right radius, initial encounter for closed fracture (principal); M79.601 Pain in right arm; W18.30XA Fall on same level, unspecified, initial encounter; Y93.89 Activity, other specified; Y92.89 Other specified places as the place of occurrence of the external cause; Y99.8 Other external cause status
CPT/HCPCS: 25605; 29105; 73090; 73100; 73130; 99283; 99284; J0665

== ENCOUNTER → 2024-11-12 12:14 | Outpatient (BNV) | payer MEDICARE, SELFPAY | PROVIDERS: PCP Internal Medicine; Visit Provider Radiology Diagnostic Radiology | DX: M18.11 Unilateral primary osteoarthritis of first carpometacarpal joint, right hand (principal); S52.571A Other intraarticular fracture of lower end of right radius, initial encounter for closed fracture | CPT/HCPCS: 73090; 73100; 73130 ==

== ENCOUNTER 2024-12-10 08:33 | Outpatient (AMB) | payer MEDICARE, SELFPAY ==
--- NOTE | 2024-12-10 08:44 | MHC.OFFVIS ---
Vital Signs 12/10/24 08:45 Height 6 ft Weight 258 lb BMI 35.0 Intake Visit Reasons: FC - right distal radius fx, DOI 11/12/24 Intake Note: Catarino 64 yr old - hand dominant male, presents today for a new patient visit for his right distal radius fracture from 11/12/24. States he lost his balance, fell and injured his hand trying to break his fall. Seen at [facility] [place] where xrays were taken, fracture was confirmed, reduced and splinted. Currently states his pain is tolerable. State he has numbness and tingling in his thumb. Denies locking of any finger in his right hand. Allergies morphine Adverse Reaction (Intermediate, Verified 12/10/24 08:51) dizziness HPI HPI FC - right distal radius fx, DOI 11/12/24: Details: Catarino is a 64 year old right hand dominant man who presents for a right distal radius fracture, after a fall, DOI: 11/12/24. He was seen in the ED where his wrist was reduced, and placed in a sugar-tong splint which he has remained in for the last 4 weeks. He is residing in a rehab & nursing center and has not been seen for his wrist since he was in the ED. He says his pain is tolerable. He says he had a burning sensation in his thumb a few days ago, which improved. He denies any numbness or tingling today. He is seen today in a wheelchair noting that he also injured his hip and knee. 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 Review of Systems Const All systems reviewed & are unremarkable except as noted in HPI and below Physical Exam Vital Signs: BMI result Body Mass Index 35.0 Const General: cooperative, healthy appearing and no acute distress Orientation/consciousness: patient oriented x3 HEENT Head: Yes normocephalic and Yes atraumatic Eyes EOM: EOMs intact bilaterally Resp Effort & Inspection: normal respiratory effort and able to speak in complete sentences Cardio Jugular venous distension: no JVD Skin General skin exam: turgor normal Rashes: no rashes Neuro General: patient oriented x3 Extrem Other: Evaluation of Right Upper Extremity: The patient is alert, oriented, and in no acute distress Neuro: Median, Ulnar, Radial nerves motor and sensory intact and sensation is normal to the tips of all digits Vascular: Cap refill brisk ROM: He was initially seen today in a sugar-tong splint, which he had been wearing for ~4 weeks now His hand & wrist were stiff and swollen today Fracture site minimally TTP Area of pressure from the splint over the dorsal aspect of his thumb, just distal to the basal joint. No skin breakdown He had significant stiffness in his fingers, as they were kept in extension We worked on ROM exercises today in clinic > 15min Before leaving clinic he could bring his fingertips to touch his palm, and fully extend all his digits He can oppose his thumb to the tips of all digits No tenderness about the elbow No pain with proximal forearm squeeze He could flex and extend his elbow without pain Wrist: ~ 65 degrees pronation ~ 40 degrees supination Skin: No lacerations or abrasions. Radiographs: 3 views of the right wrist were taken and viewed by me today in clinic. They show a distal radius fracture, comminuted intra-articular, with evident displacement of the articular fragments. Psych Appearance: grossly normal Affect: normal affect Attitude: cooperative Office Procedures AMB Fracture Care Details: Manual therapy for greater than 15 minutes [id number] Fracture Billing Code: Fracture Billing Code Assessment & Plan Assessment & Plan (1) Closed fracture of right distal radius: Code(s): S52.501A - Unspecified fracture of the lower end of right radius, initial encounter for closed fracture Category: Medical (2) Diabetes mellitus: Code(s): E11.9 - Type 2 diabetes mellitus without complications Category: Medical (3) Stiffness of right hand joint: Code(s): M25.641 - Stiffness of right hand, not elsewhere classified Category: Medical Plan Assessment & Plan: 1. Right distal radius fracture, comminuted intra-articular From a fall, DOI: 11/12/24 First seen by us today, more than 4 weeks post injury Now developing a malunion 2. Right hand stiffness, significant I educated him about this condition Unfortunately this is the first follow-up appoint for him, 4 weeks S/P injury, as he has been in a rehab center. Multiple attempts were made to schedule an appointment with us. He continues to reside in rehab and is seen today in a wheelchair He now appears to be developing a malunion of the distal articular surface I ordered an urgent CT scan to better visualize his distal radius injury He was fitted for a new velcro wrist splint, to be worn for the next 2 weeks. he will remove this at night and to work on ROM exercises I discussed activity modification, he is to lift nothing heavier than a cellphone for the next 2 weeks He will work on ROM exercises at home, including wrist pronosupination. He would benefit from OT hand therapy, but as he still resides in a rehab center, I am asking for the center to work on ROM exercises with him I demonstrated exercises for him to perform on his own. He should limit or avoid pushing his wheelchair with his right wrist when possible He will follow up in 1-2 weeks, to review his CT scan once completed. This should be a 30 minute appointment Please note that greater than 30 minutes was spent with this patient going over the history, evaluating the patient and radiographs, formulating possible treatment options, discussing them with the patient, and documenting the visit. Scribed for Maren Johnson MD by Epifanio Soto, medical management specialist, on 12/10/24 at 9:35 AM, EST. Orders: Orders CT wrist RT wo IV con 12/10/24 M25.641 - Stiffness of right hand, not elsewhere classified, S52.501A - Unspecified fracture of the lower end of right radius, initial encounter for closed fracture XR wrist RT min 3V 12/10/24 M25.531 - Pain in right wrist Medications: Discontinued amoxicillin Discontinued Reason: Patient Completed Course 500 mg PO BID 14 tabs 0RF amoxicillin-pot clavulanate 875-125 mg Discontinued Reason: Patient Completed Course 1 tab PO BID 20 tabs 0RF Coding Level of Care Code Est Pt Level 4 (89109) Diagnoses Closed fracture of right distal radius S52.501A Diabetes mellitus E11.9 Stiffness of right hand joint M25.641 CPT Codes Fracture Care - Fracture Billing Code: Fracture Billing Code ([id number])
[2024-12-10 08:45] VITALS: BMI 35.0
--- OUTSIDE RECORDS SUMMARY | 2024-12-10 09:05 | XMS_ITS | Continuity of Care Document ---
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 hematoma(Final) - 11/15/24 Discharge Disposition: A-D/C Home Attending Physician: Claudio Knight MD Admitting Physician: Oscar Oh MD Referring Physician: Not on Staff, Referring MD Encounter Type: Disch IP Allergies, Adverse Reactions, Alerts No Known Allergies Immunizations Given and Recorded Vaccine Date Status Refusal Reason influenza virus vaccine, inactivated 08/20/24 Leonard rded influenza virus vaccine, inactivated 10/17/23 Loenard rded influenza virus vaccine, inactivated 07/12/21 Leonard [...] virus vaccine, inactivated 06/07/10 Leonard rded SARS-CoV-2(COVID-19)mRNA-LNP vac([id number]) 08/20/24 Recorded tetanus-diphtheria toxoids (Td) 05/09/22 Recorded [...] Date: 09/23/24 Status: Ordered Repeat number: 1 allopurinol 300 mg oral tablet 300 mg, 1, tablet, By Mouth, Daily, # 30 tablet, Refills 0, Maintenance, 11/15/24 4:00:00 PM EST, Partial fill upon patient request if the prescription is for a schedule II opioid drug. Start Date: 11/15/24 Status: Ordered Quantity: 30.0 Unit: tablet Repeat number: 1 atorvastatin 80 mg oral tablet 1 tablet = 80 mg, By Mouth, Daily Start Date: 09/23/24 Status: Ordered Repeat number: 1 atorvastatin 80 mg oral tablet 1 tablet = 80 mg, By Mouth, Daily, # 90 tablet, 0 Refills, Maintenance, 11/15/24 4:00:00 PM EST, Tablet, Partial fill upon patient request if the prescription is for a schedule II opioid drug. Start Date: 11/15/24 Status: Ordered Quantity: 90.0 Unit: tablet Repeat number: 1 DilTIAZem (Eqv-Cardizem CD) 360 mg/24 hours oral capsule, extended release 1 capsule = 360 mg, By Mouth, Daily, 0 Refills, Maintenance, 11/15/24 4:00:00 PM EST, Partial fill upon patient request if the prescription is for a schedule II opioid drug. Start Date: 11/15/24 Status: Ordered Repeat number: 1 Flomax 0.4 mg oral capsule 0.4 mg, By Mouth, Daily, Refills 0, Maintenance, 11/26/24 4:19:00 PM EST, Partial fill upon patient request if the prescription is for a schedule II opioid drug. Start Date: 11/26/24 Status: Ordered Repeat number: 1 Indication: Retention of urine, unspecified Insulin Glargine Solostar Pen 100 units/mL subcutaneous solution = 52 units, Subcutaneous Infusion, Daily, # 15 mL, 0 Refills, Maintenance, 10/13/24 1:32:00 PM EST, [facility] 3, Partial fill upon patient request [...] 0 Refills, Maintenance, 10/13/24 1:35:00 PM EST, [facility] 3, Partial fill upon patient requestif the prescription is for a schedule II opioid drug., 183, cm, 10/13/24 5:14:00 EST, Height, 116, kg, 10/09/24 6:57:00 EST, Dry Weight Start Date: 10/13/24 Status: Ordered Quantity: 15.0 Unit: mL Repeat number: 1 Insulin Lispro KwikPen 100 units/mL injectable solution 3 times a day before meals, <<Sliding Scale>> 100-149 16 units call if less than 70 150-199 18 units 200-249 20 units 250-299 22 units 300-349 24 units 350-399 26 units call if greater than 400 <<Sliding Scale>>, 0 Refills, Maintenance, 11/15/24 4:00:00 PM EST, Partial fill upon patient request if the prescription is for a schedule II opioid drug. Start Date: 11/15/24 Status: Ordered Repeat number: 1 Keppra 500 mg oral tablet = 1,250 mg, By Mouth, 2 times a day, 0 Refills, Maintenance, 11/26/24 4:25:00 PM EST, Tablet, Partial fill upon patient request if the prescription is for a schedule II opioid drug. Start Date: 11/26/24 Status: Ordered Repeat number: 1 Lantus Solostar Pen 100 units/mL subcutaneous solution = 52 units, Subcutaneous Injection, Daily, 0 Refills, Maintenance, 11/15/24 4:00:00 PM EST, Partial fill upon patient request if the prescription is for a schedule II opioid drug. Start Date: 11/15/24 Status: Ordered Repeat number: 1 Metoprolol Tartrate 75 mg oral tablet 1 tablet = 75 mg, By Mouth, 2 times a day Start Date: 09/23/24 Status: Ordered Repeat number: 1 Metoprolol Tartrate 75 mg oral tablet 1 tablet = 75 mg, By Mouth, 2 times a day, # 180 tablet, 0 Refills, Maintenance, 11/15/24 4:00:00 PMEST, Tablet, Partial fill upon patient request if the prescription is for a schedule II opioid drug. Start Date: 11/15/24 Status: Ordered Quantity: 180.0 Unit: tablet Repeat number: 1 morphine 15 mg oral tablet, immediate release TAKE 1 TABLET (15 MG) ORALLY EVERY 6 HOURS NEEDED FOR PAIN PARTIAL FILL UPON PATIENT REQUEST. Start Date: 11/15/24 Status: Ordered Repeat number: 1 pantoprazole 40 mg oral delayed release tablet 1 tablet = 40 mg, By Mouth, Daily, 0 Refills, Maintenance, 09/23/24 7:03:00 AM EST Start Date: 09/23/24 Status: Ordered Repeat number: 1 pantoprazole 40 mg oral delayed release tablet 1 tablet = 40 mg, By Mouth, Daily, # 30 tablet, 0 Refills, Maintenance, 11/15/24 4:00:00 PM EST, EC Tablet Start Date: 11/15/24 Status: Ordered Quantity: 30.0 Unit: tablet Repeat number: 1 Pen [place], 31 G x 5 mm BD Ultra [...] Refills, Maintenance, 10/13/24 1:54:00 PM EST, Tablet, [facility] 3, Partial fill upon patient request if [...] Date: 09/23/24 Status: Ordered Repeat number: 1 Trulicity Pen 4.5 mg/0.5 mL subcutaneous solution = 0.5 mL, Subcutaneous Injection, Every week, rotate injection sites, # 2 mL, 0 Refills, Maintenance, 11/15/24 4:00:00 PM EST, Solution, Partial fill upon patient request if the prescription is for a schedule II opioid drug. Start Date: 11/15/24 Status: Ordered Quantity: 2.0 Unit: mL Repeat number: 1 Tylenol 325 mg oral tablet 650 mg, By Mouth, Every 4 hours, PRN, Refills 0, Maintenance, Headache, 09/27/24 9:10:00 AM EST, Partial fill upon patient request if the prescription is for a schedule II opioid drug. Start Date: 09/27/24 Status: Ordered Repeat number: 1 Results Radiology Reports (Most Recent Ten) * Exam Date Time Procedure Performing Provider Status 11/18/24 11:36 PM Hand Min 3 Views Right Alison Kent ; Auth (Verified) Notes: (Hand Min 3 Views Right) Reason For Exam: Follow-Up Fracture RESULT: Hand Min 3 Views Right Hand Min 3 Views Right, 3 views Reason: Follow-Up Fracture; Clinical Question(s): Fracture; Order Comment: pt very agitated, refusing xrays COMPARISON: None. FINDINGS: Acute comminuted fracture of the distal radius probably extending to the articular surface with volar displacement of the distal fracture fragment. No significant angulation. Overlying casting material slightly decreases visualization of the fracture lines. Mild joint space narrowing at the carpometacarpal joints. Distal interphalangeal joints are not well evaluated due to patient positioning. Normal soft tissues. IMPRESSION: Acute comminuted fracture probably intra-articular of the distal radius with volar displacement of the distal fracture fragment. I have personally reviewed the images and I agree with this report. WSN: [id number] Ordering Physician: Orquidea Alvarez Dictated By: Evelia Myers DO Dictated Date/Time: 11/19/24 4:23 pm Reviewed By: Ghulam Huertas MD, V Signed By: Ghulam Huertas MD, V Signed Date/Time: 11/19/24 4:28 pm Transcribed By: GLADIS Transcribed Date/Time: 11/19/24 4:18 pm * Exam Date Time Procedure Performing Provider Status 11/18/24 11:36 PM Forearm 2 Views Right Grilli , Alison; Auth (Verified) Notes: (Forearm 2 Views Right) Reason For Exam: Follow-Up Fracture RESULT: Forearm 2 Views Right Examination: Right wrist and right forearm performed on 11/18/2024 History: Reason: Follow-Up Fracture; Clinical Question(s): Fracture Findings: Frontal, oblique, and lateral views of the right wrist and frontal and lateral views of the right forearm are submitted. A fiberglass cast is in place, obscured underlying osseous and soft tissue detail. There is an impacted, intra-articular distal radial fracture. No definite additional fractures are seen. IMPRESSION: Distal radial fracture. WSN: [id number] Ordering Physician: Orquidea Alvarez Dictated By: Mavis Hand MD Dictated Date/Time: 11/19/24 3:37 pm Reviewed By: Mavis Hand MD Signed By: Mavis Hand MD Signed Date/Time: 11/19/24 3:37 pm Transcribed By: GLADIS Transcribed Date/Time: 11/19/24 3:36 pm * Exam Date Time Procedure Performing Provider Status 11/18/24 11:36 PM Wrist Comp Min 3 Views Right Alison Kent; Roberto Carlos (Verified) Notes: (Wrist Comp Min 3 Views Right) Reason For Exam: Follow-Up Fracture RESULT: Wrist Comp Min 3 Views Right Examination: Right wrist and right forearm performed on 11/18/2024 History: Reason: Follow-Up Fracture; Clinical Question(s): Fracture Findings: Frontal, oblique, and lateral views of the right wrist and frontal and lateral views of the right forearm are submitted. A fiberglass cast is in place, obscured underlying osseous and soft tissue detail. There is an impacted, intra-articular distal radial fracture. No definite additional fractures are seen. IMPRESSION: Distal radial fracture. WSN: [id number] Ordering Physician: Orquidea Alvarez Dictated By: Mavis Hand MD Dictated Date/Time: 11/19/24 3:37 pm Reviewed By: Mavis Hand MD Signed By: Mavis Hand MD Signed Date/Time: 11/19/24 3:37 pm Transcribed By: GLADIS Transcribed Date/Time: 11/19/24 3:36 pm * Exam Date Time Procedure Performing Provider Status 11/18/24 3:54 AM MRI Brain W/O Contrast Christine Figueroa (Verified) Notes: (MRI Brain W/O Contrast) Reason For Exam: Neuro deficit, acute, stroke suspected;Other: RESULT: MRI Brain W/O Contrast MRI Brain W/O Contrast INDICATION / CLINICAL QUESTION: Reason: Other:; Neuro deficit, acute, stroke suspected; Clinical Question(s): Infarction; Order Comment: Please see Reference Text for complete list of contraindications Infarction TECHNIQUE: MRI of the brain was performed without contrast utilizing sagittal T1, axial T2, axial FLAIR, axial SWAN, and axial DWI sequences. COMPARISON: Head CT 11/15/2024 and 11/04/2024. FINDINGS: Image quality is degraded by patient motion. Within this technical confine: BRAIN and EXTRA-AXIAL SPACES: The ventricles and sulci are globally prominent reflecting volume loss. There are scattered nonspecific FLAIR hyperintensities throughout the white matter. There is no diffusion abnormality to indicate acute or subacute infarction. Again demonstrated is a right hemispheric subdural hematoma which has mixed attenuation likely reflecting blood products of varying ages. This is similar to the head CT from 11/04/2024 measuring up to approximately 1.1 cm in maximal thickness, apparent difference on the exam from 11/15/2024 may have been due to differences in conspicuity of less dense components of evolving hematoma. Similar degree of mass effect on the adjacent brain, greatest in the right frontal lobe, with sulcal effacement andpartial effacement of the frontal horn of the right lateral ventricle. There is approximately 4 mm leftward midline shift, unchanged. Flow voids are preserved in the dominant intracranial vessels. EXTRACRANIAL SOFT TISSUES: Orbits are unremarkable, with right lens extraction noted. Trace scattered paranasal sinus mucosal thickening. BONES: Marrow signal is preserved. IMPRESSION: No evidence of acute or subacute infarct. Mild scattered nonspecific white matter signal changes which most likely reflect chronic small vessel disease. Evolving right hemispheric subdural hematoma, not significantly changed. WSN: [id number] Ordering Physician: Ramesh Wilson Dictated By: Ching Salazar MD Dictated Date/Time: 11/18/24 8:12 am Reviewed By: Ching Salazar MD Signed By: Ching Salazar MD Signed Date/Time: 11/18/24 8:12 am Transcribed By: GLADIS Transcribed Date/Time: 11/18/24 8:07 am * Exam Date Time Procedure Performing Provider Status 11/15/24 10:[address] Head/Brain W/O Contrast Ronni Mercado; Roberto Carlos (Verified) Notes: (CT Head/Brain W/O Contrast) Reason For Exam: AMS, SDH;Other: RESULT: CT Head/Brain W/O Contrast CT Head/Brain W/O Contrast INDICATION: Altered mental status. Clinical Question(s): progression of SDH TECHNIQUE: Noncontrast head CT using axial technique and reconstructed in axial and coronal planes.Iterative reconstruction techniques are used to optimize dose and image quality. CTDIvol Head: 48.30 mGy, DLP Head: 773 mGy*cm. COMPARISON: CT head from earlier today at 8:55am FINDINGS: Director Of Hemophilia view findings, lines and tubes: None. BRAIN AND EXTRA-AXIAL SPACES: The previously seen mixed chronicity right frontal convexity subdural hematoma is again noted with a maximal thickness of 0.8 cm, previously measuring up to 1.1 cm in thickness. Unchanged leftward subfalcine herniation. Unchanged mild effacement of the left anterior horn of the lateral ventricle. Unchanged trace leftward midline shift without herniation.. Unchanged embolization of the bilateral middle meningeal arteries. No parenchymal hemorrhage. Alan-white matter differentiation is well preserved. No acute infarct. Negative insular ribbon sign. Atherosclerotic vascular calcification but negative hyperdense vessel sign. Effacement of the right-sided cerebral sulci. Mild prominence of the remaining ventricles, sulci, and basal cisterns with parenchymal volume loss. No white matter lesions. No subarachnoid hemorrhage. No epidural collection. CALVARIUM, SKULL BASE, AND SOFT TISSUES: No fractures or suspicious bony lesions. Unchanged loulou hole in the right parietal bone. The paranasal sinuses and mastoid air cells are clear. Status-post right lens extraction. The extracranial soft tissues are unremarkable. IMPRESSION: Minimal decrease in size of right frontal convexity subdural hematoma. No new focus of hemorrhage. I have personally reviewed the images and I agree with this report. WSN: [id number] Ordering Physician: Lilliana Champagne Dictated By: Jessica Cool MD Dictated Date/Time: 11/15/24 11:25 p Reviewed By: Pablo Chopra MD Signed By: Pablo Chopra MD Signed Date/Time: 11/15/24 11:30 pm Transcribed By: GLADIS Transcribed Date/Time: 11/15/24 11:18 pm * Exam Date Time Procedure Performing Provider Status 11/15/24 9:06 AM Pelvis 1 or 2 Views Denise Mcknight; Roberto Carlos (Verified) Notes: (Pelvis 1 or 2 Views) Reason For Exam: with Pain;Trauma RESULT: Pelvis 1 or 2 Views Pelvis 1 or 2 Views Reason: Trauma; with Pain; Clinical Question(s): Fracture COMPARISON: None. FINDINGS: One view exam shows no pelvic ring disruption or dislocation at the hip joints. There is limited visualization of the sacrum and iliac crest due to overlap. The patient is also rotated to the left. IMPRESSION: No evidence of acute fracture. WSN: [id number] Ordering Physician: Evelia Gallardo Dictated By: Susana Downey MD Dictated Date/Time: 11/15/24 10:43 a Reviewed By: Susana Downey MD Signed By: Susana Downey MD Signed Date/Time: 11/15/24 10:43 am Transcribed By: GLADIS Transcribed Date/Time: 11/15/24 10:42 am * Exam Date Time Procedure Performing Provider Status 11/15/24 9:06 AM Chest Portable Juan Luis Denise; Auth (Verified) Notes: (Chest Portable) Reason For Exam: Other: RESULT: Chest Portable Chest Portable Reason: Other:; Clinical Question(s): Trauma COMPARISON: 10/22/2024. FINDINGS: LINES AND TUBES: Monitoring leads project over the chest. LUNGS AND PLEURA: Clear lungs. Normal pulmonary vascularity. No large pleural effusion. No pneumothorax. HEART, MEDIASTINUM AND KYRIE: Heart is normal in size. Normal mediastinal and hilar contour. BONES AND SOFT TISSUES: No acute abnormality. IMPRESSION: No acute abnormality. WSN: [id number] Ordering Physician: Evelia Gallardo Dictated By: Catarino Wetzel MD Dictated Date/Time: 11/15/24 10:43 a Reviewed By: Catarino Wetzel MD Signed By: Catarino Wetzel MD Signed Date/Time: 11/15/24 10:43 am Transcribed By: GALDIS Transcribed Date/Time: 11/15/24 10:42 am * Exam Date Time Procedure Performing Provider Status 11/15/24 9:[address] Cervical Spine W/O Contrast Sydni sun Masha; Auth (Verified) Notes: (CT Cervical Spine W/O Contrast) Reason For Exam: Neck trauma, dangerous injury mechanism;Other: RESULT: CT Cervical Spine W/O Contrast CT Head/Brain W/O Contrast, CT Cervical Spine W/O Contrast INDICATION: Fall last night with confusion this morning. TECHNIQUE: Noncontrast head CT using axial technique and reconstructed in axial and coronal planes.Spiral CT of the cervical spine without contrast, formatted in 3 planes. Iterative reconstruction techniques are used to optimize dose and image quality. CTDIvol Body: 19.00 mGy, DLP Body: 510 mGy*cm. CTDIvol Head: 39.90 mGy, DLP Head: 839 mGy*cm. COMPARISON: CT head 11/04/2024, CT angiogram head and neck 10/22/2024. FINDINGS: Director Of Hemophilia view findings, lines and tubes: None. BRAIN AND EXTRA-AXIAL SPACES: The previously seen acute/subacute on chronic right holohemispheric subdural hematoma is again seenmeasuring up to 1.1 cm in thickness (image 25 series 205), decreased from prior where it measured up to 1.6 cm. There is new streaky hyperdense attenuation in the frontal aspect of the subdural hematoma, concerning for acute bleed. Decrease in the previous 0.7 cm right to left shift, now measuring approximately 0.2 cm (image 68 series 202). The previously seen leftward subfalcine herniation appears mildly decreased from prior. Mild mass effect causing slight effacement of the anterior horn of the right lateral ventricle, decreased from prior. Post interventional changes of the right cranium with a loulou hole seen along the right parietal lobe (image 84 series 202). . No parenchymal hemorrhage. Alan-white matter differentiation is well preserved. No acute infarct. Negative insular ribbon sign. Atherosclerotic vascular calcification of the carotid arteries but negative hyperdense vessel sign. Mild effacement of the right lateral ventricle as above. Mild prominence of the remaining ventricles, sulci, and basilar cisterns consistent with parenchymal volume loss. Mild low-density white matter changes. No subarachnoid hemorrhage. CALVARIUM, SKULL BASE, AND SOFT TISSUES: No fractures or suspicious bony lesions. Post interventional changes of the right parietal bone as above. The paranasal sinuses and mastoid air cells are clear. Status-post right lens extraction. The extracranial soft tissues are unremarkable. CERVICAL SPINE: No fracture. No acute osseous abnormalities. The alignment is maintained. Degenerative changes are noted including disc height loss, anterior osteophytes and posterior disc osteophyte complexes. SOFT TISSUES AND LUNG APICES: Concentric thickening of the visualized esophagus. Clear lung apices. Thyroid is normal. IMPRESSION: Acute on subacute on chronic right subdural hematoma. Decrease in the right to left midline shift, mild right anterior horn of the lateral ventricle effacement, and leftward subfalcine herniation compared to prior. Mild degenerative changes of the cervical spine with no acute fracture or osseous abnormality. Results were conveyed via [facility] by Dr. Eid to Evelia Gallardo DO on 11/15/2024 at 10:05 AM with understanding acknowledged. I have personally reviewed the images and I agree with this report. WSN: [id number] Ordering Physician: Evelia Gallardo Dictated By: Taras Eid MD Dictated Date/Time: 11/15/24 10:39 a Reviewed By: Catarino Wetzel MD Signed By: Catarino Wetzel MD Signed Date/Time: 11/15/24 10:44 am Transcribed By: GLADIS Transcribed Date/Time: 11/15/24 10:21 am * Exam Date Time Procedure Performing Provider Status 11/15/24 9:[address] Head/Brain W/O Contrast Masha Villafana; Roberto Carlos (Verified) Notes: (CT Head/Brain W/O Contrast) Reason For Exam: Trauma;Trauma RESULT: CT Head/Brain W/O Contrast CT Head/Brain W/O Contrast, CT Cervical Spine W/O Contrast INDICATION: Fall last night with confusion this morning. TECHNIQUE: Noncontrast head CT using axial technique and reconstructed in axial and coronal planes.Spiral CT of the cervical spine without contrast, formatted in 3 planes. Iterative reconstruction techniques are used to optimize dose and image quality. CTDIvol Body: 19.00 mGy, DLP Body: 510 mGy*cm. CTDIvol Head: 39.90 mGy, DLP Head: 839 mGy*cm. COMPARISON: CT head 11/04/2024, CT angiogram head and neck 10/22/2024. FINDINGS: Director Of Hemophilia view findings, lines and tubes: None. BRAIN AND EXTRA-AXIAL SPACES: The previously seen acute/subacute on chronic right holohemispheric subdural hematoma is again seenmeasuring up to 1.1 cm in thickness (image 25 series 205), decreased from prior where it measured up to 1.6 cm. There is new streaky hyperdense attenuation in the frontal aspect of the subdural hematoma, concerning for acute bleed. Decrease in the previous 0.7 cm right to left shift, now measuring approximately 0.2 cm (image 68 series 202). The previously seen leftward subfalcine herniation appears mildly decreased from prior. Mild mass effect causing slight effacement of the anterior horn of the right lateral ventricle, decreased from prior. Post interventional changes of the right cranium with a loulou hole seen along the right parietal lobe (image 84 series 202). . No parenchymal hemorrhage. Alan-white matter differentiation is well preserved. No acute infarct. Negative insular ribbon sign. Atherosclerotic vascular calcification of the carotid arteries but negative hyperdense vessel sign. Mild effacement of the right lateral ventricle as above. Mild prominence of the remaining ventricles, sulci, and basilar cisterns consistent with parenchymal volume loss. Mild low-density white matter changes. No subarachnoid hemorrhage. CALVARIUM, SKULL BASE, AND SOFT TISSUES: No fractures or suspicious bony lesions. Post interventional changes of the right parietal bone as above. The paranasal sinuses and mastoid air cells are clear. Status-post right lens extraction. The extracranial soft tissues are unremarkable. CERVICAL SPINE: No fracture. No acute osseous abnormalities. The alignment is maintained. Degenerative changes are noted including disc height loss, anterior osteophytes and posterior disc osteophyte complexes. SOFT TISSUES AND LUNG APICES: Concentric thickening of the visualized esophagus. Clear lung apices. Thyroid is normal. IMPRESSION: Acute on subacute on chronic right subdural hematoma. Decrease in the right to left midline shift, mild right anterior horn of the lateral ventricle effacement, and leftward subfalcine herniation compared to prior. Mild degenerative changes of the cervical spine with no acute fracture or osseous abnormality. Results were conveyed via [facility] by Dr. Eid to Evelia Gallardo DO on 11/15/2024 at 10:05 AM with understanding acknowledged. I have personally reviewed the images and I agree with this report. WSN: [id number] Ordering Physician: Evelia Gallardo Dictated By: Taras Eid MD Dictated Date/Time: 11/15/24 10:39 a Reviewed By: Catarino Wetzel MD Signed By: Catarino Wetzel MD Signed Date/Time: 11/15/24 10:44 am Transcribed By: GLADIS Transcribed Date/Time: 11/15/24 10:21 am * Exam Date Time Procedure Performing Provider Status 11/15/24 9:[address] Abd/Pelvis W/ IV Contrast Only Masha Leos; Roberto Carlos (Verified) Notes: (CT Abd/Pelvis W/ IV Contrast Only) Reason For Exam: Trauma;Trauma RESULT: CT Abd/Pelvis W/ IV Contrast Only CT Chest W/ Contrast, CT Abd/Pelvis W/ IV Contrast Only INDICATION: Reason: Trauma; confusion this morning after fall yesterday evening. Recent hospitalization for right subdural hematoma. TECHNIQUE: Helical CT scan of the chest, abdomen, and pelvis with IV contrast, formatted in 3 planes. 100 cc of Isovue 300 was administered intravenously. This study was performed without oral contrast. Weight-based protocol was performed using automatic exposure control. CTDIvol Body: 18.20 mGy, DLP Body: 1449 mGy*cm. COMPARISON: This examination was performed emergently using a temporary medical record and no priorimaging or medical history was available for review at the time of this interpretation. FINDINGS: Director Of Hemophilia view findings, lines and tubes: None. Trachea and airways: Patent without evidence of tracheal or endobronchial lesion. Lungs and pleura: Clear lungs. No effusion or pneumothorax. Mediastinum and kyrie: No mass or hematoma. No mediastinal or hilar lymphadenopathy. No esophageal abnormality. Normal thyroid. Heart: Heart is normal in size. No pericardial effusion. Severe coronary artery calcification and possible LAD stent. Aorta: Mild vascular calcification but no aneurysm. Pulmonary arteries: Normal caliber. No evidence of pulmonary embolism on this study performed without angiographic technique. Chest wall soft tissues: No acute abnormality. Mild, symmetric gynecomastia. Diaphragm: Intact. Liver: Normal in attenuation and morphology. No suspicious lesion. Gallbladder: No CT evidence of gallbladder pathology. Bile ducts: No biliary ductal dilation. Spleen: Normal in size. Pancreas: No suspicious lesion or ductal dilatation. Adrenal glands: Mild nodularity left adrenal gland. No right adrenal nodule. Kidneys and ureters: No hydronephrosis, stone, or suspicious lesion. Bilateral symmetric perinephric fat stranding, likely due to senescence. Bladder: No wall thickening or surrounding stranding. Reproductive organs: Unremarkable. Stomach, small bowel, and large bowel: Normal caliber stomach and bowel loops. No surrounding inflammatory changes. Appendix: Normal appendix. Peritoneum and retroperitoneum: No ascites or pneumoperitoneum. No omental or mesenteric lesions. Lymph nodes: No enlarged lymph nodes. Blood vessels: Mild vascular calcifications but no aneurysm. No evidence of venous thrombosis. Abdominal and pelvic wall soft tissues: Tiny fat-containing umbilical hernia. Small right and moderate left fat-containing indirect inguinal hernias. Bones: No acute abnormality. Mild to moderate degenerative change of the visualized spine, including bridging osteophytes T9-L1. IMPRESSION: No acute abnormality of the chest, abdomen, or pelvis. I have personally reviewed the images and I agree with this report. WSN: [id number] Ordering Physician: Evelia Gallardo Dictated By: Pedro Rios MD Dictated Date/Time: 11/15/24 10:24 a Reviewed By: Pablo King MD Signed By: Pablo King MD Signed Date/Time: 11/15/24 10:29 am Transcribed By: GLADIS Transcribed Date/Time: 11/15/24 10:08 am Vital Signs Most recent to oldest [Reference Range]: 1 2 3 Height 183 cm (11/26/24 4:09 PM) 183 cm (11/26/24 11:56 AM) 183 cm (11/26/24 7:57 AM) Weight 90.9 kg (11/16/24 9:30 PM) 90.9 kg (11/16/24 3:57 PM) 90.9 kg (11/16/24 1:48 PM) Oxygen Saturation [94-100 %] 98 % (11/26/24 4:09 PM) 95 % (11/26/24 11:56 AM) 100 % (11/26/24 7:57 AM) Pulse Rate [55-90 bpm] 63 bpm (11/26/24 4:09 PM) 58 bpm (11/26/24 11:56 AM) 66 bpm (11/26/24 7:57 AM) Body Mass Index [18.5-24.99 kg/m2] 27.14 kg/m2 *H* (11/16/24 9:30 PM) Blood Pressure [90-138/55-84 mm Hg] 138/71mm Hg (11/26/24 4:09 PM) 143/63mm Hg *H* (11/26/24 11:56 AM) 157/68mm Hg *H* (11/26/24 7:57 AM) Respiratory Rate [16-30 br/min] 18 br/min (11/26/24 4:09 PM) 18 br/min (11/26/24 11:56 AM) 17 br/min (11/26/24 7:57 AM) Temperature [96.8-100.4 DegF] 98.1 DegF (11/26/24 4:09 PM) 97.5 DegF (11/26/24 11:56 AM) 97.5 DegF (11/26/24 7:57 AM) Liters per Minute 2 L/min (11/18/24 4:00 PM) 2 L/min (11/18/24 3:00 PM) 2 L/min (11/18/24 2:00 PM) Mode of Delivery (Oxygen) Room air (11/26/24 4:09 PM) Room air (11/26/24 11:56 AM) Room air (11/26/24 7:57 AM) Blood pressure sites Arm, right (11/26/24 4:09 PM) Arm, left (11/26/24 11:56 AM) Arm, left (11/26/24 7:57 AM) Temperature Route Oral (11/26/24 4:09 PM) Oral (11/26/24 11:56 AM) Oral (11/26/24 7:57 AM) Dry Weight 90.9 kg (11/16/24 9:30 PM) 90.9 kg (11/16/24 3:57 PM) 90.9 kg (11/16/24 1:48 PM) Weight Obtained Via Bed scale (11/16/24 9:30 PM) Other: observation (11/16/24 1:48 PM) Dry Weight Obtained Via Other: observati on (11/16/24 1:48 PM) Social History Social History Type Response Sex Male Sex Representation Male (finding) History and physical note * Steve GUIDRY, Ramesh A: PERFORM, MODIFY, MODIFY, MODIFY, MODIFY, MODIFY Event Display: History and Physical Hospital Authored Date: Patient: ??CATARINO LUI ? Age:??64 Years?Sex:??Male?:??1960?? History of Present Illness 11/16 ?? 64-year-old male with PMH including HTN, DM, A-fib, CKD, history of right-sided craniotomy (childhood), recent workup/hospitalization for subdural hematoma, anemia. Patient brought to ER after?? he was found down. ?? During my assessment he is unable to give me any history due to aphasia. Info obtained from chart review. ?? Last August patient fell down and workup showed acute on chronic right-sided subdural hematoma with 1 cm brain compression s/p MMA embolization on 09/23/2024.?? Subsequently admitted 10/09/2024 with headache and left lower extremity weakness.?? CT head at that time showed chronic subdural hematoma with increased brain compression, s/p right bur hole for subdural evacuation 10/09/2024.?? CT head 10/17/2024 showed increase in the size of subdural hematoma with increased size of right to left midlineshift.?? As per previous document patient was supposed to follow-up with neurosurgery.?? However patient was brought to ER on 10/22/2024 for a concern of stroke as he had left-sided mouth drooling, difficulty speaking, left leg weakness.?? CT head showed increase in the size of right-sided subdural hematoma and midline shift.?? CT angio no LVO.?? Seen by neurology and neurosurgery.?? Patient underwent drainage of subdural hematoma through prior bur hole and placement of subperiosteal drain.?? Follow-up CT scan 10/23 shows decreased subdural hematoma and midline shift.?? As per previous document, postop his symptoms resolved.?? MRI brain did not show any acute/subacute infarct.?? Patient was discharged 11/15 with tranexamic acid (course will be completed 11/14/2024) and Keppra 1 g twice daily for 1 month.?? Also as per document cardiology mention that was the patient is clinically stable at least 4 to 6 weeks out can consider definitive therapy for left renal appendage closure device. ?? As per ER and neurosurgery note, it looks the patient fell down yesterday and??today??he was found??confused.?As per document patient was found down for unknown duration.?? No other information obtainable. ?? CT head and C-spine showed acute on subacute on chronic right subdural hematoma.?? Decrease in the right to left midline shift, mild right anterior horn of the lateral ventricle effacement, and leftward subfalcine herniation compared to prior.?? Mild degenerative changes of the cervical spine with no acute fracture or osseous abnormality.?? CT scan of the chest and abdomen/pelvis did not show anything acute.? Patient was initially hemodynamically stable but later had fever 101.1 and was tachycardic up to 140s to 150s.?? His labs shows baseline anemia, mild leukocytosis, and had a creatinine of 5.76 (baseline seems to be 1.6-2.7 over the last 2 months).?? Patient was seen by neurosurgery.?? Recommended no neurosurgical intervention. ?? While in ER patient became febrile, tachycardic 140s to 150s, atrial fibrillation with RVR.?? An EKG was done, A-fib with heart rate of 148, QTc 496, poor R wave progression.?? As patient appeared altered/not following command, a repeat CT scan was done that shows minimal decrease in size of right frontal convexity subdural hematoma.?? No new focus of hemorrhage.? When I saw the patient he is arousable,??able to tell his name but is not answering any other question.?? He seems to understand is able to follow command although takes time to??complete a task.?? But did not answer any other question.?? As per earlier documents from daytime/ER/neurosurgery??itlooks like patient was??alert and oriented??able to communicate verbally.?? However RN informs me that the patient had acute change around 10 PM??when he was more confused,??was not answering questions.?? Hence a CT scan of the head was done, reported as above.?? He was found to be febrile, A-fib and RVR. Review of Systems All systems reviewed and negative except as in HPI. Objective ? Vital Signs?? Temperature:??101.1 DegF??High (11/15/24 23:08:00) Temperature Route: Rectal (11/15/24 23:08:00) Pulse Rate:??145 bpm??High (11/15/24 23:08:00) Systolic Blood Pressure: 118 mm Hg (11/15/24 22:18:00) Diastolic Blood Pressure: 72 mm Hg (11/15/24 22:18:00) Pulse Pressure: 46 mm Hg (11/15/24 22:18:00) Oxygen Saturation: 98 % (11/15/24 22:18:00) Mode of Delivery (Oxygen): Room air (11/15/24 22:18:00) Early Warning Score: 3 (11/16/24 00:42:10) ? Physical Exam Constitutional: ??Alert,?able to tell his name but does not say anything else, does not answerquestion but able to follow command.?? Looks dehydrated. Mental state: Unable to assess. ??He is oriented to self at least. Head: ??Normocephalic, scar noted. Eye:?No discharge. ENT: No discharge. Neck: ??Supple,??no JVD. Cardiovascular: ??S1, S2. Regular rhythm. No MRG. Respiratory: ??Lungs are clear to auscultation b/l, No RRR. ?? Gastrointestinal: ??Soft, Nontender, Non distended, ??Normal bowel sounds.?? Genitourinary: No costovertebral angle tenderness. Neurological:??Limited evaluation but patient seems to be able to move all extremities. ??Does have??cast in the right upper extremity, (as documented had a??previous fracture) since??limited evaluation.?? No facial asymmetry. ??Patient does have a??dilated right??pupil,??reacts sluggishly, as per document this is baseline. Back: ??Nontender. Musculoskeletal:??Right upper extremity??has a cast.?? Limited evaluation but does not appear to have any neurovascular compromise. No edema Hematology: No lymphadenopathy Skin: ??Warm, dry. Psychiatric:??Unable to assess. Assessment/Plan Diagnoses AMS (altered mental status) ??(R41.82) Acute on chronic intracranial subdural hematoma ??(I62.01) Acute on chronic renal failure ??(N17.9) Acute on chronic renal failure ??(N17.9) Anemia ??(D64.9) Aphasia ??(R47.01) Atrial fibrillation with RVR ??(I48.91) Diabetes ??(E11.9) Fall ??(W19.XXXA) Fever ??(R50.9) HTN (hypertension) ??(I10) High anion gap metabolic acidosis ??(E87.29) Prolonged QT interval ??(R94.31) ?? Assessment:??64-year-old male with PMH including HTN, DM, A-fib, CKD, history of right-sided craniotomy (childhood), recent workup/hospitalization for subdural hematoma, anemia. Patient brought to [facility]??he was found down. ?? DIFFERENT Please have ID??merge these 2 accounts. ?? Acute on chronic intracranial subdural hematoma (I62.01):??Patient recently admitted??several timeswith??a subdural hematoma, s/p??bur hole??evacuation.??At this time CT scan??shows slight improvement??of hematoma and midline shift.??Patient has been evaluated by neurosurgery.??No further??surgical ??intervention indicated.?? Continue Keppra. ?? Fall (W19.XXXA) AMS (altered mental status) (R41.82) Aphasia (R47.01) Fever (R50.9) ? Limited history obtainable from the patient at this time.??From chart review it seems patient fell down yesterday and this morning was found confused.??After coming to ER evaluation was done, neuroimaging does not show anything acute, CT scan of the chest and abdomen did not show any acute .??Patient was however found to have acute on chronic renal failure.??It seems that patient was alert and oriented, conversant in the daytime.??However later in the night patient became confused, unable to answer questions although able to say his name.??Stat CT scan of the head again does not showany worsening of previous findings.??Patient was found febrile, however no definite sign of infection.??Patient also developed A-fib with RVR. ?? I spoke with neurology regarding sudden change in mental status/aphasia.??Stroke neurology thinks this is possible toxic metabolic encephalopathy but recommended to get MRI brain and EEG and also themorning. ?? Continue telemetry Neurocheck Stat CT scan of the head for any change in neurostatus NPO till passes bedside swallow evaluation. Cannot give antiplatelet due to recent subdural hematoma. Will get an MRI of the brain. Will get an EEG. Continue Keppra.??Patient takes 1 g twice daily, it does not seem that patient received while in the hospital. Patient was febrile, no definite sign of infection. Follow-up blood culture. Will send UA and urine culture if needed. Check urine toxicology. Follow-up influenza and RSV. Neurology consult. Swallow evaluation. ?? UPDATE: Flu a positive.?? Continue isolation.?? At this time n.p.o.,??evaluated in the morning??if patient is able to swallow start Tamiflu. ? Acute on chronic renal failure (N17.9) High anion gap metabolic acidosis (E87.29) ? Patient is??creatinine today is 5.76, baseline seems to be 1.6- 2.7.??Possible prerenal??versus??rhabdomyolysis from fall/staying on the floor.??Will check CPK level.??Continue IV fluid hydration.??Patient does??appear??quite dehydrated.??Will monitor??creatinine closely.??Avoid nephrotoxic medications and dose all medications renally.??CT scan of the abdomen does not show any??obstruction. ?? Update: CPK elevated, rhabdomyolysis,??continue IV hydration.?? Monitor??creatinine, CPK, electrolytes. ? Atrial fibrillation with RVR (I48.91):??While febrile patient was found to have A-fib with RVR.??Likely due to fever/infection.??Also patient did not get his metoprolol.??At this time we will order 2.5 mg metoprolol IV for sustained tachycardia??with A-fib.??Patient is not on anticoagulation for A-fib, and has recent subdural hematoma.??Plan is for outpatient evaluation for??Watchman.?Continueoral metoprolol??once patient is able to take??orally.??It seems he is also on diltiazem. ?? Prolonged QT interval (R94.31):??Monitor and correct??potassium and magnesium level.??Avoid QT prolonging medication. ?? HTN (hypertension) (I10):??Looks like patient is on metoprolol, diltiazem,??torsemide, lisinopril.??At this time we are giving metoprolol??IV as needed.??Continue metoprolol and diltiazem as patient is able to take orally.??Hold??lisinopril and torsemide due to??acute on chronic renal failure. ?? Diabetes (E11.9):??POC glucose and SSI??using NPO protocol.??We will give Lantus 10 units??for now.??Resume home dose??once patient is able to take orally. ?? Anemia (D64.9):??Monitor ?? VTE Prophylaxis:??SCD (recent SDH, no chemical prophylaxis) ?VTE Prophylaxis Assessment:??VTE Prophylaxis Ordered ?? Code Status:??presume full ?Order Code Status:??Code Status Ordered ? Histories Allergies Allergies ?(Active and Proposed Allergies Only) NKA? (Severity: Unknown severity, Onset: Unknown) ? Past Medical History/Problem List No problems documented. ? Past Surgical History No surgery history documented. ? Social History No social history documented. ? Family History No Family History documented. ? Medications Home Medications Allopurinol (allopurinol 300 mg oral tablet)??300 Milligram 1 tablet By Mouth Daily Atorvastatin (atorvastatin 80 mg oral tablet)??1 tab(s) 80 Milligram By Mouth Daily Diltiazem (DilTIAZem (Eqv-Cardizem CD) 360 mg/24 hours oral capsule, extended release)??1 capsule 360 Milligram By Mouth Daily dulaglutide (Trulicity Pen 4.5 mg/0.5 mL subcutaneous solution)??0.5 Milliliter Subcutaneous Injection Every week rotate injection sites Insulin Glargine (Lantus Solostar Pen 100 units/mL subcutaneous solution)??52 unit(s) Subcutaneous Injection Daily Insulin Lispro (Insulin Lispro KwikPen 100 units/mL injectable solution)??3 times a day before meals <<Sliding Scale>>100-149 16 units call if less than 70 150-199 18 [id number] 20 units 250-299 22 [id number] 24 [id number] 26 units call if greater than 400 <<Sliding Scale>> levETIRAcetam (levETIRAcetam 1000 mg oral tablet)??1 tab(s) 1,000 Milligram By Mouth 2 times a day Lisinopril (lisinopril 10 mg oral tablet)??10 Milligram 1 tablet By Mouth Daily Metoprolol (Metoprolol Tartrate 75 mg oral tablet)??1 tab(s) 75 Milligram By Mouth 2 times a day Morphine (morphine 15 mg oral tablet, immediate release)??TAKE 1 TABLET (15 MG) ORALLY EVERY 6 HOURS NEEDED FOR PAIN PARTIAL FILL UPON PATIENT REQUEST. Pantoprazole (pantoprazole 40 mg oral delayed release tablet)??1 tab(s) 40 Milligram By Mouth Daily torsemide (torsemide 40 mg oral tablet)??1 tab(s) 40 Milligram By Mouth Daily ? Inpatient Medications Medications (21) Active SCHEDULED: (4) Insulin Glargine 100 units/mL Inj (Insulin Glargine Inj) ??10 units 0.1 mL, Subcutaneous Injection,Daily at bedtime Levetiracetam 100mg/ml IVPB (Keppra Inj) ??1,000 mg, IV Push Slowly, Every 12 hours NaCl 0.9% Flush 3ml (NaCL 0.9% Flush) ??3 mL, IV Push, Every 8 hours Pantoprazole 40 mg Inj (Pantoprazole Inj) ??40 mg, IV Push Slowly, Daily CONTINUOUS: (1) NaCL 0.9% (1000 mL) Cont IV 1,000 mL (NaCL 0.9% 1,000 mL) ??1,000 mL, IV Infusion, 250 mL/hr PRN: (16) Acetaminophen 325 mg Tablet (Acetaminophen Tablet) ??650 mg, By Mouth, Every 4 hours Acetaminophen 650 mg Suppository (Acetaminophen Supp) ??650 mg, Rectally, Once Dextromethorphan-Guaifenesin 20 mg-200 mg/10 mL Liqu UD (Robitussin DM Liquid) ??10 mL, By Mouth, Every 4 hours Dextrose Inj Syringe (Dextrose 50% Inj Syringe (25Gm)) ??12.5 Gm, IV Push Slowly, Every 20 minutes Dextrose Inj Syringe (Dextrose 50% Inj Syringe (25Gm)) ??25 Gm, IV Push Slowly, Every 15 minutes Docusate Sodium 100 mg Capsule (Docusate Sodium Capsule) ??100 mg 1 capsule, By Mouth, 2 times a day Glucagon 1 mg Inj (Glucagon Inj) ??1 mg, Intramuscular, Once Glucose 40% Gel (15 Gm) (Glucose Gel) ??15 Gm, By Mouth, Every 20 minutes Glucose 40% Gel (15 Gm) (Glucose Gel) ??30 Gm, By Mouth, Every 20 minutes Insulin Lispro 100 units/mL Inj (Insulin LISPRO Scale) ??2-7 units, Subcutaneous Injection, Every 6hours Melatonin 3 mg Tablet (Melatonin Tablet) ??3 mg, By Mouth, Daily at bedtime Metoprolol 5 mg Inj (Metoprolol Inj) ??2.5 mg 2.5 mL, IV Push Slowly, Once NaCl 0.9% Flush 3ml (NaCL 0.9% Flush) ??3 mL, IV Push, Every 8 hours Polyethylene Glycol 17 Gm Powder (MiraLax Powder) ??17 Gm 1 pack/packet, By Mouth, Daily Senna Tablet ??8.6 mg 1 tablet, By Mouth, 2 times a day Simethicone 80 mg Chewable Tablet (Simethicone Tablet) ??80 mg, Chew, 3 times a day ? Results Recent Labs BLOOD BANK Blood Type B Positive ()?? 11/15/2024 08:41 Antibody Screen Negative ()?? 11/15/2024 08:41 ?? BLOOD COUNT & DIFF WBC 8.1 k/mm3 ()?? 11/15/2024 23:20 RBC 3.89 m/mm3 (Low)?? 11/15/2024 23:20 Hgb 10.4 Gm/dL (Low)?? 11/15/2024 23:20 Hct 34.2 % (Low)?? 11/15/2024 23:20 MCV 87.9 femtoliters ()?? 11/15/2024 23:20 MCH 26.7 pg (Low)?? 11/15/2024 23:20 MCHC 30.4 Gm/dL (Low)?? 11/15/2024 23:20 Platelet Count 199 k/mm3 ()?? 11/15/2024 23:20 RDW-SD 54.0 femtoliters (High)?? 11/15/2024 23:20 MPV 11.1 femtoliters ()?? 11/15/2024 23:20 Nucleated RBC (Automated) 0.0 #/100 WBC'S ()?? 11/15/2024 23:20 Abs. NRBC 0.0 k/mm3 ()?? 11/15/2024 23:20 Abs. Neut 11.7 k/mm3 (High)?? 11/15/2024 08:57 Abs. Lymph 0.2 k/mm3 (Low)?? 11/15/2024 08:57 Abs. Shannon 0.8 k/mm3 ()?? 11/15/2024 08:57 Abs. Eo 0.0 k/mm3 ()?? 11/15/2024 08:57 Abs. Baso 0.0 k/mm3 ()?? 11/15/2024 08:57 Neut % 91.7 % (High)?? 11/15/2024 08:57 Lymph % 1.8 % (Low)?? 11/15/2024 08:57 Shannon % 5.9 % ()?? 11/15/2024 08:57 Eos % 0.0 % ()?? 11/15/2024 08:57 Baso % 0.2 % ()?? 11/15/2024 08:57 Imm Gran 0.4 % ()?? 11/15/2024 08:57 Abs. Imm Gran 0.1 k/mm3 ()?? 11/15/2024 08:57 ?? CHEM GENERAL Sodium 143 mmol/L ()?? 11/15/2024 23:20 Potassium 5.3 mmol/L (High)?? 11/15/2024 23:20 Chloride 109 mmol/L (High)?? 11/15/2024 23:20 Bicarbonate Level 14 mmol/L (Low)?? 11/15/2024 23:20 Anion Gap 20 mmol/L (High)?? 11/15/2024 23:20 Glucose Level 216 mg/dL (High)?? 11/15/2024 23:20 Glucose, POC 258 mg/dL (High)?? 11/15/2024 22:07 BUN 91 mg/dL (High)?? 11/15/2024 23:20 Creatinine-Blood 5.18 mg/dL (High)?? 11/15/2024 23:20 Estimated GFR Creatinine 12 ML/MIN/1.73 M2 ()?? 11/15/2024 23:20 Calcium 9.2 mg/dL ()?? 11/15/2024 23:20 Magnesium 2.5 mg/dL (High)?? 11/15/2024 23:20 Amylase 92 units/L ()?? 11/15/2024 08:57 Lactate 1.9 mmol/L ()?? 11/15/2024 08:57 ?? COAG INR 1.0 ()?? 11/15/2024 08:57 Protime (PT) 10.9 seconds ()?? 11/15/2024 08:57 APTT 22.4 seconds (Low)?? 11/15/2024 08:57 ?? MISC. CHEMISTRY Hold Red Top SPECIMEN DISCARDED AFTER 1 WEEK ()?? 11/15/2024 08:57 ?? TOXICOLOGY/TDM Ethanol, Serum or Plasma NONE DETECTED mg/dL ()?? 11/15/2024 08:57 ?? VIROLOGY COVID-19 by RT-PCR NEGATIVE ()?? 11/15/2024 08:45 ? Microbiology ?? COVID-19 (Novel Coronavirus), Rapid PCR?? Completed?? Source: Nasal Body Site: Nose Collected Dt/Tm: 11/15/2024 08:40 Last Updated Dt/Tm: 11/15/2024 10:22 ? EKG study * Event Display: EKG Authored Date: * Event Display: EKG Authored Date: * Event Display: ECG 12-Lead Authored Date: Please click on pdf link to open report * Event Display: ECG 12-Lead Authored Date: Ventricular Rate: 148 BPM QRS Duration: 86 ms Q-T Interval: 316 ms QTC Calculation(Bazett): 496 ms R Seanor: -17 degrees T Seanor: 37 degrees Atrial fibrillation with rapid ventricular response Poor R-wave progression ; consider anterior infarct, lead placement, or normal variant Abnormal ECG When compared with ECG of 15-Nov-2024 20:17, Atrial fibrillation has replaced Sinus rhythm Heart rate has increased from 101 to 148 bpm Confirmed by Onesimo Deleon ([id number]) on 11/16/2024 8:11:52 AM Vida: Onesimo Deleon * Event Display: ECG 12-Lead Authored Date: [id number] Please click on pdf link to open report * Event Display: ECG 12-Lead Authored Date: Ventricular Rate: 101 BPM Atrial Rate: 101 BPM P-R Interval: 176 ms QRS Duration: 94 ms Q-T Interval: 330 ms QTC Calculation(Bazett): 427 ms P Seanor: 49 degrees R Seanor: -5 degrees T Seanor: 59 degrees Sinus tachycardia with Premature atrial complexes Otherwise normal ECG When compared with ECG of 15-Nov-2024 09:39, Sinus tachycardia has replaced Atrial fibrillation Confirmed by Onesimo Deleon ([id number]) on 11/16/2024 8:03:24 AM Vida: Onesimo Deleon * Event Display: ECG 12-Lead Authored Date: [id number] Please click on pdf link to open report * Event Display: ECG 12-Lead Authored Date: Ventricular Rate: 120 BPM QRS Duration: 92 ms Q-T Interval: 348 ms QTC Calculation(Bazett): 491 ms R Seanor: 2 degrees T Seanor: 55 degrees Atrial fibrillation with rapid ventricular response Nonspecific ST abnormality QTcB > 480 msec Abnormal ECG No previous ECGs available Confirmed by Onesimo Deleon ([id number]) on 11/16/2024 8:32:41 AM Vida: Onesimo Deleon Cardiology * Event Display: Cardiac Rhythm Strips Authored Date: Hospital Progress note * Iris Pérez RN: VERIFY, PERFORM, SIGN Event Display: Progress Note Hospital Authored Date: [id number] Patient: CATARINO LUI Age: 64 years Sex: Male : 1960 Associated Diagnoses: None Author: Iris Pérez RN Findings Problem Related to Alteration in Genitourinary : Alteration in Genitourinary Function/new 11/26/2024 12:00 EST Alteration in Status Related to Urinary retention, Other: thanh Goals & Outcomes, Genitourinary Pt will achieve normal/improved fluid balance, Pt will maintainadequate GI function appropriate for pt, Pt will maintain adequate function appropriate for pt, Pt will resume normal pattern of elimination, Pt will empty bladder completely, Pt will identify cause of urinary retention Interventions, Assess/monitor/maintain Genitourinary status BH Goals/Interventions, Genitourinary Yes Genitourinary, Problem Start 11/24/2024 21:00 Reviewed Plan with, Genitourinary Patient Patient Progression, Genitourinary Patient progressing according to plan Genitourinary, Problem Ongoing Yes . Alteration in Integumentary : Alteration in Integumentary/new 11/26/2024 12:00 EST Alteration in Integumentary Related to Pressure Goals & Outcomes, Integumentary Pt will maintain intact skin integrity Interventions, Integumentary Cleanse all wounds with Normal Saline, Keep skin clean & dry, Maintain sterile technique with dressing changes, Minimize friction, shear and moisture Goals/Interventions, Integumentary Yes Integumentary, Problem Start 11/24/2024 21:00 Reviewed plan with, Integumentary Patient Patient Progression, Integumentary Pt progressing according to plan . Evaluation Patient alert and oriented x3. Lung sounds clear. Diminished bases. No nausea. Denies SOB or CP. Right arm cast in place. +cms +caprefill. able to wiggle fingers. threat monitoring analyst in place. Abd soft nontender nondistended +bs LBM 11/26. OOB with 1 assist. Patient turned and repositioned off loaded off of coccyx triad cream applied. +pp+cms. Denies calf pain. Oriented to tv, phone and call light. Will continue to monitor. . * Hakan Soto RN: MODIFY, PERFORM, SIGN, VERIFY, SIGN Event Display: Progress Note Hospital Authored Date: [id number] Patient: CATARINO LUI Age: 64 years Sex: Male : 1960 Associated Diagnoses: None Author: Hakan Soto RN Findings Problem Related to Alteration in Cardiac Function (new) : Alteration in Cardiac Function/new 11/25/2024 12:00 EST Alteration in Cardiac Status Related to Dysrhythmia Goals & Outcomes, Cardiac Status Pt will resume/maintain adequate cardiac output, Pt will resume/maintain adequate hemodynamic status, Pt will resume/maintain adequate respiratory function, Pt will resume/maintain intact neuro function, Pt will maintain adequate GI/ function appropriate for pt, Pt will maintain adequate nutrition status, Pt/caregiver will state understanding of diagnosis, Pt will convert to a stable rhythm, Heart rate control/rhythm is maintained Cardiac Interventions Implemented Assess/monitor cardiac status, Assess/monitor respiratory status,Ensure adequate caloric intake, Monitor & document daily weight Goals/Interventions, Cardiac Yes Cardiac, Problem Start 11/18/2024 0:49 Reviewed Plan with, Cardiac Status Patient Patient Progression, Cardiac Status Patient progressing according to plan . Narrative/Incidental Pt a/o x4, speech clear, reports 6/10 pain, some relief with PRN MSO4, denies NT dizziness and vision changes, pt NEW's with 5/5 strength, right wrist/forearm noted to have a cast on it, +CMS in fingers, +peripheral pulses, lungs dim throughout, denies cough/SOB, on RA, NSR on tele, +BS, last BM 11/23, using the urinal at the bedside, awaiting insurance auth, see [facility] for full assessment. * Wilmar GUIDRY, Can D: PERFORM Event Display: Progress Note Hospital Authored Date: [id number] Patient: ??CATARINO LUI ? Age:??64 Years?Sex:??Male?:??1960?? Subjective Patient seen at bedside. ??Appears comfortable denies any nausea vomiting chest pain or shortness of breath.?? Patient's bladder scan??does not show any retention -[facility] but pending insurance authorization??patient will be able to possibly get discharged tomorrow Review of Systems Objective Measurements?? Height: 183 cm (11/25/24) Weight: 90.9 kg (11/16/24) Dry Weight: 90.9 kg (11/16/24) Body Mass Index:??27.14 kg/m2??High (11/16/24) ? Vital Signs?? Temperature: 98.1 DegF (11/25/24 16:34:00) Temperature Route: Oral (11/25/24 16:34:00) Pulse Rate: 60 bpm (11/25/24 16:34:00) Respiratory Rate: 18 br/min (11/25/24 16:34:00) Systolic Blood Pressure: 136 mm Hg (11/25/24 16:34:00) Diastolic Blood Pressure: 63 mm Hg (11/25/24 16:34:00) Blood pressure sites: Arm, left (11/25/24 16:34:00) Mean Arterial Pressure: 87 mm Hg (11/25/24 16:34:00) Pulse Pressure: 73 mm Hg (11/25/24 16:34:00) Oxygen Saturation: 95 % (11/25/24 16:34:00) Mode of Delivery (Oxygen): Room air (11/25/24 16:34:00) Early Warning Score: 2 (11/25/24 16:35:33) ? Precautions No Precautions documented.? Physical Exam General: Is appears comfortable in no distress HEENT: ??mucous mucous membranes appear wet, PERRLA Cardiovascular: S1-S2 heard no murmurs appreciated Respiratory: CTA without any wheezing or crackles anteriorly GI: Abdomen nontender to palpation, no distention, no obvious hepatosplenomegaly Neuro: AOx3 plus date of , able to raise all extremities on commands Psych: Appears calm without any agitation ?? Right??hand and forearm currently??with an immobilizer _ Inpatient Medications Medications (28) Active SCHEDULED: (11) Allopurinol 100 mg Tablet (allopurinol 100 mg oral tablet) ??100 mg, By Mouth, Daily Atorvastatin 80 mg Tablet (atorvastatin 80 mg oral tablet) ??80 mg, By Mouth, Daily Diltiazem 180 mg/24 hour CD Capsule (diltiazem 180 mg/24 hours oral capsule, extended release) ??360 mg, By Mouth, Daily Insulin Glargine 100 units/mL Inj (Lantus Inj) ??24 units 0.24 mL, Subcutaneous Injection, Daily Stephen Insulin Glargine 100 units/mL Inj (Insulin Glargine Inj) ??30 units 0.3 mL, Subcutaneous Injection,Daily at bedtime Insulin Lispro 100 units/mL Inj (Insulin LISPRO Sliding Scale) ??8-22 units, Subcutaneous Injection, 3 times a day before meals Levetiracetam 250 mg Tablet (Keppra 500 mg oral tablet) ??1,250 mg, By Mouth, 2 times a day Metoprolol 25mg Tablet (metoprolol 25 mg oral tablet) ??75 mg, By Mouth, 2 times a day NaCl 0.9% Flush 3ml (NaCL 0.9% Flush) ??3 mL, IV Push, Every 8 hours Pantoprazole 40 mg EC Tablet (pantoprazole 40 mg oral delayed release tablet) ??40 mg, By Mouth, Daily Tamsulosin 0.4 mg Capsule (Flomax 0.4 mg oral capsule) ??0.4 mg, By Mouth, Daily CONTINUOUS: (0) PRN: (17) Acetaminophen 325 mg Tablet (Acetaminophen Tablet) ??650 mg, By Mouth, Every 4 hours Acetaminophen 650 mg Suppository (Tylenol Supp) ??650 mg, Rectally, Every 6 hours Dextromethorphan-Guaifenesin 20 mg-200 mg/10 mL Liqu UD (Robitussin DM Liquid) ??10 mL, By Mouth, Every 4 hours Dextrose Inj Syringe (Dextrose 50% Inj Syringe (25Gm)) ??12.5 Gm, IV Push Slowly, Every 20 minutes Dextrose Inj Syringe (Dextrose 50% Inj Syringe (25Gm)) ??25 Gm, IV Push Slowly, Every 15 minutes Docusate Sodium 100 mg Capsule (Docusate Sodium Capsule) ??100 mg 1 capsule, By Mouth, 2 times a day Glucagon 1 mg Inj (Glucagon Inj) ??1 mg, Intramuscular, Once Glucose 40% Gel (15 Gm) (Glucose Gel) ??15 Gm, By Mouth, Every 20 minutes Glucose 40% Gel (15 Gm) (Glucose Gel) ??30 Gm, By Mouth, Every 20 minutes hydrALAZINE 20 mg/mL Inj (hydrALAZINE Inj) ??10 mg 0.5 mL, IV Push Slowly, Every 6 hours Loperamide 2 mg Capsule (loperamide 2 mg oral capsule) ??2 mg, By Mouth, Every 3 hours Melatonin 3 mg Tablet (Melatonin Tablet) ??3 mg, By Mouth, Daily at bedtime MorPHINE 15 mg Tablet (MorPHINE Immediate Release Tablet) ??15 mg, By Mouth, Every 6 hours NaCl 0.9% Flush 3ml (NaCL 0.9% Flush) ??3 mL, IV Push, Every 8 hours Polyethylene Glycol 17 Gm Powder (MiraLax Powder) ??17 Gm 1 pack/packet, By Mouth, Daily Senna Tablet ??8.6 mg 1 tablet, By Mouth, 2 times a day Simethicone 80 mg Chewable Tablet (Simethicone Tablet) ??80 mg, Chew, 3 times a day ? Results Recent Labs BLOOD COUNT & DIFF WBC 8.8 k/mm3 ()?? 11/25/2024 06:51 RBC 3.71 m/mm3 (Low)?? 11/25/2024 06:51 Hgb 9.6 Gm/dL (Low)?? 11/25/2024 06:51 Hct 31.0 % (Low)?? 11/25/2024 06:51 MCV 83.6 femtoliters ()?? 11/25/2024 06:51 MCH 25.9 pg (Low)?? 11/25/2024 06:51 MCHC 31.0 Gm/dL (Low)?? 11/25/2024 06:51 Platelet Count 235 k/mm3 ()?? 11/25/2024 06:51 RDW-SD 48.2 femtoliters (High)?? 11/25/2024 06:51 MPV 10.4 femtoliters ()?? 11/25/2024 06:51 Nucleated RBC (Automated) 0.0 #/100 WBC'S ()?? 11/25/2024 06:51 Abs. NRBC 0.0 k/mm3 ()?? 11/25/2024 06:51 ?? CHEM GENERAL Sodium 142 mmol/L ()?? 11/25/2024 06:51 Potassium 3.9 mmol/L ()?? 11/25/2024 06:51 Chloride 107 mmol/L ()?? 11/25/2024 06:51 Bicarbonate Level 23 mmol/L ()?? 11/25/2024 06:51 Anion Gap 12 mmol/L ()?? 11/25/2024 06:51 Glucose Level 92 mg/dL ()?? 11/25/2024 06:51 Glucose, POC 274 mg/dL (High)?? 11/25/2024 16:20 BUN 48 mg/dL (High)?? 11/25/2024 06:51 Creatinine-Blood 1.73 mg/dL (High)?? 11/25/2024 06:51 Estimated GFR Creatinine 43 ML/MIN/1.73 M2 ()?? 11/25/2024 06:51 Calcium 8.7 mg/dL ()?? 11/25/2024 06:51 Phosphorus 3.6 mg/dL ()?? 11/25/2024 06:51 Magnesium 1.9 mg/dL ()?? 11/25/2024 06:51 ?? URINE OTHER Est Creatinine Clearance 46.17 mL/min ()?? 11/25/2024 07:58 ? Abnormal Labs ?? BLOOD COUNT & DIFF Abs. NRBC?0.0 k/mm3 ()?11/25/2024 06:51 Hct?31.0 % (Low)?11/25/2024 06:51 Hgb?9.6 Gm/dL (Low)?11/25/2024 06:51 MCH?25.9 pg (Low)?11/25/2024 06:51 MCHC?31.0 Gm/dL (Low)?11/25/2024 06:51 Nucleated RBC (Automated)?0.0 #/100 WBC'S ()?11/25/2024 06:51 RBC?3.71 m/mm3 (Low)?11/25/2024 06:51 RDW-SD?48.2 femtoliters (High)?11/25/2024 06:51 ?? CHEM GENERAL BUN?48 mg/dL (High)?11/25/2024 06:51 Creatinine-Blood?1.73 mg/dL (High)?11/25/2024 06:51 Estimated GFR Creatinine?43 ML/MIN/1.73 M2 ()?11/25/2024 06:51 Glucose, POC?274 mg/dL (High)?11/25/2024 16:20 ?? Note: Critical results are displayed in red. ? Assessment/Plan ?64 y/o man with hx of??poorly controlled DM, A. 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 He returned on 10/08/[address] head revealed increased chronic R SDH and patient??underwent R loulou hole craniotomy on 10/[address] Dennis. He returned on??10/22 with??headache, a CT Head showed increased chronic R SDH. He underwent??repeat R loulou hole craniotomy??on 10/[address] Dennis. VEEG 11/03/24 with right focal slowing but no seizure. He was discharged 11/05/24 on??Keppra 1gm BID ppx??given refractorySDH. Pt now admitted 11/15 after being found down. He was diagnosed with Influenza A, AF RVR, A/CKD and right radius fracture.? Influenza A infection: Acute metabolic encephalopathy (G93.41): Fall: ?? -Patient currently is alert oriented times 3+ date of ??following commands. -Status post isolation -PT recommended rehab, [facility] ?? Acute on chronic renal failure stage III??(N17.9) High anion gap metabolic acidosis (E87.29) Acute hyperkalemia (E87.5):?? Mild Rhabdomyolysis (M62.82):?? Hypernatremia - resolved: Urinary retention??11/24/2024 ?? -Currently creatinine 1.7 from??1.66 from 1.45 from 1.58??close to his baseline of 1.6 per notes -Creatinine peaked around 5.76 -Prerenal versus rhabdomyolysis, CK??peaked around 4-600 Hold lisinopril and torsemide - Started Flomax, continue bladder scan??every 6 hourly, currently not retaining ? Recent intracranial subdural hematoma (I62.01):?? Patient recently admitted??several times with??a subdural hematoma, s/p??bur hole??evacuations as above.?? At this time CT scan??showed slight improvement??of hematoma and midline shift.??MRI brain reportedno evidence of acute or subacute infarct. Patient??was evaluated by neurosurgery, opined??no further??surgical??intervention indicated.?? -??Continue Keppra at an increased dose??of 1250mg BID ?? Atrial fibrillation with RVR (I48.91):?? ECHO in 10/2024: LV systolic function 55-60%. Weaned off Cardizem gtt. - Cardizem 360 mg po qd and Metoprolol 75 mg twice daily - threat monitoring analyst - No A/C due to SDH, might be candidate for watchman device - needs output eval after d/c ?? Right radius fracture: Patient had a fall??and went to [facility] prior to this hospitalization. X-rays performed??on 11/18/2024 shows a comminuted, intra-articular fracture of the distal radius with volar displacement. Patient is deemed not??a surgical candidate at this point.??Hand surgery recommends??continuation of his sugar- tong splint and??to address a??malunion in the future if symptomatic. ? Prolonged QT interval (R94.31):??Electrolytes in desired range ?? HTN (hypertension) (I10):?? - Metoprolol, diltiazem - Hold??torsemide, lisinopril due to THANH? Diabetes mellitus type II??(E11.9):?? - Lantus to 24??qAM??and 30??qPM??for now, fasting blood sugar 97 which is acceptable??but if it continues to trend lower then we will need to decrease Lantus - POC/ISS ?? Anemia (D64.9):??Monitor CBC, hemoglobin??9.6 from??11.5 from 10.2 relatively stable past couple ofdays ? Diet:??Dysphagia level 3 diet Code status :??DNR/DNI DVT prophylaxis :??No chemical prophylaxis given subdural hematoma Disposition:??Floor Lines :??Peripheral IV Labs :??Ordered Family??[facility], VIVI?( Step daughter ) ?Home Phone: ?Cell ?, updated 11/25/24 ?? Discharge Planning??: PT recommended rehab currently pending, D/w Weekend CM ? Diagnoses AMS (altered mental status) ??(R41.82) Acute hyperkalemia ??(E87.5) Acute metabolic encephalopathy ??(G93.41) Acute on chronic intracranial subdural hematoma ??(I62.01) Acute on chronic renal failure ??(N17.9) Acute on chronic renal failure ??(N17.9) Anemia ??(D64.9) Aphasia ??(R47.01) Atrial fibrillation with RVR ??(I48.91) Diabetes ??(E11.9) Fall ??(W19.XXXA) Fever ??(R50.9) HTN (hypertension) ??(I10) High anion gap metabolic acidosis ??(E87.29) Prolonged QT interval ??(R94.31) Rhabdomyolysis ??(M62.82) Urinary retention ??(R33.9) ? Note * Iris Pérez RN: PERFORM Event Display: Discharge/Transfer Note Hospital Authored Date: [id number] Nursing Discharge Note Entered On: 11/26/2024 18:21 EST Performed On: 11/26/2024 18:20 EST by Iris Pérez RN Nursing Discharge Note 2 Discharge Time : 11/26/2024 18:00 EST Discharge Level of Care at Discharge : group home facility Discharge Nursing Homes/Rehab Facilities : [facility] Patient Left Unit Via : Wheelchair Patient Accompanied Off Unit with : Responsible adult DC Instructions Provided & Signed by Pt : Yes Patient Understands D/C Instructions : Yes Patient Instructions Discharge Signed : Yes Did Pt have Specialty Bed or Wound Vac : Yes Iris Pérez RN - 11/26/2024 18:20 EST * Abraham Healy: PERFORM Event Display: Discharge/Transfer Note Hospital Authored Date: [id number] Patient: ??CATARINO LUI ? Age:??64 Years?Sex:??Male?:??1960?? Patient Information Discharge Location: Primary Care Physician: Not on Staff, PCP Admit Date/Time: 11/15/2024 12:38 Discharge Date:??11/26/2024 16:26:47 Discharge Disposition Discharge Disposition: Intermediate Facility/Rehab Discharge Diagnosis Acute on chronic intracranial subdural hematoma (I62.01) Acute on chronic renal failure (N17.9) Fall (W19.XXXA) Anemia (D64.9) HTN (hypertension) (I10) Diabetes (E11.9) Atrial fibrillation with RVR (I48.91) Acute on chronic renal failure (N17.9) Fever (R50.9) AMS (altered mental status) (R41.82) Aphasia (R47.01) High anion gap metabolic acidosis (E87.29) Prolonged QT interval (R94.31) Rhabdomyolysis (M62.82) Acute hyperkalemia (E87.5) Acute metabolic encephalopathy (G93.41) Urinary retention (R33.9) _ Discharge Medications Acetaminophen (Tylenol 325 mg oral tablet)??650 Milligram By Mouth Every 4 hours as needed Headache Allopurinol (allopurinol 300 mg oral tablet)??300 Milligram 1 tablet By Mouth Daily Allopurinol (allopurinol 300 mg oral tablet)??300 Milligram 1 tablet By Mouth Daily Atorvastatin (atorvastatin 80 mg oral tablet)??1 tab(s) 80 Milligram By Mouth Daily Atorvastatin (atorvastatin 80 mg oral tablet)??1 tab(s) 80 Milligram By Mouth Daily Diltiazem (DilTIAZem (Eqv-Cardizem CD) 360 mg/24 hours oral capsule, extended release)??1 capsule 360 Milligram By Mouth Daily dulaglutide (Trulicity Pen 4.5 mg/0.5 mL subcutaneous solution)??4.5 Milligram Subcutaneous Injection Every week INJECT 4.5MG SUBCUTANEOUSLY ONCE WEEKLY dulaglutide (Trulicity Pen 4.5 mg/0.5 mL subcutaneous solution)??0.5 Milliliter Subcutaneous Injection Every week rotate injection sites Durable Medical Equipment (Pen [place], 31 G x 5 mm BD Ultra Fine III)??See Instructions for 30 Days use as directed for Type 2 Diabetes Mellitus Insulin Glargine (Insulin Glargine Solostar Pen 100 units/mL subcutaneous solution)??52 unit(s) Subcutaneous Infusion Daily for 30 Days Insulin Glargine (Lantus Solostar Pen 100 units/mL subcutaneous solution)??52 unit(s) Subcutaneous Injection Daily Insulin Lispro (Insulin Lispro KwikPen 100 units/mL injectable solution)??See Instructions Subcutaneous Injection 3 times a day before meals.<< Sliding Scale Comments >>100 - 149 ?? 16 units Call if less than [id number] - 199 ?? 18 units 200 - 249 ?? 20 units 250 - 299 ?? 22 units 300 - 349 ?? 24 units 350 - 399 ?? 26 units Call if greate... Insulin Lispro (Insulin Lispro KwikPen 100 units/mL injectable solution)??3 times a day before meals <<Sliding Scale>>100-149 16 units call if less than 70 150-199 18 [id number] 20 units 250-299 22 [id number] 24 [id number] 26 units call if greater than 400 <<Sliding Scale>> levETIRAcetam (Keppra 500 mg oral tablet)??1,250 Milligram By Mouth 2 times a day Metoprolol (Metoprolol Tartrate 75 mg oral tablet)??1 tab(s) 75 Milligram By Mouth 2 times a day Metoprolol (Metoprolol Tartrate 75 mg oral tablet)??1 tab(s) 75 Milligram By Mouth 2 times a day Morphine (morphine 15 mg oral tablet, immediate release)??TAKE 1 TABLET (15 MG) ORALLY EVERY 6 HOURS NEEDED FOR PAIN PARTIAL FILL UPON PATIENT REQUEST. Pantoprazole (pantoprazole 40 mg oral delayed release tablet)??1 tab(s) 40 Milligram By Mouth Daily Pantoprazole (pantoprazole 40 mg oral delayed release tablet)??1 tab(s) 40 Milligram By Mouth Daily Tamsulosin (Flomax 0.4 mg oral capsule)??0.4 Milligram By Mouth Daily Tranexamic Acid (tranexamic acid 650 mg oral tablet)??650 Milligram By Mouth Daily for 16 Days ? PCP Follow-Up/Heads-Up -Admitted to [facility] after being found down at home -Influenza A s/p isolation, condition improved -Found with radial fracture, Ortho to follow-up outpatient -PT recommending rehab -Added Flomax, increase Keppra dose -Holding lisinopril/torsemide in the setting of??kidney injury will admitted,??would recommend revisiting these medications Future Appointments 2024 2:30 PM EST ?? With: Sonny GUIDRY, Chrystal Rocha Where: [facility] [address] [place] [address] Drive [address] [place] [address]- Status: Pending 2024 3:00 PM EST ?? With: Bradley GUIDRY, Musab Medeni Where: [facility]rology [address] [place] [address]- Status: Pending Hospital Course 64M Hx poorly controlled DM, A-fib (not on AC d/t SDH), HTN, CKD, prior R craniotomy in childhood, chronic right-sided holohemispheric subdural hematoma s/p MMA 09/23 complicated by worsening now s/pright-sided bur hole craniotomy 10/09 and repeat whole craniotomy 10/22. He presented to [facility] 11/15 after being found down at home. Diagnosed with influenza A, A-fib RVR, acute on chronic kidney disease, fracture of the right radius. He was admitted to medicine for further evaluationmanagement. ?? While admitted: Clinically improved. MRI brain was performed showing no acute or subacute infarct. Neurosurgery evaluated, no further surgical intervention indicated per their assessment. Patient could potentially be a candidate for a Watchman device and needs an outpatient evaluation after discharge with cardiology. With regards to the right radial fracture: He has plans to follow-up with orthopedic surgery in the outpatient setting. He has been cleared for discharge and is otherwise at his medical baseline. Physical therapy recommended rehab. Patient would benefit from a short stay in rehab. ?? Please see below for a problem focused assessment and plan: ?? #Influenza A #Acute metabolic encephalopathy #Fall -Has completed isolation -Alert and oriented -PT recommending rehab ?? #Acute on chronic stage III renal failure #Mild rhabdomyolysis #Urinary retention -Started Flomax while admitted. Does not appear to currently be retaining -Kidney function near baseline ?? #Atrial fibrillation -No anticoagulation d/t SDH. Could benefit from watchman (would recommend cardiology evaluation on DC) -Cardizem, metoprolol ?? #Radial fracture (right side) -Outpatient follow-up with Ortho ?? #Subdural hematoma: -Continue Keppra -No neurosurgical intervention indicated ?? #Hypertension: -Continue metoprolol/diltiazem -Holding torsemide/lisinopril with THANH ?? Objective . Physical Exam ?? Systolic Blood Pressure?123 ?(04:05) Diastolic Blood Pressure?67 ?(04:05) Pulse?58 ?(04:05) SpO2?99 ?(04:05) Respiratory Rate?18 ?(04:05) ? Constitutional: Awake, alert . NAD. Lying comfortably in bed. HEENT: Normocephalic. Atraumatic. Respiratory: Clear to auscultation. No wheezing, rales or rhonchi. Speaking in full sentences comfortably. Cardiovascular: RRR. No murmurs, rubs, or gallops appreciated.??No JVD. 2+ radial pulses. Gastrointestinal: Abdomen soft, non-tender, non-distended. + bowel sounds. Neurologic: No focal deficits.?? Smooth and coordinated/spontaneous movement of extremities. MSK: Right arm in splint??with exam??limited. ??Otherwise,??uniform strength against resistance in BL UE and LE,??able to??sit upright. Skin: No rashes or lesions??on exposed skin. Extremities: No cyanosis or clubbing. No gross deformities. Normal range of motion. Psychiatric: appropriate mood and affect. Patient is cooperative during exam.?? Pending Results Add On Lab Order ordered on 11/15/2024 Add On Lab Order ordered on 11/16/2024 Add On Lab Order ordered on 11/18/2024 Basic Metabolic Panel ordered on 11/16/2024 Basic Metabolic Panel ordered on 11/20/2024 Follow-Up Appointments Added Follow Up ?Time Frame ?Comments Bradley GUIDRY, [facility] Patient Instructions Reason for Admission:?? You were recently admitted to [facility] after being found down at home.?? Multiple studies were performed while you were admitted and you were noted to have a fracture??of your arm. ?? Diagnostic Studies: ?? Your workup included the following tests: ? -Blood work including blood count, metabolic panel ?? -Imaging studies including CT scans, x-ray, MRI ?? Treatment: ?? Treatment for your condition included: ? -Supportive care, physical therapy evaluation, Flomax??(for brief episode of urinary retention),??increased your Keppra dose, orthopedic evaluation ,?? Prescribed Medications: ?? You are being sent home with the following Medications: ? -Flomax,??increased Keppra ?? Follow Up Care:?? Please follow up with the following parties after your discharge: ? -Please follow with your Primary Care Provider within two weeks of discharge to discuss your recentadmission? Return Precautions:?? Please return to the ED if you experience any of the following:? -Fever that does not go away with [id number] medication, changes to level of consciousness orcognition, chest pain or shortness of breath??that does not go away with rest ?? It was a pleasure participating in your care at [facility].? Post Discharge Care Discharge ?11/26/24 16:28:00 EST ?Order Comment:?? Discharge Prescriptions ?ePrescribed, 11/26/24 16:28:00 EST ?Order Comment:?? Results Image ?XR Chest Portable??11/15/2024 09:06 by Denise Mcknight ?IMPRESSION: No acute abnormality. ?XR Pelvis 1 or 2 Views??11/15/2024 09:06 by Denise Mcknight ?IMPRESSION: No evidence of acute fracture. ?CT Head/Brain W/O Contrast??11/15/2024 09:32 by Masha Villafana ?IMPRESSION: Acute on subacute on chronic right subdural hematoma. Decrease in the right to left midline shift, mild right anterior horn of the lateral ventricle effacement, and leftwardsubfalcine herniation compared to prior. Mild degenerative changes of the cervical spine with no acute fracture or osseous abnormality. ?CT Cervical Spine W/O Contrast??11/15/2024 09:32 by Masha Villafana ?IMPRESSION: Acute on subacute on chronic right subdural hematoma. Decrease in the right to left midline shift, mild right anterior horn of the lateral ventricle effacement, and leftwardsubfalcine herniation compared to prior. Mild degenerative changes of the cervical spine with no acute fracture or osseous abnormality. ?CT Abd/Pelvis W/ IV Contrast Only??11/15/2024 09:32 by Masha Villafana ?IMPRESSION: No acute abnormality of the chest, abdomen, or pelvis. ?CT Chest W/ Contrast??11/15/2024 09:32 by Masha Villafana ?IMPRESSION: No acute abnormality of the chest, abdomen, or pelvis. ?CT Head/Brain W/O Contrast??11/15/2024 22:58 by Toney Mercado ?IMPRESSION: Minimal decrease in size of right frontal convexity subdural hematoma. Nonew focus of hemorrhage. ?MRI Brain W/O Contrast??11/18/2024 03:54 by Ronen Figueroa ?IMPRESSION: No evidence of acute or subacute infarct. Mild scattered nonspecific white matter signal changes which most likely reflect chronic small vessel disease. Evolving right hemispheric subdural hematoma, not significantly changed. ?XR Wrist Comp Min 3 Views Right??11/18/2024 23:36 by Alison Kent ?IMPRESSION: Distal radial fracture ?XR Hand Min 3 Views Right??11/18/2024 23:36 by Alison Kent ?IMPRESSION: Acute comminuted fracture probably intra-articular of the distal radius with volar displacement of the distal fracture fragment. I have personally reviewed the images and I agree with this report. ?XR Forearm 2 Views Right??11/18/2024 23:36 by Alison Kent ?IMPRESSION: Distal radial fracture. ?? 28??minutes spent on discharge * Angela Solo RN: PERFORM, SIGN, VERIFY Event Display: Case Management Discharge Plan Authored Date: Patient: CATARINO LUI Age: 64 years Sex: Male : 1960 Associated Diagnoses: None Author: Angela Solo RN Discharge Plan Case Management Discharge Plan : Case Management Discharge Plan Data 11/26/2024 16:14 EST Discharge Level of Care at Discharge group home facility Discharge Nursing Homes/Rehab Facilities [facility] Discharge Transportation Arranged family will transport Name of Agency #1 [facility] Service Categories #1 Physical Therapy, Intermediate * Elisa MARSHALL, Iris Kennedy: PERFORM Event Display: Patient Education/Instruction Authored Date: Inpatient Adult Discharge Instructions. [address] [address] Name: CATARINO LUI : 1960?? Visit: 11/15/2024 12:38?? Current Date: 11/26/2024 16:34 ?? Account: [id number]?? Inpatient Adult Discharge Instructions We would like [...] and their families. Surveys are administered by [employer] ?? If further treatment with your primary care physician or another doctor is recommended, it is important for you to keep the appointment. Call your primary care physician or return to the Emergency Department immediately if your condition worsens, fails to improve, or new symptoms develop. If you need to find a doctor, you can call [facility] [employer] [facility] for a referral at [phone] or toll free at [phone]) or log in to [email or web address].. ?? [facility], in keeping with [facility] guidance, no longer requires face masks [...] a health care maxi of your choosing. [employer] is a website that allows you to securely view your medical information including your hospital discharge summary, office visit summaries, medications and follow-up visits. You can also request appointments, renew medications, and request access to your medical information using a health care maxi of your choosing, or just ask a question. You can enroll at [email or web address] or register during your next office visit. You have been discharged from [facility], Patient Care Unit: S3??. If you have any questions regarding these instructions, including results of studies pending, afteryou leave, please call us and we will be happy to assist you 23/04. [facility] Your Care Team Attending Physician Claudio Knight MD?? Consulting Providers Claudio Knight MD?? Discharging Providers Danii SARMIENTO, Abraham Scruggs Reason for Your Visit THANH, hyperglycemia?? Your Diagnosis Acute hyperkalemia Acute metabolic encephalopathy Acute on chronic renal failure Acute on chronic renal failure AMS (altered mental status) Anemia Aphasia Atrial fibrillation with RVR Diabetes Fall Fever High anion gap metabolic acidosis HTN (hypertension) Prolonged QT interval Rhabdomyolysis Urinary retention Tests Performed Below is a partial list of the tests performed during your hospitalization. You may have had other tests and procedures not included in this list. Please discuss all test results with your provider. Alcohol Level Amylase Basic Metabolic Panel Blood Culture Blood Culture #2 Blood Culture 2 Results Blood Culture Result BUN C. DIFFICILE TOXIN PCR CBC CBC w/ Differential Chloride Urine CK Total Only CK,TOTAL ONLY Comprehensive Metabolic Panel COVID-19 (Novel Coronavirus), Rapid PCR Creatinine Creatinine Urine Electrolytes GI Profile, Stool, PCR Glucose Level GLUCOSE POC HOLD ALAN TUBE HOLD GREEN TUBE HOLD LAVENDER TUBE Hold Red Top Tube HOLD URINE CULTURE Lactate Level Lactic Acid Level Magnesium Level Microalbumin Urine Osmolality Urine pH Venous Phosphorus Level Protein/Creatinine Ratio Urine PT (INR) PTT RESP PATH PANEL W/COVID-19 SODIUM, URINE MMOL/L Type and Screen UREA NITROGEN, URINE MG/DL Urinalysis Complete CT Abd/Pelvis W/ IV Contrast Only CT Cervical Spine W/O Contrast CT Chest W/ IV Contrast CT Head/Brain W/O Contrast CXR Portable MRI Brain W/O Contrast XR Forearm 2 Views Right XR Hand Min 3 Views Right XR Pelvis 1 or 2 Views XR Wrist Comp Min 3 Views Right Add On Lab Order?? Amylase?? BUN?? Basic Metabolic Panel?? Blood Culture?? Blood Culture #2?? Blood Culture 2 Results?? Blood Culture Result?? C.diff PCR, w Rfx Toxin/Ag (C. DIFFICILE TOXIN PCR)?? CBC?? CBC w/ Differential?? COVID-19 (Novel Coronavirus), Rapid PCR?? CPK Total Only (CK,TOTAL ONLY)?? CT Abd/Pelvis W/ IV Contrast Only?? CT Cervical Spine W/O Contrast?? CT Chest W/ Contrast (CT Chest W/ IV Contrast)?? CT Head/Brain W/O Contrast?? Chloride Urine?? Complete Urinalysis (Urinalysis Complete)?? Comprehensive Metabolic Panel?? Creatinine?? Creatinine Urine?? Electrolytes?? Ethanol Level (Alcohol Level)?? GI Profile, Stool, PCR?? Glucose Level?? Glucose POC?? Hold Alan Top Tube (HOLD ALAN TUBE)?? Hold Green Top Tube (HOLD GREEN TUBE)?? Hold Lavender Top Tube (HOLD LAVENDER TUBE)?? Hold Red Top Tube?? Hold Urine Culture?? INR (PT (INR))?? Lactic Acid Level (Lactate Level)?? MRI Brain W/O Contrast?? Magnesium Level?? Microalbumin Urine?? Osmolality Urine?? PTT?? Phosphorus Level?? Protein/Creatinine Ratio Urine?? Respiratory Pathogen PCR with COVID-19 (RESP PATH PANEL W/COVID-19)?? Sodium Urine (SODIUM, URINE MMOL/L)?? Type and Screen?? Urea Nitrogen Urine (UREA NITROGEN, URINE MG/DL)?? Chest Portable (CXR Portable)?? Forearm 2 Views Right (XR Forearm 2 Views Right)?? Hand Min 3 Views Right (XR Hand Min 3 Views Right)?? Pelvis 1 or 2 Views (XR Pelvis 1 or 2 Views)?? Wrist Comp Min 3 Views Right (XR Wrist Comp Min 3 Views Right)?? pH Venous?? Primary Care Provider Kolby GUIDRY , Quinn Davies? Advance Directive Health Care Proxy on File Yes - Health Care Proxy Yes - MOLST Caregiver Relationship: Other: STEP DAUGHTER Patient has a Designated Caregiver: No Discharge Vitals Temperature: 98.1 DegF Height: 183 cm Pulse Rate: 63 bpm Weight: 90.9 kg Respiratory Rate: 18 br/min Body Mass Index:??27.14 kg/m2??High Systolic Blood Pressure: 138 mm Hg Body surface area: 2.15 Diastolic Blood Pressure: 71 mm Hg ?? Oxygen Saturation: 98 % ?? Studies Pending All studies ordered during this hospital stay have been completed unless listed below. Please discuss all pending results with your provider listed above in these instructions. ?? Add On Lab Order?? Basic Metabolic Panel?? What to do next Instructions From Your Doctor Reason for Admission:?? You were recently admitted to [facility] after being found down at home.?? Multiple studies were performed while you were admitted and you were noted to have a fracture??of your arm. ?? Diagnostic Studies: ?? Your workup included the following tests: ? -Blood work including blood count, metabolic panel ?? -Imaging studies including CT scans, x-ray, MRI ?? Treatment: ?? Treatment for your condition included: ? -Supportive care, physical therapy evaluation, Flomax??(for brief episode of urinary retention),??increased your Keppra dose, orthopedic evaluation ,?? Prescribed Medications: ?? You are being sent home with the following Medications: ? -Flomax,??increased Keppra ?? Follow Up Care:?? Please follow up with the following parties after your discharge: ? -Please follow with your Primary Care Provider within two weeks of discharge to discuss your recentadmission? Return Precautions:?? Please return to the ED if you experience any of the following:? -Fever that does not go away with ukyo-byw-ezohitc medication, changes to level of consciousness orcognition, chest pain or shortness of breath??that does not go away with rest ?? It was a pleasure participating in your care at [facility].? Orders? 11/26/24 16:28:00 EST?? Prescriptions??, ??11/26/24 16:28:00 EST?? Scheduled Follow-Up Appointments 2024 2:30 PM EST ?? With: Sonny GUIDRY, Chrystal Rocha Where: [facility] Neurosurgery [address] [place] [address] Drive [address] [place] [address]- Status: Pending 2024 3:00 PM EST ?? With: Beck Huerta MD Where: [facility] Neurology [address] [facility] 3rd Floor[address] [place] [address]- Status: Pending You Need to Schedule the Following Appointments Follow Up with??Beck Huerta MD Where: [address] [place] [address], [address] [facility] [place] [address]- Discharge Medications CATARINO LUI :1960 Visit Date:11/15/2024 Medications: Please continue your medications until treatment is completed or stopped by your provider. Medications not listed below should be discontinued. Discuss any questions related to medications with your provider. What How Much When Why Instructions Next Dose New Tamsulosin (Flomax 0.4 mg oral capsule) 0.4 Milligram Oral Daily Urinary retention 11/27 Changed levETIRAcetam (Keppra 500 mg oral tablet) 1,250 Milligram Oral Twice a day 11/26 2099 Unchanged Acetaminophen (Tylenol 325 mg oral tablet) 650 Milligram Oral Every 4 hours as needed for Headache as needed Unchanged Allopurinol (allopurinol 300 mg oral tablet) 1 tab(s) Oral Daily 11/27 Unchanged Allopurinol (allopurinol 300 mg oral tablet) 1 tab(s) Oral Daily 11/27 Unchanged Atorvastatin (atorvastatin 80 mg oral tablet) 1 tab(s) Oral Daily 11/27 Unchanged Atorvastatin (atorvastatin 80 mg oral tablet) 1 tab(s) Oral Daily 11/27 Unchanged Diltiazem (DilTIAZem (Eqv-Cardizem CD) 360 mg/ 24 hours oral capsule, extended release) 1 capsule Oral Daily 11/27 Unchanged dulaglutide (Trulicity Pen 4.5 mg/ 0.5 mL subcutaneous solution) 0.5 Milliliter Subcutaneous Injection Every week rotate injection sites ?? Unchanged dulaglutide (Trulicity Pen 4.5 mg/ 0.5 mL subcutaneous solution) 4.5 Milligram Subcutaneous Injection Every week INJECT 4.5MG SUBCUTANEOUSLY ONCE WEEKLY ?? Unchanged Durable Medical Equipment (Pen [place], 31 G x 5 mm BD Ultra Fine III) See instructions Duration: 30 Days use as directed for Type 2 Diabetes Mellitus ?? Unchanged Insulin Glargine (Insulin Glargine Solostar Pen 100 units/ mL subcutaneous solution) 52 unit(s) Subcutaneous Infusion Daily Duration: 30 Days 11/27 Unchanged Insulin Glargine (Lantus Solostar Pen 100 units/ mL subcutaneous solution) 52 unit(s) Subcutaneous Injection Daily 11/27 Unchanged Insulin Lispro (Insulin Lispro KwikPen 100 units/ [...] or endocrine specialist for further management ?? last given 12 units at 1630 11/26 Unchanged Insulin Lispro (Insulin Lispro KwikPen 100 units/ mL injectable solution) 3 times a day before meals <<Sliding Scale>> 100-149 16 units call if less than 70 150-199 18 units 200-249 20 units 250-299 22 units 300-349 24 units 350-399 26 units call if greater than 400 <<Sliding Scale>> ?? Unchanged Metoprolol (Metoprolol Tartrate 75 mg oral tablet) 1 tab(s) Oral Twice a day 11/26 2099 Unchanged Metoprolol (Metoprolol Tartrate 75 mg oral tablet) 1 tab(s) Oral Twice a day 11/26 2099 Unchanged Morphine (morphine 15 mg oral tablet, immediate release) TAKE 1 TABLET (15 MG) ORALLY EVERY 6 HOURS NEEDED FOR PAIN PARTIAL FILL UPON PATIENT REQUEST. ?? Unchanged Pantoprazole (pantoprazole 40 mg oral delayed release tablet) 1 tab(s) Oral Daily 11/27 Unchanged Pantoprazole (pantoprazole 40 mg oral delayed release tablet) 1 tab(s) Oral Daily 11/27 Unchanged Tranexamic Acid (tranexamic acid 650 mg oral tablet) 650 Milligram Oral Daily Duration: 16 Days 11/27 ?? What How Much When Comments Stop Taking Lisinopril (lisinopril 10 mg oral tablet) 1 tab(s) Oral Daily Stop Taking Lisinopril (lisinopril 10 mg oral tablet) 1 tab(s) Oral Daily Stop Taking torsemide (torsemide 40 mg oral tablet) 1 tab(s) Oral Daily Stop Taking torsemide (torsemide 40 mg oral tablet) 1 tab(s) Oral Daily Duration: 30 Days Prescription Given During Visit No new medications prescribed at time of discharge.?? Laboratory Results Below is a partial list of the most recent Laboratory test results done prior to this discharge. You may have had other tests and procedures not included in this list. Please discuss all test resultswith your provider. Est Creatinine Clearance - 46.17 mL/min (11/25/2024) Alcohol Level (11/15/2024) ???Ethanol, Serum or Plasma - NONE DETECTED Amylase (11/15/2024) ???Amylase - 92 units/L Basic Metabolic Panel (11/25/2024) ???Sodium - 142 mmol/L???Potassium - 3.9 mmol/L???Chloride - 107 mmol/L???Bicarbonate Level - 23 mmol/L???Anion Gap - 12 mmol/L???Glucose Level - 92 mg/dL???BUN - 48 mg/dL???Creatinine-Blood - 1.73 mg/dL???Estimated GFR Creatinine - 43 ML/MIN/1.73 M2???Calcium - 8.7 mg/dL Blood Culture (11/15/2024) ???Blood Culture Results - Final report???Blood Culture Specimen Source - BLOOD Blood Culture #2 (11/15/2024) ???Blood Cult 2 Results - Final report???Blood Culture 2 Specimen Source - BLOOD Blood Culture 2 Results (11/15/2024) ???Blood Culture 2 Isolate 1 - Comment Blood Culture Result (11/15/2024) ???Blood Culture Isolate 1 - Comment BUN (11/16/2024) ???BUN - 105 mg/dL C. DIFFICILE TOXIN PCR (11/21/2024) ???C. Difficile Toxin by PCR - NEGATIVE CBC (11/25/2024) ???WBC - 8.8 k/mm3???RBC - 3.71 m/mm3???Hgb - 9.6 Gm/dL???Hct - 31.0 %???MCV - 83.6 femtoliters???MCH - 25.9 pg???MCHC - 31.0 Gm/dL???Platelet Count - 235 k/mm3???RDW-SD - 48.2 femtoliters???MPV - 10.4 femtoliters???Nucleated RBC (Automated) - 0.0 #/100 WBC'S???Abs. NRBC - 0.0 k/mm3 CBC w/ Differential (11/22/2024) ???WBC - 8.4 k/mm3???RBC - 4.02 m/mm3???Hgb - 10.2 Gm/dL???Hct - 33.3 %???MCV - 82.8 femtoliters???MCH - 25.4 pg???MCHC - 30.6 Gm/dL???Platelet Count - 211 k/mm3???RDW-SD - 48.6 femtoliters???MPV - 11.1 femtoliters???Nucleated RBC (Automated) - 0.0 #/100 WBC'S???Abs. NRBC - 0.0 k/mm3???Abs. Neut - 6.9 k/mm3???Abs. Lymph - 0.8 k/mm3???Abs. Shannon - 0.4 k/mm3???Abs. Eo - 0.1 k/mm3???Abs. Baso - 0.0 k/mm3???Neut % - 82.2 %???Lymph % - 9.3 %???Shannon % - 5.1 %???Eos % - 1.6 %???Baso % - 0.2 %???Imm Gran - 1.6 %???Abs. Imm Gran - 0.1 k/mm3 Chloride Urine (11/16/2024) ? ?Chloride, Urine Random - <20 mmol/L CK Total Only (11/17/2024) ???CK, Total - 2377 units/L CK,TOTAL ONLY (11/18/2024) ???CK, Total - 1747 units/L Comprehensive Metabolic Panel (11/22/2024) ???Sodium - 137 mmol/L???Potassium - 3.9 mmol/L???Chloride - 107 mmol/L???Bicarbonate Level - 19 mmol/L???Anion Gap - 11 mmol/L???Glucose Level - 112 mg/dL???BUN - 61 mg/dL???Creatinine-Blood - 1.58 mg/dL???Estimated GFR Creatinine - 48 ML/MIN/1.73 M2???Calcium - 8.9 mg/dL???Protein, Total - 6.1 Gm/ dL???Albumin - 2.5 Gm/dL???AG Ratio - 0.7???Alkaline Phosphatase - 95 units/L???AST (SGOT) - 83 units/L???ALT (SGPT) - 47 units/L???Bilirubin, Total - 0.2 mg/dL COVID-19 (Novel Coronavirus), Rapid PCR (11/15/2024) ???COVID-19 by RT-PCR - NEGATIVE Creatinine (11/16/2024) ???Creatinine-Blood - 5.28 mg/dL???Estimated GFR Creatinine - 11 ML/MIN/1.73 M2 Creatinine Urine (11/16/2024) ???Creatinine, Urine Random - 230.1 mg/dL Electrolytes (11/16/2024) ???Sodium - 140 mmol/L???Potassium - 5.7 mmol/L???Chloride - 110 mmol/L???Bicarbonate Level - 13 mmol/L???Anion Gap - 17 mmol/L GI Profile, Stool, PCR (11/21/2024) ???GI PCR, Campylobacter - NEGATIVE???GI PCR, Plesiomonas shigelloides - NEGATIVE???GI PCR, Salmonella - NEGATIVE???GI PCR, Vibrio - NEGATIVE???GI PCR, Vibrio cholerae - NEGATIVE???GI PCR, Yersinia enterocolitica - NEGATIVE???GI PCR, Enteroaggregative E coli - NEGATIVE???GI PCR, Enteropathogenic E coli - NEGATIVE???GI PCR, Enterotoxigenic E coli - NEGATIVE???GI PCR, Qbsof-geycx-krhzvjhyq E coli -NEGATIVE???GI PCR, Shigella/Enteroinvasive E coli - NEGATIVE???GI PCR, Cryptosporidium - NEGATIVE???GI PCR, Cyclospora cayetanensis - NEGATIVE???GI PCR, Entamoeba histolytica - NEGATIVE???GI PCR, Giardia lamblia - NEGATIVE???GI PCR, Adenovirus F 40/41 - NEGATIVE???GI PCR, Astrovirus - NEGATIVE???GIPCR, Norovirus GI/GII - NEGATIVE???GI PCR, Rotavirus A - NEGATIVE???GI PCR, Sapovirus - NEGATIVE Glucose Level (11/16/2024) ???Glucose Level - 210 mg/dL GLUCOSE POC (11/26/2024) ???Glucose, POC - 266 mg/dL HOLD ALAN TUBE (11/15/2024) ???Hold Alan Top - SPECIMEN DISCARDED AFTER 1 WEEK HOLD GREEN TUBE (11/20/2024) ???Hold Green Top - SPECIMEN DISCARDED AFTER 1 WEEK HOLD LAVENDER TUBE (11/19/2024) ???Hold Lavender Top - SPECIMEN DISCARDED AFTER 24 HOURS. Hold Red Top Tube (11/15/2024) ???Hold Red Top - SPECIMEN DISCARDED AFTER 1 WEEK HOLD URINE CULTURE (11/16/2024) ???Hold Urine Culture - Testing available 48 hours from time of collection. Lactate Level (11/17/2024) ???Lactate - 0.7 mmol/L Lactic Acid Level (11/15/2024) ???Lactate - 1.9 mmol/L Magnesium Level (11/25/2024) ???Magnesium - 1.9 mg/dL Microalbumin Urine (11/16/2024) ???Malb/Creat Ratio - 202.0 mg/Gm???Urine Creat For Micro Alb - 230.1 mg/dL???Micro-Albumin - 465.0mg/L Osmolality Urine (11/19/2024) ???Osmolality, Urine Random - 505 mOsm/kg pH Venous (11/17/2024) ???pH, Venous - 7.24 Phosphorus Level (11/25/2024) ???Phosphorus - 3.6 mg/dL Protein/Creatinine Ratio Urine (11/16/2024) ???Protein, Total Urine Random - 74 mg/dL???TP/Cr Ratio - 0.32???Creatinine, Urine - 230.1 mg/dL PT (INR) (11/15/2024) ???INR - 1.0???Protime (PT) - 10.9 seconds PTT (11/15/2024) ???APTT - 22.4 seconds RESP PATH PANEL W/COVID-19 (11/15/2024) ???Adenovirus by PCR - NEGATIVE???Coronavirus 229E by PCR (not COVID-19) - NEGATIVE???Coronavirus HKU1 by PCR (not COVID-19) - NEGATIVE???Coronavirus NL63 by PCR (not COVID-19) - NEGATIVE???Coronavirus OC43 by PCR (not COVID-19) - NEGATIVE???Human Metapneumovirus by PCR - NEGATIVE???Rhinovirus/Enterovirus by PCR - NEGATIVE???Influenza A by PCR - INFLUENZA A H3 TARGET NUCLEIC ACID DETECTED.???Influenza B by PCR - NEGATIVE???Parainfluenza 1 by PCR - NEGATIVE???Parainfluenza 2 by PCR - NEGATIVE???Parainfluenza 3 by PCR - NEGATIVE???Parainfluenza 4 by PCR - NEGATIVE???RSV by PCR - NEGATIVE???Borde tella Pertussis by PCR - NEGATIVE???Chlamydophila Pneumoniae by PCR - NEGATIVE???Mycoplasma Pneumoniae by PCR - NEGATIVE???COVID-19 (SARS-CoV-2) by PCR - NEGATIVE???Bordetella Parapertussis by PCR - NEGATIVE SODIUM, URINE MMOL/L (11/16/2024) ? ?Sodium, Urine Random - <20 mmol/L Type and Screen (11/15/2024) ???Blood Type - B Positive???Antibody Screen - Negative UREA NITROGEN, URINE MG/DL (11/16/2024) ???Urea Nitrogen, Urine Random - 439.4 mg/dL Urinalysis Complete (11/16/2024) ???Appear/Color, Urine - LIGHT YELLOW???Specific [place], Urine - 1.026???pH, Urine - 5.5???Albumin, Urine - 2+???Glucose, Urine - 1+???Ketones, Urine - NEGATIVE???Bilirubin, Urine - NEGATIVE???Hemoglobin, Urine - 2+???Nitrite, Urine - NEGATIVE???Leukocyte, Urine - NEGATIVE???Urobilinogen - NORMAL???WBC's, Urine - 2 /HPF? ?RBC's, Urine - 1 /HPF? ?Squamous Epith - <1 /HPF? ?Hyaline Cast - 1 LPF???Mucus - SLIGHT You will be contacted within 72 hours with your results. Allergies (NKA means No Known Allergies) NKA Problems No qualifying data available Education Materials Below is the list of Educational Leaflet Providered with your Discharge Instructions. Valuables and Belongings I fully understand and agree that [facility] accepts no responsibility for [...] Review of Valuable and Belonging List: With witness Date for Pt to Sign Valuables/Belongings: 11/23/24 15:02:00 ?? Other Discharge Information ? Case Management Discharge Plan?? Discharge Plan?? Discharge Agency Information?? Discharge Level of Care at Discharge: group home facility Name of Agency #1: [facility] Discharge Transportation Arranged: family will transport Service Categories #1: Physical Therapy, Intermediate Discharge Nursing [facility] ? Pulmonary Rehab Status?? Pulmonary Rehab Discharge [...] are strongly encouraged to quit. Please call [facility] [employer] Link at [phone] or [phone] or log in to [email or web address] for referrals to smoking cessation programs. ?? 609 Suicide & Crisis Lifeline is available 23/04 if you or someone you know needs to find a reason to keep living. By calling 276 you'll be connected to a skilled, trained counselor at a crisis center in your area. INPATIENT DISCHARGE INSTRUCTIONS SIGNATURE PAGE CATARINO LUI Location:[facility] Registration Date and Time:11/15/2024 12:38 EST Primary Care Physician: Not on Staff, PCP Attending Physician: Antonia GUIDRY, [facility], I CATARINO LUI, have received the above patient education materials/instructions and have verbalized understanding. If ambulance or transport services are being used I further acknowledge being given a choice of service. ?? If you need to contact me, please call me at this number: . Patient/Band Maker Name: Patient/Band Maker Signature: Relationship to Patient: Witness Name/Signature: Date: * Event Display: Provider Clarification Note Please click on pdf link to open report * Event Display: Final Diagnosis, D/C Summary Authored Date: Consult note * Artemio Zacarias RN: PERFORM, SIGN, VERIFY Event Display: Consultation Note Authored Date: [id number] Patient: CATARINO LUI Age: 64 years Sex: Male : 1960 Associated Diagnoses: None Author: Artemio Zacarias RN sacrococcygeal History of Presenting Problem Date of Service 11/21/2024 Reason for referral Wound: Description Location- Sacrococcygeal Etiology- Deep tissue pressure injury Wound Bed- mirrored nonblanchable deep purple discoloration and serous filled blister to the right sacrum Edges- well defined Mae Wound- blanchable erythema and desquamation Drainage- none Odor- none No fluctuance or induration Goals- offload pressure with wedges, protect from moisture and friction, Triad for moist wound healing Goal Expectation that wound will continue to Resolve or Evolve to lowest possible staging . Wound RN consult entered to assess sacrococcygeal wound and make topical recommendations. Patientwas found down. Patient was admitted for influenza A, AFIB RVR, CKD and R radius fracture. Patient has PMH of poorly controlled DM, AFIB, HTN, CKD, R craniotomy in childhood with acute on chronic R ho lohemispheric subdural hematoma with ICM midline shift s/p MMA on 09/23 with multiple readmits for R SDH. Prior to entering the room, direct care RN states patient is appropriate for consultation. Upon entering the room patient is lying in bed. Wound RN role explained and patient is agreeable to assessment as well as photodocumentation. Patient is able to roll onto his right side for visualization of sacrococcygeal wound, which is described in detail above. Patient denies pain at to the area. Patient is incontinent of urine and stool. Recommendations given to direct care RN and Tigerlily message sent to MD Priya Herrmann as well. Recommendations: 1.) Sacrococcygeal: Cleanse with pH balanced cleanser. Pat dry. Apply thin layer of Triad to wound bed. Only pat and dab, no scrub and rub, when soiling occurs. Reapply thin layer daily and PRN afterincontinence care. *Limit brief use and no Mepilex foam use* 2.) Continue use of specialty bed/low air loss mattress 3.) Turn and reposition every 2 hours and PRN 4.) Continue incontinence care as well as moisture management; do not utilize Mepilex foam dressingwith incontinence. 5.) Continue to offload bony prominences 6.) Float heels 7.) Continue to provide optimal nutritional support 8.) Provide Gaymar cushion to chair when patient OOB Patient at increased risk for pressure injury development d/t mobility, moisture and current integumentary status, please ensure to utilize pressure prevention interventions Please reconsult for wound care RNs for deterioration in wound/skin status. Plan Time spent 31-45 minutes * Adam GUIDRY, Juan Jose Daley: PERFORM Event Display: Consultation Note Authored Date: [id number] Patient: ??CATARINO LUI ? Age:??64 Years?Sex:??Male?:??1960?? Indication for Consult A fib with RVR History of Present Illness/Interval History I had pleasure of seeing Mr. Catarino Lui for atrial fibrillation with a rapid ventricular rate.?? As you know he is a 64-year-old male with medical history significant for hypertension, dyslipidemia, insulin-dependent diabetes mellitus, paroxysmal atrial fibrillation (not on systemic anticoagulation), recurrent falls, history of right craniotomy (childhood), right-sided chronic subdural hematoma complicated by fall and progressive increase in size of SDH with midline shift status post bur hole craniotomy (10/09/2024), seizure disorder and GERD. ?? Patient was admitted after being found down.?? He was noted to have THANH on CKD and elevated CPK levels.?? Furthermore, brain imaging showed improvement in his midline shift.?? He was noted to have atrial fibrillation with RVR and started on diltiazem gtt.?? He is maxed out on diltiazem drip and heart rate continues to be slightly between 130s-150 bpm.?? Cardiology consult was requested for betterrate control. ?? EKG from 11/15/2024 reviewed by myself: Atrial fibrillation with RVR (148 bpm), left axis deviation, poor R wave progression ?? EKG from 11/02/2014 reviewed by myself: Sinus bradycardia, normal axis, no ST-T abnormality ?? EKG from 10/22/2024 reviewed by myself: Atrial fibrillation with fast ventricular rate (124 bpm), left axis deviation, poor R wave progression, no ST-T abnormality ?? 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 HR:??109??(Monitored)?? RR:??21?? BP:??180/76?? SpO2:??94%?? HT:??183??cm?? WT:??90.9??kg?? BMI:??27.14?? Weight lb/oz: 200 lb 6 oz He is laying in the bed somnolent, responds to verbal stimuli Head right-sided creatinine scar held the without tenderness or discharge, normocephalic Neck: Supple, no JVD, no bruit Precordium: Irregular, variable S1 and S2, no murmur Lungs: Physical breathing, clear to auscultation Abdomen: Obese, soft, nontender [employer]: Slurred speech, right-sided facial droop, right upper extremity power 4 x 5 (overall neuroexamlimited due to somnolance) Extremities: Warm hands, right forearm wrapped with a bandage Skin: No ecchymosis, no rash Intake and Output Today's Intake Total? 1250?? Today's Output Total? 1600?? Today's Urine Catheter? 1600?? Today's Balance? -350?? Yesterday's Intake Total? 2658?? Yesterday's Output Total? 2450?? Yesterday's Urine Catheter? 2450?? Yesterday's Balance?208?? Clinical Range's Intake Total? 4886?? Clinical Range's Output Total? 4425?? Clinical Range's Total Urine Catheter? 4425?? Clinical Range's Balance ?461?? Assessment/Plan Impression: 1.?? Hypertension 2.?? Dyslipidemia 3.?? Insulin-dependent diabetes mellitus (uncontrolled) 4.?? Acute on chronic kidney disease (stage III) 5.?? History of right craniotomy, acute on chronic subdural hematoma status post neurosurgical decompression (October 2024) 6.?? Recurrent falls 7.?? Paroxysmal atrial fibrillation with fast ventricular rate 8.?? Rhabdomyolysis 9.?? Seizure disorder ?? Mr. Lui was found down by family and brought in altered mental status.?? He does have rhabdomyolysis with acute on chronic kidney disease.?? He has atrial fibrillation with RVR.?? On review of telemetry, he continues to transition between atrial fibrillation and atrial flutter. ?? Recommendations: 1.?? Continue diltiazem drip 15 mg/h 2.?? Load low-dose digoxin) to 50 mcg followed by 125 mcg 6 hours, then continue 125 mcg daily 3.?? He is not a candidate for systemic anticoagulation even though his CHADsVasc score is significantly higher due to his recurrent falls 4.?? He could be considered for SHAE closure (as outpatient)??if he has a reasonable prognosis from neurologic standpoint. ?? Juan Jose Medina MD Structural and interventional cardiology-[facility] Allergies [facility] Home Medications Acetaminophen: 650 mg, By Mouth, Every 4 hours, PRN (Headache) Allopurinol: 300 mg = 1 tablet, By Mouth, Daily Allopurinol: 300 mg = 1 tablet, By Mouth, Daily Atorvastatin: 80 mg = 1 tablet, By Mouth, Daily Atorvastatin: 80 mg = 1 tablet, By Mouth, Daily Diltiazem: 360 mg = 1 capsule, By Mouth, Daily dulaglutide: 4.5 mg, Subcutaneous Injection, Every week, INJECT 4.5MG SUBCUTANEOUSLY ONCE WEEKLY dulaglutide: 0.5 mL, Subcutaneous Injection, Every week, rotate injection sites Durable Medical Equipment: See Instructions, use as directed for Type 2 Diabetes Mellitus Insulin Glargine: 52 units, Subcutaneous Infusion, Daily Insulin Glargine: 52 units, Subcutaneous Injection, Daily Insulin Lispro: See Instructions, Subcutaneous Injection 3 times a day before meals.100 - 149 ?? 7 units 150 - 199 ?? 9 units 200 - 249 ?? 11 units 250 - 299 ?? 13 units 300 - 349 ?? 15 units 350 - 399 ?? 17 unitsfollow-up with your PCP or endocrine specialist for further m... Insulin Lispro: 3 times a day before meals, <<Sliding Scale>>100-149 16 units call if less than 70 150-199 18 -856 20 units 250-299 22 -204 24 [id number] 26 units call if greater than 400 <<Sliding Scale>> levETIRAcetam: 1,000 mg = 1 tablet, By Mouth, 2 times a day levETIRAcetam: 1,000 mg = 1 tablet, By Mouth, 2 times a day Lisinopril: 10 mg = 1 tablet, By Mouth, Daily Lisinopril: 10 mg = 1 tablet, By Mouth, Daily Metoprolol: 75 mg = 1 tablet, By Mouth, 2 times a day Metoprolol: 75 mg = 1 tablet, By Mouth, 2 times a day Morphine: TAKE 1 TABLET (15 MG) ORALLY EVERY 6 HOURS NEEDED FOR PAIN PARTIAL FILL UPON PATIENT REQUEST. Pantoprazole: 40 mg = 1 tablet, By Mouth, Daily Pantoprazole: 40 mg = 1 tablet, By Mouth, Daily torsemide: 40 mg = 1 tablet, By Mouth, Daily torsemide: 40 mg = 1 tablet, By Mouth, Daily Tranexamic Acid: 650 mg, By Mouth, Daily Hospital Medications Medications (23) Active SCHEDULED: (7) Digoxin 250 mcg/mL Inj (Digoxin Inj) ??0.125 mg 0.5 mL, IV Push Slowly, Once Insulin Glargine (Insulin Glargine Inj) ??20 units, Subcutaneous Injection, Daily at bedtime Insulin Glargine 100 units/mL Inj (Lantus Inj) ??15 units 0.15 mL, Subcutaneous Injection, Daily Stephen Insulin Lispro 100 units/mL Inj (Insulin LISPRO Scale) ??3-7 units, Subcutaneous Injection, Every 6hours Levetiracetam 100mg/ml IVPB (Keppra Inj) ??1,250 mg, IV Push Slowly, Every 12 hours NaCl 0.9% Flush 3ml (NaCL 0.9% Flush) ??3 mL, IV Push, Every 8 hours Pantoprazole 40 mg Inj (Pantoprazole Inj) ??40 mg, IV Push Slowly, Daily CONTINUOUS: (2) D5%W (1000 mL) Cont IV 1000 mL (D5%W 1000 mL) ??1,000 mL, IV Infusion, 150 mL/hr Diltiazem 125 mg/D5W (125 mL) 125 mg (Cardizem 125 mg/125 mL D5W 125 mg) ??125 mg 125 mL, IV Infusion PRN: (14) Acetaminophen 325 mg Tablet (Acetaminophen Tablet) ??650 mg, By Mouth, Every 4 hours Acetaminophen 650 mg Suppository (Tylenol Supp) ??650 mg, Rectally, Every 6 hours Dextromethorphan-Guaifenesin 20 mg-200 mg/10 mL Liqu UD (Robitussin DM Liquid) ??10 mL, By Mouth, Every 4 hours Dextrose Inj Syringe (Dextrose 50% Inj Syringe (25Gm)) ??12.5 Gm, IV Push Slowly, Every 20 minutes Dextrose Inj Syringe (Dextrose 50% Inj Syringe (25Gm)) ??25 Gm, IV Push Slowly, Every 15 minutes Docusate Sodium 100 mg Capsule (Docusate Sodium Capsule) ??100 mg 1 capsule, By Mouth, 2 times a day Glucagon 1 mg Inj (Glucagon Inj) ??1 mg, Intramuscular, Once Glucose 40% Gel (15 Gm) (Glucose Gel) ??15 Gm, By Mouth, Every 20 minutes Glucose 40% Gel (15 Gm) (Glucose Gel) ??30 Gm, By Mouth, Every 20 minutes Melatonin 3 mg Tablet (Melatonin Tablet) ??3 mg, By Mouth, Daily at bedtime NaCl 0.9% Flush 3ml (NaCL 0.9% Flush) ??3 mL, IV Push, Every 8 hours Polyethylene Glycol 17 Gm Powder (MiraLax Powder) ??17 Gm 1 pack/packet, By Mouth, Daily Senna Tablet ??8.6 mg 1 tablet, By Mouth, 2 times a day Simethicone 80 mg Chewable Tablet (Simethicone Tablet) ??80 mg, Chew, 3 times a day Lab Results Cardiology Labs Blood Count & Diff?? COAG?? General Chemistry?? Cardiac?? WBC: 8 k/mm3 (11/18/24) INR: 1 (11/15/24) Sodium: 144 mmol/L (11/18/24) Bilirubin, Total: <0.2 (10/22/24) RBC:??3.87 m/mm3??Low (11/18/24) Protime (PT): 10.9 seconds (11/15/24) Potassium: 3.9 mmol/L (11/18/24) CK, Total:??1747 units/L??High (11/18/24) Hgb:??10 Gm/dL??Low (11/18/24) APTT:??22.4 seconds??Low (11/15/24) Chloride:??112 mmol/L??High (11/18/24) ?? Hct:??33.3 %??Low (11/18/24) ?? Bicarbonate Level:??19 mmol/L??Low (11/18/24) ?? MCV: 86 femtoliters (11/18/24) ?? Anion Gap: 13 mmol/L (11/18/24) ?? Platelet Count: 193 k/mm3 (11/18/24) ?? Glucose Level:??366 mg/dL??High (11/18/24) ? Hemoglobin A1C (Monitoring):??9.3 %??High (10/22/24) ? BUN:??105 mg/dL??High (11/18/24) ? Creatinine-Blood:??2.72 mg/dL??High (11/18/24) ? Estimated GFR Creatinine: 25 ML/MIN/1.73 M2 (11/18/24) ? Calcium: 9.3 mg/dL (11/18/24) ? Magnesium:??2.4 mg/dL??High (11/18/24) ? Protein, Total: 6.4 Gm/dL (10/22/24) ? Albumin: 3.5 Gm/dL (10/22/24) ? Alkaline Phosphatase: 98 units/L (10/22/24) ? AST (SGOT): 13 units/L (10/22/24) ? ALT (SGPT): 13 units/L (10/22/24) ?? Diagnostic Impression ECG ECG 12-Lead ?? 23:01:54 Please click on pdf link to open report ?? Signed By: Adrienne GUIDRY, Onesimo Vo ?? ECG 12-Lead ?? 23:01:54 Ventricular Rate: 148 BPM QRS Duration: 86 ms Q-T Interval: 316 ms QTC Calculation(Bazett): 496 ms R Seanor: -17 degrees T Seanor: 37 degrees Atrial fibrillation with rapid ventricular response Poor R-wave progression ; consider anterior infarct, lead placement, or normal variant Abnormal ECG When compared with ECG of 15-Nov-2024 20:17, Atrial fibrillation has replaced Sinus rhythm Heart rate has increased from 101 to 148 bpm Confirmed ?? Signed By: Adrienne GUIDRY, Onesimo Vo Stress Test No qualifying data available. Echo Echocardiogram - Complete ?? 08:58:43 Summary 1) The LV systolic function is [...] calcification. There is trace mitral regurgitation. ?? Comparison No prior study available for comparison. ?? Signature ?? Signed By: Francis GUIDRY, [place]ou Problem List/Past Medical History Ongoing No qualifying data Procedure/Surgical History No qualifying data available. Follow-Up Appointments Added Follow Up ?Time Frame ?Comments Bradley GUIDRY, [facility] Social History Sexual Gender identity: Identifies as male. Self described orientation: Straight or heterosexual. Preferred pronoun: He/him. Family History No family history recorded. * Kailee GUIDRY, Alba: PERFORM, MODIFY, MODIFY, MODIFY Event Display: Consultation Note Authored Date: [id number] Patient: ??CATARINO LUI ? Age:??64 Years?Sex:??Male?:??1960?? Chief Complaint/Reason for Consult Consultation Reason:??Right distal radius fracture 11/12 s/p reduction and splinting at OSH Consulting Provider:??Dr. Orquidea Alvarez Consulted Surgeon:??Dr. Mary Jj History of Present Illness Catarino Lui is a 64-year-old gentleman with a history of atrial fibrillation (not currently on anticoagulation), hypertension, diabetes,??CKD, prior right- sided craniotomy as a child,??and multiple recent falls with chronic right-sided subdural hematoma??s/p MMA embolization and evacuation of hematoma x 2. ??He is currently admitted to the medical service after being found down at home on 11/15??without acute traumatic findings, was admitted to the medical service as he was??was found to haveAKI, hyperglycemia, and atrial fibrillation with RVR. ??Hand surgery consulted as he had a fall on 11/12 at home at which time he injured his right wrist, was seen at outside hospital.?? At that time he was found to have a right sided comminuted impacted intra-articular??and volarly displaced distalradius fracture which was reduced and splinted in the ED there with plans for follow-up??with outpatient orthopedics in 1 week.?? However, as he was then admitted here on 11/15??he has been able to keep this appointment.?? Hand surgery consult was requested therefore to evaluate if patient continuesto require a splint or needs other operative intervention. Review of Systems Unable to obtain secondary to altered mental status Physical Exam Vitals & Measurements T:??99.8?F?? HR:??120??(Peripheral)?? RR:??22?? BP:??164/83?? SpO2:??94%?? HT:??183??cm?? WT:??90.9??kg?? BMI:??27.14?? Constitutional: Sitting with eyes closed but responsive to voice, intermittently answers questions,??oriented??only to self. HEENT: EOM intact. Moist mucous membranes. Cardiovascular: S1S2 present.?Tachycardia in the 130s. Respiratory: Increased work of breathing on 2 L via??Cardoso. Extremities: Right upper extremity??in sugar-tong splint with Solo bandage in place. ??Clean dry andintact. ??Fingers appear pink and well-perfused, good capillary refill, sensation intact to the median, ulnar, and radial distributions.?? Does have some active and passive range of motion of the fing ers??within the splint, although some??pain with this.?? Strength intact to fingers Neurological: CN II-XII grossly intact. Active movement of all extremities. Appropriate affect. Skin: No obvious rashes, ecchymosis, or erythema on limited exam. Assessment/Plan Catarino Lui is a 64-year-old gentleman with a history of atrial fibrillation (not currently on anticoagulation), hypertension, diabetes,??CKD, prior right- sided craniotomy as a child,??and multiple recent falls with chronic right-sided subdural hematoma??s/p MMA embolization and evacuation of hematoma x 2. ??He is currently admitted to the medical service after being found down at home on 11/15??without acute traumatic findings, was admitted to the medical service as he was??was found to haveAKI, hyperglycemia, and atrial fibrillation with RVR. ??Hand surgery consulted as he had a fall on 11/12 at home and at OSH found to have??right sided comminuted impacted intra-articular??and volarly displaced distal radius fracture which was reduced and splinted in the ED there with plans for follow-up??with outpatient orthopedics in 1 week.?? Currently has sugar-tong splint in place??with good capillary refill and no swelling.?? Pending repeat plain films at this time.?? Patient currently??medically unfit for surgery, and if??his??reduction is intact,??may be appropriate to have long-term splint as opposed to operative intervention. ?? Recommendations: Follow up repeat plain films Further surgical recommendations pending the above ?? Please page??Hand Surgery??with any additional questions or??concerns: [id number]?? Care of this patient??discussed with Dr. Mary Jj Problem List/Past Medical History Atrial fibrillation Hypertension Diabetes mellitus type 2 Chronic SDH CKD Procedure/Surgical History Prior right-sided craniotomy,??childhood MMA embolization Evacuation of subdural hematoma??x 2 Home Medications Acetaminophen: 650 mg, By Mouth, Every 4 hours, PRN (Headache) Allopurinol: 300 mg = 1 tablet, By Mouth, Daily Allopurinol: 300 mg = 1 tablet, By Mouth, Daily Atorvastatin: 80 mg = 1 tablet, By Mouth, Daily Atorvastatin: 80 mg = 1 tablet, By Mouth, Daily Diltiazem: 360 mg = 1 capsule, By Mouth, Daily dulaglutide: 4.5 mg, Subcutaneous Injection, Every week, INJECT 4.5MG SUBCUTANEOUSLY ONCE WEEKLY dulaglutide: 0.5 mL, Subcutaneous Injection, Every week, rotate injection sites Durable Medical Equipment: See Instructions, use as directed for Type 2 Diabetes Mellitus Insulin Glargine: 52 units, Subcutaneous Infusion, Daily Insulin Glargine: 52 units, Subcutaneous Injection, Daily Insulin Lispro: See Instructions, Subcutaneous Injection 3 times a day before meals.100 - 149 ?? 7 units 150 - 199 ?? 9 units 200 - 249 ?? 11 units 250 - 299 ?? 13 units 300 - 349 ?? 15 units 350 - 399 ?? 17 unitsfollow-up with your PCP or endocrine specialist for further m... Insulin Lispro: 3 times a day before meals, <<Sliding Scale>>100-149 16 units call if less than 70 150-199 18 [id number] 20 units 250-299 22 [id number] 24 -329 26 units call if greater than 400 <<Sliding Scale>> levETIRAcetam: 1,000 mg = 1 tablet, By Mouth, 2 times a day levETIRAcetam: 1,000 mg = 1 tablet, By Mouth, 2 times a day Lisinopril: 10 mg = 1 tablet, By Mouth, Daily Lisinopril: 10 mg = 1 tablet, By Mouth, Daily Metoprolol: 75 mg = 1 tablet, By Mouth, 2 times a day Metoprolol: 75 mg = 1 tablet, By Mouth, 2 times a day Morphine: TAKE 1 TABLET (15 MG) ORALLY EVERY 6 HOURS NEEDED FOR PAIN PARTIAL FILL UPON PATIENT REQUEST. Pantoprazole: 40 mg = 1 tablet, By Mouth, Daily Pantoprazole: 40 mg = 1 tablet, By Mouth, Daily torsemide: 40 mg = 1 tablet, By Mouth, Daily torsemide: 40 mg = 1 tablet, By Mouth, Daily Tranexamic Acid: 650 mg, By Mouth, Daily Allergies NKA Social History Sexual Gender identity: Identifies as male. Self described orientation: Straight or heterosexual. Preferred pronoun: He/him. Lives independently Family History None relevant Pathology None available to review Radiology Pending films Lab Results Labs Last 24 Hours BLOOD COUNT & DIFF ? Event Name?? Event Result?? Date/Time?? WBC 8 k/mm3 11/18/24 01:29:00 RBC 3.87 m/mm3??Low 11/18/24 01:29:00 Hgb 10 Gm/dL??Low 11/18/24 01:29:00 Hct 33.3 %??Low 11/18/24 01:29:00 MCV 86 femtoliters 11/18/24 01:29:00 MCH 25.8 pg??Low 11/18/24 01:29:00 MCHC 30 Gm/dL??Low 11/18/24 01:29:00 Platelet Count 193 k/mm3 11/18/24 01:29:00 MPV 11 femtoliters 11/18/24 01:29:00 Nucleated RBC (Automated) 0 #/100 WBC'S 11/18/24 01:29:00 ? CHEM GENERAL ? Event Name?? Event Result?? Date/Time?? Sodium 144 mmol/L 11/18/24 13:06:00 Chloride 112 mmol/L??High 11/18/24 13:06:00 Bicarbonate Level 19 mmol/L??Low 11/18/24 13:06:00 Anion Gap 13 mmol/L 11/18/24 13:06:00 Glucose Level 366 mg/dL??High 11/18/24 13:06:00 BUN 105 mg/dL??High 11/18/24 13:06:00 Creatinine-Blood 2.72 mg/dL??High 11/18/24 13:06:00 Phosphorus 4.5 mg/dL 11/18/24 01:29:00 Magnesium 2.4 mg/dL??High 11/18/24 01:29:00 ? * Parviz GUIDRY, Mary Marei: PERFORM Event Display: Consultation Note Authored Date: [id number] I reviewed the note written by the resident/PA and agree with the assessment and plan for the patient with the following additions: ?? 64M with multiple medical comorbidities including recent SDH, THANH, hyperglycemia, and atrial fibrillation with RVR, altered mental status??presenting with right distal radius fracture??that occurred??on 11/12/2024 after a fall.?? He was seen at an outside hospital and his fracture was reduced and splinted.?? He had repeat??x-rays performed??on 11/18/2024 reviewed by me shows a comminuted, intra-articular fracture of the distal radius with volar displacement. ??Unfortunately,??patient is not??a surgical candidate at this point.?? Would recommend continuation of his sugar-tong splint and??may need to address a??malunion in the future if symptomatic. Patient Care team information Care Team Personnel Name: Aida Ruelas RN Position: [facility] RN Member Role: Primary Care Nurse Name: Shivani Carlson RN Position: [facility] RN Member Role: Primary Care Nurse Name: Shala Horne RN Position: [facility] RN Member Role: Primary Care Nurse Name: Rhoda Starr RN Position: [facility] RN Member Role: Primary Care Nurse Name: Candy Goodson RN Position: [facility] RN Member Role: Primary Care Nurse Name: Lainey Bustillo Position: [facility] RN Member Role: Primary Care Nurse Name: France Stover RN Position: [facility] RN Member Role: Primary Care Nurse Name: Matilda Monk RN Position: [facility] RN Member Role: Primary Care Nurse Name: Iraj Jordan RN Position: [facility] RN Member Role: Primary Care Nurse Name: Harpreet Haywood RN Position: [facility] RN Member Role: Primary Care Nurse Name: Marisa Erwin RN Position: [facility] RN Member Role: Primary Care Nurse Name: Nisha Miller NP Position: [facility] Associate Professional Member Role: [employer] Provider Address: [address] [place] [address] [address] [facility] [place] [address]- Tele[employer]: Name: Armond Castro MD Position: [facility] Renal MD Member Role: [employer] Consult[employer] Physician Address: [address] [place] [address] [address] [facility] [place] [address]- Telecom: Name: Micaela Fonseca RN Position: [facility] RN Member Role: Primary Care Nurse Name: Brigida Patel RN Position: [facility] RN Member Role: Primary Care Nurse Name: Alison Patel RN Position: [facility] RN Member Role: Primary Care Nurse Name: Not on Staff, PCP Position: [facility] Physician (General Medicine) Member Role: PCP Name: Yessi Tavares RN Position: [facility] RN Member Role: Primary Care Nurse Name: Tamara Lovell RN Position: [facility] RN Member Role: Primary Care Nurse Name: Hakan Soto RN Position: [facility] RN Member Role: Primary Care Nurse Name: Katia Sahni RN Position: [facility] RN Member Role: Primary Care Nurse Care Team Related Persons Name: JANET SONAL Name: [facility] Insurance Providers Guarantor name: FIDEL Health Plan Information #: 1 Payer: [employer] P[employer] Member Number: [id number] Policy Number: NA Group Number: [id number] Health Plan Information #: 2 Payer: [employer] PPO [employer] Member Number: [id number] Policy Number: NA Group Number: NA
--- OUTSIDE RECORDS SUMMARY | 2024-12-10 09:05 | XMS_ITS | Continuity of Care Document ---
Author Organization [facility] ter Address [address] [place] [id number]- Care Team Providers Care Lead Miner Blasting Name Role Phone Liss GUIDRY, Edmond Marcus Primary Care Physician Encounter [facility] Date(s): 11/29/24 - 11/30/[address] [address]- Discharge Disposition: A-Transfer SNF Attending Physician: Agnes Tijerina DO Admitting Physician: Agnes Tijerina DO Referring Physician: Not on Staff, Referring MD Encounter Type: Disch ES Allergies, Adverse Reactions, Alerts No Known Allergies [...] virus vaccine, inactivated 06/07/10 Leonard rded SARS-CoV-2(COVID-19)mRNA-LNP vac([id number]) 08/20/24 Recorded tetanus-diphtheria toxoids (Td) 05/09/22 Recorded [...] tablet = 80 mg, By Mouth, Daily at bedtime, 0 Refills, Maintenance, 11/15/24 4:00:00 PM EST, Tablet, Partial fill upon patient request if the prescription is for a schedule II opioid drug. Start Date: 11/15/24 Status: Ordered Repeat number: 1 DilTIAZem (Eqv-Cardizem CD) 360 mg/24 hours oral capsule, extended release 1 capsule = 360 mg, By Mouth, Daily, 0 Refills, Maintenance, 11/15/24 4:00:00 PM EST, Partial fill upon patient request if the prescription is for a schedule II opioid drug. Start Date: 11/15/24 Status: Ordered Repeat number: 1 Dulcolax 10 mg rectal suppository 1 supp = 10 mg, Rectally, Daily, PRN as needed for constipation, Maintenance, 11/29/24 4:30:00 PM EST, Suppository, Partial fill upon patient request if the prescription is for a schedule II opioid drug. Start Date: 11/29/24 Status: Ordered Repeat number: 1 Fleet Enema 19 gm-7 gm rectal enema 118 mL, Rectally, Daily, PRN as needed for constipation, Maintenance, 11/29/24 4:31:00 PM EST, Enema,Partial fill upon patient request if the prescription is for a schedule II opioid drug. Start Date: 11/29/24 Status: Ordered Repeat number: 1 Flomax 0.4 mg oral capsule 0.4 mg, 1, capsule, By Mouth, Daily at bedtime, Refills 0, Maintenance, 11/26/24 4:19:00 PM EST, Partial fill upon patient request if the prescription is for a schedule II opioid drug. Start Date: 11/26/24 Status: Ordered Repeat number: 1 Indication: Retention of urine, unspecified Glucagon Emergency Kit for Low Blood Sugar 1 mg injection = 1 mg, Intramuscular, Once, PRN as needed, Maintenance, 11/29/24 4:39:00 PM EST, Powder, Partial fill upon patient request if the prescription is for a schedule II opioid drug. Start Date: 11/29/24 Status: Ordered Repeat number: 1 glucose 15 g/31 g oral gel = 15 Gm, By Mouth, Daily, PRN Blood Glucose, Maintenance, 11/30/24 10:52:00 AM EST, Partial fill uponpatient request if the prescription is for a schedule II opioid drug. Start Date: 11/30/24 Status: Ordered Repeat number: 1 Insulin Lispro KwikPen 100 units/mL injectable solution 16-26 units, Subcutaneous Injection, 3 times a day before meals, <<Sliding [...] number: 1 Keppra 500 mg oral tablet 2.5 tablet = 1,250 mg, By Mouth, 2 times a day, 0 Refills, Maintenance, 11/26/24 4:25:00 PM EST, Tablet, Partial fill upon patient request if the prescription is for a schedule II opioid drug. Start Date: 11/26/24 Status: Ordered Repeat number: 1 Lantus Solostar Pen 100 units/mL subcutaneous solution = 24 units, Subcutaneous Injection, 2 times a day, 0 Refills, Maintenance, 11/15/24 4:00:00 PM EST, Partial fill upon patient request if the prescription is for a schedule II opioid drug. Start Date: 11/15/24 Status: Ordered Repeat number: 1 magnesium hydroxide 8% oral suspension 30 mL = 2.4 Gm, By Mouth, Daily, PRN for constipation, Maintenance, 11/29/24 4:33:00 PM EST, Suspension, Partial fill upon patient request if the prescription is for a schedule II opioid drug. Start Date: 11/29/24 Status: Ordered Repeat number: 1 Metoprolol Tartrate 75 mg oral tablet 1 tablet = 75 mg, By Mouth, 2 times a day, 0 Refills, Maintenance, 11/15/24 4:00:00 PM EST, Tablet, Partial fill upon patient request if the prescription is for a schedule II opioid drug. Start Date: 11/15/24 Status: Ordered Repeat number: 1 MiraLax oral powder for reconstitution = 17 Gm, By Mouth, Daily, PRN Constipation, Maintenance, 11/30/24 10:50:00 AM EST, Partial fill upon patient request if the prescription is for a schedule II opioid drug. Start Date: 11/30/24 Status: Ordered Repeat number: 1 morphine 15 mg oral tablet, immediate release 1 tablet = 15 mg, By Mouth, Every 6 hours, PRN Pain , Severe, 0 Refills Start Date: 11/15/24 Status: Ordered Repeat number: 1 pantoprazole 40 mg oral delayed release tablet 1 tablet = 40 mg, By Mouth, Daily in AM, 0 Refills, Maintenance, 11/15/24 4:00:00 PM EST, EC Tablet Start Date: 11/15/24 Status: Ordered Repeat number: 1 Pen [place], 31 G x 5 mm BD Ultra Fine III See Instructions, # 100 each, Refills 5, Tot. Refills 5, Maintenance, use as directed for Type 2 Diabetes Mellitus, 10/13/24 1:37:00 PM EST, Supply, 183, cm, 10/13/24 5:14:00 EST, Height, 116, kg, 10/09/24 6:57:00 EST, Dry Weight Start Date: 10/13/24 Stop Date: 04/11/25 Status: Ordered Quantity: 100.0 Unit: each Repeat number: 6 Trulicity Pen 4.5 mg/0.5 mL subcutaneous solution 0.5 mL = 4.5 mg, Subcutaneous Injection, Every Sunday Start Date: 09/23/24 Status: Ordered Repeat number: 1 Tylenol 325 mg oral tablet 650 mg, 2, tablet, By Mouth, Every 6 hours, PRN, NTE 3 gm/24 hours, Refills 0, Maintenance, Mild Pain/Fever, 09/27/24 9:10:00 AM EST, Partial fill upon patient request if the prescription is for a schedule II opioid drug. Start Date: 09/27/24 Status: Ordered Repeat number: 1 Problem List Condition Confirmation Course Effective Dates Status Health St atus Informant Obese class I Confirmed Active Results Radiology Reports * Exam Date Time Procedure Performing Provider Status 11/29/24 4:[address] Angio Neck Laura Goldstein; Auth ( Verified) Notes: (CT Angio Neck) Reason For Exam: Aneurysm, neck vessel(s);Other: RESULT: CT Angio Neck CT Angio Head, CT Angio Neck Hx of Present Illness: presenting to the ED w dizziness; Reason: Other:; Neuro deficit, acute, stroke suspected; Clinical Question(s): Other:; Hematoma Aneurysm / Other: [...] exposure parameters. RADIATION DOSE PARAMETERS: CTDIvol Body: 18.37 mGy, DLP Body: 842 mGy*cm. CTDIvol Head: 48.20 mGy, DLP Head: 772 mGy*cm. COMPARISON: Noncontrast CT head performed concurrently. CTA head and neck, 10/22/2024 FINDINGS: CTA OF THE NECK: Arch: There is a three vessel aortic arch. There is mild atherosclerotic plaque of the aortic arch,but origins of the supra aortic vessels are patent. Right carotid system: The common carotid and cervical internal carotid arteries are patent. There is calcified atherosclerotic plaque at the carotid bifurcation, but no ICA stenosis (0%) by NASCET criteria. Left carotid system: The common carotid and cervical internal carotid arteries are patent. There iscalcified atherosclerotic plaque at the carotid bifurcation, but no ICA stenosis (0%) by NASCET criteria. There is course of the left ICA carotid bifurcation. There is a rqthdk-euec-bkudgsoa vertebral artery system. Right vertebral: Patent. Left vertebral: Patent. Other: Soft tissues and bones: No evidence of lymphadenopathy or mass. The thyroid is unremarkable. The lungs are poorly assessed due to motion. Multilevel degenerative changes of the spine are noted, without acute osseous abnormality. CTA OF THE HEAD: Anterior circulation: The intracranial ICAs are patent with calcification mildly narrowing the right clinoid segment. The anterior cerebral arteries are patent with mildly hypoplastic left A1 segment. Bilateral M1 and proximal M2 segments are patent, with mild attenuation of left anterior MCA branches compared to the right, which is similar to prior. Posterior circulation: The vertebral arteries, basilar artery, superior cerebellar arteries, and posterior cerebral arteries are patent. Veins: Major dural venous sinuses are patent. Other: Soft tissues and bones: No midline shift or effacement of the basal cisterns. No space-occupying hemorrhage. No acute territorial loss of khan-white matter differentiation. Thin right subdural collection is better seen on concurrently performed noncontrast CT. There has been bilateral middle meningeal artery embolization. Right lateral parietal loulou hole is seen. Orbits are unremarkable. Mildly causing thickening is seen in the inferior right maxillary sinus. Mastoids are clear. Multiple dental caries are seen. IMPRESSION: 1. No large vessel occlusion in the [place]. 2. Mild attenuation of left anterior MCA branches is similar to the prior CTA. 3. No significant stenosis in the major arteries of the neck. 4. Thin right subdural collection. Status post bilateral middle meningeal artery embolization. 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 However, on final report,no aneurysm is seen. WSN: [id number] Ordering Physician: Estefani Dawn Dictated By: Gisselle Gaona MD Dictated Date/Time: 11/30/24 2:30 pm Reviewed By: Gisselle Gaona MD Signed By: Gisselle Gaona MD Signed Date/Time: 11/30/24 2:30 pm Transcribed By: GLADIS Transcribed Date/Time: 11/30/24 2:05 pm * Exam Date Time Procedure Performing Provider Status 11/29/24 4:[address] Angio Head Laura Goldstein; Roberto Carlos ( Verified) Notes: (CT Angio Head) Reason For Exam: Neuro deficit, acute, stroke suspected;Other: RESULT: CT Angio Head CT Angio Head, CT Angio Neck Hx of Present Illness: presenting to the ED w dizziness; Reason: Other:; Neuro deficit, acute, stroke suspected; Clinical Question(s): Other:; Hematoma Aneurysm / Other: [...] exposure parameters. RADIATION DOSE PARAMETERS: CTDIvol Body: 18.37 mGy, DLP Body: 842 mGy*cm. CTDIvol Head: 48.20 mGy, DLP Head: 772 mGy*cm. COMPARISON: Noncontrast CT head performed concurrently. CTA head and neck, 10/22/2024 FINDINGS: CTA OF THE NECK: Arch: There is a three vessel aortic arch. There is mild atherosclerotic plaque of the aortic arch,but origins of the supra aortic vessels are patent. Right carotid system: The common carotid and cervical internal carotid arteries are patent. There is calcified atherosclerotic plaque at the carotid bifurcation, but no ICA stenosis (0%) by NASCET criteria. Left carotid system: The common carotid and cervical internal carotid arteries are patent. There iscalcified atherosclerotic plaque at the carotid bifurcation, but no ICA stenosis (0%) by NASCET criteria. There is course of the left ICA carotid bifurcation. There is a pcnixl-vgoe-dfsonfyt vertebral artery system. Right vertebral: Patent. Left vertebral: Patent. Other: Soft tissues and bones: No evidence of lymphadenopathy or mass. The thyroid is unremarkable. The lungs are poorly assessed due to motion. Multilevel degenerative changes of the spine are noted, without acute osseous abnormality. CTA OF THE HEAD: Anterior circulation: The intracranial ICAs are patent with calcification mildly narrowing the right clinoid segment. The anterior cerebral arteries are patent with mildly hypoplastic left A1 segment. Bilateral M1 and proximal M2 segments are patent, with mild attenuation of left anterior MCA branches compared to the right, which is similar to prior. Posterior circulation: The vertebral arteries, basilar artery, superior cerebellar arteries, and posterior cerebral arteries are patent. Veins: Major dural venous sinuses are patent. Other: Soft tissues and bones: No midline shift or effacement of the basal cisterns. No space-occupying hemorrhage. No acute territorial loss of khan-white matter differentiation. Thin right subdural collection is better seen on concurrently performed noncontrast CT. There has been bilateral middle meningeal artery embolization. Right lateral parietal loulou hole is seen. Orbits are unremarkable. Mildly causing thickening is seen in the inferior right maxillary sinus. Mastoids are clear. Multiple dental caries are seen. IMPRESSION: 1. No large vessel occlusion in the [place]. 2. Mild attenuation of left anterior MCA branches is similar to the prior CTA. 3. No significant stenosis in the major arteries of the neck. 4. Thin right subdural collection. Status post bilateral middle meningeal artery embolization. 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 However, on final report,no aneurysm is seen. WSN: [id number] Ordering Physician: Estefani Dawn Dictated By: Gisselle Gaona MD Dictated Date/Time: 11/30/24 2:30 pm Reviewed By: Gisselle Gaona MD Signed By: Gisselle Gaona MD Signed Date/Time: 11/30/24 2:30 pm Transcribed By: GLADIS Transcribed Date/Time: 11/30/24 2:05 pm * Exam Date Time Procedure Performing Provider Status 11/29/24 4:[address] Head/Brain W/O Contrast Luz Maria Goldstein; Auth (Verified) Notes: (CT Head/Brain W/O Contrast) Reason For Exam: Neuro deficit, acute, stroke suspected;Other: RESULT: CT Head/Brain W/O Contrast CT Head/Brain W/O Contrast INDICATION: Hx of Present Illness: presenting to the ED w dizziness; Reason: Other:; Neuro deficit,acute, stroke suspected; Clinical Question(s): Other:; Hematoma Infarction TECHNIQUE: Noncontrast head CT using axial technique and reconstructed in axial and coronal planes.Iterative reconstruction techniques are used to optimize dose and image quality. CTDIvol Body: 18.37 mGy, DLP Body: 842 mGy*cm. CTDIvol Head: 48.20 mGy, DLP Head: 772 mGy*cm. COMPARISON: None. FINDINGS: Junior Analyst view findings, lines and tubes: None. BRAIN AND EXTRA-AXIAL SPACES: Again demonstrated is a right frontal subdural hematoma with maximum thickness of 0.8 cm, unchangedwhen compared to the prior exam. Again demonstrated is mass effect with 1 mm midline shift to the left. There is no evidence of new hemorrhage. There is no evidence of intraparenchymal hemorrhage. Mild prominence of the ventricles and sulci consistent with parenchymal volume loss. Mild low-density white matter changes. CALVARIUM, SKULL BASE, AND SOFT TISSUES: No fractures or suspicious bony lesions. Interval development of extensive mucosal thickening at the sphenoid, maxillary and ethmoid paranasal sinuses. Visualized orbits and globes are intact. The extracranial soft tissues are unremarkable. IMPRESSION: 1. Stable right frontal subdural hematoma with stable mass effect and mild midline shift. There is no evidence of interval change when compared to the most recent prior exam. 2. Interval development of extensive paranasal sinus disease. WSN: [id number] Ordering Physician: Estefani Dawn Dictated By: Teena Lizama MD Dictated Date/Time: 11/29/24 5:12 pm Reviewed By: Teena Lizama MD Signed By: Teena Lizama MD Signed Date/Time: 11/29/24 5:12 pm Transcribed By: GLADIS Transcribed Date/Time: 11/29/24 4:48 pm Vital Signs Most recent to oldest [Reference Range]: 1 2 3 Height 183 cm (11/29/24 6:18 PM) 183 cm (11/29/24 1:49 PM) Weight 70.5 kg (11/29/24 6:18 PM) 70.5 kg (11/29/24 1:49 PM) Oxygen Saturation [94-100 %] 100 % (11/29/24 6:18 PM) 95 % (11/29/24 1:49 PM) 94 % (11/29/24 1:20 PM) Pulse Rate [55-90 bpm] 71 bpm (11/29/24 6:18 PM) 80 bpm (11/29/24 1:49 PM) 86 bpm (11/29/24 1:20 PM) Body Mass Index [18.5-24.99 kg/m2] 21.05 kg/m2 (11/29/24 6:18 PM) Blood Pressure [90-138/55-84 mm Hg] 127/76mm Hg (11/29/24 6:18 PM) 139/85mm Hg *H* (3/1/25 1:49 PM) 148/88mm Hg *H* (11/29/24 1:20 PM) Respiratory Rate [16-30 br/min] 16 br/min (11/29/24 6:18 PM) 12 br/min *L* (11/29/24 1:49 PM) 15 br/min *L* (11/29/24 1:20 PM) Temperature [96.8-100.4 DegF] 98.4 DegF (11/29/24 6:18 PM) 98.8 DegF (11/29/24 1:49 PM) 98.3 DegF (11/29/24 1:20 PM) Mode of Delivery (Oxygen) Room air (11/29/24 6:18 PM) Room air (11/29/24 1:49 PM) Room air (11/29/24 1:20 PM) Blood pressure sites Arm, left (11/29/24 1:49 PM) Temperature Route Oral (11/29/24 6:18 PM) Oral (11/29/24 1:49 PM) Oral (11/29/24 1:20 PM) Weight Obtained Via Patient/family state d (11/29/24 1:49 PM) Social History Social History Type Response Sex Male Sex Representation Male (finding) EKG study * Event Display: ECG 12-Lead Authored Date: Please click on pdf link to open report * Event Display: ECG 12-Lead Authored Date: Ventricular Rate: 86 BPM Atrial Rate: 326 BPM QRS Duration: 84 ms Q-T Interval: 360 ms QTC Calculation(Bazett): 430 ms R [place]: 10 degrees T [place]: 54 degrees Atrial flutter with variable A-V block Abnormal ECG When compared with ECG of 15-Nov-2024 23:01, Atrial flutter has replaced Atrial fibrillation Vent. rate has decreased by 62 bpm Non-specific change in ST segment in Inferior leads ST no longer depressed in Lateral leads Confirmed by ALEKSANDRA RIVERA MD ([id number]) on 11/29/2024 7:10:45 PM [place]: ALEKSANDRA RIVERA MD Patient Care team information Care Team Personnel Name: Aida Ruelas RN Position: S RN Member Role: Primary Care Nurse Name: Shivani Carlson RN Position: [facility] RN Member Role: Primary Care Nurse Name: Shala Horne RN Position: [facility] RN Member Role: Primary Care Nurse Name: Rhoda Starr RN Position: [facility] RN Member Role: Primary Care Nurse Name: Candy Goodson RN Position: [facility] RN Member Role: Primary Care Nurse Name: Lainey Bustillo Position: [facility] RN Member Role: Primary Care Nurse Name: France Stover RN Position: [facility] RN Member Role: Primary Care Nurse Name: Matilda Monk RN Position: [facility] RN Member Role: Primary Care Nurse Name: Iraj Jordan RN Position: [facility] RN Member Role: Primary Care Nurse Name: Harpreet Haywood RN Position: [facility] RN Member Role: Primary Care Nurse Name: Marisa Erwin RN Position: [facility] RN Member Role: Primary Care Nurse Name: Nisha Miller NP Position: [facility] Associate Professional Member Role: Lifetime Consulting Provider Address: [address] [place] [address] [address] [facility] [place] [address]- Telecom: Name: Armond Castro MD Position: [facility] Renal MD Member Role: Lifetime Consulting Physician Address: [address] [place] [address] [address] [facility] [address] Telecom: Name: Micaela Fonseca RN Position: [facility] RN Member Role: Primary Care Nurse Name: Brigida Patel RN Position: [facility] RN Member Role: Primary Care Nurse Name: Alison Patel RN Position: [facility] RN Member Role: Primary Care Nurse Name: Chung Sanders MD Position: [facility] Renal MD Member Role: Lifetime Consulting Physician Address: [address] [facility] [address] [facility] [place] [address]- Telecom: Name: Yessi Tavares RN Position: [facility] RN Member Role: Primary Care Nurse Name: Tamara Lovell RN Position: [facility] RN Member Role: Primary Care Nurse Name: Hakan Soto RN Position: [facility] RN Member Role: Primary Care Nurse Name: Katia Sahni RN Position: [facility] RN Member Role: Primary Care Nurse Name: Edmond Leija MD Position: [facility] Outreach Member Role: PCP Address: [address] [place] [address] Telecom: Care Team Related Persons Name: SONAL GONZALES Name[facility] VIVI Insurance Providers Guarantor name: NA Health Plan Information #: 1 Payer: [employer] PPO [employer] ADV Member Number: [id number] Policy Number: NA Group Number: [id number] Health Plan Information #: 2 Payer: [employer] PPO [employer] ADV Member Number: [id number] Policy Number: NA Group Number: NA
--- OUTSIDE RECORDS SUMMARY | 2024-12-10 09:05 | XMS_ITS | Continuity of Care Document ---
Author Organization [facility] ter Address [address] [place] [address]- Care Team Providers Care Marketing Operations Manager Name Role Phone Kolby GUIDRY, Quinn Davies Primary Care Physician Encounter [facility] Date(s): 10/15/24 - 11/15/[address] [address]- Attending Physician: Chrystal Dennis MD Admitting Physician: Chrystal Dennis MD Referring Physician: Chrystal Dennis MD Encounter Type: Pre-Outpt Allergies, Adverse Reactions, Alerts No Known Allergies [...] virus vaccine, inactivated 06/07/10 Leonard rded SARS-CoV-2(COVID-19)mRNA-LNP vac([id number]) 08/20/24 Recorded tetanus-diphtheria toxoids (Td) 05/09/22 Recorded [...] 0 Refills, Maintenance, 10/13/24 1:32:00 PM EST, [facility], Partial fill upon patient request if [...] 0 Refills, Maintenance, 10/13/24 1:35:00 PM EST, [facility], Partial fill upon [...] Refills, Maintenance, 11/05/24 11:32:00 AM EST, Tablet, [facility], Partial fill upon patient request [...] 11:37:00 AM EST, Route to Pharmacy Electronically, [facility], Partial fill upon patient request if the prescription is for a schedule II opioid drug., 183, cm, 11/02/24 23:57:00 EST, Height, 113.6, kg, 10/22/24 20:44:00 EST, Dry Weight Start Date: 11/05/24 Status: Ordered Quantity: 30.0 Unit: tablet Repeat number: 1 Metoprolol Tartrate 75 mg oral tablet 1 tablet = 75 mg, By Mouth, 2 times a day Start Date: 09/23/24 Status: Ordered Repeat number: 1 pantoprazole 40 mg oral delayed release tablet 1 tablet = 40 mg, By Mouth, Daily, 0 Refills, Maintenance, 09/23/24 7:03:00 AM EST Start Date: 09/23/24 Status: Ordered Repeat number: 1 Pen [place], 31 G x 5 mm BD Ultra [...] Refills, Maintenance, 11/05/24 11:34:00 AM EST, Tablet, [facility], Partial fill upon [...] Refills, Maintenance, 10/13/24 1:54:00 PM EST, Tablet, [facility], Partial fill upon [...] atus Informant Obese class I Confirmed Active Patient Care team information Care Team Personnel Name: Aida Ruelas RN Position: [facility] RN Member Role: Primary Care Nurse Name: Shivani Carlson RN Position: [facility] RN Member Role: Primary Care Nurse Name: Shala Horne RN Position: [facility] RN Member Role: Primary Care Nurse Name: Rhoda Starr RN Position: [facility] RN Member Role: Primary Care Nurse Name: Candy Goodson RN Position: [facility] RN Member Role: Primary Care Nurse Name: France Stover RN Position: [facility] RN Member Role: Primary Care Nurse Name: Lacho RNMatilda Position: [facility] RN Member Role: Primary Care Nurse Name: Iraj Jordan RN Position: [facility] RN Member Role: Primary Care Nurse Name: Harpreet Haywood RN Position: [facility] RN Member Role: Primary Care Nurse Name: Yessi Tavares RN Position: [facility] RN Member Role: Primary Care Nurse Name: Tamara Lovell RN Position: [facility] RN Member Role: Primary Care Nurse Name: Katia Sahni RN Position: [facility] RN Member Role: Primary Care Nurse Name: Quinn Jarrett MD Position: [facility] Outreach Member Role: PCP Address: [address] [place] [address] Telecom: Care Team Related Persons Name: SONAL GONZALES Name: VIVI RUIZ Insurance Providers Guarantor name: [facility] Information #: 1 Payer: [employer] PPO [employer] ADV Member Number: [id number] Policy Number: NA Group Number: [id number] Health Plan Information #: 2 Payer: [employer] PPO [employer] ADV Member Number: [id number] Policy Number: NA Group Number: NA
--- OUTSIDE RECORDS SUMMARY | 2024-12-10 09:05 | XMS_ITS | Encounter Summary ---
Author Organization [facility] Address [address] [place] [address] Care Team Providers Care Director Airport Name Role Phone Quinn Jarrett MD Primary Care Provider [phone]- [phone] Encounter Details Date Type Department Care Team (Late st Contact Info) Description 11/27/2024 Lab Requisition [facility] - Main Lab [address] [facility] [place] [phone] Edmond Leija MD [address] [place] [id number] Anemia, unspecified; Chronic kidney disease, unspecified; Type 2 diabetes mellitus without complications (CMS/HCC) Social History Tobacco Use Types Packs/Day Years [...] Orientation Straight 09/27/2024 2: 29 PM EST documented as of this encounter Plan of Treatment Not on file documented as of this encounter Procedures Procedure Name Priority Date/Time Associated Diagnosis Comments CBC WITH AUTO DIFFERENTIAL Routine 11/27/2024 6:07 AM EST Anemia, unspecified Chronic kidney disease, unspecified Type 2 diabetes mellitus without complications (CMS/HCC) CBC AND DIFFERENTIAL Routine 11/27/2024 6:07 AM EST Anemia, unspecified Chronic kidney disease, unspecified Type 2 diabetes mellitus without complications (CMS/HCC) HEMOGLOBIN A1C Routine 11/27/2024 6:07 AM EST Anemia, unspecified Chronic kidney disease, unspecified Type 2 diabetes mellitus without complications (CMS/HCC) COMPREHENSIVE METABOLIC PANEL Routine 11/27/2024 6:07 AM EST Anemia, unspecified Chronic kidney disease, unspecified Type 2 diabetes mellitus without complications (CMS/HCC) documented in this encounter Results * (ABNORMAL) CBC auto differential (11/27/2024 6:07 AM EST) WBC 8.9 4.8 - 10.8 K/mcL LAB HEMETOLOGY METHOD 11/27/2024 1:03 PM [facility] RBC 3.70(L) 4.50 - 5.50 M/mcL LAB HEMETOLOGY METHOD 11/27/2024 1:03 PM [facility] LAB Hemoglobin 9.4(L) 13.5 - 17.5 g/dL LAB HEMETOLOGY METHOD 11/27/2024 1:03 PM [facility] LAB Hematocrit 30.6(L) 42.0 - 54.0 % LAB HEMETOLOGY METHOD 11/27/2024 1:03 PM [facility] LAB MCV 83.8 79.0 - 98.0 FL LAB HEMETOLOGY METHOD 11/27/2024 1:03 PM [facility] LAB MCH 25.8(L) 27.0 - 32.0 pcg LAB HEMETOLOGY METHOD 11/27/2024 1:03 PM [facility] LAB MCHC 30.7(L) 32.0 - 37.0 g/dL LAB HEMETOLOGY METHOD 11/27/2024 1:03 PM [facility] LAB RDW 16.0(H) 11.0 - 15.0 % LAB HEMETOLOGY METHOD 11/27/2024 1:03 PM [facility] LAB Platelets 262 130 - 400 K/mcL LAB HEMETOLOGY METHOD 11/27/2024 1:03 PM [facility] LAB MPV 11.3(H) 7.0 - 11.0 FL LAB HEMETOLOGY METHOD 11/27/2024 1:03 PM [facility] NRBC 0.0 <1.0 % LAB HEMETOLOGY METHOD 11/27/2024 1:03 PM [facility] LAB NRBC Absolute 0.00 <0.10 K/mcL LAB HEMETOLOGY METHOD 11/27/2024 1:03 PM [facility] Neutrophils Relative 80.8 % LAB HEMETOLOGY METHOD 11/27/2024 1:03 PM [facility] Lymphocytes Relative 9.4 % LAB HEMETOLOGY METHOD 11/27/2024 1:03 PM [facility] Monocytes Relative 5.3 % LAB HEMETOLOGY METHOD 11/27/2024 1:03 PM [facility] Eosinophils Relative 2.5 % LAB HEMETOLOGY METHOD 11/27/2024 1:03 PM [facility] Basophils Relative 0.3 % LAB HEMETOLOGY METHOD 11/27/2024 1:03 PM [facility] LAB Immature Granulocytes Relative 1.7 % LAB HEMETOLOGY METHOD 11/27/2024 1:03 PM EST [facility] Neutrophils Absolute 7.18(H) 1.50 - 7.00 K/mcL LAB HEMETOLOGY METHOD 11/27/2024 1:03 PM EST [facility] Lymphocytes Absolute 0.84(L) 1.00 - 5.00 K/mcL LAB HEMETOLOGY METHOD 11/27/2024 1:03 PM EST [facility] LAB Monocytes Absolute 0.47 0.20 - 1.00 K/[facility] LAB HEMETOLOGY METHOD 11/27/2024 1:03 PM EST [facility] LAB Eosinophils Absolute 0.22 0.00 - 0.50 K/[facility] LAB HEMETOLOGY METHOD 11/27/2024 1:03 PM EST [facility] Basophils Absolute 0.03 0.00 - 0.20 K/mcL LAB HEMETOLOGY METHOD 11/27/2024 1:03 PM EST [facility] Immature Granulocytes Absolute 0.15(H) 0.00 - 0.03 K/[facility] LAB HEMETOLOGY METHOD 11/27/2024 1:03 PM EST [facility] Blood Venous blood specimen / Unknown Venipuncture / Unknown 11/27/2024 6:07 AM EST 11/27/2024 11:06 AM EST Edmond Leija MD LAB BLOOD ORDERABLES Final Result [facility] [address] [place] [address], * (ABNORMAL) Hemoglobin A1c (11/27/2024 6:07 AM EST) Hemoglobin A1C 9.4(H) <6.5 % LAB CHEMISTRY METHOD 12/01/2024 2:00 PM EST [facility] Mean Bld Glu Estim. 223 mg/dL LAB CHEMISTRY METHOD 12/01/2024 2:00 PM EST [facility] Blood Venous blood specimen / Unknown Venipuncture / Unknown 11/27/2024 6:07 AM EST 11/27/2024 11:06 AM EST Edmond Leija MD LAB BLOOD ORDERABLES Final Result [facility] [address] [place] [address], * (ABNORMAL) Comprehensive metabolic panel (11/27/2024 6:07 AM EST) Sodium 137 133 - 145 mmol/L LAB CHEMISTRY METHOD 11/27/2024 5:23 PM [facility] Potassium 4.3 3.5 - 5.5 mmol/L LAB CHEMISTRY METHOD 11/27/2024 5:23 PM [facility] Chloride 105 96 - 110 mmol/L LAB CHEMISTRY METHOD 11/27/2024 5:23 PM [facility] CO2 24 21 - 32 mmol/L LAB CHEMISTRY METHOD 11/27/2024 5:23 PM [facility] Anion Gap 8 3 - 11 LAB CHEMISTRY METHOD 11/27/2024 5:23 PM [facility] Glucose 185(H) 70 - 100 mg/dL LAB CHEMISTRY METHOD 11/27/2024 5:23 PM [facility] BUN 51(H) 5 - 25 mg/dL LAB CHEMISTRY METHOD 11/27/2024 5:23 PM [facility] Creatinine 1.54(H) 0.70 - 1.30 mg/dL LAB CHEMISTRY METHOD 11/27/2024 5:23 PM [facility] LAB eGFR 49(L) >=60 mL/min/1. 73m2 LAB CHEMISTRY METHOD 11/27/2024 5:23 PM [facility] LAB Comment:Calculation based on the??Chronic Kidney Disease Epidemiology Collaboration (CKD-EPI) equation refit??without adjustment for race. BUN/Creatinine Ratio 33.1 LAB CHEMISTRY METHOD 11/27/2024 5:23 PM [facility] Calcium 8.9 8.5 - 10.5 mg/dL LAB CHEMISTRY METHOD 11/27/2024 5:23 PM [facility] AST (SGOT) 46(H) 10 - 42 unit/L LAB CHEMISTRY METHOD 11/27/2024 5:23 PM [facility] ALT (SGPT) 78(H) 10 - 60 unit/L LAB CHEMISTRY METHOD 11/27/2024 5:23 PM [facility] Alkaline Phosphatase 100 42 - 121 unit/L LAB CHEMISTRY METHOD 11/27/2024 5:23 PM [facility] Total Protein 5.7(L) 6.0 - 8.0 g/dL LAB CHEMISTRY METHOD 11/27/2024 5:23 PM [facility] Albumin 2.6(L) 3.2 - 5.0 g/dL LAB CHEMISTRY METHOD 11/27/2024 5:23 PM [facility] Total Bilirubin 0.3 0.0 - 1.4 mg/dL LAB CHEMISTRY METHOD 11/27/2024 5:23 PM [facility] Blood Venous blood specimen / Unknown Venipuncture / Unknown 11/27/2024 6:07 AM EST 11/27/2024 11:06 AM EST us Edmond Leija MD LAB BLOOD ORDERABLES Final Result [facility] [address] [place] [address], documented in this encounter Visit Diagnoses Diagnosis Anemia, unspecified Chronic kidney disease, unspecified Type 2 diabetes mellitus without complications (CMS/HCC) documented in this encounter Additional Health Concerns Assessment Noted Time PHQ-9 Depression Total Score: 0 09/29/20 24 10:10 AM EST documented as of this encounter Care Teams Director Airport Relationship Specialty Start Date End Date Quinn Jarrett MD [address] [place] [phone] PCP - General Internal Medicine 09/29/24 documented as of this encounter
--- OUTSIDE RECORDS SUMMARY | 2024-12-10 09:05 | XMS_ITS | Encounter Summary ---
Author Organization [facility] Address [address] [place] [address] Care Team Providers Care Supervisor [employer] Name Role Phone Qiunn Jarrett MD Primary Care Provider [phone]- [phone] Encounter Details Date Type Department Care Team (Late st Contact Info) Description 12/09/[address] [facility] - Main Lab [address] [facility] [place] [phone] Edmond Leija MD [address] [place] [phone] Hyperkalemia Social History Tobacco Use Types Packs/Day Years [...] Procedure Name Priority Date/Time Associated Diagnosis Comments BASIC METABOLIC PANEL Routine 12/09/2024 9:12 AM EDT Hyperkalemia documented in this encounter Results * (ABNORMAL) Basic metabolic panel (12/09/2024 9:12 AM EDT) Sodium 142 133 - 145 mmol/L LAB CHEMISTRY METHOD 12/09/2024 1:07 PM [facility] Potassium 5.1 3.5 - 5.5 mmol/L LAB CHEMISTRY METHOD 12/09/2024 1:07 PM [facility] Chloride 111(H) 96 - 110 mmol/L LAB CHEMISTRY METHOD 12/09/2024 1:07 PM [facility] CO2 23 21 - 32 mmol/L LAB CHEMISTRY METHOD 12/09/2024 1:07 PM [facility] Anion Gap 8 3 - 11 LAB CHEMISTRY METHOD 12/09/2024 1:07 PM [facility] Glucose 144(H) 70 - 100 mg/dL LAB CHEMISTRY METHOD 12/09/2024 1:07 PM [facility] BUN 27(H) 5 - 25 mg/dL LAB CHEMISTRY METHOD 12/09/2024 1:07 PM [facility] Creatinine 1.51(H) 0.70 - 1.30 mg/dL LAB CHEMISTRY METHOD 12/09/2024 1:07 PM [facility] eGFR 51(L) >=60 mL/min/1. 73m2 LAB CHEMISTRY METHOD 12/09/2024 1:07 PM [facility] LAB Comment:Calculation based on the??Chronic Kidney Disease Epidemiology Collaboration (CKD-EPI) equation refit??without adjustment for race. BUN/Creatinine Ratio 17.9 LAB CHEMISTRY METHOD 12/09/2024 1:[address] [facility] Calcium 8.3(L) 8.5 - 10.5 mg/dL LAB CHEMISTRY METHOD 12/09/2024 1:[address] [facility] Blood Venous blood specimen / Unknown Venipuncture / Unknown 12/09/2024 9:12 AM EDT 12/09/2024 10:40 AM EDT us Edmond Leija MD LAB BLOOD ORDERABLES Final Result [facility] [address] [place] [address], documented in this encounter Visit Diagnoses Diagnosis Hyperkalemia Hyperpotassemia documented in this encounter Additional Health Concerns Assessment Noted Time PHQ-9 Depression Total Score: 0 09/29/20 24 10:10 AM EST documented as of this encounter Care Teams Supervisor [employer] Relationship Specialty Start Date End Date Quinn Jarrett MD [address] [place] [address] [address] [place] [phone] PCP - General Internal Medicine 09/29/24 documented as of this encounter
--- OUTSIDE RECORDS SUMMARY | 2024-12-10 09:05 | XMS_ITS | Clinical Summary ---
Author Organization [facility] Address [address] [place] [address] Phone Care Team Providers Care Quality Analyst/Technical Writer Name Role Phone Quinn Jarrett MD Primary Care Provider [phone] Allergies No known active allergies Medications acetaminophen [...] Encounters Date Type Department Care Team Description 12/09/2024 Lab Requisition [facility] [address] [place] [address] Edmond Leija MD Hyperkalemia 12/03/2024 Lab Requisition [facility] [address] [place] [address] Edmond Leija MD Anemia, unspecified; Chronic kidney disease, unspecified 11/27/[address] [facility] [address] [place] [address] Edmond Leija MD Anemia, unspecified; Chronic kidney disease, unspecified; Type 2 diabetes mellitus without complications ([facility]) 10/06/2024 Plan of Care Documentation [facility] [address] [place] [phone] 09/29/2024 Plan of Care Documentation [facility] [address] [place] [phone] 09/27/2024 1:39 PM EST - 10/08/2024 4:59 PM EST Hospital Encounter [facility] [address] [place] [phone] Lata Sales DO Discharge Disposition: Short Term Hospital from Last 3 Months Medical History Medical History Date Comments HTN (hypertension) 09/28/2024 DM (diabetes mellitus) ([facility]) 09/28/2024 A-fib ([facility]) 09/28/2024 Chronic anticoagulation 09/28/2024 Mixed hyperlipidemia 09/28/2024 Gout 09/28/2024 Fall 09/28/2024 Closed head injury 09/28/2024 Contusion of left hip 09/28/2024 ARF (acute renal failure) ([facility]) 09/28/2024 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 Ventricular bigeminy 09/28/2024 [...] 09/27/2024 Diabetes: Blood Sugar Control Test (HGBA1C) 05/27/2025 11/27/2024 Depression Screening 09/29/2025 09/29/2024 Falls Risk Assessment 10/08/2025 10/08/2024 Social Influencers of Health Screening 10/08/2025 10/08/2024 Diabetes: Annual GFR (Glomerular Filtration Rate) 12/09/2025 12/09/2024, 12/04/2024, 11/27/2024, Additional history exists Hypertension/CHF/CAD Annual BMP Blood Test 12/09/2025 12/09/2024, 12/04/2024, 11/27/2024, Additional history exists DTaP,Tdap,and Td Vaccines (4 - Td or [...] patient's age to complete this topic Meningococcal B Vacine Aged Out No lo nger eligible based on patient's age to complete this topic RSV Immunization Patients Under 20 months Aged Out No longer eligible based on patient's age to complete this topic Varicella Vaccines Aged Out No longer eligible based on patient's age to complete this topic Procedures Procedure Name Priority Date/Time Associated Diagnosis Comments BASIC METABOLIC PANEL Routine 12/09/2024 9:12 AM EDT Hyperkalemia BASIC METABOLIC PANEL Routine 12/04/2024 7:23 AM EST Anemia, unspecified Chronic kidney disease, unspecified COMPLETE BLOOD COUNT Routine 12/04/2024 7:23 AM EST Anemia, unspecified Chronic kidney disease, unspecified CBC WITH AUTO DIFFERENTIAL Routine 11/27/2024 6:07 [...] Type 2 diabetes mellitus without complications (CMS/HCC) POCT GLUCOSE BLOOD Routine 10/08/2024 4: 11 [...] from Last 3 Months Results * (ABNORMAL) Basic metabolic panel (12/09/2024 9:12 AM EDT) Only the most recent of6 resultswithin the time period is included. Sodium 142 133 - 145 mmol/L LAB CHEMISTRY METHOD 12/09/2024 1:07 PM [facility] Potassium 5.1 3.5 - 5.5 mmol/L LAB CHEMISTRY METHOD 12/09/2024 1:07 PM [facility] Chloride 111(H) 96 - 110 mmol/L LAB CHEMISTRY METHOD 12/09/2024 1:07 PM [facility] CO2 23 21 - 32 mmol/L LAB CHEMISTRY METHOD 12/09/2024 1:07 PM [facility] Anion Gap 8 3 - 11 LAB CHEMISTRY METHOD 12/09/2024 1:07 PM [facility] Glucose 144(H) 70 - 100 mg/dL LAB CHEMISTRY METHOD 12/09/2024 1:07 PM [facility] BUN 27(H) 5 - 25 mg/dL LAB CHEMISTRY METHOD 12/09/2024 1:07 PM [facility] Creatinine 1.51(H) 0.70 - 1.30 mg/dL LAB CHEMISTRY METHOD 12/09/2024 1:07 PM [facility] eGFR 51(L) >=60 mL/min/1. 73m2 LAB CHEMISTRY METHOD 12/09/2024 1:07 PM [facility] Comment:Calculation based on the??Chronic Kidney Disease Epidemiology Collaboration (CKD-EPI) equation refit??without adjustment for race. BUN/Creatinine Ratio 17.9 LAB CHEMISTRY METHOD 12/09/2024 1:07 PM EDT [facility] Calcium 8.3(L) 8.5 - 10.5 mg/dL LAB CHEMISTRY METHOD 12/09/2024 1:07 PM EDT [facility] Blood Venous blood specimen / Unknown Venipuncture / Unknown 12/09/2024 9:12 AM EDT 12/09/2024 10:40 AM EDT Edmond Leija MD LAB BLOOD ORDERABLES Final Result [facility] [address] [place] [address], * (ABNORMAL) Complete blood count (12/04/2024 7:23 AM EST) Only the most recent of4 resultswithin the time period is included. WBC 6.0 4.8 - 10.8 K/mcL LAB HEMETOLOGY METHOD 12/04/2024 9:14 AM [facility] RBC 3.70(L) 4.50 - 5.50 M/[facility] LAB HEMETOLOGY METHOD 12/04/2024 9:14 AM [facility] Hemoglobin 9.5(L) 13.5 - 17.5 g/dL LAB HEMETOLOGY METHOD 12/04/2024 9:14 AM [facility] Hematocrit 31.4(L) 42.0 - 54.0 % LAB HEMETOLOGY METHOD 12/04/2024 9:14 AM [facility] MCV 85.1 79.0 - 98.0 FL LAB HEMETOLOGY METHOD 12/04/2024 9:14 AM [facility] MCH 25.7(L) 27.0 - 32.0 pcg LAB HEMETOLOGY METHOD 12/04/2024 9:14 AM [facility] MCHC 30.3(L) 32.0 - 37.0 g/dL LAB HEMETOLOGY METHOD 12/04/2024 9:14 AM EST [facility] RDW 15.9(H) 11.0 - 15.0 % LAB HEMETOLOGY METHOD 12/04/2024 9:14 AM [facility] Platelets 318 130 - 400 K/mcL LAB HEMETOLOGY METHOD 12/04/2024 9:14 AM [facility] MPV 10.7 7.0 - 11.0 FL LAB HEMETOLOGY METHOD 12/04/2024 9:14 AM [facility] NRBC 0.0 <1.0 % LAB HEMETOLOGY METHOD 12/04/2024 9:14 AM [facility] NRBC Absolute 0.00 <0.10 K/mcL LAB HEMETOLOGY METHOD 12/04/2024 9:14 AM [facility] Blood Venous blood specimen / Unknown Venipuncture / Unknown 12/04/2024 7:23 AM EST 12/04/2024 8:59 AM EST Edmond Leija MD LAB BLOOD ORDERABLES Final Result [facility] [address] [place] [address], * (ABNORMAL) CBC auto differential (11/27/2024 6:07 AM EST) Only the most recent of3 resultswithin the time period is included. WBC 8.9 4.8 - 10.8 K/mcL LAB HEMETOLOGY METHOD 11/27/2024 1:03 PM [facility] RBC 3.70(L) 4.50 - 5.50 M/mcL LAB HEMETOLOGY METHOD 11/27/2024 1:03 PM [facility] Hemoglobin 9.4(L) 13.5 - 17.5 g/dL LAB HEMETOLOGY METHOD 11/27/2024 1:03 PM [facility] Hematocrit 30.6(L) 42.0 - 54.0 % LAB HEMETOLOGY METHOD 11/27/2024 1:03 PM [facility] MCV 83.8 79.0 - 98.0 FL LAB HEMETOLOGY METHOD 11/27/2024 1:03 PM [facility] MCH 25.8(L) 27.0 - 32.0 pcg LAB HEMETOLOGY METHOD 11/27/2024 1:03 PM [facility] MCHC 30.7(L) 32.0 - 37.0 g/dL LAB HEMETOLOGY METHOD 11/27/2024 1:03 PM [facility] RDW 16.0(H) 11.0 - 15.0 % LAB HEMETOLOGY METHOD 11/27/2024 1:03 PM [facility] Platelets 262 130 - 400 K/mcL LAB HEMETOLOGY METHOD 11/27/2024 1:03 PM [facility] MPV 11.3(H) 7.0 - 11.0 FL LAB HEMETOLOGY METHOD 11/27/2024 1:03 PM [facility] NRBC 0.0 <1.0 % LAB HEMETOLOGY METHOD 11/27/2024 1:03 PM [facility] NRBC Absolute 0.00 <0.10 K/mcL LAB HEMETOLOGY METHOD 11/27/2024 1:03 PM [facility] Neutrophils Relative 80.8 % LAB HEMETOLOGY METHOD 11/27/2024 1:03 PM [facility] Lymphocytes Relative 9.4 % LAB HEMETOLOGY METHOD 11/27/2024 1:03 PM [facility] Monocytes Relative 5.3 % LAB HEMETOLOGY METHOD 11/27/2024 1:03 PM [facility] Eosinophils Relative 2.5 % LAB HEMETOLOGY METHOD 11/27/2024 1:03 PM EST [facility] Basophils Relative 0.3 % LAB HEMETOLOGY METHOD 11/27/2024 1:03 PM [facility] Immature Granulocytes Relative 1.7 % LAB HEMETOLOGY METHOD 11/27/2024 1:03 PM [facility] Neutrophils Absolute 7.18(H) 1.50 - 7.00 K/mcL LAB HEMETOLOGY METHOD 11/27/2024 1:03 PM EST [facility] Lymphocytes Absolute 0.84(L) 1.00 - 5.00 K/mcL LAB HEMETOLOGY METHOD 11/27/2024 1:03 PM [facility] Monocytes Absolute 0.47 0.20 - 1.00 K/mcL LAB HEMETOLOGY METHOD 11/27/2024 1:03 PM [facility] Eosinophils Absolute 0.22 0.00 - 0.50 K/mcL LAB HEMETOLOGY METHOD 11/27/2024 1:03 PM EST [facility] Basophils Absolute 0.03 0.00 - 0.20 K/mcL LAB HEMETOLOGY METHOD 11/27/2024 1:03 PM [facility] Immature Granulocytes Absolute 0.15(H) 0.00 - 0.03 K/mcL LAB HEMETOLOGY METHOD 11/27/2024 1:03 PM [facility] Blood Venous blood specimen / Unknown Venipuncture / Unknown 11/27/2024 6:07 AM EST 11/27/2024 11:06 AM EST us Edmond Leija MD LAB BLOOD ORDERABLES Final Result [facility] [address] [place] [address], * (ABNORMAL) Hemoglobin A1c (11/27/2024 6:07 AM EST) Pathologist [facility] Hemoglobin A1C 9.4(H) <6.5 % LAB CHEMISTRY METHOD 12/01/2024 2:00 PM EST [facility] Mean Bld Glu Estim. 223 mg/dL LAB CHEMISTRY METHOD 12/01/2024 2:00 PM [facility] Blood Venous blood specimen / Unknown Venipuncture / Unknown 11/27/2024 6:07 AM EST 11/27/2024 11:06 AM EST us Edmond Leija MD LAB BLOOD ORDERABLES Final Result [facility] [address] [place] [address], * (ABNORMAL) Comprehensive metabolic panel (11/27/2024 6:07 AM EST) Only the most recent of3 resultswithin the time period is included. [facility] Sodium 137 133 - 145 mmol/L LAB CHEMISTRY METHOD 11/27/2024 5:23 PM [facility] Potassium 4.3 3.5 - 5.5 mmol/L LAB CHEMISTRY METHOD 11/27/2024 5:23 PM [facility] Chloride 105 96 - 110 mmol/L LAB CHEMISTRY METHOD 11/27/2024 5:23 PM [facility] CO2 24 21 - 32 mmol/L LAB CHEMISTRY METHOD 11/27/2024 5:23 PM [facility] Anion Gap 8 3 - 11 LAB CHEMISTRY METHOD 11/27/2024 5:23 PM [facility] Glucose 185(H) 70 - 100 mg/dL LAB CHEMISTRY METHOD 11/27/2024 5:23 PM [facility] BUN 51(H) 5 - 25 mg/dL LAB CHEMISTRY METHOD 11/27/2024 5:23 PM [facility] Creatinine 1.54(H) 0.70 - 1.30 mg/dL LAB CHEMISTRY METHOD 11/27/2024 5:23 PM [facility] eGFR 49(L) >=60 mL/min/1. 73m2 LAB CHEMISTRY METHOD 11/27/2024 5:23 PM [facility] Comment:Calculation based on the??Chronic Kidney Disease Epidemiology Collaboration (CKD-EPI) equation refit??without adjustment for race. BUN/Creatinine Ratio 33.1 LAB CHEMISTRY METHOD 11/27/2024 5:23 PM [facility] Calcium 8.9 8.5 - 10.5 mg/dL LAB CHEMISTRY METHOD 11/27/2024 5:23 PM [facility] AST (SGOT) 46(H) 10 - 42 unit/L LAB CHEMISTRY METHOD 11/27/2024 5:23 PM [facility] ALT (SGPT) 78(H) 10 - 60 unit/L LAB CHEMISTRY METHOD 11/27/2024 5:23 PM [facility] Alkaline Phosphatase 100 42 - 121 unit/L LAB CHEMISTRY METHOD 11/27/2024 5:23 PM [facility] Total Protein 5.7(L) 6.0 - 8.0 g/dL LAB CHEMISTRY METHOD 11/27/2024 5:23 PM [facility] Albumin 2.6(L) 3.2 - 5.0 g/dL LAB CHEMISTRY METHOD 11/27/2024 5:23 PM [facility] Total Bilirubin 0.3 0.0 - 1.4 mg/dL LAB CHEMISTRY METHOD 11/27/2024 5:23 PM [facility] Blood Venous blood specimen / Unknown Venipuncture / Unknown 11/27/2024 6:07 AM EST 11/27/2024 11:06 AM EST us Edmond Leija MD LAB BLOOD ORDERABLES Final Result [facility] [address] [place] [address], [place] [phone] * (ABNORMAL) POCT Glucose, blood (10/08/2024 4:11 PM EST) Only the most recent of51 resultswithin the time period is included. Glucose POCT 176(H) 70 - 100 mg/dL 10/08/2024 4:25 PM EST [facility] Blood Capillary blood specimen / Unknown 10/08/2024 4:11 PM EST 10/08/2024 4:27 PM EST us Lata Sales DO LAB POINT OF CARE TEST DOCKED DEVICE UNSOLICITED RESULTS Final Result [facility] [address] [place] [address], [place] [phone] * CT Head wo Contrast (10/08/2024 2:49 [...] Signed Date: 10/08/2024 16:02 ET Workstation ID: [id number] Transcribed By: Self Edit Transcribed Date: 10/08/2024 15:52 ET Narrative 10/08/2024 4:02 PM EST INDICATION: Subdural hematoma, functional decline Technique: Axial images were obtained from the skull base to the vertex without contrast enhancement. Coronal and sagittal reformats obtained. Scanner: Simple 64 slice VCT Dose reduction technique: ASIR [...] enhancement. Coronal and sagittal reformats obtained. Scanner: [employer] 64 slice VCT Dose reduction technique: ASIR [...] Signed Date: 10/08/2024 16:02 ET Workstation ID: [id number] Transcribed By: Self Edit Transcribed Date: 10/08/2024 15:52 ET Lata Sales DO IMG CT PROCEDURES Final R esult * Lavender tube (10/03/2024 6:16 AM EST) Pathologist [facility] Extra Tube Hold for add-ons. 10/03/2024 9:02 AM EST [facility] Comment:Auto resulted. Blood Venous blood specimen / Unknown Venipuncture / Unknown 10/03/2024 6:16 AM EST 10/03/2024 7:05 AM EST Lata Sales DO LAB BLOOD ORDERABLES Magali l Result [facility] [address] [place] [address], [place] [phone] * ECG 12 lead (10/02/2024 7:40 AM EST) Ventricular Rate ECG 66 BPM GEMUSE Atrial Rate 66 BPM GEMUSE P-R Interval 208 ms GEMUSE QRS Duration 96 ms GEMUSE Q-T Interval 428 ms GEMUSE QTc 448 ms GEMUSE P Wave [place] 56 degrees GEMUSE R [place] 7 degrees GEMUSE T [place] 56 degrees GEMUSE ECG Interpretation Sinus rhythm with Premature atrial complexes Otherwise normal ECG No previous ECGs available Confirmed by MD Case, Pablo ([id number]) on 10/02/2024 5:31:36 PM GEMUSE 10/02/2024 7:40 AM EST 10/02/2024 5:31 PM EST Lata Dorcas Sales DO ECG ORDERABLES Final Res ult Performing Organization Address City/[facility]/ZIP Co de Phone Number GEMUSE * Magnesium (10/02/2024 5:49 AM EST) Magnesium 2.5 1.9 - 2.6 mg/dL LAB CHEMISTRY METHOD 10/02/2024 6:28 AM EST [facility] Blood Venous blood specimen / Unknown Venipuncture / Unknown 10/02/2024 5:49 AM EST 10/02/2024 6:05 AM EST Shamar Upton MD LAB BLOOD ORDERABLES Final Re sult Performing Organization Address City/[facility] Co de Phone Number [facility] [address] [place] [address], [place] [phone] * ECG-Annotated (09/27/2024) Provider Onbase ECG ORDERABLES Final Result from Last 3 Months Insurance [employer] Advance Directives Documents on File Type Date 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 Care Teams Quality Analyst/Technical Writer Relationship Specialty Start Date End Date Quinn Jarrett MD [address] [place] [address] [facility] [address] [place] [address] PCP - General Internal Medicine 09/29/24
--- OUTSIDE RECORDS SUMMARY | 2024-12-10 09:05 | XMS_ITS | Continuity of Care Document ---
Author Organization [facility] Address [address] [place] [address] [place] [address], [address] [place] [address]- Care Team Providers Care Carbon Setter Name Role Phone Not on Staff, PCP Primary Care Physician Unavail able Encounter [facility] Date(s): 10/13/24 - 11/22/24 [facility] [address] [place] [address] Drive [address] [place], [place] [address] Attending Physician: Chrystal Dennis MD Referring Physician: Quinn Jarrett MD Encounter Type: Pre Office Visit Allergies, Adverse Reactions, Alerts No Known Allergies [...] virus vaccine, inactivated 06/07/10 Leonard rded SARS-CoV-2(COVID-19)mRNA-LNP vac([id number]) 08/20/24 Recorded tetanus-diphtheria toxoids (Td) 05/09/22 Recorded [...] Date: 11/15/24 Status: Ordered Repeat number: 1 Insulin Glargine Solostar Pen 100 units/mL subcutaneous solution = 52 units, Subcutaneous Infusion, Daily, # 15 mL, 0 Refills, Maintenance, 10/13/24 1:32:00 PM EST, [facility] upon patient request [...] 0 Refills, Maintenance, 10/13/24 1:35:00 PM EST, [facility], Partial fill upon [...] 11/15/24 Status: Ordered Repeat number: 1 Keppra 1000 mg oral tablet 1 tablet = 1,000 mg, By Mouth, 2 times a day, # 60 tablet, 5 Refills, Maintenance, 11/05/24 11:32:00 AM EST, Tablet, [facility], Partial fill upon patient request if the prescription is for a schedule II opioid drug., 183, cm, 11/02/24 23:57:00 EST, Height, 113.6, kg, 10/22/24 20:44:00 EST, Dry Weight Start Date: 11/05/24 Status: Ordered Quantity: 60.0 Unit: tablet Repeat number: 6 David Bonillaostar Pen 100 units/mL subcutaneous solution = 52 units, Subcutaneous Injection, Daily, 0 Refills, Maintenance, 11/15/24 4:00:00 PM EST, Partial fill upon patient request if the prescription is for a schedule II opioid drug. Start Date: 11/15/24 Status: Ordered Repeat number: 1 levETIRAcetam 1000 mg oral tablet 1 tablet = 1,000 mg, By Mouth, 2 times a day, # 60 tablet, 0 Refills, Maintenance, 11/15/24 3:59:00 PM EST, Tablet, Partial fill upon patient request if the prescription is for a schedule II opioid drug. Start Date: 11/15/24 Status: Ordered Quantity: 60.0 Unit: tablet Repeat number: 1 lisinopril 10 mg oral tablet 10 mg, 1, tablet, By Mouth, Daily, # 30 tablet, Refills 0, Tot. Refills 0, Maintenance, 11/05/24 11:37:00 AM EST, Route to Pharmacy Electronically, [facility], Partial fill upon patient request if the prescription is for a schedule II opioid drug., 183, cm, 11/02/24 23:57:00 EST, Height, 113.6, kg, 10/22/24 20:44:00 EST, Dry Weight Start Date: 11/05/24 Status: Ordered Quantity: 30.0 Unit: tablet Repeat number: 1 lisinopril 10 mg oral tablet 10 mg, 1, tablet, By Mouth, Daily, # 30 tablet, Refills 0, Maintenance, 11/15/24 3:59:00 PM EST, Partial fill upon patient request [...] 30.0 Unit: tablet Repeat number: 1 Pen [place], 31 G x 5 mm BD Ultra [...] Refills, Maintenance, 11/05/24 11:34:00 AM EST, Tablet, [facility], Partial fill upon patient request if the prescription is for a schedule II opioid drug., 183, cm, 11/02/24 23:57:00 EST, Height, 113.6, kg, 10/22/24 20:44:00 EST, Dry Weight Start Date: 11/05/24 Stop Date: 12/05/24 Status: Ordered Quantity: 30.0 Unit: tablet Repeat number: 1 torsemide 40 mg oral tablet 1 tablet = 40 mg, By Mouth, Daily, # 30 tablet, 0 Refills, Maintenance, 11/15/24 4:10:00 PM EST, Tablet, Partial fill upon patient request if the prescription is for a schedule II opioid drug. Start Date: 11/15/24 Status: Ordered Quantity: 30.0 Unit: tablet Repeat number: 1 tranexamic acid 650 mg oral tablet = 650 mg, By Mouth, Daily, # 16 tablet, 0 Refills, Maintenance, 10/13/24 1:54:00 PM EST, Tablet, [facility], Partial fill upon [...] Date: 09/27/24 Status: Ordered Repeat number: 1 Social History Social History Type Response Sex Male Sex Representation Male (finding) Patient Care team information Care Team Personnel Name: Aida Ruelas RN Position: S RN Member Role: Primary Care Nurse Name: Shivani Carlson RN Position: S RN Member Role: Primary Care Nurse Name: Shala Horne RN Position: S RN Member Role: Primary Care Nurse Name: Rhoda Starr RN Position: S RN Member Role: Primary Care Nurse Name: Candy Goodson RN Position: S RN Member Role: Primary Care Nurse Name: Lainey Bustillo Position: S RN Member Role: Primary Care Nurse Name: France Stover RN Position: S RN Member Role: Primary Care Nurse Name: Matilda Monk RN Position: S RN Member Role: Primary Care Nurse Name: Iraj Jordan RN Position: [facility] RN Member Role: Primary Care Nurse Name: Harpreet Haywood RN Position: [facility] RN Member Role: Primary Care Nurse Name: Nisha Miller NP Position: [facility] Associate Professional Member Role: Lifetime Consulting Provider Address: [address] [place] [address] [address] [address] Telecom: Name: Armond Castro MD Position: [facility] Renal MD Member Role: Lifetime Consulting Physician Address: [address] [place] [address] [address] [address] Telecom: Name: Micaela Fonseca RN Position: [facility] RN Member Role: Primary Care Nurse Name: Brigida Patel RN Position: [facility] RN Member Role: Primary Care Nurse Name: Alison Patel RN Position: [facility] RN Member Role: Primary Care Nurse Name: Not on Staff, PCP Position: [facility] Physician (General Medicine) Member Role: PCP Name: Yessi Tavares RN Position: [facility] RN Member Role: Primary Care Nurse Name: Tamara Lovell RN Position: [facility] RN Member Role: Primary Care Nurse Name: Katia Sahni RN Position: [facility] RN Member Role: Primary Care Nurse Care Team Related Persons Name: JANETSONAL Name: [facility], VIVI Insurance Providers Guarantor name: NA Health Plan Information #: 1 Payer: [employer] PPO [employer] Member Number: [id number] Policy Number: NA Group Number: [id number] Health Plan Information #: 2 Payer: [employer] PPO [employer] Member Number: [id number] Policy Number: NA Group Number: NA
--- OUTSIDE RECORDS SUMMARY | 2024-12-10 09:05 | XMS_ITS | Continuity of Care Document ---
Author Organization [facility] Address [address] [place] [address] bianka, [address] [place] [address]- Care Team Providers Care Office Chair Assembler Name Role Phone Liss GUIDRY, Edmond Marcus Primary Care Physician [phone] Encounter [facility] Date(s): 10/22/24 - 12/06/[address] [place], [place] [address] Attending Physician: Chrystal Dennis MD Encounter Type: Pre Office Visit Allergies, [...] virus vaccine, inactivated 06/07/10 Leonard rded SARS-CoV-2(COVID-19)mRNA-LNP vac([id number]) 08/20/24 Recorded tetanus-diphtheria toxoids (Td) 05/09/22 Recorded [...] 11/15/24 Status: Ordered Repeat number: 1 Pen [place], 31 G x 5 mm BD Ultra [...] atus Informant Obese class I Confirmed Active Social History Social History Type Response Sex Male Sex Representation Male (finding) Patient Care team information Care Team Personnel Name: Aida Ruelas RN Position: [facility] RN Member Role: Primary Care Nurse Name: Shivani Carlson RN Position: [facility] SN RN Member Role: Primary Care Nurse Name: Shala Horne RN Position: [facility] RN Member Role: Primary Care Nurse Name: Rhoda Starr RN Position: [facility] RN Member Role: Primary Care Nurse Name: Candy Goodson RN Position: [facility] RN Member Role: Primary Care Nurse Name: Lainey Bustillo Position: [facility] RN Member Role: Primary Care Nurse Name: France Stover RN Position: [facility] RN Member Role: Primary Care Nurse Name: Matilda Monk RN Position: [facility] RN Member Role: Primary Care Nurse Name: Iraj Jordan RN Position: [facility] RN Member Role: Primary Care Nurse Name: Harpreet Haywood RN Position: [facility] RN Member Role: Primary Care Nurse Name: Marisa Erwin RN Position: [facility] RN Member Role: Primary Care Nurse Name: Nisha Miller NP Position: [facility] Associate Professional Member Role: Lifetime Consulting Provider Address: [address] [place] [address] [address] [facility] [address] Telecom: Name: Armond Castro MD Position: [facility] Renal MD Member Role: Lifetime Consulting Physician Address: [address] [place] [address] [address]E [facility] [address] Telecom: Name: Micaela Fonseca RN Position: [facility] RN Member Role: Primary Care Nurse Name: Brigida Patel RN Position: [facility] RN Member Role: Primary Care Nurse Name: Alison Patel RN Position: [facility] RN Member Role: Primary Care Nurse Name: Chung Sanders MD Position: [facility] Renal MD Member Role: Lifetime Consulting Physician Address: [address] [facility] [address] [facility] [place] [address]- Telecom: Name: Yessi Tavares RN Position: [facility] RN Member Role: Primary Care Nurse Name: Tamara Lovell RN Position: [facility] RN Member Role: Primary Care Nurse Name: Hakan Soto RN Position: [facility] RN Member Role: Primary Care Nurse Name: Katia Sahni RN Position: [facility] RN Member Role: Primary Care Nurse Name: Edmond Leija MD Position: [facility] Outreach Member Role: PCP Address: [address] [facility] [place] [address]- Telecom: Care Team Related Persons Name: SONAL GONZALES [facility] Insurance Providers Guarantor name: FIDEL Health Plan Information #: 1 Payer: A[employer] PPO MCARE ADV Member Number: [id number] Policy Number: NA Group Number: [id number] Health Plan Information #: 2 Payer: A[employer] PPO MCARE ADV Member Number: [id number] Policy Number: NA Group Number: [id number]
--- OUTSIDE RECORDS SUMMARY | 2024-12-10 09:05 | XMS_ITS | Continuity of Care Document ---
Author Organization [facility] ter Address [address] [place] [address]- Care Team Providers Care Testing Specialist Name Role Phone Liss GUIDRY, Edmond Marcus Primary Care Physician Encounter [facility] Date(s): 11/30/24 - 11/30/[address] [address]- Encounter Diagnosis Dizziness(Final) - 11/30/24 Discharge Disposition: A-Transfer SNF Attending Physician: Christian Montesinos DO Admitting Physician: Christian Montesinos DO Referring Physician: Not on Staff, Referring [...] virus vaccine, inactivated 06/07/10 Leonard rded SARS-CoV-2(COVID-19)mRNA-LNP vac([id number]) 08/20/24 Recorded tetanus-diphtheria toxoids (Td) 05/09/22 Recorded [...] 11/15/24 Status: Ordered Repeat number: 1 Pen [place], 31 G x 5 mm BD Ultra [...] atus Informant Obese class I Confirmed Active Vital Signs Most recent to oldest [Reference Range]: 1 2 3 Height 183 cm (11/30/24 1:38 PM) 183 cm (11/30/24 9:27 AM) 183 cm (11/30/24 7:48 AM) Weight 115.9 kg (11/30/24 1:38 PM) 115.9 kg (11/30/24 9:27 AM) 115.9 kg (11/30/24 7:48 AM) Oxygen Saturation [94-100 %] 97 % (11/30/24 4:48 PM) 96 % (11/30/24 1:38 PM) 97 % (11/30/24 11:28 AM) Pulse Rate [55-90 bpm] 80 bpm (11/30/24 4:48 PM) 90 bpm (11/30/24 1:38 PM) 78 bpm (11/30/24 11:28 AM) Body Mass Index [18.5-24.99 kg/m2] 34.61 kg/m2 *>HHI* (11/30/24 1:38 PM) Blood Pressure [90-138/55-84 mm Hg] 150/69mm Hg *H* (11/30/24 4:48 PM) 174/95mm Hg *H* (11/30/24 1:38 PM) 144/64mm Hg *H* (11/30/24 11:28 AM) Respiratory Rate [16-30 br/min] 16 br/min (11/30/24 4:48 PM) 15 br/min *L* (11/30/24 1:38 PM) 16 br/min (11/30/24 11:28 AM) Temperature [96.8-100.4 DegF] 97.8 DegF (11/30/24 4:48 PM) 97.7 DegF (11/30/24 10:32 AM) 97.7 DegF (11/30/24 7:48 AM) Liters per Minute 2 L/min (11/30/24 1:38 PM) 2 L/min (11/30/24 11:28 AM) 2 L/min (11/30/24 10:32 AM) Mode of Delivery (Oxygen) Room air (11/30/24 4:48 PM) Nasal cannula (11/30/24 1:38 PM) Room air (11/30/24 11:28 AM) Temperature Route Oral (11/30/24 4:48 PM) Oral (11/30/24 10:32 AM) Oral (11/30/24 7:48 AM) Weight Obtained Via Patient/family state d (11/30/24 9:27 AM) Social History Social History Type Response Sex Male Sex Representation Male (finding) EKG study * Event Display: ECG 12-Lead Authored Date: Please click on pdf link to open report * Event Display: ECG 12-Lead Authored Date: Ventricular Rate: 74 BPM QRS Duration: 88 ms Q-T Interval: 356 ms QTC Calculation(Bazett): 395 ms R [place]: 22 degrees T [place]: 47 degrees Atrial flutter with variable A-V block Abnormal ECG When compared with ECG of 29-Nov-2024 13:13, No significant change Confirmed by Onesimo Deleon ([id number]) on 11/30/2024 1:51:31 PM [place]: Onesimo Deleon Note * Segundo GUIDRY, Memo Martinez: PERFORM Event Display: Patient Education Leaflets Authored Date: [id number] Dizziness (Uncertain Cause) ?? [id number] Dizziness (Uncertain Cause) Dizziness is a common symptom. It may be described as a feeling of light- headedness, spinning, or feeling like you are going to faint. Dizziness can have many causes. Tell the healthcare provider about: ??? All medicines you take. This includes prescription and [id number]-[id number] medicines, herbs, and supplements. And tell your healthcare provider about any change in your medicines. ??? Any other symptoms you have ??? Any health problems you are being treated for ??? Any past major health problems you've had, such as a heart attack, balance issues, hearing problems, stiffness in the neck and shoulders, or blood pressure problems ??? Anything that causes the dizziness to get worse or better ??? Any recent head trauma, neck injury, or history of migraine ??? Whether the dizziness came on all at once or was gradual ??? Whether a dizziness episode occurs in a particular position of your head or posture Sometimes the exact cause for your dizziness cannot be found right away .??Other tests may be needed. Follow your healthcare provider's instructions. Home care ??? Dizziness that occurs with sudden standing may be a sign of mild dehydration. Drink extra fluids for the next few days. If you tend to get dizzy whenever you stand up from a sitting or lying (reclining) position: o Avoid sudden changes in posture. o Get up from a lying position slowly, and stay seated for a few moments before standing. o When standing, make sure you have something to hold on to. ??? If you recently started a new medicine, stopped a medicine, or had the dose of a current medicine changed,??talk with the prescribing healthcare provider. Your medicine plan may needadjustment. ??? If dizziness lasts more than a few seconds, sit or lie down until it passes. This may help prevent injury in case you pass out. Get up slowly when you feel better. ??? You may need a cane or other walking aids to avoid falling if you get dizzy. ??? Discuss your daily intake of caffeine, alcohol, and tobacco with your healthcare provider. ??? Don't drive or use power tools or dangerous equipment until you have had no dizziness for at least 48 hours. ?? Follow-up care Follow up with your healthcare provider for further evaluation in the next 7 days, or as advised. ?? When to get medical advice Call your healthcare provider for any of the following: ??? Worsening of symptoms or new symptoms ??? Repeated vomiting ??? Headache ??? Vision or hearing changes Call 911 Call 911, right away if any of these occur: ??? Sudden severe headache or chest, arm, neck, back, or jaw pain ??? Numbness or weakness of an arm or leg or one side of the face ??? Vomit or stool that's black or red ??? Shortness of breath ??? Feeling that your heart is fluttering or beating fast orhard (palpitations) ??? Passing out or seizure ??? Trouble walking or speaking ?? Last Reviewed Date: 2024 ?? [id number] [employer]. All rights reserved. This information is not intended as a substitute for professional medical care. Always follow your healthcare professional's instructions. ?? Patient Care team information Care Team Personnel Name: Aida Ruelas RN Position: [facility] RN Member Role: Primary Care Nurse Name: Shivani Carlson RN Position: [facility] RN Member Role: Primary Care Nurse Name: Shala Horne RN Position: S RN Member Role: Primary Care Nurse Name: Rhoda Starr RN Position: [facility] RN Member Role: Primary Care Nurse Name: Candy Goodson RN Position: [facility] RN Member Role: Primary Care Nurse Name: Lainey Bustillo Position: [facility] RN Member Role: Primary Care Nurse Name: France Stover RN Position: [facility] RN Member Role: Primary Care Nurse Name: Matilda Monk RN Position: [facility] RN Member Role: Primary Care Nurse Name: Iraj Jordan RN Position: [facility] RN Member Role: Primary Care Nurse Name: Harpreet Haywood RN Position: [facility] RN Member Role: Primary Care Nurse Name: Marisa Erwin RN Position: [facility] RN Member Role: Primary Care Nurse Name: Nisha Miller NP Position: [facility] Associate Professional Member Role: Lifetime Consulting Provider Address: [address] [place], [place] [address]E [facility] [address] Telecom: Name: Armond Castro MD Position: [facility] Renal MD Member Role: Lifetime Consulting Physician Address: [address] [place] [address] [address] [facility] [address] Telecom: Name: Micaela Fonseca RN Position: [facility] RN Member Role: Primary Care Nurse Name: Brigida Patel RN Position: [facility] RN Member Role: Primary Care Nurse Name: Alison Patel RN Position: [facility] RN Member Role: Primary Care Nurse Name: Chung Sanders MD Position: [facility] Renal MD Member Role: Lifetime Consulting Physician Address: [facility] [address] [facility] [place] [address]- Telecom: Name: Yessi Tavares RN Position: [facility] RN Member Role: Primary Care Nurse Name: Tamara Lovell RN Position: [facility] RN Member Role: Primary Care Nurse Name: Hakan Soto RN Position: [facility] RN Member Role: Primary Care Nurse Name: Katia Sahni RN Position: [facility] RN Member Role: Primary Care Nurse Name: Edmond Leija MD Position: [facility] Outreach Member Role: PCP Address: [address] [place] [address] [place] [address]- Telecom: Care Team Related Persons Name: SONAL GONZALES Name: [facility] [employer] Insurance Providers Guarantor name: FIDEL Health Plan Information #: 1 Payer: A[employer] PPO MCARE ADV Member Number: [id number] Policy Number: NA Group Number: [id number] Health Plan Information #: 2 Payer: AARP PPO MCARE ADV Member Number: [id number] Policy Number: NA Group Number: NA
--- OUTSIDE RECORDS SUMMARY | 2024-12-10 09:05 | XMS_ITS | Encounter Summary ---
Author Organization [facility] Address [address] [place] [address] Care Team Providers Care Valet Cashier Name Role Phone Quinn Jarrett MD Primary Care Provider [phone] Encounter Details Date Type Department Care Team (Late st Contact Info) Description 12/03/2024 Lab Requisition [facility] [address] [facility] [place] [phone] Edmond Leija MD [address] [place] [address] Anemia, unspecified; Chronic kidney disease, unspecified Social History Tobacco Use Types Packs/Day Years [...] Procedure Name Priority Date/Time Associated Diagnosis Comments COMPLETE BLOOD COUNT Routine 12/04/2024 7:23 AM EST Anemia, unspecified Chronic kidney disease, unspecified BASIC METABOLIC PANEL Routine 12/04/2024 7:23 AM EST Anemia, unspecified Chronic kidney disease, unspecified documented in this encounter Results * (ABNORMAL) Basic metabolic panel (12/04/2024 7:23 AM EST) Sodium 138 133 - 145 mmol/L LAB CHEMISTRY METHOD 12/04/2024 9:47 AM [facility] Potassium 5.6(H) 3.5 - 5.5 mmol/L LAB CHEMISTRY METHOD 12/04/2024 9:47 AM [facility] Chloride 107 96 - 110 mmol/L LAB CHEMISTRY METHOD 12/04/2024 9:47 AM [facility] CO2 25 21 - 32 mmol/L LAB CHEMISTRY METHOD 12/04/2024 9:47 AM [facility] Anion Gap 6 3 - 11 LAB CHEMISTRY METHOD 12/04/2024 9:47 AM [facility] Glucose 92 70 - 100 mg/dL LAB CHEMISTRY METHOD 12/04/2024 9:47 AM [facility] BUN 21 5 - 25 mg/dL LAB CHEMISTRY METHOD 12/04/2024 9:47 AM [facility] Creatinine 1.35(H) 0.70 - 1.30 mg/dL LAB CHEMISTRY METHOD 12/04/2024 9:47 AM [facility] eGFR 58(L) >=60 mL/min/1. 73m2 LAB CHEMISTRY METHOD 12/04/2024 9:47 AM EST [facility] Comment:Calculation based on the??Chronic Kidney Disease Epidemiology Collaboration (CKD-EPI) equation refit??without adjustment for race. BUN/Creatinine Ratio 15.6 LAB CHEMISTRY METHOD 12/04/2024 9:47 AM EST [facility] Calcium 8.9 8.5 - 10.5 mg/dL LAB CHEMISTRY METHOD 12/04/2024 9:47 AM [facility] Blood Venous blood specimen / Unknown Venipuncture / Unknown 12/04/2024 7:23 AM EST 12/04/2024 8:59 AM EST us Edmond Leija MD LAB BLOOD ORDERABLES Final Result [facility] [address] [place] [address], [place] [phone] * (ABNORMAL) Complete blood count (12/04/2024 7:23 AM EST) WBC 6.0 4.8 - 10.8 K/mcL LAB HEMETOLOGY METHOD 12/04/2024 9:14 AM [facility] RBC 3.70(L) 4.50 - 5.50 M/mcL LAB HEMETOLOGY METHOD 12/04/2024 9:14 AM [facility] Hemoglobin 9.5(L) 13.5 - 17.5 g/dL LAB HEMETOLOGY METHOD 12/04/2024 9:14 AM [facility] Hematocrit 31.4(L) 42.0 - 54.0 % LAB HEMETOLOGY METHOD 12/04/2024 9:14 AM [facility] MCV 85.1 79.0 - 98.0 FL LAB HEMETOLOGY METHOD 12/04/2024 9:14 AM [facility] MCH 25.7(L) 27.0 - 32.0 pcg LAB HEMETOLOGY METHOD 12/04/2024 9:14 AM [facility] MCHC 30.3(L) 32.0 - 37.0 g/dL LAB HEMETOLOGY METHOD 12/04/2024 9:14 AM EST [facility] RDW 15.9(H) 11.0 - 15.0 % LAB HEMETOLOGY METHOD 12/04/2024 9:14 AM [facility] Platelets 318 130 - 400 K/mcL LAB HEMETOLOGY METHOD 12/04/2024 9:14 AM EST [facility] MPV 10.7 7.0 - 11.0 FL LAB HEMETOLOGY METHOD 12/04/2024 9:14 AM EST [facility] NRBC 0.0 <1.0 % LAB HEMETOLOGY METHOD 12/04/2024 9:14 AM [facility] NRBC Absolute 0.00 <0.10 K/mcL LAB HEMETOLOGY METHOD 12/04/2024 9:14 AM [facility] Blood Venous blood specimen / Unknown Venipuncture / Unknown 12/04/2024 7:23 AM EST 12/04/2024 8:59 AM EST Edmond Leija MD LAB BLOOD ORDERABLES Final Result [facility] [address] [place] [address], documented in this encounter Visit Diagnoses Diagnosis Anemia, unspecified Chronic kidney disease, unspecified documented in this encounter Additional Health Concerns Assessment Noted Time PHQ-9 Depression Total Score: 0 09/29/20 24 10:10 AM EST documented as of this encounter Care Teams Valet Cashier Relationship Specialty Start Date End Date Quinn Jarrett MD [address] [place] [address] [address] [place] [address] PCP - General Internal Medicine 09/29/24 documented as of this encounter
--- OUTSIDE RECORDS SUMMARY | 2024-12-10 09:05 | XMS_ITS | Clinical Summary ---
Author Organization [facility] Address [address] [address] Phone Care Team Providers Care Training Intern Name Role Phone Unavailable Primary Care Provider Unavailabl e Social History Tobacco Use Types Packs/Day Years Used Date Smoking Tobacco: Never Assessed Sex and Gender Information Value Date Recorded Sex Assigned at Not on file Legal Sex Male 10:05 AM EST Gender Identity Not on file Sexual Orientation Not on file Plan of Treatment Upcoming Encounters Date Type Department Care Team (Late st Contact Info) Description 01/01/2025 1:45 PM EDT Office Visit [facility] [address] [address] [place] [facility] [address] [address] Health Maintenance Due Date Last Done Comments Pneumococcal Vaccine: 65+ Ye ars (1 of 2 - PCV) 1964 Colorectal Cancer Screening: Annual FOBT 2007 Colorectal Cancer Screening: Colonoscopy 2007 Colorectal Cancer Screening: Sigmoidoscopy 2007 Influenza Vaccine (#1) 2024 Diabetes: Hemoglobin A1C 11/17/2024 Diabetes: Ophthalmology Exam 11/17/2024 Diabetes: Pedal Pulse Checked 11/17/2024 Diabetes: Sensory Foot Exam 11/17/2024 Diabetes: Visual Foot Exam 11/17/2024 Hepatitis B Vaccine Aged Out No longe r eligible based on patient's age to complete this topic Insurance [facility] MEDICARE
--- OUTSIDE RECORDS SUMMARY | 2024-12-10 09:05 | XMS_ITS | Continuity of Care Document ---
Author Organization [facility] ter Address [address] [place] [address]- Care Team Providers Care Metal Technician Name Role Phone Kolby GUIDRY, Quinn Davies Primary Care Physician Encounter [facility] Date(s): 10/15/24 - 11/15/[address] [address]- Attending Physician: Chrystal Dennis MD Admitting Physician: [...] virus vaccine, inactivated 06/07/10 Leonard rded SARS-CoV-2(COVID-19)mRNA-LNP vac([id number]) 08/20/24 Recorded tetanus-diphtheria toxoids (Td) 05/09/22 Recorded [...] 0 Refills, Maintenance, 10/13/24 1:32:00 PM EST, [facility], Partial fill upon patient request if [...] 0 Refills, Maintenance, 10/13/24 1:35:00 PM EST, [facility], Partial fill upon [...] Refills, Maintenance, 11/05/24 11:32:00 AM EST, Tablet, [facility], Partial fill upon patient request if [...] 11:37:00 AM EST, Route to Pharmacy Electronically, [facility], Partial fill upon patient request if [...] 09/23/24 Status: Ordered Repeat number: 1 Pen [place], 31 G x 5 mm BD Ultra [...] Refills, Maintenance, 11/05/24 11:34:00 AM EST, Tablet, [facility], Partial fill upon [...] Refills, Maintenance, 10/13/24 1:54:00 PM EST, Tablet, [facility], Partial fill upon [...] Team Personnel Name: Aida Ruelas RN Position: [facility] RN Member Role: Primary Care Nurse Name: Shivani Carlson RN Position: [facility] RN Member Role: Primary Care Nurse Name: Shala Horne RN Position: [facility] RN Member Role: Primary Care Nurse Name: Rhoda Starr RN Position: [facility] RN Member Role: Primary Care Nurse Name: Candy Goodson RN Position: [facility] RN Member Role: Primary Care Nurse Name: France Stover RN Position: [facility] RN Member Role: Primary Care Nurse Name: Lacho RNMatilda Position: [facility] RN Member Role: Primary Care Nurse Name: Iraj Jordan RN Position: [facility] RN Member Role: Primary Care Nurse Name: Harpreet Haywood RN Position: [facility] RN Member Role: Primary Care Nurse Name: Yessi Tavares RN Position: [facility] RN Member Role: Primary Care Nurse Name: Tamara Lovell RN Position: [facility] RN Member Role: Primary Care Nurse Name: Katia Sahni RN Position: [facility] RN Member Role: Primary Care Nurse Name: Quinn Jarrett MD Position: [facility] Outreach Member Role: PCP Address: [address] [place] [address] Telecom: Care Team Related Persons Name: SONAL GONZALES Name: [facility]Z Insurance Providers Guarantor name: [facility] Information #: 1 Payer: [employer] PPO MCARE ADV Member Number: [id number] Policy Number: NA Group Number: [id number] Health Plan Information #: 2 Payer: [employer] PPO [employer] ADV Member Number: [id number] Policy Number: NA Group Number: NA
== END 2024-12-10 10:03 | disposition home or self-care (01) ==
LOC: HO.HOS 08:34
PROVIDERS: PCP Internal Medicine; Visit Provider Orthopaedic Surgery
DX: S52.571A Other intraarticular fracture of lower end of right radius, initial encounter for closed fracture (principal)
CPT/HCPCS: 99203

== ENCOUNTER 2024-12-10 08:38 | Outpatient (REF) | payer MEDICARE, SELFPAY ==
--- NOTE | ~2024-12-10 | XR_ITS ---
EXAMINATION: XR WRIST 3 OR MORE VIEWS RIGHT HISTORY: M25.531 - Pain in right wrist COMPARISON: Comparison is made with the prior examination dated 11/12/2024. FINDINGS: Two splinted views of the right wrist are submitted. A fiberglass splint obscures fine bony detail. Again seen is a comminuted intra-articular displaced fracture of the distal radial metaphysis. Fracture lines remain visible. There is a small amount of callus formation noted. The soft tissues are unremarkable. XR/XR wrist RT min 3V IMPRESSION: Comminuted displaced intra-articular fracture of the distal radial metaphysis. Electronically signed by: Quinn Alberto MD 12/10/2024 09:36 AM EDT
--- OUTSIDE RECORDS SUMMARY | 2024-12-11 09:21 | XMS_ITS | Encounter Summary ---
Author Organization [facility] Address [address] [place] [address] Care Team Providers Care Fraud Manager Name Role Phone Quinn Jarrett MD Primary Care Provider [phone]- [phone] Encounter Details Date Type Department Care Team (Late st Contact Info) Description 12/09/2024 Lab Requisition [facility] - Main Lab [address] [facility] [phone] Edmond Leija MD [address] [place] [id number] Hyperkalemia Social History Tobacco Use Types Packs/Day [...] mmol/L LAB CHEMISTRY METHOD 12/09/2024 1:[address] [facility] Potassium 5.1 3.5 - 5.5 mmol/L LAB CHEMISTRY METHOD 12/09/2024 1:[address] [facility] Chloride 111(H) 96 - 110 mmol/L LAB CHEMISTRY METHOD 12/09/2024 1:[address] [facility] CO2 23 21 - 32 mmol/L LAB CHEMISTRY METHOD 12/09/2024 1:[address] [facility] Anion Gap 8 3 - 11 LAB CHEMISTRY METHOD 12/09/2024 1:[address] [facility] Glucose 144(H) 70 - 100 mg/dL LAB CHEMISTRY METHOD 12/09/2024 1:[address] [facility] BUN 27(H) 5 - 25 mg/dL LAB CHEMISTRY METHOD 12/09/2024 1:[address] [facility] Creatinine 1.51(H) 0.70 - 1.30 mg/dL LAB CHEMISTRY METHOD 12/09/2024 1:[address] [facility] eGFR 51(L) >=60 mL/min/1. 73m2 LAB CHEMISTRY METHOD 12/09/2024 1:[address] [facility] Comment:Calculation based on the??Chronic Kidney Disease Epidemiology Collaboration (CKD-EPI) equation refit??without adjustment for race. BUN/Creatinine Ratio 17.9 LAB CHEMISTRY METHOD 12/09/2024 1:07 PM EDT [facility] Calcium 8.3(L) 8.5 - 10.5 mg/dL LAB CHEMISTRY METHOD 12/09/2024 1:07 PM EDT [facility] Blood Venous blood specimen / Unknown Venipuncture / Unknown 12/09/2024 9:12 AM EDT 12/09/2024 10:40 AM EDT us Edmond Leija MD LAB BLOOD ORDERABLES Final Result [facility] [address] [place] [address], documented in this encounter Visit Diagnoses Diagnosis Hyperkalemia Hyperpotassemia documented in this encounter Additional Health Concerns Assessment Noted Time PHQ-9 Depression Total Score: 0 09/29/20 24 10:10 AM EST documented as of this encounter Care Teams Fraud Manager Relationship Specialty Start Date End Date Quinn Jarrett MD [address] [place] [address] [address] [place] [phone] PCP - General Internal Medicine 09/29/24 documented as of this encounter
--- OUTSIDE RECORDS SUMMARY | 2024-12-11 09:21 | XMS_ITS | Encounter Summary ---
Author Organization [facility] Address [address] [place] [address] Care Team Providers Care Implementation Director Name Role Phone Quinn Jarrett MD Primary Care Provider [phone]- [phone] Encounter Details Date Type Department Care Team (Late st Contact Info) Description 11/27/2024 Lab Requisition [facility] - Main Lab [address] [facility] [place] [phone] Edmond Leija MD [address] [place] [phone] Anemia, unspecified; Chronic kidney disease, unspecified; Type [...] K/mcL LAB HEMETOLOGY METHOD 11/27/2024 1:03 PM [facility] RBC 3.70(L) 4.50 - 5.50 M/mcL LAB HEMETOLOGY METHOD 11/27/2024 1:03 PM [facility] Hemoglobin 9.4(L) 13.5 - 17.5 g/dL LAB HEMETOLOGY METHOD 11/27/2024 1:03 PM [facility] Hematocrit 30.6(L) 42.0 - 54.0 % LAB HEMETOLOGY METHOD 11/27/2024 1:03 PM [facility] MCV 83.8 79.0 - 98.0 FL LAB HEMETOLOGY METHOD 11/27/2024 1:03 PM [facility] MCH 25.8(L) 27.0 - 32.0 pcg LAB HEMETOLOGY METHOD 11/27/2024 1:03 PM [facility] MCHC 30.7(L) 32.0 - 37.0 g/dL LAB HEMETOLOGY METHOD 11/27/2024 1:03 PM [facility] RDW 16.0(H) 11.0 - 15.0 % LAB HEMETOLOGY METHOD 11/27/2024 1:03 PM [facility] Platelets 262 130 - 400 K/mcL LAB HEMETOLOGY METHOD 11/27/2024 1:03 PM [facility] MPV 11.3(H) 7.0 - 11.0 FL LAB HEMETOLOGY METHOD 11/27/2024 1:03 PM [facility] NRBC 0.0 <1.0 % LAB HEMETOLOGY METHOD 11/27/2024 1:03 PM [facility] NRBC Absolute 0.00 <0.10 K/mcL LAB HEMETOLOGY METHOD 11/27/2024 1:03 PM [facility] Neutrophils Relative 80.8 % LAB HEMETOLOGY METHOD 11/27/2024 1:03 PM [facility] Lymphocytes Relative 9.4 % LAB HEMETOLOGY METHOD 11/27/2024 1:03 PM [facility] Monocytes Relative 5.3 % LAB HEMETOLOGY METHOD 11/27/2024 1:03 PM [facility] Eosinophils Relative 2.5 % LAB HEMETOLOGY METHOD 11/27/2024 1:03 PM [facility] Basophils Relative 0.3 % LAB HEMETOLOGY METHOD 11/27/2024 1:03 PM [facility] Immature Granulocytes Relative 1.7 % LAB HEMETOLOGY METHOD 11/27/2024 1:03 PM EST [facility] Neutrophils Absolute 7.18(H) 1.50 - 7.00 K/mcL LAB HEMETOLOGY METHOD 11/27/2024 1:03 PM EST [facility] Lymphocytes Absolute 0.84(L) 1.00 - 5.00 K/mcL LAB HEMETOLOGY METHOD 11/27/2024 1:03 PM EST [facility] Monocytes Absolute 0.47 0.20 - 1.00 K/[facility] LAB HEMETOLOGY METHOD 11/27/2024 1:03 PM EST [facility] Eosinophils Absolute 0.22 0.00 - 0.50 K/[facility] LAB HEMETOLOGY METHOD 11/27/2024 1:03 PM EST [facility] Basophils Absolute 0.03 0.00 - 0.20 K/mcL LAB HEMETOLOGY METHOD 11/27/2024 1:03 PM EST [facility] Immature Granulocytes Absolute 0.15(H) 0.00 - 0.03 K/[facility] LAB HEMETOLOGY METHOD 11/27/2024 1:03 PM EST [facility] Blood Venous blood specimen / Unknown Venipuncture / Unknown 11/27/2024 6:07 AM EST 11/27/2024 11:06 AM EST Edomnd Leija MD LAB BLOOD ORDERABLES Final Result [facility] [address] [place] [address], * (ABNORMAL) Hemoglobin A1c (11/27/2024 6:07 AM EST) Hemoglobin A1C 9.4(H) <6.5 % LAB CHEMISTRY METHOD 12/01/2024 2:00 PM EST [facility] Mean Bld Glu Estim. 223 mg/dL LAB CHEMISTRY METHOD 12/01/2024 2:00 PM EST [facility] Blood Venous blood specimen / Unknown Venipuncture / Unknown 11/27/2024 6:07 AM EST 11/27/2024 11:06 AM EST Edmond Leija MD LAB BLOOD ORDERABLES Final Result [facility] [address] [place] [address], * (ABNORMAL) Comprehensive metabolic panel (11/27/2024 6:07 AM EST) Sodium 137 133 - 145 mmol/L LAB CHEMISTRY METHOD 11/27/2024 5:23 PM [facility] Potassium 4.3 3.5 - 5.5 mmol/L LAB CHEMISTRY METHOD 11/27/2024 5:23 PM [facility] Chloride 105 96 - 110 mmol/L LAB CHEMISTRY METHOD 11/27/2024 5:23 PM [facility] CO2 24 21 - 32 mmol/L LAB CHEMISTRY METHOD 11/27/2024 5:23 PM [facility] Anion Gap 8 3 - 11 LAB CHEMISTRY METHOD 11/27/2024 5:23 PM [facility] Glucose 185(H) 70 - 100 mg/dL LAB CHEMISTRY METHOD 11/27/2024 5:23 PM [facility] BUN 51(H) 5 - 25 mg/dL LAB CHEMISTRY METHOD 11/27/2024 5:23 PM [facility] Creatinine 1.54(H) 0.70 - 1.30 mg/dL LAB CHEMISTRY METHOD 11/27/2024 5:23 PM [facility] eGFR 49(L) >=60 mL/min/1. 73m2 LAB CHEMISTRY METHOD 11/27/2024 5:23 PM [facility] Comment:Calculation based on the??Chronic Kidney Disease Epidemiology Collaboration (CKD-EPI) equation refit??without adjustment for race. BUN/Creatinine Ratio 33.1 LAB CHEMISTRY METHOD 11/27/2024 5:23 PM [facility] Calcium 8.9 8.5 - 10.5 mg/dL LAB CHEMISTRY METHOD 11/27/2024 5:23 PM [facility] AST (SGOT) 46(H) 10 - 42 unit/L LAB CHEMISTRY METHOD 11/27/2024 5:23 PM [facility] ALT (SGPT) 78(H) 10 - 60 unit/L LAB CHEMISTRY METHOD 11/27/2024 5:23 PM [facility] Alkaline Phosphatase 100 42 - 121 unit/L LAB CHEMISTRY METHOD 11/27/2024 5:23 PM [facility] Total Protein 5.7(L) 6.0 - 8.0 g/dL LAB CHEMISTRY METHOD 11/27/2024 5:23 PM [facility] Albumin 2.6(L) 3.2 - 5.0 g/dL LAB CHEMISTRY METHOD 11/27/2024 5:23 PM [facility] Total Bilirubin 0.3 0.0 - 1.4 mg/dL LAB CHEMISTRY METHOD 11/27/2024 5:23 PM [facility] Blood Venous blood specimen / Unknown Venipuncture / Unknown 11/27/2024 6:07 AM EST 11/27/2024 11:06 AM EST us Edmond Leija MD LAB BLOOD ORDERABLES Final Result [facility] [address] [place] [address], documented in this encounter Visit Diagnoses Diagnosis Anemia, unspecified Chronic kidney disease, unspecified Type 2 diabetes mellitus without complications (CMS/HCC) documented in this encounter Additional Health Concerns Assessment Noted Time PHQ-9 Depression Total Score: 0 09/29/20 24 10:10 AM EST documented as of this encounter Care Teams Implementation Director Relationship Specialty Start Date End Date Quinn Jarrett MD [address] [place] [phone] PCP - General Internal Medicine 09/29/24 documented as of this encounter
--- OUTSIDE RECORDS SUMMARY | 2024-12-11 09:22 | XMS_ITS | Clinical Summary ---
Author Organization [facility] Address [address] [place] [address] Phone Care Team Providers Care Lawyer Name Role Phone Quinn Jarrett MD Primary Care Provider +1- [phone] Allergies No known active allergies Medications acetaminophen [...] Encounters Date Type Department Care Team Description 12/11/2024 Lab Requisition [facility] Lab [address] [place] [address] Edmond Leija MD Anemia, unspecified; Chronic kidney disease, unspecified; Type 2 diabetes mellitus without complications (CMS/HCC); Essential (primary) hypertension 12/09/2024 Lab Requisition [facility] Lab [address] [place] [address] Edmond Leija MD Hyperkalemia 12/03/2024 Lab Requisition [facility] Lab [address] [place] [address] Edmond Leija MD Anemia, unspecified; Chronic kidney disease, unspecified 11/27/2024 Lab Requisition [facility] [address] [facility] [place] [address] Edmond Leija MD Anemia, unspecified; Chronic kidney disease, unspecified; Type 2 diabetes mellitus without complications ([facility]) 10/06/[address] [facility] [address] [place] [address] 09/29/[address] [facility] [address] [place] [address] 09/27/2024 1:39 PM EST - 10/08/2024 4:59 PM EST Hospital Encounter [facility] [address] [place] [phone] Lata Sales DO Discharge Disposition: Short Term Hospital from Last 3 Months Medical History Medical History Date Comments HTN (hypertension) 09/28/2024 DM (diabetes mellitus) ([facility]) 09/28/2024 A-fib ([facility]) 09/28/2024 Chronic anticoagulation 09/28/2024 Mixed hyperlipidemia 09/28/2024 Gout 09/28/2024 Fall 09/28/2024 Closed head injury 09/28/2024 Contusion of left hip 09/28/2024 ARF (acute renal failure) ([facility]) 09/28/2024 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 Ventricular bigeminy 09/28/2024 [...] mmol/L LAB CHEMISTRY METHOD 12/09/2024 1:07 PM [facility] LAB Potassium 5.1 3.5 - 5.5 mmol/L LAB CHEMISTRY METHOD 12/09/2024 1:07 PM [facility] LAB Chloride 111(H) 96 - 110 mmol/L LAB CHEMISTRY METHOD 12/09/2024 1:07 PM [facility] LAB CO2 23 21 - 32 mmol/L LAB CHEMISTRY METHOD 12/09/2024 1:07 PM [facility] LAB Anion Gap 8 3 - 11 LAB CHEMISTRY METHOD 12/09/2024 1:07 PM [facility] LAB Glucose 144(H) 70 - 100 mg/dL LAB CHEMISTRY METHOD 12/09/2024 1:07 PM [facility] BUN 27(H) 5 - 25 mg/dL LAB CHEMISTRY METHOD 12/09/2024 1:07 PM [facility] LAB Creatinine 1.51(H) 0.70 - 1.30 mg/dL LAB CHEMISTRY METHOD 12/09/2024 1:07 PM [facility] LAB eGFR 51(L) >=60 mL/min/1. 73m2 LAB CHEMISTRY METHOD 12/09/2024 1:07 PM EDT [facility] LAB Comment:Calculation based on the??Chronic Kidney Disease Epidemiology Collaboration (CKD-EPI) equation refit??without adjustment for race. BUN/Creatinine Ratio 17.9 LAB CHEMISTRY METHOD 12/09/2024 1:07 PM EDT [facility] LAB Calcium 8.3(L) 8.5 - 10.5 mg/dL LAB CHEMISTRY METHOD 12/09/2024 1:07 PM EDT [facility] LAB Blood Venous blood specimen / Unknown Venipuncture / Unknown 12/09/2024 9:12 AM EDT 12/09/2024 10:40 AM EDT us Edmond Leija MD LAB BLOOD ORDERABLES Final Result [facility] LAB [address] [place] [address], * (ABNORMAL) Complete blood count (12/04/2024 7:23 AM EST) Only the most recent of4 resultswithin the time period is included. WBC 6.0 4.8 - 10.8 K/mcL LAB HEMETOLOGY METHOD 12/04/2024 9:14 AM [facility] RBC 3.70(L) 4.50 - 5.50 M/mcL LAB HEMETOLOGY METHOD 12/04/2024 9:14 AM [facility] Hemoglobin 9.5(L) 13.5 - 17.5 g/dL LAB HEMETOLOGY METHOD 12/04/2024 9:14 AM [facility] LAB Hematocrit 31.4(L) 42.0 - 54.0 % LAB HEMETOLOGY METHOD 12/04/2024 9:14 AM [facility] LAB MCV 85.1 79.0 - 98.0 FL LAB HEMETOLOGY METHOD 12/04/2024 9:14 AM EST [facility] LAB MCH 25.7(L) 27.0 - 32.0 pcg LAB HEMETOLOGY METHOD 12/04/2024 9:14 AM EST [facility] LAB MCHC 30.3(L) 32.0 - 37.0 g/dL LAB HEMETOLOGY METHOD 12/04/2024 9:14 AM EST [facility] LAB RDW 15.9(H) 11.0 - 15.0 % LAB HEMETOLOGY METHOD 12/04/2024 9:14 AM EST [facility] LAB Platelets 318 130 - 400 K/mcL LAB HEMETOLOGY METHOD 12/04/2024 9:14 AM [facility] LAB MPV 10.7 7.0 - 11.0 FL LAB HEMETOLOGY METHOD 12/04/2024 9:14 AM [facility] LAB NRBC 0.0 <1.0 % LAB HEMETOLOGY METHOD 12/04/2024 9:14 AM [facility] LAB NRBC Absolute 0.00 <0.10 K/mcL LAB HEMETOLOGY METHOD 12/04/2024 9:14 AM [facility] Blood Venous blood specimen / Unknown Venipuncture / Unknown 12/04/2024 7:23 AM EST 12/04/2024 8:59 AM EST Edmond Leija MD LAB BLOOD ORDERABLES Final Result [facility] LAB [address] [place] [address], * (ABNORMAL) CBC auto differential (11/27/2024 6:07 AM EST) Only the most recent of3 resultswithin the time period is included. WBC 8.9 4.8 - 10.8 K/mcL LAB HEMETOLOGY METHOD 11/27/2024 1:03 PM EST [facility] RBC 3.70(L) 4.50 - 5.50 M/mcL LAB HEMETOLOGY METHOD 11/27/2024 1:03 PM [facility] Hemoglobin 9.4(L) 13.5 - 17.5 g/dL LAB HEMETOLOGY METHOD 11/27/2024 1:03 PM [facility] Hematocrit 30.6(L) 42.0 - 54.0 % LAB HEMETOLOGY METHOD 11/27/2024 1:03 PM [facility] LAB MCV 83.8 79.0 - 98.0 FL LAB HEMETOLOGY METHOD 11/27/2024 1:03 PM [facility] MCH 25.8(L) 27.0 - 32.0 pcg LAB HEMETOLOGY METHOD 11/27/2024 1:03 PM [facility] LAB MCHC 30.7(L) 32.0 - 37.0 g/dL LAB HEMETOLOGY METHOD 11/27/2024 1:03 PM [facility] LAB RDW 16.0(H) 11.0 - 15.0 % LAB HEMETOLOGY METHOD 11/27/2024 1:03 PM [facility] LAB Platelets 262 130 - 400 K/mcL LAB HEMETOLOGY METHOD 11/27/2024 1:03 PM [facility] MPV 11.3(H) 7.0 - 11.0 FL LAB HEMETOLOGY METHOD 11/27/2024 1:03 PM [facility] NRBC 0.0 <1.0 % LAB HEMETOLOGY METHOD 11/27/2024 1:03 PM [facility] LAB NRBC Absolute 0.00 <0.10 K/mcL LAB HEMETOLOGY METHOD 11/27/2024 1:03 PM [facility] Neutrophils Relative 80.8 % LAB HEMETOLOGY METHOD 11/27/2024 1:03 PM [facility] Lymphocytes Relative 9.4 % LAB HEMETOLOGY METHOD 11/27/2024 1:03 PM [facility] Monocytes Relative 5.3 % LAB HEMETOLOGY METHOD 11/27/2024 1:03 PM [facility] Eosinophils Relative 2.5 % LAB HEMETOLOGY METHOD 11/27/2024 1:03 PM [facility] Basophils Relative 0.3 % LAB HEMETOLOGY METHOD 11/27/2024 1:03 PM [facility] Immature Granulocytes Relative 1.7 % LAB HEMETOLOGY METHOD 11/27/2024 1:03 PM [facility] Neutrophils Absolute 7.18(H) 1.50 - 7.00 K/mcL LAB HEMETOLOGY METHOD 11/27/2024 1:03 PM [facility] Lymphocytes Absolute 0.84(L) 1.00 - 5.00 K/mcL LAB HEMETOLOGY METHOD 11/27/2024 1:03 PM [facility] Monocytes Absolute 0.47 0.20 - 1.00 K/mcL LAB HEMETOLOGY METHOD 11/27/2024 1:03 PM [facility] Eosinophils Absolute 0.22 0.00 - 0.50 K/mcL LAB HEMETOLOGY METHOD 11/27/2024 1:03 PM [facility] Basophils Absolute 0.03 0.00 - 0.20 K/mcL LAB HEMETOLOGY METHOD 11/27/2024 1:03 PM [facility] Immature Granulocytes Absolute 0.15(H) 0.00 - 0.03 K/mcL LAB HEMETOLOGY METHOD 11/27/2024 1:03 PM [facility] Blood Venous blood specimen / Unknown Venipuncture / Unknown 11/27/2024 6:07 AM EST 11/27/2024 11:06 AM EST us Edmond Leija MD LAB BLOOD ORDERABLES Final Result [facility] LAB [address] [place] [address], [place] [phone] * (ABNORMAL) Hemoglobin A1c (11/27/2024 6:07 AM EST) Hemoglobin A1C 9.4(H) <6.5 % LAB CHEMISTRY METHOD 12/01/2024 2:00 PM EST [facility] Mean Bld Glu Estim. 223 mg/dL LAB CHEMISTRY METHOD 12/01/2024 2:00 PM [facility] Blood Venous blood specimen / Unknown Venipuncture / Unknown 11/27/2024 6:07 AM EST 11/27/2024 11:06 AM EST us Edmond Leija MD LAB BLOOD ORDERABLES Final Result Performing Organization Address City/[facility]/ZIP Co de Phone Number [facility] LAB [address] [place] [address], [place] [phone] * (ABNORMAL) Comprehensive metabolic panel (11/27/2024 6:07 AM EST) Only the most recent of3 resultswithin the time period is included. [facility] Sodium 137 133 - 145 mmol/L LAB CHEMISTRY METHOD 11/27/2024 5:23 PM [facility] Potassium 4.3 3.5 - 5.5 mmol/L LAB CHEMISTRY METHOD 11/27/2024 5:23 PM [facility] Chloride 105 96 - 110 mmol/L LAB CHEMISTRY METHOD 11/27/2024 5:23 PM [facility] CO2 24 21 - 32 mmol/L LAB CHEMISTRY METHOD 11/27/2024 5:23 PM [facility] Anion Gap 8 3 - 11 LAB CHEMISTRY METHOD 11/27/2024 5:23 PM [facility] Glucose 185(H) 70 - 100 mg/dL LAB CHEMISTRY METHOD 11/27/2024 5:23 PM [facility] BUN 51(H) 5 - 25 mg/dL LAB CHEMISTRY METHOD 11/27/2024 5:23 PM [facility] Creatinine 1.54(H) 0.70 - 1.30 mg/dL LAB CHEMISTRY METHOD 11/27/2024 5:23 PM [facility] LAB eGFR 49(L) >=60 mL/min/1. 73m2 LAB CHEMISTRY METHOD 11/27/2024 5:23 PM [facility] LAB Comment:Calculation based on the??Chronic Kidney Disease Epidemiology Collaboration (CKD-EPI) equation refit??without adjustment for race. BUN/Creatinine Ratio 33.1 LAB CHEMISTRY METHOD 11/27/2024 5:23 PM [facility] Calcium 8.9 8.5 - 10.5 mg/dL LAB CHEMISTRY METHOD 11/27/2024 5:23 PM [facility] AST (SGOT) 46(H) 10 - 42 unit/L LAB CHEMISTRY METHOD 11/27/2024 5:23 PM [facility] ALT (SGPT) 78(H) 10 - 60 unit/L LAB CHEMISTRY METHOD 11/27/2024 5:23 PM [facility] Alkaline Phosphatase 100 42 - 121 unit/L LAB CHEMISTRY METHOD 11/27/2024 5:23 PM [facility] Total Protein 5.7(L) 6.0 - 8.0 g/dL LAB CHEMISTRY METHOD 11/27/2024 5:23 PM [facility] Albumin 2.6(L) 3.2 - 5.0 g/dL LAB CHEMISTRY METHOD 11/27/2024 5:23 PM [facility] Total Bilirubin 0.3 0.0 - 1.4 mg/dL LAB CHEMISTRY METHOD 11/27/2024 5:23 PM [facility] Blood Venous blood specimen / Unknown Venipuncture / Unknown 11/27/2024 6:07 AM EST 11/27/2024 11:06 AM EST Edmond Leija MD LAB BLOOD ORDERABLES Final Result Performing Organization Address [facility]/ZIP Co de Phone Number [facility] LAB [address] [place] [address], [place] [phone] * (ABNORMAL) POCT Glucose, blood (10/08/2024 4:11 PM EST) Only the most recent of51 resultswithin the time period is included. [facility] Signature Glucose POCT 176(H) 70 - 100 mg/dL 10/08/2024 4:25 PM EST [facility] Blood Capillary blood specimen / Unknown 10/08/2024 4:11 PM EST 10/08/2024 4:27 PM EST Lata Sales DO LAB POINT OF CARE TEST DOCKED DEVICE UNSOLICITED RESULTS Final Result Performing Organization Address [facility] de Phone Number [facility] LAB [address] [place] [address], [place] [phone] * CT Head wo Contrast (10/08/2024 2:49 [...] Signed Date: 10/08/2024 16:02 ET Workstation ID: [id number] Transcribed By: Self Edit Transcribed Date: 10/08/2024 15:52 ET Narrative 10/08/2024 4:02 PM EST INDICATION: Subdural hematoma, functional decline Technique: Axial images were obtained from the skull base to the vertex without contrast enhancement. Coronal and sagittal reformats obtained. Scanner: [facility] [employer] 64 slice VCT Dose reduction technique: [...] enhancement. Coronal and sagittal reformats obtained. Scanner: [facility] [employer] 64 slice VCT Dose reduction technique: [...] Signed Date: 10/08/2024 16:02 ET Workstation ID: [id number] Transcribed By: Self Edit Transcribed Date: 10/08/2024 15:52 ET Lata Sales DO IMG CT PROCEDURES Final R esult * Lavender tube (10/03/2024 6:16 AM EST) [facility] Extra Tube Hold for add-ons. 10/03/2024 9:02 AM EST [facility] LAB Comment:Auto resulted. Blood Venous blood specimen / Unknown Venipuncture / Unknown 10/03/2024 6:16 AM EST 10/03/2024 7:05 AM EST Lata Sales DO LAB BLOOD ORDERABLES Magali l Result [facility] LAB [address] [place] [address], [place] [phone] * ECG 12 lead (10/02/2024 7:40 AM EST) [facility] Ventricular Rate ECG 66 BPM GEMUSE Atrial Rate 66 BPM GEMUSE P-R Interval 208 ms GEMUSE QRS Duration 96 ms GEMUSE Q-T Interval 428 ms GEMUSE QTc 448 ms GEMUSE P Wave Valentine 56 degrees GEMUSE R Valentine 7 degrees GEMUSE T Valentine 56 degrees GEMUSE ECG Interpretation Sinus rhythm with Premature atrial complexes Otherwise normal ECG No previous ECGs available Confirmed by MD Willoughby Christopher ([id number]) on 10/02/2024 5:31:36 PM GEMUSE 10/02/2024 7:40 AM EST 10/02/2024 5:31 PM EST Lata Sales DO ECG ORDERABLES Final Res ult GEMUSE * Magnesium (10/02/2024 5:49 AM EST) [facility] Magnesium 2.5 1.9 - 2.6 mg/dL LAB CHEMISTRY METHOD 10/02/2024 6:28 AM EST [facility] Blood Venous blood specimen / Unknown Venipuncture / Unknown 10/02/2024 5:49 AM EST 10/02/2024 6:05 AM EST Shamar Upton MD LAB BLOOD ORDERABLES Final Re sult Performing Organization Address City/[facility]/ZIP Co de Phone Number [facility] [address] [place] [address], [place] [phone] * ECG-Annotated (09/27/2024) Provider Onbase ECG ORDERABLES Final Result from Last 3 Months Insurance [employer] MEDICARE Advance Directives Documents on File Type Date Recorded Patient Joint Sealer Expl anation Advance Directives and Livin g [...] currently active code status orders. Care Teams Lawyer Relationship Specialty Start Date End Date Quinn Jarrett MD [address] [place] [address] [address] [place] [address] PCP - General Internal Medicine 09/29/24
--- OUTSIDE RECORDS SUMMARY | 2024-12-11 09:22 | XMS_ITS | Clinical Summary ---
Author Organization [facility] Address [address] [address] Phone Care Team Providers Care Portable Grinding Machine Operator Name Role Phone Unavailable Primary Care Provider [...] Office Visit [facility] [address] [address] [place] ARNP [address] [address] Health Maintenance Due Date Last [...] patient's age to complete this topic Insurance [facility] [place] [address]
--- OUTSIDE RECORDS SUMMARY | 2024-12-11 09:22 | XMS_ITS | Encounter Summary ---
Author Organization [facility] Address [address] [place] [address] Care Team Providers Care Pumper Gauger Apprentice Name Role Phone Quinn Jarrett MD Primary Care Provider +1- [phone] Encounter Details Date Type Department Care Team (Late st Contact Info) Description 12/11/2024 Lab Requisition [facility] Lab [address] [facility] [place] [phone] Edmond Leija MD [address] [place] [address] Anemia, unspecified; Chronic kidney disease, unspecified; Type 2 diabetes mellitus without complications (CMS/HCC); Essential (primary) hypertension Social History Tobacco Use Types Packs/Day Years [...] as of this encounter Plan of Treatment Pending Results Name Type Priority Associated Diagnoses Date /Time Complete blood count Lab Routine Anemia, unspecified Chronic kidney disease, unspecified 12/11/2024 7:44 AM EDT Basic metabolic panel Lab Routine Anemia, unspecified Chronic kidney disease, unspecified 12/11/2024 7:44 AM EDT Hepatic function panel Lab Routine Anemia, unspecified Chronic kidney disease, unspecified Type 2 diabetes mellitus without complications (CMS/HCC) Essential (primary) hypertension 12/11/2024 7:44 AM EDT documented as of this encounter Visit Diagnoses Diagnosis Anemia, unspecified Chronic kidney disease, unspecified Type 2 diabetes mellitus without complications (CMS/HCC) Essential (primary) hypertension Unspecified essential hypertension documented in this encounter Additional Health Concerns Assessment Noted Time PHQ-9 Depression Total Score: 0 09/29/20 10:10 AM EST documented as of this encounter Care Teams Pumper Gauger Apprentice Relationship Specialty Start Date End Date Quinn Jarrett MD [address] [place] [address] PCP - General Internal Medicine 09/29/24 documented as of this encounter
--- OUTSIDE RECORDS SUMMARY | 2024-12-11 09:22 | XMS_ITS | Encounter Summary ---
Author Organization [facility] Address [address] [place] [address] Care Team Providers Care Corporate Representative Name Role Phone Quinn Jarrett MD Primary Care Provider +1- [phone] Encounter Details Date Type Department Care Team (Late st Contact Info) Description 12/03/2024 Lab Requisition [facility] Lab [address] [facility] [place] [phone] Emdond Leija MD [address] [place] [address] Anemia, unspecified; Chronic kidney disease, unspecified Social [...] mmol/L LAB CHEMISTRY METHOD 12/04/2024 9:[address] [facility] Potassium 5.6(H) 3.5 - 5.5 mmol/L LAB CHEMISTRY METHOD 12/04/2024 9:[address] [facility] Chloride 107 96 - 110 mmol/L LAB CHEMISTRY METHOD 12/04/2024 9:[address] [facility] CO2 25 21 - 32 mmol/L LAB CHEMISTRY METHOD 12/04/2024 9:[address] [facility] Anion Gap 6 3 - 11 LAB CHEMISTRY METHOD 12/04/2024 9:[address] [facility] Glucose 92 70 - 100 mg/dL LAB CHEMISTRY METHOD 12/04/2024 9:[address] [facility] BUN 21 5 - 25 mg/dL LAB CHEMISTRY METHOD 12/04/2024 9:[address] [facility] Creatinine 1.35(H) 0.70 - 1.30 mg/dL LAB CHEMISTRY METHOD 12/04/2024 9:[address] [facility] eGFR 58(L) >=60 mL/min/1. 73m2 LAB CHEMISTRY METHOD 12/04/2024 9:47 AM EST [facility] Comment:Calculation based on the??Chronic Kidney Disease Epidemiology Collaboration (CKD-EPI) equation refit??without adjustment for race. BUN/Creatinine Ratio 15.6 LAB CHEMISTRY METHOD 12/04/2024 9:47 AM EST [facility] Calcium 8.9 8.5 - 10.5 mg/dL LAB CHEMISTRY METHOD 12/04/2024 9:[address] [facility] Blood Venous blood specimen / Unknown Venipuncture / Unknown 12/04/2024 7:23 AM EST 12/04/2024 8:59 AM EST us Edmond Leija MD LAB BLOOD ORDERABLES Final Result [facility] [address] [place] [address], [place] [phone] * (ABNORMAL) Complete blood count (12/04/2024 7:23 AM EST) WBC 6.0 4.8 - 10.8 K/mcL LAB HEMETOLOGY METHOD 12/04/2024 9:[address] [facility] RBC 3.70(L) 4.50 - 5.50 M/mcL LAB HEMETOLOGY METHOD 12/04/2024 9:[address] [facility] Hemoglobin 9.5(L) 13.5 - 17.5 g/dL LAB HEMETOLOGY METHOD 12/04/2024 9:[address] [facility] Hematocrit 31.4(L) 42.0 - 54.0 % LAB HEMETOLOGY METHOD 12/04/2024 9:[address] [facility] MCV 85.1 79.0 - 98.0 FL LAB HEMETOLOGY METHOD 12/04/2024 9:[address] [facility] MCH 25.7(L) 27.0 - 32.0 pcg LAB HEMETOLOGY METHOD 12/04/2024 9:[address] [facility] MCHC 30.3(L) 32.0 - 37.0 g/dL LAB HEMETOLOGY METHOD 12/04/2024 9:14 AM EST [facility] RDW 15.9(H) 11.0 - 15.0 % LAB HEMETOLOGY METHOD 12/04/2024 9:[address] [facility] Platelets 318 130 - 400 K/mcL LAB HEMETOLOGY METHOD 12/04/2024 9:14 AM EST [facility] MPV 10.7 7.0 - 11.0 FL LAB HEMETOLOGY METHOD 12/04/2024 9:14 AM EST [facility] NRBC 0.0 <1.0 % LAB HEMETOLOGY METHOD 12/04/2024 9:[address] [facility] NRBC Absolute 0.00 <0.10 K/mcL LAB HEMETOLOGY METHOD 12/04/2024 9:[address] [facility] Blood Venous blood specimen / Unknown Venipuncture / Unknown 12/04/2024 7:23 AM EST 12/04/2024 8:59 AM EST Edmond Leija MD LAB BLOOD ORDERABLES Final Result [facility] [address] [place] [address], documented in this encounter Visit Diagnoses Diagnosis Anemia, unspecified Chronic kidney disease, unspecified documented in this encounter Additional Health Concerns Assessment Noted Time PHQ-9 Depression Total Score: 0 09/29/20 24 10:10 AM EST documented as of this encounter Care Teams Corporate Representative Relationship Specialty Start Date End Date Quinn Jarrett MD [address] [place] [address] [address] [place] [address] PCP - General Internal Medicine 09/29/24 documented as of this encounter
== END 2024-12-10 08:39 | disposition home or self-care (01) ==
LOC: HO.HOSX 08:38
PROVIDERS: Visit Provider Orthopaedic Surgery
DX: M25.531 Pain in right wrist (principal)
CPT/HCPCS: 73110; 99202

== ENCOUNTER → 2024-12-10 08:40 | Outpatient (BNV) | payer MEDICARE, SELFPAY | PROVIDERS: Visit Provider Radiology Diagnostic Radiology | DX: S52.501A Unspecified fracture of the lower end of right radius, initial encounter for closed fracture (principal); M25.531 Pain in right wrist | CPT/HCPCS: 73110 ==

== ENCOUNTER 2025-01-05 06:47 | Outpatient (REF) | payer MEDICARE, SELFPAY ==
--- NOTE | ~2025-01-05 | CT_ITS ---
EXAMINATION: CT WRIST WITHOUT CONTRAST, RIGHT CLINICAL INFORMATION: General with comminuted intra-articular fracture of the distal right radius. Please evaluate distal radius fracture malunion. COMPARISON: No prior CT. Radiographs right wrist 12/10/2024, 11/12/2024 TECHNIQUE: Spiral CT imaging of the right wrist performed in axial plane without contrast. Multiplanar reformatted images were constructed from the axial data set. This CT examination was performed using dose optimization techniques as appropriate, variously including the following: *Automated exposure control *Adjustment of mA and/or kV according to patient size (this includes techniques or standardized protocols for targeted exams where dose is matched to indication/reason for exam; i.e. extremities or head) *Use of iterative reconstruction technique FINDINGS: Disuse osteopenia. Degree of osteopenia could limit detection of subtle fractures. Redemonstration of a heavily comminuted intra-articular fracture of the distal right radius. There is significant impaction estimated at approximately 10 mm. There is an approximate 1.3 cm of volar displacement of distal fragments. There is heavy fragmentation of the distal radial fracture. There is some degree of new bone formation within the fracture gaps, however is no gross bony fusion identified involving the major fragments. Allowing for limitations of osteopenia, no definite additional fractures are identified. There is abundant soft tissue swelling with persistent joint effusion. CT/CT wrist RT wo IV con IMPRESSION: 1. Redemonstration of heavily comminuted intra-articular fracture of the distal radius. Degree of impaction and displacement appear relatively stable from prior radiographs. There is some degree of new bone formation within the fracture gaps, however is no gross bony fusion identified involving the major fragments. 2. Disuse osteopenia, somewhat marked. 3. Persistent soft tissue swelling and joint effusion. Electronically signed by: Abraham Calvert MD 01/05/2025 08:44 AM EDT
--- OUTSIDE RECORDS SUMMARY | 2025-01-05 06:49 | XMS_ITS | Encounter Summary ---
Author Organization [facility] Address [address] [place] [address] Care Team Providers Care First Sampler Name Role Phone Quinn Jarrett MD Primary Care Provider +1- [phone] Encounter Details Date Type Department Care Team (Late st Contact Info) Description 12/11/2024 Lab Requisition [facility] - Main Lab [address] [facility] [place] [phone] Edmond Leija MD [address] [place] [address] Anemia, unspecified; Chronic kidney disease, unspecified; Type [...] Associated Diagnosis Comments COMPLETE BLOOD COUNT Routine 12/11/2024 7:44 AM EDT Anemia, unspecified Chronic kidney disease, unspecified HEPATIC FUNCTION PANEL Routine 12/11/2024 7:44 AM EDT Anemia, unspecified Chronic kidney disease, unspecified Type 2 diabetes mellitus without complications (CMS/HCC) Essential (primary) hypertension BASIC METABOLIC PANEL Routine 12/11/2024 7:44 AM EDT Anemia, unspecified Chronic kidney disease, unspecified documented in this encounter Results * (ABNORMAL) Hepatic function panel (12/11/2024 7:44 AM EDT) Total Protein 5.5(L) 6.0 - 8.0 g/dL LAB CHEMISTRY METHOD 12/11/2024 10:01 AM [facility] Albumin 2.8(L) 3.2 - 5.0 g/dL LAB CHEMISTRY METHOD 12/11/2024 10:01 AM [facility] Total Bilirubin 0.3 0.0 - 1.4 mg/dL LAB CHEMISTRY METHOD 12/11/2024 10:01 AM [facility] Bilirubin, Direct <0.1 0.0 - 0.3 mg/dL LAB CHEMISTRY METHOD 12/11/2024 10:01 AM [facility] Bilirubin, Indirect LAB CHEMISTRY METHOD 12/11/2024 10:01 AM [facility] Comment:Unable to calculate Indirect Bilirubin. ALT (SGPT) 30 10 - 60 unit/L LAB CHEMISTRY METHOD 12/11/2024 10:01 AM [facility] AST (SGOT) 27 10 - 42 unit/L LAB CHEMISTRY METHOD 12/11/2024 10:01 AM [facility] Alkaline Phosphatase 105 42 - 121 unit/L LAB CHEMISTRY METHOD 12/11/2024 10:01 AM [facility] Blood Venous blood specimen / Unknown Venipuncture / Unknown 12/11/2024 7:44 AM EDT 12/11/2024 9:11 AM EDT us Edmond Leija MD LAB BLOOD ORDERABLES Final Result [facility] [address] [place] [address], * (ABNORMAL) Basic metabolic panel (12/11/2024 7:44 AM EDT) Sodium 139 133 - 145 mmol/L LAB CHEMISTRY METHOD 12/11/2024 9:59 AM [facility] Potassium 5.3 3.5 - 5.5 mmol/L LAB CHEMISTRY METHOD 12/11/2024 9:59 AM [facility] Chloride 109 96 - 110 mmol/L LAB CHEMISTRY METHOD 12/11/2024 9:59 AM [facility] CO2 26 21 - 32 mmol/L LAB CHEMISTRY METHOD 12/11/2024 9:59 AM [facility] Anion Gap 4 3 - 11 LAB CHEMISTRY METHOD 12/11/2024 9:59 AM [facility] Glucose 85 70 - 100 mg/dL LAB CHEMISTRY METHOD 12/11/2024 9:59 AM [facility] BUN 34(H) 5 - 25 mg/dL LAB CHEMISTRY METHOD 12/11/2024 9:59 AM [facility] Creatinine 1.85(H) 0.70 - 1.30 mg/dL LAB CHEMISTRY METHOD 12/11/2024 9:59 AM [facility] eGFR 40(L) >=60 mL/min/1. 73m2 LAB CHEMISTRY METHOD 12/11/2024 9:59 AM EDT [facility] Comment:Calculation based on the??Chronic Kidney Disease Epidemiology Collaboration (CKD-EPI) equation refit??without adjustment for race. BUN/Creatinine Ratio 18.4 LAB CHEMISTRY METHOD 12/11/2024 9:59 AM EDT [facility] Calcium 8.7 8.5 - 10.5 mg/dL LAB CHEMISTRY METHOD 12/11/2024 9:59 AM EDT [facility] Blood Venous blood specimen / Unknown Venipuncture / Unknown 12/11/2024 7:44 AM EDT 12/11/2024 9:11 AM EDT us Edmond Leija MD LAB BLOOD ORDERABLES Final Result [facility] [address] [place] [address], * (ABNORMAL) Complete blood count (12/11/2024 7:44 AM EDT) WBC 6.6 4.8 - 10.8 K/mcL LAB HEMETOLOGY METHOD 12/11/2024 9:31 AM EDT [facility] RBC 3.80(L) 4.50 - 5.50 M/mcL LAB HEMETOLOGY METHOD 12/11/2024 9:31 AM EDT [facility] Hemoglobin 9.7(L) 13.5 - 17.5 g/dL LAB HEMETOLOGY METHOD 12/11/2024 9:31 AM EDT [facility] Hematocrit 31.6(L) 42.0 - 54.0 % LAB HEMETOLOGY METHOD 12/11/2024 9:31 AM EDT [facility] MCV 83.2 79.0 - 98.0 FL LAB HEMETOLOGY METHOD 12/11/2024 9:31 AM EDT [facility] MCH 25.5(L) 27.0 - 32.0 pcg LAB HEMETOLOGY METHOD 12/11/2024 9:31 AM EDT [facility] MCHC 30.7(L) 32.0 - 37.0 g/dL LAB HEMETOLOGY METHOD 12/11/2024 9:31 AM EDT [facility] RDW 16.3(H) 11.0 - 15.0 % LAB HEMETOLOGY METHOD 12/11/2024 9:31 AM EDT [facility] Platelets 235 130 - 400 K/mcL LAB HEMETOLOGY METHOD 12/11/2024 9:31 AM EDT [facility] MPV 10.7 7.0 - 11.0 FL LAB HEMETOLOGY METHOD 12/11/2024 9:31 AM EDT [facility] NRBC 0.0 <1.0 % LAB HEMETOLOGY METHOD 12/11/2024 9:31 AM EDT [facility] NRBC Absolute 0.00 <0.10 K/mcL LAB HEMETOLOGY METHOD 12/11/2024 9:31 AM T [facility] Blood Venous blood specimen / Unknown Venipuncture / Unknown 12/11/2024 7:44 AM EDT 12/11/2024 9:11 AM EDT us Edmond Leija MD LAB BLOOD ORDERABLES Final Result [facility] [address] [place] [address], documented in this encounter Visit Diagnoses Diagnosis Anemia, unspecified Chronic kidney disease, unspecified Type 2 diabetes mellitus without complications Essential (primary) hypertension Unspecified essential hypertension documented in this encounter Additional Health Concerns Assessment Noted Time PHQ-9 Depression Total Score: 0 09/29/20 24 10:10 AM EST documented as of this encounter Care Teams First Sampler Relationship Specialty Start Date End Date Vigderman, Quinn J, MD [address] [place] [address] PCP - General Internal Medicine 09/29/24 documented as of this encounter
--- OUTSIDE RECORDS SUMMARY | 2025-01-05 06:49 | XMS_ITS | Encounter Summary ---
Author Organization [facility] Address [address] [place] [address] Care Team Providers Care Vp Lab Name Role Phone Quinn Jarrett MD Primary Care Provider +1- [phone] Encounter Details Date Type Department Care Team (Late st Contact Info) Description 11/27/2024 Lab Requisition [facility] - Main Lab 299 [facility] [place] [phone] Edmodn Leija MD [address] [place] [address] Anemia, unspecified; Chronic kidney disease, unspecified; Type [...] LAB HEMETOLOGY METHOD 11/27/2024 1:03 PM [facility] RBC 3.70(L) 4.50 - 5.50 M/mcL LAB HEMETOLOGY METHOD 11/27/2024 1:03 PM [facility] Hemoglobin 9.4(L) 13.5 - 17.5 g/dL LAB HEMETOLOGY METHOD 11/27/2024 1:03 PM [facility] Hematocrit 30.6(L) 42.0 - 54.0 % LAB HEMETOLOGY METHOD 11/27/2024 1:03 PM [facility] MCV 83.8 79.0 - 98.0 FL LAB HEMETOLOGY METHOD 11/27/2024 1:03 PM [facility] MCH 25.8(L) 27.0 - 32.0 pcg LAB HEMETOLOGY METHOD 11/27/2024 1:03 PM [facility] MCHC 30.7(L) 32.0 - 37.0 g/dL LAB HEMETOLOGY METHOD 11/27/2024 1:03 PM [facility] RDW 16.0(H) 11.0 - 15.0 % LAB HEMETOLOGY METHOD 11/27/2024 1:03 PM [facility] Platelets 262 130 - 400 K/mcL LAB HEMETOLOGY METHOD 11/27/2024 1:03 PM [facility] MPV 11.3(H) 7.0 - 11.0 FL LAB HEMETOLOGY METHOD 11/27/2024 1:03 PM [facility] NRBC 0.0 <1.0 % LAB HEMETOLOGY METHOD 11/27/2024 1:03 PM [facility] NRBC Absolute 0.00 <0.10 K/mcL LAB HEMETOLOGY METHOD 11/27/2024 1:03 PM [facility] Neutrophils Relative 80.8 % LAB HEMETOLOGY METHOD 11/27/2024 1:03 PM [facility] Lymphocytes Relative 9.4 % LAB HEMETOLOGY METHOD 11/27/2024 1:03 PM [facility] Monocytes Relative 5.3 % LAB HEMETOLOGY METHOD 11/27/2024 1:03 PM [facility] Eosinophils Relative 2.5 % LAB HEMETOLOGY METHOD 11/27/2024 1:03 PM [facility] Basophils Relative 0.3 % LAB HEMETOLOGY METHOD 11/27/2024 1:03 PM [facility] Immature Granulocytes Relative 1.7 % LAB HEMETOLOGY METHOD 11/27/2024 1:03 PM EST [facility] Neutrophils Absolute 7.18(H) 1.50 - 7.00 K/mcL LAB HEMETOLOGY METHOD 11/27/2024 1:03 PM EST [facility] Lymphocytes Absolute 0.84(L) 1.00 - 5.00 K/mcL LAB HEMETOLOGY METHOD 11/27/2024 1:03 PM EST [facility] Monocytes Absolute 0.47 0.20 - 1.00 K/[facility] LAB HEMETOLOGY METHOD 11/27/2024 1:03 PM EST [facility] Eosinophils Absolute 0.22 0.00 - 0.50 K/[facility] LAB HEMETOLOGY METHOD 11/27/2024 1:03 PM EST [facility] Basophils Absolute 0.03 0.00 - 0.20 K/mcL LAB HEMETOLOGY METHOD 11/27/2024 1:03 PM EST [facility] Immature Granulocytes Absolute 0.15(H) 0.00 - 0.03 K/[facility] LAB HEMETOLOGY METHOD 11/27/2024 1:03 PM EST [facility] Blood Venous blood specimen / Unknown Venipuncture / Unknown 11/27/2024 6:07 AM EST 11/27/2024 11:06 AM EST Edmond Leija MD LAB BLOOD ORDERABLES Final Result [facility] [address] [place] [address], * (ABNORMAL) Hemoglobin A1c (11/27/2024 6:07 AM EST) Hemoglobin A1C 9.4(H) <6.5 % LAB CHEMISTRY METHOD 12/01/2024 2:00 PM EST [facility] Mean Bld Glu Estim. 223 mg/dL LAB CHEMISTRY METHOD 12/01/2024 2:00 PM EST [facility] Blood Venous blood specimen / Unknown Venipuncture / Unknown 11/27/2024 6:07 AM EST 11/27/2024 11:06 AM EST Edmond Leija MD LAB BLOOD ORDERABLES Final Result [facility] [address] [place] [address], * (ABNORMAL) Comprehensive metabolic panel (11/27/2024 6:07 AM EST) Sodium 137 133 - 145 mmol/L LAB CHEMISTRY METHOD 11/27/2024 5:23 PM [facility] Potassium 4.3 3.5 - 5.5 mmol/L LAB CHEMISTRY METHOD 11/27/2024 5:23 PM [facility] Chloride 105 96 - 110 mmol/L LAB CHEMISTRY METHOD 11/27/2024 5:23 PM [facility] CO2 24 21 - 32 mmol/L LAB CHEMISTRY METHOD 11/27/2024 5:23 PM [facility] Anion Gap 8 3 - 11 LAB CHEMISTRY METHOD 11/27/2024 5:23 PM [facility] Glucose 185(H) 70 - 100 mg/dL LAB CHEMISTRY METHOD 11/27/2024 5:23 PM [facility] BUN 51(H) 5 - 25 mg/dL LAB CHEMISTRY METHOD 11/27/2024 5:23 PM [facility] Creatinine 1.54(H) 0.70 - 1.30 mg/dL LAB CHEMISTRY METHOD 11/27/2024 5:23 PM [facility] eGFR 49(L) >=60 mL/min/1. 73m2 LAB CHEMISTRY METHOD 11/27/2024 5:23 PM [facility] Comment:Calculation based on the??Chronic Kidney Disease Epidemiology Collaboration (CKD-EPI) equation refit??without adjustment for race. BUN/Creatinine Ratio 33.1 LAB CHEMISTRY METHOD 11/27/2024 5:23 PM [facility] Calcium 8.9 8.5 - 10.5 mg/dL LAB CHEMISTRY METHOD 11/27/2024 5:23 PM [facility] AST (SGOT) 46(H) 10 - 42 unit/L LAB CHEMISTRY METHOD 11/27/2024 5:23 PM [facility] ALT (SGPT) 78(H) 10 - 60 unit/L LAB CHEMISTRY METHOD 11/27/2024 5:23 PM [facility] Alkaline Phosphatase 100 42 - 121 unit/L LAB CHEMISTRY METHOD 11/27/2024 5:23 PM [facility] Total Protein 5.7(L) 6.0 - 8.0 g/dL LAB CHEMISTRY METHOD 11/27/2024 5:23 PM [facility] Albumin 2.6(L) 3.2 - 5.0 g/dL LAB CHEMISTRY METHOD 11/27/2024 5:23 PM [facility] Total Bilirubin 0.3 0.0 - 1.4 mg/dL LAB CHEMISTRY METHOD 11/27/2024 5:23 PM [facility] Blood Venous blood specimen / Unknown Venipuncture / Unknown 11/27/2024 6:07 AM EST 11/27/2024 11:06 AM EST Edmond Leija MD LAB BLOOD ORDERABLES Final Result [facility] [address] [place] [address], documented in this encounter Visit Diagnoses Diagnosis Anemia, unspecified Chronic kidney disease, unspecified Type 2 diabetes mellitus without complications documented in this encounter Additional Health Concerns Assessment Noted Time PHQ-9 Depression Total Score: 0 09/29/20 24 10:10 AM EST documented as of this encounter Care Teams Vp Lab Relationship Specialty Start Date End Date Quinn Jarrett MD [address] [place] [phone] PCP - General Internal Medicine 09/29/24 documented as of this encounter
--- OUTSIDE RECORDS SUMMARY | 2025-01-05 06:49 | XMS_ITS | Continuity of Care Document ---
Author Organization [facility] Address [address] [facility], [address] Floor, [address] [place] [address]- Care Team Providers Care [employer] Communications Sergeant Name Role Phone Not on Staff, PCP Primary Care Physician Unavail able Encounter [facility] Date(s): 12/04/24 - 01/03/25 [facility] [address] [facility] [address] Floor, [address] [place] [address]- Attending Physician: Lester Rincon Admitting Physician: AdmLester dominguez Referring Physician: Admtr ArRena Encounter Type: Triage Allergies, Adverse Reactions, Alerts No Known Allergies [...] virus vaccine, inactivated 06/07/10 Leonard rded SARS-CoV-2(COVID-19)mRNA-LNP vac([id number]) 08/20/24 Recorded tetanus-diphtheria toxoids (Td) 05/09/22 Recorded [...] 11/15/24 Status: Ordered Repeat number: 1 Pen Hurley, 31 G x 5 mm BD Ultra [...] Care Nurse Name: Shala Horne RN Position: [facility] [...] Professional Member Role: Lifetime Consulting Provider Address: [facility] [address] Telecom: Name: Armond Castro MD Position: [facility] Renal MD Member Role: Lifetime Consulting Physician Address: [facility] of [address] Telecom: Name: Micaela Fonseca RN Position: [facility] RN Member Role: Primary Care Nurse Name: Brigida Patel RN Position: [facility] RN Member Role: Primary Care Nurse Name: Alison Patel RN Position: [facility] RN Member Role: Primary Care Nurse Name: Not on Staff, PCP Position: [facility] Physician (General Medicine) Member Role: PCP Name: Tommy GUIDRY, Chung Position: [facility] Renal MD Member Role: Lifetime Consulting Physician Address: [address] [facility] [address] [facility] [address] Telecom: Name: Yessi Tavares RN Position: [facility] RN Member Role: Primary Care Nurse Care Team Related Persons Name: SONAL GONZALES [facility] Insurance Providers Guarantor name: [employer] Health Plan Information #: 1 Payer: [employer]RI[employer] MENA Member Number: NA Policy Number: NA Group Number: NA
--- OUTSIDE RECORDS SUMMARY | 2025-01-05 06:49 | XMS_ITS | Encounter Summary ---
Author Organization [facility] Address [address] [place] [address] Care Team Providers Care Pile Driving Supervisor Name Role Phone Quinn Jarrett MD Primary Care Provider +1- [phone] Encounter Details Date Type Department Care Team (Late st Contact Info) Description 12/03/2024 Lab Requisition [facility] - Main Lab 299 [facility] [place] [phone] Edmond Leija MD [address] [place] [address] Anemia, unspecified; Chronic kidney disease, unspecified Social [...] mmol/L LAB CHEMISTRY METHOD 12/04/2024 9:47 AM [facility] Potassium 5.6(H) 3.5 - 5.5 mmol/L LAB CHEMISTRY METHOD 12/04/2024 9:47 AM [facility] Chloride 107 96 - 110 mmol/L LAB CHEMISTRY METHOD 12/04/2024 9:47 AM [facility] CO2 25 21 - 32 mmol/L LAB CHEMISTRY METHOD 12/04/2024 9:47 AM [facility] Anion Gap 6 3 - 11 LAB CHEMISTRY METHOD 12/04/2024 9:47 AM [facility] Glucose 92 70 - 100 mg/dL LAB CHEMISTRY METHOD 12/04/2024 9:47 AM [facility] BUN 21 5 - 25 mg/dL LAB CHEMISTRY METHOD 12/04/2024 9:47 AM [facility] Creatinine 1.35(H) 0.70 - 1.30 mg/dL LAB CHEMISTRY METHOD 12/04/2024 9:47 AM [facility] eGFR 58(L) >=60 mL/min/1. 73m2 LAB CHEMISTRY METHOD 12/04/2024 9:47 AM EST [facility] Comment:Calculation based on the??Chronic Kidney Disease Epidemiology Collaboration (CKD-EPI) equation refit??without adjustment for race. BUN/Creatinine Ratio 15.6 LAB CHEMISTRY METHOD 12/04/2024 9:47 AM EST [facility] Calcium 8.9 8.5 - 10.5 mg/dL LAB CHEMISTRY METHOD 12/04/2024 9:47 AM [facility] Blood Venous blood specimen / Unknown Venipuncture / Unknown 12/04/2024 7:23 AM EST 12/04/2024 8:59 AM EST us Edmond Leija MD LAB BLOOD ORDERABLES Final Result [facility] [address] [place] [address], [place] [phone] * (ABNORMAL) Complete blood count (12/04/2024 7:23 AM EST) WBC 6.0 4.8 - 10.8 K/mcL LAB HEMETOLOGY METHOD 12/04/2024 9:14 AM [facility] RBC 3.70(L) 4.50 - 5.50 M/mcL LAB HEMETOLOGY METHOD 12/04/2024 9:14 AM [facility] [...] LAB HEMETOLOGY METHOD 12/04/2024 9:14 AM EST [facility] RDW 15.9(H) 11.0 - 15.0 % LAB HEMETOLOGY METHOD 12/04/2024 9:14 AM [facility] Platelets 318 130 - 400 K/mcL LAB HEMETOLOGY METHOD 12/04/2024 9:14 AM EST [facility] MPV 10.7 7.0 - 11.0 FL LAB HEMETOLOGY METHOD 12/04/2024 9:14 AM EST [facility] NRBC 0.0 <1.0 % LAB HEMETOLOGY METHOD 12/04/2024 9:14 AM [facility] NRBC Absolute 0.00 <0.10 K/mcL LAB HEMETOLOGY METHOD 12/04/2024 9:14 AM [facility] Blood Venous blood specimen / Unknown Venipuncture / Unknown 12/04/2024 7:23 AM EST 12/04/2024 8:59 AM EST Edmond Leija MD LAB BLOOD ORDERABLES Final Result [facility] [address] [place] [address], documented in this encounter Visit Diagnoses Diagnosis Anemia, unspecified Chronic kidney disease, unspecified documented in this encounter Additional Health Concerns Assessment Noted Time PHQ-9 Depression Total Score: 0 09/29/20 24 10:10 AM EST documented as of this encounter Care Teams Pile Driving Supervisor Relationship Specialty Start Date End Date Quinn Jarrett MD [address] [place] [address] [address] [place] [phone] PCP - General Internal Medicine 09/29/24 documented as of this encounter
--- OUTSIDE RECORDS SUMMARY | 2025-01-05 06:49 | XMS_ITS | Encounter Summary ---
Author Organization [facility] Address [address] [place] [address] Care Team Providers Care Inside Account Representative Name Role Phone Quinn Jarrett MD Primary Care Provider +1- [phone] Encounter Details Date Type Department Care Team (Late st Contact Info) Description 12/09/[address] [facility] - Main Lab 299 [facility] [id number] [place] [phone] Edmond Leija MD [address] [place] [address] Hyperkalemia Social History Tobacco Use Types Packs/Day [...] mmol/L LAB CHEMISTRY METHOD 12/09/2024 1:07 PM [facility] Potassium 5.1 3.5 - 5.5 mmol/L LAB CHEMISTRY METHOD 12/09/2024 1:07 PM [facility] Chloride 111(H) 96 - 110 mmol/L LAB CHEMISTRY METHOD 12/09/2024 1:07 PM [facility] CO2 23 21 - 32 mmol/L LAB CHEMISTRY METHOD 12/09/2024 1:07 PM [facility] Anion Gap 8 3 - 11 LAB CHEMISTRY METHOD 12/09/2024 1:07 PM [facility] Glucose 144(H) 70 - 100 mg/dL LAB CHEMISTRY METHOD 12/09/2024 1:07 PM [facility] BUN 27(H) 5 - 25 mg/dL LAB CHEMISTRY METHOD 12/09/2024 1:07 PM [facility] Creatinine 1.51(H) 0.70 - 1.30 mg/dL LAB CHEMISTRY METHOD 12/09/2024 1:07 PM [facility] eGFR 51(L) >=60 mL/min/1. 73m2 LAB CHEMISTRY METHOD 12/09/2024 1:07 PM [facility] Comment:Calculation based on the??Chronic Kidney Disease Epidemiology Collaboration (CKD-EPI) equation refit??without adjustment for race. BUN/Creatinine Ratio 17.9 LAB CHEMISTRY METHOD 12/09/2024 1:07 PM EDT [facility] Calcium 8.3(L) 8.5 - 10.5 mg/dL LAB CHEMISTRY METHOD 12/09/2024 1:07 PM EDT [facility] Blood Venous blood specimen / Unknown Venipuncture / Unknown 12/09/2024 9:12 AM EDT 12/09/2024 10:40 AM EDT us Edmond Leija MD LAB BLOOD ORDERABLES Final Result [facility] [address] [place] [address], documented in this encounter Visit Diagnoses Diagnosis Hyperkalemia Hyperpotassemia documented in this encounter Additional Health Concerns Assessment Noted Time PHQ-9 Depression Total Score: 0 09/29/20 24 10:10 AM EST documented as of this encounter Care Teams Inside Account Representative Relationship Specialty Start Date End Date Quinn Jarrett MD [address] [place] [address] [address] [place] [phone] PCP - General Internal Medicine 09/29/24 documented as of this encounter
--- OUTSIDE RECORDS SUMMARY | 2025-01-05 06:49 | XMS_ITS | Clinical Summary ---
Author Organization [facility] Address [address] [place] [address] Phone Care Team Providers Care Insurance Claims Supervisor Name Role Phone Quinn Jarrett MD Primary Care Provider [phone]- [phone] Allergies No known active allergies Medications acetaminophen [...] Encounters Date Type Department Care Team Description 12/17/2024 Lab Requisition [facility] [address] [place] [address] Edmond Leija MD Anemia, unspecified; Chronic kidney disease, unspecified 12/11/2024 Lab Requisition [facility] [address] [place] [address] Edmond Leija MD Anemia, unspecified; Chronic kidney disease, unspecified; Type 2 diabetes mellitus without complications (CMS/HCC); Essential (primary) hypertension 12/09/2024 Lab Requisition [facility] [address] [place] [address] Edmond Leija MD Hyperkalemia 12/03/2024 Lab Requisition [facility] [address] [place] [address] Edmond Leija MD Anemia, unspecified; Chronic kidney disease, unspecified 11/27/2024 Lab Requisition [facility] [address] [place] [address] Edmond Leija MD Anemia, unspecified; Chronic kidney disease, unspecified; Type 2 diabetes mellitus without complications ([facility]/HCC) 09/27/2024 1:39 PM EST - 10/08/2024 4:59 PM EST Hospital Encounter [facility] [address] [place] [address] Lata Sales DO Discharge Disposition: Short Term Hospital from Last 3 Months Medical History Medical History Date Comments HTN (hypertension) 09/28/2024 DM (diabetes mellitus) ([facility]/HCC) 09/28/2024 A-fib ([facility]/HCC) 09/28/2024 Chronic anticoagulation 09/28/2024 Mixed hyperlipidemia 09/28/2024 Gout 09/28/2024 Fall 09/28/2024 Closed head injury 09/28/2024 Contusion of left hip 09/28/2024 ARF (acute renal failure) ([facility]) 09/28/2024 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 Ventricular bigeminy [...] - PCV) 07/07/2009 07/07/2008, 01/28/2007 RSV Immunization Adult Patients (1 - Risk 60-74 years 1-dose series) [...] 10/08/2024 Diabetes: Annual GFR (Glomerular Filtration Rate) 12/11/2025 12/11/2024, 12/09/2024, 12/04/2024, Additional history exists Hypertension/CHF/CAD Annual BMP Blood Test 12/11/2025 12/11/2024, 12/09/2024, 12/04/2024, Additional history exists DTaP,Tdap,and Td Vaccines (4 [...] Procedure Name Priority Date/Time Associated Diagnosis Comments HEPATIC FUNCTION PANEL Routine 12/11/2024 7:44 AM EDT Anemia, unspecified Chronic kidney disease, unspecified Type 2 diabetes mellitus without complications (CMS/HCC) Essential (primary) hypertension BASIC METABOLIC PANEL Routine 12/11/2024 7:44 AM EDT Anemia, unspecified Chronic kidney disease, unspecified COMPLETE BLOOD COUNT Routine 12/11/2024 7:44 AM EDT Anemia, unspecified Chronic kidney disease, unspecified BASIC METABOLIC PANEL Routine 12/09/2024 9:12 AM [...] BLOOD Routine 10/07/2024 7: 17 AM EST from Last 3 Months Results * (ABNORMAL) Complete blood count (12/11/2024 7:44 AM EDT) Only the most recent of2 resultswithin the time period is included. [facility] WBC 6.6 4.8 - 10.8 K/mcL LAB HEMETOLOGY METHOD 12/11/2024 9:31 AM [facility] RBC 3.80(L) 4.50 - 5.50 M/mcL LAB HEMETOLOGY METHOD 12/11/2024 9:31 AM [facility] Hemoglobin 9.7(L) 13.5 - 17.5 g/dL LAB HEMETOLOGY METHOD 12/11/2024 9:31 AM [facility] Hematocrit 31.6(L) 42.0 - 54.0 % LAB HEMETOLOGY METHOD 12/11/2024 9:31 AM [facility] MCV 83.2 79.0 - 98.0 FL LAB HEMETOLOGY METHOD 12/11/2024 9:31 AM [facility] MCH 25.5(L) 27.0 - 32.0 pcg LAB HEMETOLOGY METHOD 12/11/2024 9:31 AM [facility] MCHC 30.7(L) 32.0 - 37.0 g/dL LAB HEMETOLOGY METHOD 12/11/2024 9:31 AM EDT [facility] RDW 16.3(H) 11.0 - 15.0 % LAB HEMETOLOGY METHOD 12/11/2024 9:31 AM EDT [facility] Platelets 235 130 - 400 K/mcL LAB HEMETOLOGY METHOD 12/11/2024 9:31 AM EDT [facility] MPV 10.7 7.0 - 11.0 FL LAB HEMETOLOGY METHOD 12/11/2024 9:31 AM EDT [facility] NRBC 0.0 <1.0 % LAB HEMETOLOGY METHOD 12/11/2024 9:31 AM EDT [facility] NRBC Absolute 0.00 <0.10 K/mcL LAB HEMETOLOGY METHOD 12/11/2024 9:31 AM EDT [facility] Blood Venous blood specimen / Unknown Venipuncture / Unknown 12/11/2024 7:44 AM EDT 12/11/2024 9:11 AM EDT Edmond Leija MD LAB BLOOD ORDERABLES Final Result [facility] [address] [place] [address], * (ABNORMAL) Hepatic function panel (12/11/2024 7:44 AM EDT) Total Protein 5.5(L) 6.0 - 8.0 g/dL LAB CHEMISTRY METHOD 12/11/2024 10:01 AM EDT [facility] Albumin 2.8(L) 3.2 - 5.0 g/dL LAB CHEMISTRY METHOD 12/11/2024 10:01 AM EDT [facility] Total Bilirubin 0.3 0.0 - 1.4 mg/dL LAB CHEMISTRY METHOD 12/11/2024 10:01 AM EDT [facility] Bilirubin, Direct <0.1 0.0 - 0.3 mg/dL LAB CHEMISTRY METHOD 12/11/2024 10:01 AM EDT [facility] Bilirubin, Indirect LAB CHEMISTRY METHOD 12/11/2024 10:01 AM [facility] Comment:Unable to calculate Indirect Bilirubin. ALT (SGPT) 30 10 - 60 unit/L LAB CHEMISTRY METHOD 12/11/2024 10:01 AM EDT [facility] AST (SGOT) 27 10 - 42 unit/L LAB CHEMISTRY METHOD 12/11/2024 10:01 AM [facility] Alkaline Phosphatase 105 42 - 121 unit/L LAB CHEMISTRY METHOD 12/11/2024 10:01 AM [facility] Blood Venous blood specimen / Unknown Venipuncture / Unknown 12/11/2024 7:44 AM EDT 12/11/2024 9:11 AM EDT us Edmond Leija MD LAB BLOOD ORDERABLES Final Result [facility] [address] [place] [address], * (ABNORMAL) Basic metabolic panel (12/11/2024 7:44 AM EDT) Only the most recent of3 resultswithin the time period is included. Sodium 139 133 - 145 mmol/L LAB CHEMISTRY METHOD 12/11/2024 9:59 AM [facility] Potassium 5.3 3.5 - 5.5 mmol/L LAB CHEMISTRY METHOD 12/11/2024 9:59 AM [facility] Chloride 109 96 - 110 mmol/L LAB CHEMISTRY METHOD 12/11/2024 9:59 AM [facility] CO2 26 21 - 32 mmol/L LAB CHEMISTRY METHOD 12/11/2024 9:59 AM EDT [facility] Anion Gap 4 3 - 11 LAB CHEMISTRY METHOD 12/11/2024 9:59 AM [facility] Glucose 85 70 - 100 mg/dL LAB CHEMISTRY METHOD 12/11/2024 9:59 AM [facility] BUN 34(H) 5 - 25 mg/dL LAB CHEMISTRY METHOD 12/11/2024 9:59 AM [facility] Creatinine 1.85(H) 0.70 - 1.30 mg/dL LAB CHEMISTRY METHOD 12/11/2024 9:59 AM [facility] eGFR 40(L) >=60 mL/min/1. 73m2 LAB CHEMISTRY METHOD 12/11/2024 9:59 AM [facility] Comment:Calculation based on the??Chronic Kidney Disease Epidemiology Collaboration (CKD-EPI) equation refit??without adjustment for race. BUN/Creatinine Ratio 18.4 LAB CHEMISTRY METHOD 12/11/2024 9:59 AM [facility] Calcium 8.7 8.5 - 10.5 mg/dL LAB CHEMISTRY METHOD 12/11/2024 9:59 AM [facility] Blood Venous blood specimen / Unknown Venipuncture / Unknown 12/11/2024 7:44 AM EDT 12/11/2024 9:11 AM EDT us Edmond Leija MD LAB BLOOD ORDERABLES Final Result [facility] [address] [place] [address], * (ABNORMAL) CBC auto differential (11/27/2024 6:07 AM EST) Only the most recent of2 resultswithin the time period is included. WBC 8.9 4.8 - 10.8 K/mcL LAB HEMETOLOGY METHOD 11/27/2024 1:03 PM EST [facility] RBC 3.70(L) 4.50 - 5.50 M/mcL LAB HEMETOLOGY METHOD 11/27/2024 1:03 PM [facility] Hemoglobin 9.4(L) 13.5 - 17.5 g/dL LAB HEMETOLOGY METHOD 11/27/2024 1:03 PM [facility] Hematocrit 30.6(L) 42.0 - 54.0 % LAB HEMETOLOGY METHOD 11/27/2024 1:03 PM [facility] MCV 83.8 79.0 - 98.0 FL LAB HEMETOLOGY METHOD 11/27/2024 1:03 PM [facility] MCH 25.8(L) 27.0 - 32.0 pcg LAB HEMETOLOGY METHOD 11/27/2024 1:03 PM [facility] MCHC 30.7(L) 32.0 - 37.0 g/dL LAB HEMETOLOGY METHOD 11/27/2024 1:03 PM [facility] RDW 16.0(H) 11.0 - 15.0 % LAB HEMETOLOGY METHOD 11/27/2024 1:03 PM [facility] Platelets 262 130 - 400 K/mcL LAB HEMETOLOGY METHOD 11/27/2024 1:03 PM [facility] MPV 11.3(H) 7.0 - 11.0 FL LAB HEMETOLOGY METHOD 11/27/2024 1:03 PM [facility] NRBC 0.0 <1.0 % LAB HEMETOLOGY METHOD 11/27/2024 1:03 PM [facility] NRBC Absolute 0.00 <0.10 K/mcL LAB HEMETOLOGY METHOD 11/27/2024 1:03 PM [facility] Neutrophils Relative 80.8 % LAB HEMETOLOGY METHOD 11/27/2024 1:03 PM [facility] Lymphocytes Relative 9.4 % LAB HEMETOLOGY METHOD 11/27/2024 1:03 PM [facility] Monocytes Relative 5.3 % LAB HEMETOLOGY METHOD 11/27/2024 1:03 PM [facility] Eosinophils Relative 2.5 % LAB HEMETOLOGY METHOD 11/27/2024 1:03 PM [facility] Basophils Relative 0.3 % LAB HEMETOLOGY METHOD 11/27/2024 1:03 PM [facility] Immature Granulocytes Relative 1.7 % LAB HEMETOLOGY METHOD 11/27/2024 1:03 PM [facility] Neutrophils Absolute 7.18(H) 1.50 - 7.00 K/mcL LAB HEMETOLOGY METHOD 11/27/2024 1:03 PM [facility] Lymphocytes Absolute 0.84(L) 1.00 - 5.00 K/mcL LAB HEMETOLOGY METHOD 11/27/2024 1:03 PM [facility] Monocytes Absolute 0.47 0.20 - 1.00 K/mcL LAB HEMETOLOGY METHOD 11/27/2024 1:03 PM [facility] Eosinophils Absolute 0.22 0.00 - 0.50 K/mcL LAB HEMETOLOGY METHOD 11/27/2024 1:03 PM [facility] Basophils Absolute 0.03 0.00 - 0.20 K/mcL LAB HEMETOLOGY METHOD 11/27/2024 1:03 PM [facility] Immature Granulocytes Absolute 0.15(H) 0.00 - 0.03 K/mcL LAB HEMETOLOGY METHOD 11/27/2024 1:03 PM [facility] Blood Venous blood specimen / Unknown Venipuncture / Unknown 11/27/2024 6:07 AM EST 11/27/2024 11:06 AM EST us Edmond Leija MD LAB BLOOD ORDERABLES Final Result [facility] [address] [place] [address], [place] [phone] * (ABNORMAL) Hemoglobin A1c (11/27/2024 6:07 AM EST) Pathologist [facility] Hemoglobin A1C 9.4(H) <6.5 % LAB CHEMISTRY METHOD 12/01/2024 2:00 PM EST [facility] Mean Bld Glu Estim. 223 mg/dL LAB CHEMISTRY METHOD 12/01/2024 2:00 PM [facility] Blood Venous blood specimen / Unknown Venipuncture / Unknown 11/27/2024 6:07 AM EST 11/27/2024 11:06 AM EST us Edmond Leija MD LAB BLOOD ORDERABLES Final Result Performing Organization Address [facility]/ZIP Co de Phone Number [facility] [address] [place] [address], [place] [phone] * (ABNORMAL) Comprehensive metabolic panel (11/27/2024 6:07 AM EST) Only the most recent of2 resultswithin the time period is included. [facility] Sodium 137 133 - 145 mmol/L LAB CHEMISTRY METHOD 11/27/2024 5:23 PM [facility] Potassium 4.3 3.5 - 5.5 mmol/L LAB CHEMISTRY METHOD 11/27/2024 5:23 PM [facility] Chloride 105 96 - 110 mmol/L LAB CHEMISTRY METHOD 11/27/2024 5:23 PM [facility] CO2 24 21 - 32 mmol/L LAB CHEMISTRY METHOD 11/27/2024 5:23 PM [facility] Anion Gap 8 3 - 11 LAB CHEMISTRY METHOD 11/27/2024 5:23 PM [facility] Glucose 185(H) 70 - 100 mg/dL LAB CHEMISTRY METHOD 11/27/2024 5:23 PM [facility] BUN 51(H) 5 - 25 mg/dL LAB CHEMISTRY METHOD 11/27/2024 5:23 PM [facility] Creatinine 1.54(H) 0.70 - 1.30 mg/dL LAB CHEMISTRY METHOD 11/27/2024 5:23 PM [facility] eGFR 49(L) >=60 mL/min/1. 73m2 LAB CHEMISTRY METHOD 11/27/2024 5:23 PM [facility] Comment:Calculation based on the??Chronic Kidney Disease Epidemiology Collaboration (CKD-EPI) equation refit??without adjustment for race. BUN/Creatinine Ratio 33.1 LAB CHEMISTRY METHOD 11/27/2024 5:23 PM [facility] Calcium 8.9 8.5 - 10.5 mg/dL LAB CHEMISTRY METHOD 11/27/2024 5:23 PM [facility] AST (SGOT) 46(H) 10 - 42 unit/L LAB CHEMISTRY METHOD 11/27/2024 5:23 PM [facility] ALT (SGPT) 78(H) 10 - 60 unit/L LAB CHEMISTRY METHOD 11/27/2024 5:23 PM [facility] Alkaline Phosphatase 100 42 - 121 unit/L LAB CHEMISTRY METHOD 11/27/2024 5:23 PM [facility] Total Protein 5.7(L) 6.0 - 8.0 g/dL LAB CHEMISTRY METHOD 11/27/2024 5:23 PM [facility] Albumin 2.6(L) 3.2 - 5.0 g/dL LAB CHEMISTRY METHOD 11/27/2024 5:23 PM [facility] Total Bilirubin 0.3 0.0 - 1.4 mg/dL LAB CHEMISTRY METHOD 11/27/2024 5:23 PM [facility] Blood Venous blood specimen / Unknown Venipuncture / Unknown 11/27/2024 6:07 AM EST 11/27/2024 11:06 AM EST Edmond Leija MD LAB BLOOD ORDERABLES Final Result Performing Organization Address [facility]/ZIP Co de Phone Number [facility] [address] [place] [address], [place] [phone] * (ABNORMAL) POCT Glucose, blood (10/08/2024 4:11 PM EST) Only the most recent of8 resultswithin the time period is included. [facility] Glucose POCT 176(H) 70 - 100 mg/dL 10/08/2024 4:25 PM EST [facility] Blood Capillary blood specimen / Unknown 10/08/2024 4:11 PM EST 10/08/2024 4:27 PM EST Lata Sales DO LAB POINT OF CARE TEST DOCKED DEVICE UNSOLICITED RESULTS Final Result Performing Organization Address [facility] de Phone Number [facility] [address] [place] [address], [place] [phone] * CT Head wo Contrast (10/08/2024 2:49 [...] Signed Date: 10/08/2024 16:02 ET Workstation ID: [id number] Transcribed By: Self Edit Transcribed Date: 10/08/2024 15:52 ET Narrative 10/08/2024 4:02 PM EST INDICATION: Subdural hematoma, functional decline Technique: Axial images were obtained from the skull base to the vertex without contrast enhancement. Coronal and sagittal reformats obtained. Scanner: [employer] LightSpeed 64 slice VCT Dose reduction technique: [...] enhancement. Coronal and sagittal reformats obtained. Scanner: [employer] LightSpeed 64 slice VCT Dose reduction technique: [...] Signed Date: 10/08/2024 16:02 ET Workstation ID: [id number] Transcribed By: Self Edit Transcribed Date: 10/08/2024 15:52 ET Lata Sales DO IMG CT PROCEDURES Final R esult from Last 3 Months Insurance [employer] MEDICARE Advance Directives Documents on File Type Date Recorded Patient Business Objects Analyst Expl anation Advance Directives and Livin g [...] currently active code status orders. Care Teams Insurance Claims Supervisor Relationship Specialty Start Date End Date Quinn Jarrett MD [address] [place] [address] [facility] [address] [place] [address] PCP - General Internal Medicine 09/29/24
--- OUTSIDE RECORDS SUMMARY | 2025-01-05 06:49 | XMS_ITS | Continuity of Care Document ---
Author Organization [facility] Address [address] [facility], [address] d Floor, [address] [place] [address]- Care Team Providers Care Compress Machine Operator Name Role Phone Not on Staff, PCP Primary Care Physician Unavail able Encounter [facility] Date(s): 11/17/24 - 01/03/25 [facility] [address] Floor, [address] [place] [address]- Attending Physician: Beck Huerta MD Admitting Physician: Beck Huerta MD Referring Physician: Ramesh Wilson MD Encounter Type: Pre-OutPatient One Time Allergies, Adverse Reactions, Alerts No Known Allergies [...] virus vaccine, inactivated 06/07/10 Leonard rded SARS-CoV-2(COVID-19)mRNA-LNP vac([id number]) 08/20/24 Recorded tetanus-diphtheria toxoids (Td) 05/09/22 Recorded [...] 11/15/24 Status: Ordered Repeat number: 1 Pen Bascom, 31 G x 5 mm BD Ultra [...] Care Nurse Name: Shivani Carlson RN Position: [facility] RN Member Role: Primary Care Nurse Name: Shala Horne RN Position: [facility] RN Member Role: Primary Care Nurse Name: Rhoda Starr RN Position: S RN Member Role: Primary Care Nurse Name: Candy Goodson RN Position: [facility] RN Member Role: Primary Care Nurse Name: Lainey Bustillo Position: [facility] RN Member Role: Primary Care Nurse Name: France Stover RN Position: [facility] RN Member Role: Primary Care Nurse Name: Matilda Monk RN Position: [facility] RN Member Role: Primary Care Nurse Name: Iraj Jordan RN Position: [facility] RN Member Role: Primary Care Nurse Name: Harpreet Haywood RN Position: [facility] RN Member Role: Primary Care Nurse Name: Marisa Erwin RN Position: [facility] RN Member Role: Primary Care Nurse Name: Nisha Miller NP Position: [facility] Associate Professional Member Role: Lifetime Consulting Provider Address: [address] [place], [place] [address] [address] Telecom: Name: Armond Castro MD Position: [facility] Renal Member Role: Lifetime Consulting Physician Address: [address] [place], [place] [address]E [facility] [address] Telecom: Name: Micaela Fonseca RN Position: [facility] RN Member Role: Primary Care Nurse Name: Brigida Patel RN Position: [facility] RN Member Role: Primary Care Nurse Name: Alison Patel RN Position: [facility] RN Member Role: Primary Care Nurse Name: Not on Staff, PCP Position: [facility] Physician (General Medicine) Member Role: PCP Name: Tommy GUIDRY, Chung Position: [facility] Renal MD Member Role: Lifetime Consulting Physician Address: [address] [facility] [address] [facility] [address] Telecom: Name: Yessi Tavares RN Position: [facility] RN Member Role: Primary Care Nurse Name: Tamara Lovell RN Position: [facility] RN Member Role: Primary Care Nurse Name: Hakan Soto RN Position: [facility] RN Member Role: Primary Care Nurse Name: Katia Sahni RN Position: [facility] RN Member Role: Primary Care Nurse Care Team Related Persons Name: SONAL GONZALES Name: [facility] PROXY, VIVI Insurance Providers Guarantor name: NA Health Plan Information #: 1 Payer: [employer] PPO [employer] ADV Member Number: [id number] Policy Number: NA Group Number: [id number] Health Plan Information #: 2 Payer: [employer] PPO [employer] Member Number: [id number] Policy Number: NA Group Number: NA
--- OUTSIDE RECORDS SUMMARY | 2025-01-05 06:49 | XMS_ITS | Encounter Summary ---
Author Organization [facility] Address [address] [place] [address] Care Team Providers Care Sales Representative Printing Name Role Phone Quinn Jarrett MD Primary Care Provider [phone]- [phone] Encounter Details Date Type Department Care Team (Late st Contact Info) Description 12/17/2024 Lab Requisition [facility] [address] [facility] [place] [id number] Edmond Leija MD [address] [place] [id number] Anemia, unspecified; Chronic kidney disease, unspecified Social [...] on file documented as of this encounter Visit Diagnoses Diagnosis Anemia, unspecified Chronic kidney disease, unspecified documented in this encounter Additional Health Concerns Assessment Noted Time PHQ-9 Depression Total Score: 0 09/29/20 10:10 AM EST documented as of this encounter Care Teams Sales Representative Printing Relationship Specialty Start Date End Date Quinn Jarrett MD [address] [place] [address] [address] [address] PCP - General Internal Medicine 09/29/24 documented as of this encounter
== END 2025-01-05 06:48 | disposition home or self-care (01) ==
LOC: HO.CT 06:47
PROVIDERS: Visit Provider Orthopaedic Surgery
DX: M25.641 Stiffness of right hand, not elsewhere classified (principal); S52.501A Unspecified fracture of the lower end of right radius, initial encounter for closed fracture
CPT/HCPCS: 73200

== ENCOUNTER → 2025-01-05 06:49 | Outpatient (BNV) | payer MEDICARE, SELFPAY | PROVIDERS: Visit Provider Radiology Diagnostic Radiology | DX: S52.501A Unspecified fracture of the lower end of right radius, initial encounter for closed fracture (principal) | CPT/HCPCS: 73200 ==